=== PATIENT | male | born 1945 | race Caucasian/White ===

== ENCOUNTER → 2017-09-04 09:19 | Outpatient (CLI) | payer MEDICARE, OTHER, SELFPAY ==
[2017-09-04 09:40] LABS: Add Manual Diff / Slide Review NO; Basophils Percent Auto 0.7 % (0-2); Eosinophils Percent Auto 4.3 % (2-4); Hematocrit 34.9 % (41-53); Hemoglobin 11.5 g/dL (13.5-17.5); Mean Corpuscular HGB Conc 32.9 % (30-36); Mean Corpuscular Volume 100.2 fL (80-100); Monocytes Percent Auto 12.3 % (3-14); Neutrophils Absolute Auto 3700 /uL (3000-5900); Neutrophils Percent Auto 71.7 % (50-75); Platelet Count 220 X10^3/uL (150-400); Red Blood Cell Count 3.49 X10^6/uL (4.5-5.9); Red Cell Distribution Width 14.3 % (11.6-14.8); White Blood Cell Count 5.1 X10^3/uL (4.5-11.0)
[2017-09-04 10:02] LABS: Hemoglobin A1C% w Est Avg Glu 5.7 % (4.0-6.0)
[2017-09-04 11:25] LABS: Alanine Aminotransferase 35 IU/L (21-72); Albumin 4.1 g/dL (3.5-5.0); Albumin Globulin Ratio 1.6 (1.0-2.8); Alkaline Phosphatase 57 U/L (38-126); Aspartate Aminotransferase 33 IU/L (17-59); BUN Creatinine Ratio 22.7 (6-22); Bilirubin Total 0.7 mg/dL (0.2-1.3); Blood Urea Nitrogen 25 mg/dL (9-20); Calcium 9.6 mg/dL (8.4-10.2); Carbon Dioxide 28 mmol/L (22-32); Chloride 100 mmol/L (98-107); Cholesterol 186 mg/dL (140-199); Estimated Glomerular Filt Rate > 60.0 mL/min (>60); Globulin 2.6 g/dL (1.7-4.1); Glucose 99 mg/dL (80-110); HEMOLYSIS < 15 (0-50); Potassium 4.2 mmol/L (3.4-5.1); Sodium 137 mmol/L (137-145); Total Protein 6.7 g/dL (6.3-8.2); Triglycerides 57 mg/dL (35-150)
[2017-09-04 11:34] LABS: HDL Cholesterol 129 mg/dL (40-60); LDL Cholesterol Calculated 46 mg/dL (<100)
[2017-09-09 16:37] LABS: HEMOLYSIS < 15 (0-50); Iron 57 ug/dL (49-181)
[2017-09-09 16:48] LABS: Percent Iron Saturation 16 % (20-50); Total Iron Binding Capacity 352 ug/dL (261-462); Transferrin 284 mg/dL (206-381)
[2017-09-09 17:14] LABS: Ferritin 44.6 ng/mL (17.9-464)
== END ==
PROVIDERS: PCP Internal Medicine; Visit Provider Internal Medicine
DX: E11.9 Type 2 diabetes mellitus without complications (principal); I48.91 Unspecified atrial fibrillation; N18.9 Chronic kidney disease, unspecified
CPT/HCPCS: 36415; 80053; 80061; 82728; 83036; 83540; 83550; 85025

== ENCOUNTER → 2018-02-17 14:33 | Outpatient (CLI) | payer MEDICARE, OTHER, SELFPAY ==
--- NOTE | 2018-02-17 | DI.RAD.S_ITS ---
PROCEDURE: XR CHEST 2V INDICATIONS: Acute bronchiolitis, unspecified TECHNIQUE: 2 views of the chest were acquired. COMPARISON: [facility], , CHEST 2 VIEW, 12/15/2006, 15:01. FINDINGS: Surgical changes and devices: None. Lungs and pleura: No pleural effusions or pneumothorax. Mildly increased vascular markings and bilateral hilar region are seen with mild bronchial wall thickening consistent with reactive airway disease. No focal infiltrate. Mediastinum: Mediastinal contours are normal. Heart size is mildly enlarged. Bones and chest wall: No suspicious bony abnormalities. Soft tissues appear unremarkable. IMPRESSION: Findings consistent with reactive airway disease such as bronchitis. No definite focal infiltrate. Dictated by: Wilbert Fuchs M.D. on 02/17/2018 at 16:14 Approved by: Wilbert Fuchs M.D. on 02/17/2018 at 16:15
== END ==
PROVIDERS: PCP Internal Medicine; Visit Provider Internal Medicine
DX: J21.9 Acute bronchiolitis, unspecified (principal)
CPT/HCPCS: 71046

== ENCOUNTER 2018-04-05 12:51 | Emergency (ER) | payer MEDICARE, OTHER, SELFPAY ==
[2018-04-05 12:55] VITALS: BP 163/83; PULSE 77; RESP 16; TEMP 36.3; O2SAT 98; BMI 29.5
--- NOTE | 2018-04-05 13:29 | ED.LOWEXIN ---
HPI - Extremity Injury (Lower) <BISMARK Garcia - Last Filed: 04/05/18 21:56> General Chief Complaint: Extremity Injury, Lower Stated Complaint: banged his left lofton, states large hematoma/infect Time Seen by Provider: 04/05/18 13:29 Source: patient Mode of arrival: ambulatory Limitations: no limitations History of Present Illness HPI Narrative: 72-year-old male with history of kidney replacement and type 2 diabetes that is a nonsmoker here for complaint hematoma to his left anterior lofton over the past week. He reports that he accidentally bumped it while he was stepping on into a telephone pole. He was seen by primary care provider last week he reports that the hematoma to the lofton has decreased in size however he does report that there is some discoloration around that area they are concerned for infection. He denies any new trauma to the area. He is ambulatory into the emergency room. No fevers no chills. He does report there has been a couple times when he has had some small amount of bleeding from the area no purulent drainage. He is currently on warfarin due to AFib. MD complaint: leg injury Related Data Home Medications Medication Instructions Recorded Confirmed atorvastatin 10 mg tablet 10 mg PO DAILY 08/29/17 08/29/17 metformin 850 mg tablet 850 mg PO DAILY 08/29/17 08/29/17 metoprolol succinate ER 25 mg 25 mg PO DAILY 08/29/17 08/29/17 tablet,extended release 24 hr mycophenolate sodium 180 mg 720 mg PO BID 08/29/17 08/29/17 tablet,delayed release niacinamide 500 mg tablet 500 mg PO DAILY 08/29/17 08/29/17 pioglitazone 45 mg tablet 45 mg PO DAILY 08/29/17 08/29/17 prednisolone 5 mg tablet 5 mg PO DAILY 08/29/17 08/29/17 tacrolimus 1 mg capsule 1 mg PO Q12H 08/29/17 08/29/17 terazosin 5 mg capsule 5 mg PO DAILY 08/29/17 08/29/17 warfarin 4 mg tablet 4 mg PO DAILY 08/29/17 08/29/17 Previous Rx's Medication Instructions Recorded mupirocin 1 applictn TOP BID 7 Days #15 gram 04/05/18 Allergies Allergy/AdvReac Type Severity Reaction Status Date / Time No Known Drug Allergies Allergy Verified 04/05/18 12:55 Review of Systems <BISMARK Garcia - Last Filed: 04/05/18 21:56> Eyes Denies change in vision, Denies eye discharge, Denies irritation and Denies loss of vision ENT Ears, Nose, Mouth, and Throat: Denies change in voice, Denies neck pain and Denies sore throat Cardiovascular Denies chest pain, Denies irregular heart rhythm, Denies lightheadedness, Denies palpitations, Denies dyspnea, Denies dyspnea on exertion and Denies orthopnea Respiratory Denies cough, Denies dyspnea, Denies dyspnea on exertion and Denies wheezing Gastrointestinal Gastrointestinal: Denies abdominal pain, Denies change in bowel habits, Denies diarrhea, Denies nausea and Denies vomiting Genitourinary Denies hematuria, Denies flank pain, Denies urinary incontinence and Denies urinary urgency Musculoskeletal Denies neck pain Comments: Hematoma to left anterior lofton Integumentary/Breasts Denies pruritus, Denies erythema, Denies rash and Denies wounds Neurologic Denies confusion and Denies loss of vision Psychiatric Denies anxiety, Denies confusion, Denies depression, Denies homicidal ideation and Denies suicidal ideation Endocrine Denies palpitations Hematologic/Lymphatic Denies easy bruising Allergic/Immunologic Denies wheezing PFSH <BISMARK Garcia - Last Filed: 04/05/18 21:56> Social History Smoking Status: Never smoker Social History Smoking Status: Never smoker Exam <BISMARK Garcia - Last Filed: 04/05/18 21:56> Initial Vital Signs Initial Vital Signs: Vital Signs Temperature 97.4 F L 04/05/18 12:55 Pulse Rate 77 04/05/18 12:55 Respiratory Rate 16 04/05/18 12:55 Blood Pressure 163/83 H 04/05/18 12:55 Pulse Oximetry 98 04/05/18 12:55 Const General: cooperative and well developed Nutritional Appearance: well nourished Orientation: alert, awake, oriented x3 and not confused HENMT Mouth: oral mucosae normal, oropharynx normal and moist mucous membranes Eyes Conjunctivae: conjunctivae normal Sclera: sclerae normal Pupils: PERRL EOM: EOM intact bilaterally Resp Effort & Inspection: normal respiratory effort, able to speak in complete sentences, no respiratory distress and no use of accessory muscles Auscultation: clear to auscultation bilaterally, no rales, no rhonchi and no wheezes Cardio Rate: regular rate Rhythm: abnormal rhythm regularly irregular Heart Sounds: no click, no gallops, no murmurs and no rubs Skin General: no rashes or lesions noted, No jaundice and No petechiae Neuro General: alert, oriented x3, gait normal and no focal motor deficits Speech: speech normal Extrem Other: Hematoma to the left anterior lofton. Slight amount of erythema to the hematoma foundry. No significant signs of infection. No induration no fluctuance. Dependent ecchymosis distally from the hematoma. Distal sensation is intact. Distal pulses are intact distal range of motion is intact <Chilango Arita DO - Last Filed: 04/08/18 07:06> Initial Vital Signs Initial Vital Signs: Vital Signs Temperature 97.4 F L 04/05/18 12:55 Pulse Rate 77 04/05/18 12:55 Respiratory Rate 16 04/05/18 12:55 Blood Pressure 163/83 H 04/05/18 12:55 Pulse Oximetry 98 04/05/18 12:55 Course <BISMARK Garcia - Last Filed: 04/05/18 21:56> Orders Ordered: ED Orders 04/05/18 14:15 Complete Blood Count AUTO DIFF Stat Comprehensive Metabolic Panel Stat Procalcitonin Stat Prothrombin Time INR Stat Vital Signs - 8 hr 04/05/18 16:13 Pulse Rate 69 Respiratory Rate 15 Blood Pressure 145/78 H Pulse Oximetry 100 <DO Ginger Garrett Last Filed: 04/08/18 07:06> Orders Ordered: ED Orders 04/05/18 14:15 Complete Blood Count AUTO DIFF Stat Comprehensive Metabolic Panel Stat Procalcitonin Stat Prothrombin Time INR Stat Vital Signs - 8 hr 04/05/18 16:13 Pulse Rate 69 Respiratory Rate 15 Blood Pressure 145/78 H Pulse Oximetry 100 MDM - Extremity Injury (Lower) <BISMARK Garcia - Last Filed: 04/05/18 21:56> Lab Data Result diagrams: 04/05/18 14:15 04/05/18 14:15 Lab Results 04/05/18 04/05/18 04/05/18 Range/Units 14:15 14:15 14:15 WBC 7.4 (4.5-11.0) X10^3/uL RBC 3.65 L (4.5-5.9) X10^6/uL Hgb 12.0 L (13.5-17.5) g/dL Hct 36.4 L (41-53) % MCV 99.6 (80-100) fL MCH 32.9 (26-34) PG MCHC 33.1 (30-36) % RDW 15.0 H (11.6-14.8) % Plt Count 218 (150-400) X10^3/uL Neut % (Auto) 83.9 H (50-75) % Lymph % (Auto) 6.6 L (25-40) % [place] % (Auto) 8.6 (3-14) % Eos % (Auto) 0.7 L (2-4) % Baso % (Auto) 0.2 (0-2) % Neut # (Auto) 6200 (9098-5001) /uL Lymph # (Auto) 500 L (7580-6478) /uL [place] # (Auto) 600 (0-900) /uL Eos # (Auto) 0 (0-450) /uL Baso # (Auto) 0 (0-100) /uL PT 16.6 H (10.1-12.7) SECONDS INR 1.4 H (0.9-1.3) Sodium (137-145) mmol/L Potassium (3.4-5.1) mmol/L Chloride (98-107) mmol/L Carbon Dioxide (22-32) mmol/L BUN (9-20) mg/dL Creatinine (0.66-1.25) mg/dL Estimated GFR (>60) mL/min BUN/Creatinine Ratio (6-22) Glucose (80-110) mg/dL Calcium (8.4-10.2) mg/dL Total Bilirubin (0.2-1.3) mg/dL AST (17-59) IU/L ALT (21-72) IU/L Alkaline Phosphatase (38-126) U/L Total Protein (6.3-8.2) g/dL Albumin (3.5-5.0) g/dL Globulin (1.7-4.1) g/dL Albumin/Globulin Ratio (1.0-2.8) Procalcitonin < 0.05 (<0.5) ng/mL 04/05/18 Range/Units 14:15 WBC (4.5-11.0) X10^3/uL RBC (4.5-5.9) X10^6/uL Hgb (13.5-17.5) g/dL Hct (41-53) % MCV (80-100) fL MCH (26-34) PG MCHC (30-36) % RDW (11.6-14.8) % Plt Count (150-400) X10^3/uL Neut % (Auto) (50-75) % Lymph % (Auto) (25-40) % [place] % (Auto) (3-14) % Eos % (Auto) (2-4) % Baso % (Auto) (0-2) % Neut # (Auto) (4551-4927) /uL Lymph # (Auto) (0494-9451) /uL [place] # (Auto) (0-900) /uL Eos # (Auto) (0-450) /uL Baso # (Auto) (0-100) /uL PT (10.1-12.7) SECONDS INR (0.9-1.3) Sodium 135 L (137-145) mmol/L Potassium 4.9 (3.4-5.1) mmol/L Chloride 100 (98-107) mmol/L Carbon Dioxide 26 (22-32) mmol/L BUN 30 H (9-20) mg/dL Creatinine 1.10 (0.66-1.25) mg/dL Estimated GFR > 60.0 (>60) mL/min BUN/Creatinine Ratio 27.3 H (6-22) Glucose 147 H (80-110) mg/dL Calcium 10.0 (8.4-10.2) mg/dL Total Bilirubin 0.6 (0.2-1.3) mg/dL AST 32 (17-59) IU/L ALT 27 (21-72) IU/L Alkaline Phosphatase 52 (38-126) U/L Total Protein 7.1 (6.3-8.2) g/dL Albumin 4.4 (3.5-5.0) g/dL Globulin 2.7 (1.7-4.1) g/dL Albumin/Globulin Ratio 1.6 (1.0-2.8) Procalcitonin (<0.5) ng/mL ECG Data Interpretation: EKG shows sinus rhythm with no ST elevation or depression. No ectopy. Ventricular rate of 67. Pr interval of 175. QRS duration of 150. QTC of 419. MDM Narrative Medical decision making narrative: CBC was obtained and shows anemia with hemoglobin at 12 and 36 however is consistent with prior lab values. INR was at 1.4 subtherapeutic however patient has not taking his warfarin for a few days due to the hematoma. He is currently taking his warfarin again. Chem panel was obtained was unremarkable. Procalcitonin was negative. Do not appreciate signs of infection at this timeframe. Discoloration presents as dependent ecchymosis secondary to the hematoma and healing. However Will treat conservatively with topical antibiotic mupirocin at this point follow up with primary care provider next few days for re-evaluation. Use [id number] Tylenol as needed for any discomfort. For any worsening symptoms return to the emergency room. <Chilango Arita DO - Last Filed: 04/08/18 07:06> Lab Data Lab Results 04/05/18 04/05/18 04/05/18 Range/Units 14:15 14:15 14:15 WBC 7.4 (4.5-11.0) X10^3/uL RBC 3.65 L (4.5-5.9) X10^6/uL Hgb 12.0 L (13.5-17.5) g/dL Hct 36.4 L (41-53) % MCV 99.6 (80-100) fL MCH 32.9 (26-34) PG MCHC 33.1 (30-36) % RDW 15.0 H (11.6-14.8) % Plt Count 218 (150-400) X10^3/uL Neut % (Auto) 83.9 H (50-75) % Lymph % (Auto) 6.6 L (25-40) % [place] % (Auto) 8.6 (3-14) % Eos % (Auto) 0.7 L (2-4) % Baso % (Auto) 0.2 (0-2) % Neut # (Auto) 6200 (1180-9081) /uL Lymph # (Auto) 500 L (0631-5538) /uL [place] # (Auto) 600 (0-900) /uL Eos # (Auto) 0 (0-450) /uL Baso # (Auto) 0 (0-100) /uL PT 16.6 H (10.1-12.7) SECONDS INR 1.4 H (0.9-1.3) Sodium (137-145) mmol/L Potassium (3.4-5.1) mmol/L Chloride (98-107) mmol/L Carbon Dioxide (22-32) mmol/L BUN (9-20) mg/dL Creatinine (0.66-1.25) mg/dL Estimated GFR (>60) mL/min BUN/Creatinine Ratio (6-22) Glucose (80-110) mg/dL Calcium (8.4-10.2) mg/dL Total Bilirubin (0.2-1.3) mg/dL AST (17-59) IU/L ALT (21-72) IU/L Alkaline Phosphatase (38-126) U/L Total Protein (6.3-8.2) g/dL Albumin (3.5-5.0) g/dL Globulin (1.7-4.1) g/dL Albumin/Globulin Ratio (1.0-2.8) Procalcitonin < 0.05 (<0.5) ng/mL 04/05/18 Range/Units 14:15 WBC (4.5-11.0) X10^3/uL RBC (4.5-5.9) X10^6/uL Hgb (13.5-17.5) g/dL Hct (41-53) % MCV (80-100) fL MCH (26-34) PG MCHC (30-36) % RDW (11.6-14.8) % Plt Count (150-400) X10^3/uL Neut % (Auto) (50-75) % Lymph % (Auto) (25-40) % [place] % (Auto) (3-14) % Eos % (Auto) (2-4) % Baso % (Auto) (0-2) % Neut # (Auto) (4075-7921) /uL Lymph # (Auto) (4811-2439) /uL [place] # (Auto) (0-900) /uL Eos # (Auto) (0-450) /uL Baso # (Auto) (0-100) /uL PT (10.1-12.7) SECONDS INR (0.9-1.3) Sodium 135 L (137-145) mmol/L Potassium 4.9 (3.4-5.1) mmol/L Chloride 100 (98-107) mmol/L Carbon Dioxide 26 (22-32) mmol/L BUN 30 H (9-20) mg/dL Creatinine 1.10 (0.66-1.25) mg/dL Estimated GFR > 60.0 (>60) mL/min BUN/Creatinine Ratio 27.3 H (6-22) Glucose 147 H (80-110) mg/dL Calcium 10.0 (8.4-10.2) mg/dL Total Bilirubin 0.6 (0.2-1.3) mg/dL AST 32 (17-59) IU/L ALT 27 (21-72) IU/L Alkaline Phosphatase 52 (38-126) U/L Total Protein 7.1 (6.3-8.2) g/dL Albumin 4.4 (3.5-5.0) g/dL Globulin 2.7 (1.7-4.1) g/dL Albumin/Globulin Ratio 1.6 (1.0-2.8) Procalcitonin (<0.5) ng/mL Discharge Plan Departure Patient Disposition: Home Clinical Impression: Hematoma of left lower extremity Qualifiers: Encounter type: initial encounter Qualified Code(s): S80.12XA - Contusion of left lower leg, initial encounter Discharge Date/Time: 04/05/18 16:14 Interventions: ED Discharge Assessment Last Done: 04/05/18 16:13 Instructions: DI for Hematoma (Bruise) Activity Restrictions/Additional Instructions: Laboratory results today were unremarkable with exception of iron are which was low at 1.4 continue taking the Coumadin as prescribed. Follow-up with your primary care provider in the next couple days for re-evaluation. Do not appreciate significant signs of infection at this time. Topical antibiotic is prescribed use as directed. Use [id number] Tylenol as needed for any discomfort. For any worsening symptoms return to the emergency room. Prescriptions: New mupirocin 2 % ointment 1 applictn TOP BID 7 Days Qty: 15 RF: 0 No Action tacrolimus 1 mg capsule 1 mg PO Q12H RF: 0 mycophenolate sodium 180 mg tablet,delayed release (DR/EC) 720 mg PO BID RF: 0 prednisolone 5 mg tablet 5 mg PO DAILY RF: 0 terazosin 5 mg capsule 5 mg PO DAILY RF: 0 metoprolol succinate 25 mg tablet extended release 24 hr 25 mg PO DAILY RF: 0 atorvastatin 10 mg tablet 10 mg PO DAILY RF: 0 pioglitazone [Actos] 45 mg tablet 45 mg PO DAILY RF: 0 metformin 850 mg tablet 850 mg PO DAILY RF: 0 warfarin 4 mg tablet 4 mg PO DAILY RF: 0 niacinamide 500 mg tablet 500 mg PO DAILY RF: 0 Referrals: [facility] MD [Primary Care Provider] - <Chilango Arita DO - Last Filed: 04/08/18 07:06> Cosign ED Attending Mathew Attestation: I was available for consultation during this patient's emergency department encounter
[2018-04-05 14:27] LABS: Add Manual Diff / Slide Review NO; Basophils Absolute Auto 0 /uL (0-100); Basophils Percent Auto 0.2 % (0-2); Eosinophils Absolute Auto 0 /uL (0-450); Eosinophils Percent Auto 0.7 % (2-4); Hematocrit 36.4 % (41-53); Lymphocytes Absolute Auto 500 /uL (1100-4500); Lymphocytes Percent Auto 6.6 % (25-40); Mean Corpuscular HGB Conc 33.1 % (30-36); Mean Corpuscular Hemoglobin 32.9 PG (26-34); Mean Corpuscular Volume 99.6 fL (80-100); Monocytes Absolute Auto 600 /uL (0-900); Monocytes Percent Auto 8.6 % (3-14); Neutrophils Absolute Auto 6200 /uL (1500-7000); Neutrophils Percent Auto 83.9 % (50-75); Platelet Count 218 X10^3/uL (150-400); Red Blood Cell Count 3.65 X10^6/uL (4.5-5.9); White Blood Cell Count 7.4 X10^3/uL (4.5-11.0)
[2018-04-05 14:34] LABS: INR 1.4 (0.9-1.3); Prothrombin Time 16.6 SECONDS (10.1-12.7)
[2018-04-05 14:45] LABS: Alanine Aminotransferase 27 IU/L (21-72); Albumin 4.4 g/dL (3.5-5.0); Albumin Globulin Ratio 1.6 (1.0-2.8); Alkaline Phosphatase 52 U/L (38-126); Aspartate Aminotransferase 32 IU/L (17-59); BUN Creatinine Ratio 27.3 (6-22); Bilirubin Total 0.6 mg/dL (0.2-1.3); Blood Urea Nitrogen 30 mg/dL (9-20); Carbon Dioxide 26 mmol/L (22-32); Chloride 100 mmol/L (98-107); Estimated Glomerular Filt Rate > 60.0 mL/min (>60); Globulin 2.7 g/dL (1.7-4.1); Glucose 147 mg/dL (80-110); HEMOLYSIS < 15 (0-50); Potassium 4.9 mmol/L (3.4-5.1); Sodium 135 mmol/L (137-145); Total Protein 7.1 g/dL (6.3-8.2)
[2018-04-05 15:04] LABS: Procalcitonin < 0.05 ng/mL (<0.5)
[2018-04-05 16:13] VITALS: BP 145/78; PULSE 69; RESP 15; O2SAT 100
== END 2018-04-05 16:14 | disposition home or self-care (01) ==
PROVIDERS: Emergency Provider Nurse Practitioner Family; PCP Internal Medicine
DX: S80.12XA Contusion of left lower leg, initial encounter (principal); W22.8XXA Striking against or struck by other objects, initial encounter
CPT/HCPCS: 80053; 84145; 85025; 85610; 99282; 99283

== ENCOUNTER → 2018-05-11 15:31 | Outpatient (CLI) | payer MEDICARE, OTHER, SELFPAY ==
--- NOTE | 2018-05-11 | DI.RAD.S_ITS ---
PROCEDURE: XR CHEST 2V INDICATIONS: COUGH TECHNIQUE: 2 views of the chest were acquired. COMPARISON: [facility], , XR CHEST 2V, 02/17/2018, 14:45. [facility], , CHEST 2 VIEW, 12/15/2006, 15:01. FINDINGS: Surgical changes and devices: None. Lungs and pleura: Lungs are mildly edematous. No pleural effusions or pneumothorax. Mediastinum: Mediastinal contours are normal. Heart size is mildly enlarged. Bones and chest wall: No suspicious bony abnormalities. Soft tissues appear unremarkable. IMPRESSION: Mild chronic CHF pattern, with reference to prior chest plain films. No definite exchange operator time, no pneumonia found. Dictated by: Conor Spence M.D. on 05/11/2018 at 16:38 Approved by: Conor Spence M.D. on 05/11/2018 at 16:39
== END ==
PROVIDERS: PCP Internal Medicine; Visit Provider Internal Medicine
DX: R05 Cough (principal); I50.9 Heart failure, unspecified
CPT/HCPCS: 71046

== ENCOUNTER → 2018-06-11 14:53 | Outpatient (CLI) | payer MEDICARE, OTHER, SELFPAY ==
--- NOTE | 2018-06-11 | DI.ECHO.S_ITS ---
[facility] +---------+ : : [address] [place] : : : : [id number] : : : : Phone: [phone] Echocardiogram Report + + :Name: ZEYAD HUERTA Study Date: 06/11/2018 Height: 69 in : :[facility] Weight: 202 lb : : Gender: Male BSA: 2.1 m2 : :: 1945 Age: 73 yrs BP: 160/80 mmHg: :Reason For Study: Congestive Heart Failure : : Performed By: Kera Hamm : :Referring: SUZAN DONOVAN : + + Interpretation Summary The patient was in atrial fibrillation with heart rates between 59-69 bpm during the exam. The left ventricle is normal in size. The ejection fraction is estimated to be 60-65%. The right ventricle is grossly normal size. Right ventricular systolic function is at the lower limits of normal. There is moderate mitral regurgitation. The peak aortic velocity is 2.8 m/sec. The aortic valve mean gradient is 14 mmHg. The calculated aortic valve area is 1.2 cm2. There is mild to moderate aortic stenosis. There is mild to moderate tricuspid regurgitation. The right ventricular systolic pressure is estimated to be at least 50 mmHg based on an estimated right atrial pressure of 8 mm Hg. Procedure: A two-dimensional transthoracic echocardiogram with color flow and Doppler was performed. The study quality was technically adequate. Comparison is made with the echocardiogram of 07-29-07. The patient was in atrial fibrillation with heart rates between 59-69 bpm during the exam. Left Ventricle: The left ventricle is normal in size. There is normal left ventricular wall thickness. There is no thrombus. A false chord is noted (normal variant). The ejection fraction is estimated to be 60-65%. There are no focal wall motion abnormalities. Diastolic function could not be accurately assessed due to atrial fibrillation. Right Ventricle: The right ventricle is grossly normal size. Right ventricular systolic function is at the lower limits of normal. Atria: The left atrium is severely dilated. The right atrium is mildly dilated. The interatrial septum is intact with no evidence for an atrial septal defect. Mitral Valve: The mitral valve leaflets appear mildly thickened, but open well. There is mild mitral annular calcification. There is moderate mitral regurgitation. Aortic Valve: The aortic valve is not well visualized. The aortic valve is mildly calcified. The calculated aortic valve area is 1.2 cm2. The peak aortic velocity is 2.8 m/sec. The aortic valve mean gradient is 14 mmHg. Severity ratio is 0.29. There is mild to moderate aortic stenosis. There is trace aortic regurgitation. Tricuspid Valve: The tricuspid valve leaflets are thin and pliable. There is mild to moderate tricuspid regurgitation. The right ventricular systolic pressure is estimated to be at least 50 mmHg based on an estimated right atrial pressure of 8 mm Hg. Pulmonic Valve: The pulmonic valve is not well seen, but is grossly normal. There is no pulmonic valvular regurgitation. Great Vessels: The aortic root is normal size. There is aortic root sclerosis/calcification. The dimensions of the ascending aorta are normal. The aortic arch is at the upper limits of normal in size. The IVC is dilated (diameter is greater than 2.1 cm) yet it collapses greater than 50% with a sniff. This suggests a right atrial pressure of 8 mm Hg. Pericardium/ Pleura There is no pericardial effusion. There is no pleural effusion. MMode/2D Measurements & Calculations LVIDd: 5.2 cm LVOT diam: 2.2 cm LVIDs: 2.9 cm Ao root diam: 3.2 cm FS: 45.0 % Aortic Jxn: 2.5 cm EPSS: 0.34 cm asc Aorta Diam: 3.1 cm IVSd: 1.1 cm Ao Arch Diam (Prox Trans): 3.1 cm LVPWd: 1.0 cm LV barragan. diameter/BSA (cm/m^2): 2.5 LV sys. diameter/BSA (cm/m^2): 1.4 LA dimension: 5.0 cm RA long axis: 6.5 cm LA A2 area: 34.0 cm2 RA area: 23.3 cm2 LA A4 area: 35.3 cm2 RA vol: 70.9 ml LA length (vol): 6.7 cm RA : 34.2 ml/m2 LA vol: 152.1 ml IVC diam: 2.3 cm LA vol index: 73.3 ml/m2 RVDd major: 6.3 cm RVD1 (basal): 4.4 cm RVD2 (mid): 3.6 cm OTILIA (plan): 1.6 cm2 Doppler Measurements & Calculations Ao V2 max: 276.6 cm/sec LVOT Max Job: 82.9 cm/sec Ao V2 mean: 169.5 cm/sec LV V1 max P.8 mmHg Ao max P.6 mmHg LV V1 VTI: 18.8 cm Ao mean P.0 mmHg OTILIA(I,D): 1.1 cm2 Ao V2 VTI: 63.9 cm OTILIA(V,D): 1.2 cm2 sev ratio: 0.29 OTILIA indexed to BSA (cm^2/m^2): 0.55 Med Peak E' Job: 6.0 cm/sec TR max job: 323.5 cm/sec Lat Peak E' Job: 8.8 cm/sec TR max P.9 mmHg MV P1/2t: 59.6 msec PA V2 max: 88.3 cm/sec MVA(VTI): 3.3 cm2 PA V2 mean: 53.8 cm/sec PA mean P.4 mmHg PA Accel Time: 0.11 sec MV V2 mean: 43.1 cm/sec MV P1/2t max job: 114.9 cm/sec MV mean P.2 mmHg MVA(P1/2t): 3.7 cm2 MV V2 VTI: 21.8 cm SV(LVOT): 72.8 ml Reading Physician:PM
== END ==
PROVIDERS: PCP Internal Medicine; Visit Provider Internal Medicine
DX: I08.3 Combined rheumatic disorders of mitral, aortic and tricuspid valves (principal); I50.9 Heart failure, unspecified
CPT/HCPCS: 93306

== ENCOUNTER 2019-04-12 10:22 | Emergency (ER) | payer MEDICARE, OTHER, SELFPAY ==
[2019-04-12] VITALS (24 sets, daily range): BP systolic 94–193; BP diastolic 51–95; PULSE 68–80; RESP 12–24; TEMP 36.4–36.9; O2SAT 95–100; BMI 30.2
--- NOTE | 2019-04-12 10:45 | ED.GENADULT ---
HPI - General Adult General Chief complaint: Dizziness Stated complaint: heart attack Time Seen by Provider: 04/12/19 10:36 Source: patient Mode of arrival: Ambulatory Limitations: no limitations History of Present Illness HPI narrative: Patient is a 74-year-old male. Approximately 2 years ago underwent a kidney transplant secondary to end-stage renal disease secondary to diabetes. States he has had no issues with the kidney since then. Has been taking all of his medications. He also has a history of paroxysmal atrial fibrillation. Is on Coumadin. Had blood drawn yesterday from his record changer. This was a routine blood draw. Was called today to come to the emergency department because his creatinine was elevated and his hemoglobin was low. Patient states that he has been having black colored stools but he also states that he was started on iron approximately 4 weeks ago which was when the black colored stool started. He was started on iron secondary to anemia. He states that over the past 10 days he has noticed the atrial fibrillation intermittently. He states that otherwise he is at his baseline. He states he feels just as good today is when he did a month ago. Related Data Home Medications Medication Instructions Recorded Confirmed metformin 850 mg tablet 850 mg PO BID 08/29/17 04/12/19 mycophenolate sodium 180 mg 360 mg PO BID 08/29/17 04/12/19 tablet,delayed release niacinamide 500 mg tablet 250 mg PO BID 08/29/17 04/12/19 tacrolimus 1 mg capsule 2 mg PO Q12H 08/29/17 04/12/19 warfarin 4 mg tablet See Rx Instructions .ROUTE .COMPLEX 08/29/17 04/12/19 amlodipine 2.5 mg PO QPM 04/12/19 04/12/19 aspirin 81 mg PO DAILY 04/12/19 04/12/19 atorvastatin 20 mg PO QPM 04/12/19 04/12/19 colchicine [Colcrys] mg 04/12/19 ergocalciferol (vitamin D2) 50,000 unit PO DAILY 04/12/19 04/12/19 [Vitamin D2] furosemide 20 mg PO DAILY 04/12/19 04/12/19 lisinopril 2.5 mg PO BID 04/12/19 04/12/19 metoprolol succinate 50 mg PO DAILY 04/12/19 04/12/19 pioglitazone 30 mg PO DAILY 04/12/19 04/12/19 prednisone 5 mg PO DAILY 04/12/19 04/12/19 terazosin 4 mg PO QPM 04/12/19 04/12/19 warfarin See Rx Instructions .ROUTE .COMPLEX 04/12/19 04/12/19 Previous Rx's Medication Instructions Recorded esomeprazole magnesium [Nexium 20 mg PO DAILY #30 cap 04/12/19 24HR] Allergies Allergy/AdvReac Type Severity Reaction Status Date / Time No Known Drug Allergies Allergy Verified 04/12/19 10:34 Review of Systems Constitutional Constitutional: Denies fever(s) and Denies headache(s) ENT Ears, Nose, Mouth, and Throat: Denies headache(s) Cardiovascular Cardiovascular: Denies chest pain, Reports palpitations and Denies dyspnea Comments: Occasional atrial fibrillation Respiratory Respiratory: Denies dyspnea Gastrointestinal Gastrointestinal: Denies abdominal pain, Denies nausea and Denies vomiting Comments: Dark colored stools Genitourinary Genitourinary: Denies hematuria Musculoskeletal Musculoskeletal: Denies myalgias and Denies arthralgias Integumentary/Breasts Skin/Breast: Denies lesions and Denies rash Neurologic Neurologic: Denies behavioral changes and Denies headache(s) Psychiatric Psychiatric: Denies behavioral changes Endocrine Endocrine: Reports palpitations Hematologic/Lymphatic Comments: On Coumadin Patient History Medical History Atrial fibrillation (Acute) Diabetes (Acute) Surgical History Kidney transplant recipient (Acute) Social History Smoking Status: Never smoker Smoking Status: Never smoker alcohol intake frequency: 0-2 drinks per day Substance Use Type: does not use Exam Initial Vital Signs Initial Vital Signs: Vital Signs Temperature 97.5 F L 04/12/19 10:34 Pulse Rate 74 04/12/19 10:34 Respiratory Rate 12 04/12/19 10:34 Blood Pressure 94/51 L 04/12/19 10:34 Pulse Oximetry 95 04/12/19 10:34 Const General: cooperative, comfortable, well developed and well groomed Limitations: mental status not altered Resp Effort & Inspection: normal respiratory effort Auscultation: clear to auscultation bilaterally Cardio Rate: regular rate Rhythm: regular rhythm GI Inspection: non-distended Palpation: soft and No firm Rectal Exam: heme positive stool Skin Lesions: no lesions Rashes: no rashes Neuro General: alert, awake and oriented x3 Cognition: normal cognition Speech: speech normal Extrem General: normal to inspection and capillary refill normal Psych Appearance: grossly normal and well kempt Scores GCS [place] coma scale eye opening: Spontaneous [place] coma scale verbal response: Orientated [place] coma scale motor response: Obey commands [place] coma scale total score: 15 Course Orders Ordered: ED Orders 04/12/19 10:48 EKG-12 Lead Stat 04/12/19 10:50 Complete Blood Count AUTO DIFF Stat Comprehensive Metabolic Panel Stat Lipase Stat Packed Cells Stat Partial Thromboplastin Time Stat Prothrombin Time INR Stat Type and Screen Stat Discontinued Medications Pantoprazole Sodium (Protonix) 40 mg IV NOW ONE Stop: 04/12/19 12:00 Last Admin: 04/12/19 12:12 Dose: 40 mg Documented by: LUCIE Vital Signs Vital signs: Vital Signs - 8 hr 04/12/19 11:15 04/12/19 11:30 04/12/19 12:00 Temperature Pulse Rate 73 73 73 Respiratory Rate 24 20 12 Blood Pressure Blood Pressure [Right Arm] 132/63 138/65 158/71 H Pulse Oximetry 99 100 100 04/12/19 12:30 04/12/19 13:00 04/12/19 13:30 Temperature Pulse Rate 72 73 70 Respiratory Rate 21 20 22 Blood Pressure Blood Pressure [Right Arm] 146/67 H 137/65 152/65 H Pulse Oximetry 100 100 100 04/12/19 14:00 04/12/19 15:00 04/12/19 15:10 Temperature 97.7 F Pulse Rate 72 70 71 Respiratory Rate 23 20 23 Blood Pressure 157/80 H Blood Pressure [Right Arm] 146/70 H 139/74 Pulse Oximetry 99 100 04/12/19 15:26 04/12/19 15:30 04/12/19 16:11 Temperature 97.7 F 97.7 F Pulse Rate 80 68 71 Respiratory Rate 23 16 20 Blood Pressure 145/64 H 147/70 H Blood Pressure [Right Arm] 165/71 H Pulse Oximetry 99 04/12/19 16:31 04/12/19 16:42 04/12/19 16:43 Temperature 97.7 F Pulse Rate 70 70 68 Respiratory Rate 20 20 14 Blood Pressure 144/79 H Blood Pressure [Right Arm] 147/70 H 155/76 H Pulse Oximetry 100 99 04/12/19 17:08 04/12/19 17:10 04/12/19 17:15 Temperature 98.5 F 98.5 F 98.5 F Pulse Rate 68 72 70 Respiratory Rate 24 24 22 Blood Pressure 176/78 H 176/78 H Blood Pressure [Right Arm] 176/78 H Pulse Oximetry 99 04/12/19 17:25 04/12/19 18:00 04/12/19 18:10 Temperature 98.5 F 98.5 F Pulse Rate 69 69 72 Respiratory Rate 23 18 20 Blood Pressure 183/81 H 174/80 H Blood Pressure [Right Arm] 174/80 H Pulse Oximetry 04/12/19 18:21 Temperature 98.4 F Pulse Rate 69 Respiratory Rate 22 Blood Pressure 181/84 H Blood Pressure [Right Arm] Pulse Oximetry Medical Decision Making Lab Data Lab results reviewed: Yes I reviewed the patient's lab results. Result diagrams: 04/12/19 10:50 04/12/19 10:50 Labs: Lab Results 04/12/19 04/12/19 04/12/19 Range/Units 10:50 10:50 10:50 WBC 5.0 (4.5-11.0) X10^3/uL RBC 2.30 L (4.5-5.9) X10^6/uL Hgb 5.5 L* (13.5-17.5) g/dL Hct 18.5 L* (41-53) % MCV 80.5 (80-100) fL MCH 23.9 L (26-34) PG MCHC 29.7 L (30-36) % RDW 20.1 H (11.6-14.8) % Plt Count 297 (150-400) X10^3/uL Neut % (Auto) 65.4 (50-75) % Lymph % (Auto) 18.6 L (25-40) % Nance % (Auto) 12.3 (3-14) % Eos % (Auto) 2.7 (2-4) % Baso % (Auto) 1.0 (0-2) % Neut # (Auto) 3300 (2648-8143) /uL Lymph # (Auto) 900 L (0514-2888) /uL Nance # (Auto) 600 (0-900) /uL Eos # (Auto) 100 (0-450) /uL Baso # (Auto) 100 (0-100) /uL RBC Morphology Not Reportable Hypochromasia 2+ H Poikilocytosis 2+ H Anisocytosis 2+ H PT 37.6 H (10.1-12.7) SECONDS INR 3.3 H (0.9-1.3) APTT 37 H (26.4-36.2) SECONDS Sodium 139 (137-145) mmol/L Potassium 4.6 (3.4-5.1) mmol/L Chloride 108 H (98-107) mmol/L Carbon Dioxide 20 L (22-32) mmol/L BUN 51 H (9-20) mg/dL Creatinine 1.60 H (0.66-1.25) mg/dL Estimated GFR 42.3 L (>60) mL/min BUN/Creatinine Ratio 31.9 H (6-22) Glucose 166 H (80-110) mg/dL Calcium 9.5 (8.4-10.2) mg/dL Total Bilirubin 0.3 (0.2-1.3) mg/dL AST 22 (17-59) IU/L ALT 14 (<50) IU/L Alkaline Phosphatase 42 (38-126) U/L Total Protein 6.1 L (6.3-8.2) g/dL Albumin 3.7 (3.5-5.0) g/dL Globulin 2.4 (1.7-4.1) g/dL Albumin/Globulin Ratio 1.5 (1.0-2.8) Lipase 237 (23-300) U/L Blood Type Antibody Screen Crossmatch 04/12/19 Range/Units 10:50 WBC (4.5-11.0) X10^3/uL RBC (4.5-5.9) X10^6/uL Hgb (13.5-17.5) g/dL Hct (41-53) % MCV (80-100) fL MCH (26-34) PG MCHC (30-36) % RDW (11.6-14.8) % Plt Count (150-400) X10^3/uL Neut % (Auto) (50-75) % Lymph % (Auto) (25-40) % Nance % (Auto) (3-14) % Eos % (Auto) (2-4) % Baso % (Auto) (0-2) % Neut # (Auto) (4753-8952) /uL Lymph # (Auto) (6917-9457) /uL Nance # (Auto) (0-900) /uL Eos # (Auto) (0-450) /uL Baso # (Auto) (0-100) /uL RBC Morphology Hypochromasia Poikilocytosis Anisocytosis PT (10.1-12.7) SECONDS INR (0.9-1.3) APTT (26.4-36.2) SECONDS Sodium (137-145) mmol/L Potassium (3.4-5.1) mmol/L Chloride (98-107) mmol/L Carbon Dioxide (22-32) mmol/L BUN (9-20) mg/dL Creatinine (0.66-1.25) mg/dL Estimated GFR (>60) mL/min BUN/Creatinine Ratio (6-22) Glucose (80-110) mg/dL Calcium (8.4-10.2) mg/dL Total Bilirubin (0.2-1.3) mg/dL AST (17-59) IU/L ALT (<50) IU/L Alkaline Phosphatase (38-126) U/L Total Protein (6.3-8.2) g/dL Albumin (3.5-5.0) g/dL Globulin (1.7-4.1) g/dL Albumin/Globulin Ratio (1.0-2.8) Lipase (23-300) U/L Blood Type A Negative Antibody Screen Negative Crossmatch See Detail Urine Dip Bedside Urine Glucose Negative Bedside Urine Bilirubin - Negative Bedside Urine Ketone - Negative Urine Specific [place] 1.015 Bedside Urine Occult Blood - Negative Bedside Urine pH 5.5 Bedside Urine Protein - Negative Bedside Urine Urobilinogen - Negative Bedside Urine Nitrite - Negative Bedside Urine Leukocytes - Negative Esterase Point of care testing: Urine Dip Bedside Urine Glucose Negative Bedside Urine Bilirubin - Negative Bedside Urine Ketone - Negative Urine Specific [place] 1.015 Bedside Urine Occult Blood - Negative Bedside Urine pH 5.5 Bedside Urine Protein - Negative Bedside Urine Urobilinogen - Negative Bedside Urine Nitrite - Negative Bedside Urine Leukocytes - Negative Esterase ECG Data Attestation: I personally reviewed and interpreted this ECG as follows: Prior ECG tracings: not available for review Interpretation: Atrial fibrillation Ventricular rate is 70 Normal axis Normal QRS Nonspecific ST T wave changes MDM Narrative Medical decision making narrative: Patient is anemic however is only symptoms that he states that he has been getting somewhat lightheaded with standing. This is not necessarily a new symptom but he does state that has been potentially worsening over the past couple days. No chest pain. Not hypotensive. Not tachycardic. He is Hemoccult positive. Did have a colonoscopy within the past 3 years and was told that everything was normal. He did not have any polyps. He has had a gastric ulcer in the past but that was several years ago. Is not currently on any reflux medications. He is on Coumadin secondary to what I found out was persistent AFib. A GI source is most likely the source of his anemia. I did discuss the case with his quality systems specialist to stated that given his labs and his presentation today that we should stop the Coumadin. Patient does have a follow-up with his quality systems specialist tomorrow. I also discussed the patient's lab with his record changer. His record changer agreed that he needed a blood transfusion. Patient was given a radiated and leuko reduced blood. He deferred any comment on the need for stopping the Coumadin to the patient's quality systems specialist. The patient's who is at bedside talked with their transplant team who stated that stopping the Coumadin would be a to the quality systems specialist. Given the patient's stable vital signs, his presentation, his follow-up with Cardiology tomorrow, is follow-up with Nephrology on Thursday that patient can be discharged home. He is stable. We will start him on Nexium. He will take the Nexium nursing home between his other doses of medications. We did discuss strict return precautions. The patient and expressed understanding and agreement with plan. Discharge Plan Departure Patient Disposition: Home Clinical Impression: Anemia Qualifiers: Anemia type: unspecified type Qualified Code(s): D64.9 - Anemia, unspecified GI bleed Qualifiers: GI bleed type/associated pathology: unspecified gastrointestinal hemorrhage type Qualified Code(s): K92.2 - Gastrointestinal hemorrhage, unspecified Instructions: Anemia Activity Restrictions/Additional Instructions: Continue all of your medications as directed except we are going to have you stop taking the warfarin/Coumadin. We are going to have you start taking the Nexium that you were given a prescription for this evening. Take it nursing home in between your other medications like we discussed. Keep your follow-up appointment tomorrow with Cardiology in on Thursday with your record changer. Recommend you talk with your primary provider about a referral to see Gastroenterology to discuss a colonoscopy/upper endoscopy. Return to the emergency department for any new or worsening symptoms. Your prescriptions were electronically transmitted to safely Prescriptions: New esomeprazole magnesium [Nexium 24HR] 20 mg capsule,delayed release(DR/EC) 20 mg PO DAILY Qty: 30 RF: 0 No Action tacrolimus 1 mg capsule 2 mg PO Q12H RF: 0 mycophenolate sodium 180 mg tablet,delayed release (DR/EC) 360 mg PO BID RF: 0 metformin 850 mg tablet 850 mg PO BID RF: 0 warfarin 4 mg tablet See Rx Instructions .ROUTE .COMPLEX RF: 0 niacinamide 500 mg tablet 250 mg PO BID RF: 0 atorvastatin 20 mg tablet 20 mg PO QPM RF: 0 metoprolol succinate 50 mg tablet extended release 24 hr 50 mg PO DAILY RF: 0 prednisone 5 mg tablet 5 mg PO DAILY RF: 0 terazosin 2 mg capsule 4 mg PO QPM RF: 0 warfarin 5 mg tablet See Rx Instructions .ROUTE .COMPLEX RF: 0 furosemide 20 mg tablet 20 mg PO DAILY RF: 0 ergocalciferol (vitamin D2) [Vitamin D2] 1,250 mcg (50,000 unit) capsule 50,000 unit PO DAILY RF: 0 colchicine [Colcrys] 0.6 mg tablet RF: 0 pioglitazone 30 mg tablet 30 mg PO DAILY RF: 0 lisinopril 2.5 mg tablet 2.5 mg PO BID RF: 0 amlodipine 5 mg Tablet 2.5 mg PO QPM RF: 0 aspirin 81 mg Tablet,Delayed Release (Dr/Ec) 81 mg PO DAILY RF: 0 Referrals: [place] De MD [Primary Care Provider] -
[2019-04-12 11:01] LABS: Add Manual Diff / Slide Review NO; Basophils Absolute Auto 100 /uL (0-100); Eosinophils Absolute Auto 100 /uL (0-450); Eosinophils Percent Auto 2.7 % (2-4); Lymphocytes Absolute Auto 900 /uL (1100-4500); Lymphocytes Percent Auto 18.6 % (25-40); Mean Corpuscular HGB Conc 29.7 % (30-36); Mean Corpuscular Hemoglobin 23.9 PG (26-34); Mean Corpuscular Volume 80.5 fL (80-100); Monocytes Absolute Auto 600 /uL (0-900); Monocytes Percent Auto 12.3 % (3-14); Neutrophils Absolute Auto 3300 /uL (1500-7000); Neutrophils Percent Auto 65.4 % (50-75); Platelet Count 297 X10^3/uL (150-400); Red Cell Distribution Width 20.1 % (11.6-14.8)
[2019-04-12 11:03] LABS: Hematocrit 18.5 % (41-53); Hemoglobin 5.5 g/dL (13.5-17.5)
[2019-04-12 11:08] LABS: INR 3.3 (0.9-1.3); Prothrombin Time 37.6 SECONDS (10.1-12.7)
[2019-04-12 11:10] LABS: PTT Partial Thromboplastin Tim 37 SECONDS (26.4-36.2)
[2019-04-12 11:15] LABS: Alanine Aminotransferase 14 IU/L (<50); Albumin 3.7 g/dL (3.5-5.0); Albumin Globulin Ratio 1.5 (1.0-2.8); Alkaline Phosphatase 42 U/L (38-126); Aspartate Aminotransferase 22 IU/L (17-59); BUN Creatinine Ratio 31.9 (6-22); Bilirubin Total 0.3 mg/dL (0.2-1.3); Blood Urea Nitrogen 51 mg/dL (9-20); Calcium 9.5 mg/dL (8.4-10.2); Carbon Dioxide 20 mmol/L (22-32); Chloride 108 mmol/L (98-107); Estimated Glomerular Filt Rate 42.3 mL/min (>60); Globulin 2.4 g/dL (1.7-4.1); Glucose 166 mg/dL (80-110); HEMOLYSIS < 15 (0-50); Lipase 237 U/L (23-300); Potassium 4.6 mmol/L (3.4-5.1); Sodium 139 mmol/L (137-145); Total Protein 6.1 g/dL (6.3-8.2)
[2019-04-12 11:19] LABS: Anisocytosis 2+; Hypochromasia 2+; Poikilocytosis 2+
[2019-04-12] MEDS: PANTOPRAZOLE 40 MG VIAL IV (12:12)
== END 2019-04-12 18:59 | disposition home or self-care (01) ==
PROVIDERS: Emergency Provider Emergency Medicine; PCP Internal Medicine
DX: D64.9 Anemia, unspecified (principal); K92.2 Gastrointestinal hemorrhage, unspecified; R00.2 Palpitations; I48.91 Unspecified atrial fibrillation; Z79.01 Long term (current) use of anticoagulants
CPT/HCPCS: 36415; 36430; 80053; 81003; 83690; 85025; 85610; 85730; 86850; 86900; 86901; 86945; 93005; 96374; 99285; P9016; P9040; C9113

== ENCOUNTER → 2019-11-22 11:44 | Outpatient (CLI) | payer MEDICARE, OTHER, SELFPAY | PROVIDERS: PCP Family Medicine; Referring Provider Internal Medicine Cardiovascular Disease; Visit Provider Internal Medicine Cardiovascular Disease | DX: Z01.818 Encounter for other preprocedural examination (principal) | CPT/HCPCS: 93005; 93010 ==

== ENCOUNTER → 2019-12-11 14:38 | Outpatient (CLI) | payer MEDICARE, OTHER, SELFPAY ==
[2019-12-12 14:50] LABS: COVID19 Sendout Not Detected (Not Detect)
== END ==
PROVIDERS: PCP Family Medicine; Visit Provider Physician Assistant
DX: Z01.812 Encounter for preprocedural laboratory examination (principal)
CPT/HCPCS: 87635

== ENCOUNTER → 2020-01-31 09:39 | Outpatient (CLI) | payer MEDICARE, OTHER, SELFPAY ==
[2020-01-31 10:11] LABS: Add Manual Diff / Slide Review NO; Basophils Absolute Auto 0 /uL (0-100); Basophils Percent Auto 0.8 % (0-2); Eosinophils Absolute Auto 200 /uL (0-450); Eosinophils Percent Auto 3.2 % (2-4); Hematocrit 32.9 % (41-53); Hemoglobin 10.5 g/dL (13.5-17.5); Lymphocytes Absolute Auto 600 /uL (1100-4500); Lymphocytes Percent Auto 12.3 % (25-40); Mean Corpuscular Hemoglobin 31.5 PG (26-34); Mean Corpuscular Volume 98.5 fL (80-100); Monocytes Absolute Auto 400 /uL (0-900); Monocytes Percent Auto 8.2 % (3-14); Neutrophils Absolute Auto 3900 /uL (1500-7000); Neutrophils Percent Auto 75.5 % (50-75); Platelet Count 314 X10^3/uL (150-400); Red Blood Cell Count 3.34 X10^6/uL (4.5-5.9); Red Cell Distribution Width 15.8 % (11.6-14.8); White Blood Cell Count 5.1 X10^3/uL (4.5-11.0)
[2020-01-31 10:47] LABS: Cholesterol 209 mg/dL (140-199); HDL Cholesterol 96 mg/dL (40-60); LDL Cholesterol Calculated 93 mg/dL (<100); Triglycerides 102 mg/dL (35-150); Uric Acid 7.3 mg/dL (3.5-8.5)
[2020-01-31 11:10] LABS: Prostate Specific Antigen Scrn 3.66 ng/mL (0.1-4.0)
[2020-01-31 11:11] LABS: Creatinine Urine Random 75.4 mg/dL
[2020-01-31 11:16] LABS: Microalbumi Creatinin Ratio Ur 55.7 ug/mg CR (<30); Microalbumin Urine Random 4.2 mg/dL (0-1.6)
== END ==
PROVIDERS: PCP Family Medicine; Referring Provider Family Medicine; Visit Provider Family Medicine
DX: E11.9 Type 2 diabetes mellitus without complications (principal); Z12.11 Encounter for screening for malignant neoplasm of colon; I48.91 Unspecified atrial fibrillation; N28.9 Disorder of kidney and ureter, unspecified; Z12.5 Encounter for screening for malignant neoplasm of prostate
CPT/HCPCS: 36415; 80061; 82043; 82570; 83036; 84550; 85025; G0103

== ENCOUNTER → 2020-04-24 13:35 | Outpatient (CLI) | payer MEDICARE, OTHER, SELFPAY ==
[2020-04-24 14:34] LABS: Add Manual Diff / Slide Review NO; Basophils Absolute Auto 0 /uL (0-100); Basophils Percent Auto 0.2 % (0-2); Eosinophils Absolute Auto 200 /uL (0-450); Eosinophils Percent Auto 2.4 % (2-4); Hematocrit 37.1 % (41-53); Hemoglobin 11.8 g/dL (13.5-17.5); Lymphocytes Absolute Auto 400 /uL (1100-4500); Lymphocytes Percent Auto 6.7 % (25-40); Mean Corpuscular HGB Conc 31.8 % (30-36); Mean Corpuscular Hemoglobin 30.3 PG (26-34); Mean Corpuscular Volume 95.3 fL (80-100); Monocytes Absolute Auto 600 /uL (0-900); Monocytes Percent Auto 8.7 % (3-14); Neutrophils Absolute Auto 5200 /uL (1500-7000); Platelet Count 228 X10^3/uL (150-400); Red Blood Cell Count 3.89 X10^6/uL (4.5-5.9); Red Cell Distribution Width 14.9 % (11.6-14.8); White Blood Cell Count 6.4 X10^3/uL (4.5-11.0)
[2020-04-24 14:46] LABS: Hemoglobin A1C% w Est Avg Glu 6.5 % (4.0-6.0)
[2020-04-24 14:58] LABS: Alanine Aminotransferase 16 IU/L (<50); Albumin 4.3 g/dL (3.5-5.0); Albumin Globulin Ratio 1.5 (1.0-2.8); Alkaline Phosphatase 95 U/L (38-126); Aspartate Aminotransferase 31 IU/L (17-59); BUN Creatinine Ratio 30.6 (6-22); Bilirubin Total 0.6 mg/dL (0.2-1.3); Blood Urea Nitrogen 38 mg/dL (9-20); Carbon Dioxide 30 mmol/L (22-32); Chloride 103 mmol/L (98-107); Estimated Glomerular Filt Rate 56.7 mL/min (>60); Globulin 2.8 g/dL (1.7-4.1); Glucose 129 mg/dL (80-110); HEMOLYSIS < 15 (0-50); Sodium 135 mmol/L (137-145); Total Protein 7.1 g/dL (6.3-8.2)
[2020-04-24 15:25] LABS: TSH w/ Reflex to FT4 4.69 uIU/mL (0.47-4.68)
[2020-04-24 15:51] LABS: Free T4, Direct Thyroxine 0.81 ng/dL (0.78-2.19)
== END ==
PROVIDERS: PCP Family Medicine; Referring Provider Family Medicine; Visit Provider Family Medicine
DX: E11.9 Type 2 diabetes mellitus without complications (principal); I10 Essential (primary) hypertension; I48.91 Unspecified atrial fibrillation; Z13.29 Encounter for screening for other suspected endocrine disorder
CPT/HCPCS: 36415; 80053; 83036; 84439; 84443; 85025

== ENCOUNTER → 2020-06-19 12:00 | Outpatient (CLI) | payer MEDICARE, OTHER, SELFPAY ==
--- NOTE | 2020-06-19 12:02 | DI.RAD.S_ITS ---
PROCEDURE: XR LUMBAR SPINE 2-3V INDICATIONS: Progressive lower back pain with radiculopathy TECHNIQUE: 3 views of the lumbar spine were acquired. COMPARISON: None. FINDINGS: Bones: 5 [id number] vertebrae are present. There is normal bony alignment. No vertebral body compression fractures. No suspicious bony lesions. Soft tissues: Overlying bowel gas pattern is normal. No suspicious soft tissue calcifications. IMPRESSION: Along the lumbosacral spine at the thoracolumbar junction and upper LS spine there is only mild degenerative disc height reduction. At L2-L3 there is severe degenerative disc disease with [id number] apposition. Moderate to moderately severe L3-4 degenerative disc height reduction is present and at L4-5 there is only minimal degenerative change. L5-S1 there is slight retrolisthesis of L5 likely due to ligamentous laxity in the setting of progressively greater facet osteoarthritis from L2-3 inferiorly. No compression fracture found. Dictated by: Conor Spence M.D. on 06/19/2020 at 14:09 Approved by: Conor Spence M.D. on 06/19/2020 at 14:12
== END ==
PROVIDERS: PCP Family Medicine; Referring Provider Family Medicine; Visit Provider Family Medicine
DX: M51.16 Intervertebral disc disorders with radiculopathy, lumbar region (principal); M47.26 Other spondylosis with radiculopathy, lumbar region
CPT/HCPCS: 72100

== ENCOUNTER 2020-10-03 10:31 | Emergency (ER) | payer MEDICARE, OTHER, SELFPAY ==
[2020-10-03] VITALS (19 sets, daily range): BP systolic 127–164; BP diastolic 63–104; PULSE 79–106; RESP 19–26; TEMP 36.5–36.7; O2SAT 95–100; BMI 30.7
[2020-10-03 11:37] LABS: Add Manual Diff / Slide Review NO; Basophils Absolute Auto 0 /uL (0-100); Basophils Percent Auto 0.6 % (0-2); Eosinophils Absolute Auto 100 /uL (0-450); Eosinophils Percent Auto 1.7 % (2-4); Hematocrit 25.4 % (41-53); Hemoglobin 8.2 g/dL (13.5-17.5); Lymphocytes Absolute Auto 600 /uL (1100-4500); Lymphocytes Percent Auto 9.4 % (25-40); Mean Corpuscular HGB Conc 32.1 % (30-36); Mean Corpuscular Hemoglobin 30.6 PG (26-34); Mean Corpuscular Volume 95.3 fL (80-100); Monocytes Absolute Auto 700 /uL (0-900); Monocytes Percent Auto 11.7 % (3-14); Neutrophils Absolute Auto 4800 /uL (1500-7000); Neutrophils Percent Auto 76.6 % (50-75); Platelet Count 297 X10^3/uL (150-400); Red Blood Cell Count 2.67 X10^6/uL (4.5-5.9); Red Cell Distribution Width 15.7 % (11.6-14.8); White Blood Cell Count 6.3 X10^3/uL (4.5-11.0)
[2020-10-03 11:52] LABS: Alanine Aminotransferase 15 IU/L (<50); Albumin 3.6 g/dL (3.5-5.0); Albumin Globulin Ratio 1.2 (1.0-2.8); Alkaline Phosphatase 70 U/L (38-126); Aspartate Aminotransferase 21 IU/L (17-59); BUN Creatinine Ratio 28.7 (6-22); Bilirubin Total 0.4 mg/dL (0.2-1.3); Blood Urea Nitrogen 45 mg/dL (9-20); Calcium 9.9 mg/dL (8.4-10.2); Carbon Dioxide 25 mmol/L (22-32); Chloride 107 mmol/L (98-107); Estimated Glomerular Filt Rate 43.2 mL/min (>60); Globulin 2.9 g/dL (1.7-4.1); Glucose 196 mg/dL (80-110); HEMOLYSIS < 15 (0-50); Potassium 4.5 mmol/L (3.4-5.1); Sodium 137 mmol/L (137-145); Total Protein 6.5 g/dL (6.3-8.2)
--- NOTE | 2020-10-03 12:13 | PC.NURSE ---
Pt given urinal and instructed on need for specimen. Call light within reach.
--- NOTE | 2020-10-03 12:29 | ED_ITS ---
HPI - GI Bleed General Chief complaint: GI Bleed Stated complaint: Internal bleeding x9 days/taking Warfarin Time Seen by Provider: 10/03/20 12:27 Source: patient Limitations: no limitations History of Present Illness HPI Narrative: This is a 75-year-old male who comes emergency department with concern for GI bleed. Patient states he noted black tarry stools last week. He states he also feels similar to when he had a GI bleed in the past. Last time is hemoglobin was 5. Patient had a standing outpatient lab order and had his labs drawn and was 9 on Thursday. Patient states the black stools resolved but came back. He has had formed stools. He is chronically felt lightheaded. He denies any chest pain. He does have shortness of breath with exertion when he tries to go up steps for the last several days. He denies any abdominal pain. No urinary symptoms. He has got some right chronic lower extremity swelling but he has had some warmth and erythema and pain. Patient states he has not had any diarrhea. He does have history of having 2 units of blood transfusion transfer to [facility] for EGD and scope which they did not find a source. He does have a history of renal transplant. He is on warfarin for atrial fibrillation. His last INR was on Thursday at 2. Patient denies any other surgeries besides knee replacement. He does not cardiac stents. He is on medications for AFib, hypertension, dyslipidemia, gout, diabetes as well as his kidney transplant. He denies any allergies to medications. No tobacco, occasional alcohol, no illicit. Related Data Home Medications Medication Instructions Recorded Confirmed mycophenolate sodium 180 mg 360 mg PO BID 08/29/17 06/19/20 tablet,delayed release niacinamide 500 mg tablet 250 mg PO BID 08/29/17 06/19/20 tacrolimus 1 mg capsule, 2 mg PO Q12H 08/29/17 06/19/20 immediate-release amlodipine 5 mg tablet 2.5 mg PO QPM 04/12/19 06/19/20 aspirin 81 mg tablet,delayed 81 mg PO DAILY 04/12/19 06/19/20 release ergocalciferol (vitamin D2) 1,250 50,000 unit PO DAILY 04/12/19 06/19/20 mcg (50,000 unit) capsule (Vitamin D2) lisinopril 2.5 mg tablet 2.5 mg PO BID 04/12/19 06/19/20 metoprolol succinate 50 mg 50 mg PO DAILY 04/12/19 06/19/20 tablet,extended release 24 hr prednisone 5 mg tablet 5 mg PO DAILY 04/12/19 06/19/20 terazosin 2 mg capsule 4 mg PO QPM 04/12/19 06/19/20 Previous Rx's Medication Instructions Recorded atorvastatin 10 mg tablet 10 mg PO DAILY #90 tab 11/09/19 allopurinol 300 mg tablet 300 mg PO DAILY #90 tab 05/13/20 metformin 850 mg tablet See Rx Instructions .ROUTE 06/25/20 .COMPLEX #180 tab warfarin 5 mg tablet See Rx Instructions .ROUTE 08/06/20 .COMPLEX #90 tab colchicine 0.6 mg tablet 0.6 mg PO BID PRN #10 tab 08/10/20 pioglitazone 30 mg tablet 30 mg PO DAILY #90 tab 08/29/20 warfarin 1 mg tablet 1 mg PO DAILY #90 tab 10/03/20 Allergies Allergy/AdvReac Type Severity Reaction Status Date / Time No Known Drug Allergies Allergy Verified 10/03/20 16:43 Review of Systems Review of Systems ROS Unobtainable: All systems reviewed & are unremarkable except as noted in HPI and below Patient History Medical History Atrial fibrillation (~2018) Borderline hypothyroidism Cataracts, bilateral (~2013) Diabetes Gout (~1966) Hypertension Kidney disease (~2004) Low back pain Measles (~194) Mumps (~194) Skin tear of right upper arm without complication Sleep apnea (~2011) Stroke (~2004) Surgical History Anesthesia History of total right knee replacement (TKR) Kidney transplant recipient (~2016) Family History Father Stroke Mother History of heart disease Sister Cancer Grandfather History of heart disease Grandmother History of heart disease Social History Smoking Status: Never smoker Smoking Status: Never smoker alcohol intake frequency: 0-2 drinks per day Substance Use Type: does not use Exam Narrative Exam Narrative: GENERAL: Alert and oriented x three, male in mild distress. HEENT: Head normocephalic, atraumatic, EOMI, pupils reactive, face symmetric, moist mucous membranes NECK: Supple, full range of motion CARDIOVASCULAR: Irregular but not tachycardic rate and rhythm without murmurs, rubs or gallops. RESPIRATORY: Breath sounds equal bilaterally, no wheezes rales or rhonchi. ABDOMEN: Soft, nontender. Normoactive bowel sounds all 4 quadrants. No guarding or rebound, rigidity, no mass, patient has brown stool on rectal exam with positive stool occult. : No CVA tenderness EXTREMITIES: Normal range of motion, no clubbing. Patient's right lower extremity is swollen, he has some warmth, and some erythema, he has several small scabs and abrasions and wounds which do not appear obviously infected but are scattered throughout this area. Neurovascularly intact NEUROLOGICAL: Cranial nerves II through XII grossly intact. Moving all extremities SKIN: Warm, dry, no petechiae, no rashes or lesions other than noted above. 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 Hensley with cardiology recommends aspirin only, no nitro or heparin at this time as patient is currently asymptomatic. He does recommend admission to the hospitalist and they are happy to consult. We did discuss that patient possibly is having some GI bleed but hemoglobin was 9 several days ago and is 8 today. He is not actively bleeding in the department and has been hemodynamically stable. Patient's troponin is positive he has had shortness of breath with exertion. His BNP is also quite here in the setting of a renal transplant patient with a bump in his creatinine from baseline. Patient has had his care with Dr. [facility] as well as his transplant team at [facility]. Consultation #2: Spoke with Dr. Torrez, hospitalist. She accepts for transfer. She does request echo for able to get it. Discussed that I might not be able to but will try to get 1 here in the department looking for any wall motion abnormalities. Repeat hemoglobin and troponin. Discussed that based on patient's multiple comorbidities he would best be benefited outside facility as we do not have any of the subspecialties that might be needed including GI, Cardiology ordered nephrology or transplant team. Vital Signs Vital signs: Vital Signs - 8 hr 10/03/20 12:01 10/03/20 12:30 10/03/20 13:00 Temperature Pulse Rate 83 79 81 Respiratory Rate 23 20 23 Blood Pressure 164/74 H 156/104 H 161/80 H Pulse Oximetry 99 99 99 10/03/20 13:30 10/03/20 13:42 10/03/20 14:00 Temperature Pulse Rate 106 H 83 86 Respiratory Rate 22 26 H 19 Blood Pressure 160/88 H Pulse Oximetry 96 99 95 10/03/20 14:30 10/03/20 15:00 10/03/20 15:30 Temperature Pulse Rate 85 90 95 H Respiratory Rate 24 25 H 24 Blood Pressure Pulse Oximetry 99 99 100 10/03/20 16:00 10/03/20 16:13 10/03/20 16:30 Temperature Pulse Rate 89 94 H 92 H Respiratory Rate 24 24 24 Blood Pressure 164/92 H Pulse Oximetry 98 99 98 10/03/20 17:00 10/03/20 17:02 Temperature 98.0 F Pulse Rate 94 H 94 H Respiratory Rate 26 H 24 Blood Pressure 154/83 H Pulse Oximetry 98 99 MDM - GI Bleed Lab Data Result diagrams: 10/03/20 16:25 10/03/20 11:25 Labs: Lab Results 10/03/20 10/03/20 10/03/20 Range/Units 11:25 11:25 11:25 WBC 6.3 (4.5-11.0) X10^3/uL RBC 2.67 L (4.5-5.9) X10^6/uL Hgb 8.2 L (13.5-17.5) g/dL Hct 25.4 L (41-53) % MCV 95.3 (80-100) fL MCH 30.6 (26-34) PG MCHC 32.1 (30-36) % RDW 15.7 H (11.6-14.8) % Plt Count 297 (150-400) X10^3/uL Neut % (Auto) 76.6 H (50-75) % Lymph % (Auto) 9.4 L (25-40) % [place] % (Auto) 11.7 (3-14) % Eos % (Auto) 1.7 L (2-4) % Baso % (Auto) 0.6 (0-2) % Neut # (Auto) 4800 (5197-3140) /uL Lymph # (Auto) 600 L (9608-4201) /uL [place] # (Auto) 700 (0-900) /uL Eos # (Auto) 100 (0-450) /uL Baso # (Auto) 0 (0-100) /uL PT 32.8 H (10.1-12.7) SECONDS INR 2.8 H (0.9-1.3) APTT 41 H (26.4-36.2) SECONDS Sodium 137 (137-145) mmol/L Potassium 4.5 (3.4-5.1) mmol/L Chloride 107 (98-107) mmol/L Carbon Dioxide 25 (22-32) mmol/L BUN 45 H (9-20) mg/dL Creatinine 1.57 H (0.66-1.25) mg/dL Estimated GFR 43.2 L (>60) mL/min BUN/Creatinine Ratio 28.7 H (6-22) Glucose 196 H (80-110) mg/dL Calcium 9.9 (8.4-10.2) mg/dL Total Bilirubin 0.4 (0.2-1.3) mg/dL AST 21 (17-59) IU/L ALT 15 (<50) IU/L Alkaline Phosphatase 70 (38-126) U/L Total Creatine Kinase (55-170) U/L CK-MB (CK-2) CK-MB (CK-2) Rel Index Troponin I (0.01-0.034) ng/mL NT-Pro-B Natriuret Pep (<450) pg/mL Total Protein 6.5 (6.3-8.2) g/dL Albumin 3.6 (3.5-5.0) g/dL Globulin 2.9 (1.7-4.1) g/dL Albumin/Globulin Ratio 1.2 (1.0-2.8) SARS-CoV-2 (PCR) (Negative) Blood Type Antibody Screen 10/03/20 10/03/20 10/03/20 Range/Units 11:25 13:46 13:46 WBC (4.5-11.0) X10^3/uL RBC (4.5-5.9) X10^6/uL Hgb (13.5-17.5) g/dL Hct (41-53) % MCV (80-100) fL MCH (26-34) PG MCHC (30-36) % RDW (11.6-14.8) % Plt Count (150-400) X10^3/uL Neut % (Auto) (50-75) % Lymph % (Auto) (25-40) % [place] % (Auto) (3-14) % Eos % (Auto) (2-4) % Baso % (Auto) (0-2) % Neut # (Auto) (4659-5761) /uL Lymph # (Auto) (4395-9224) /uL [place] # (Auto) (0-900) /uL Eos # (Auto) (0-450) /uL Baso # (Auto) (0-100) /uL PT (10.1-12.7) SECONDS INR (0.9-1.3) APTT (26.4-36.2) SECONDS Sodium (137-145) mmol/L Potassium (3.4-5.1) mmol/L Chloride (98-107) mmol/L Carbon Dioxide (22-32) mmol/L BUN (9-20) mg/dL Creatinine (0.66-1.25) mg/dL Estimated GFR (>60) mL/min BUN/Creatinine Ratio (6-22) Glucose (80-110) mg/dL Calcium (8.4-10.2) mg/dL Total Bilirubin (0.2-1.3) mg/dL AST (17-59) IU/L ALT (<50) IU/L Alkaline Phosphatase (38-126) U/L Total Creatine Kinase 59 (55-170) U/L CK-MB (CK-2) TNP CK-MB (CK-2) Rel Index TNP Troponin I 0.200 H* (0.01-0.034) ng/mL NT-Pro-B Natriuret Pep 9400 H (<450) pg/mL Total Protein (6.3-8.2) g/dL Albumin (3.5-5.0) g/dL Globulin (1.7-4.1) g/dL Albumin/Globulin Ratio (1.0-2.8) SARS-CoV-2 (PCR) Negative (Negative) Blood Type A Negative Antibody Screen Negative 10/03/20 10/03/20 Range/Units 16:25 16:25 WBC (4.5-11.0) X10^3/uL RBC (4.5-5.9) X10^6/uL Hgb 7.9 L (13.5-17.5) g/dL Hct 24.5 L (41-53) % MCV (80-100) fL MCH (26-34) PG MCHC (30-36) % RDW (11.6-14.8) % Plt Count (150-400) X10^3/uL Neut % (Auto) (50-75) % Lymph % (Auto) (25-40) % [place] % (Auto) (3-14) % Eos % (Auto) (2-4) % Baso % (Auto) (0-2) % Neut # (Auto) (0499-1491) /uL Lymph # (Auto) (7370-6123) /uL [place] # (Auto) (0-900) /uL Eos # (Auto) (0-450) /uL Baso # (Auto) (0-100) /uL PT (10.1-12.7) SECONDS INR (0.9-1.3) APTT (26.4-36.2) SECONDS Sodium (137-145) mmol/L Potassium (3.4-5.1) mmol/L Chloride (98-107) mmol/L Carbon Dioxide (22-32) mmol/L BUN (9-20) mg/dL Creatinine (0.66-1.25) mg/dL Estimated GFR (>60) mL/min BUN/Creatinine Ratio (6-22) Glucose (80-110) mg/dL Calcium (8.4-10.2) mg/dL Total Bilirubin (0.2-1.3) mg/dL AST (17-59) IU/L ALT (<50) IU/L Alkaline Phosphatase (38-126) U/L Total Creatine Kinase (55-170) U/L CK-MB (CK-2) CK-MB (CK-2) Rel Index Troponin I 0.132 H* (0.01-0.034) ng/mL NT-Pro-B Natriuret Pep (<450) pg/mL Total Protein (6.3-8.2) g/dL Albumin (3.5-5.0) g/dL Globulin (1.7-4.1) g/dL Albumin/Globulin Ratio (1.0-2.8) SARS-CoV-2 (PCR) (Negative) Blood Type Antibody Screen Point of Care Testing Stool Occult Blood Negative Urine Dip Bedside Urine Glucose Negative Bedside Urine Bilirubin - Negative Bedside Urine Ketone - Negative Urine Specific Imogene 1.015 Bedside Urine Occult Blood - Negative Bedside Urine pH 6.0 Bedside Urine Protein - Negative Bedside Urine Urobilinogen +/- 1mg Bedside Urine Nitrite - Negative Bedside Urine Leukocytes - Negative Esterase Imaging Data US - DVT: Radiologist's Impression: [address] [id number] ReportSigned Patient: Brian Obregon GMR#: [id number]: 5Acct:[id number]/Sex: 75 / MDate of Service: 10/03/20Loc: EDAccession Number: [id number] Procedure: US perip venous low extrem rt Ordering Provider: Modesta Eldridge D.O. PROCEDURE: US PERIP VENOUS LOW EXTREM RT INDICATIONS: SEVERE EDEMA, PAIN TECHNIQUE: Real-time imaging, as well as color and pulse Doppler interrogation, were performed of the lower extremity deep veins from the inguinal ligament to the popliteal fossa. COMPARISON: None. FINDINGS: The common femoral, femoral and popliteal veins are normally compressible, and free of intraluminal thrombus. Color and pulse Doppler demonstrate normal phasic intraluminal flow. There is normal augmentation response to distal compression maneuver. IMPRESSION: No DVT found. Dictated by: Conor Spence M.D. on 10/03/2020 at 13:39 Approved by: Conor Spence M.D. on 10/03/2020 at 13:39 Chest x-ray: Radiologist's Impression: [address] [id number] ReportSigned Patient: Brian Obregon R#: [id number]: [id number]:[id number]/Sex: 75 / MDate of Service: 10/03/20Loc: EDAccession Number: [id number] Procedure: XR chest 1V Ordering Provider: Modesta Eldridge D.O. PROCEDURE: XR CHEST 1V INDICATIONS: myocardial infarction TECHNIQUE: One view of the chest was acquired. COMPARISON: [facility], CR, XR CHEST 2V, 02/17/2018, 14:45. [facility], CR, XR CHEST 2V, 05/11/2018, 15:40. FINDINGS: Surgical changes and devices: None. Lungs and pleura: Low lung volumes are noted. This causes a crowded appearance to the lung markings and limits evaluation. Mild generalized interstitial prominence can be seen. No pneumothorax or pleural effusions are seen. Mediastinum: Mediastinal contours appear normal. Heart size is moderately enlarged. Bones and chest wall: No suspicious bony lesions. Age-appropriate bony degenerative changes are seen. Overlying soft tissues appear unremarkable. IMPRESSION: Moderate cardiomegaly and mild interstitial prominence. Please correlate with patient presentation, physical examination findings, and laboratory values for congestive heart failure. Dictated by: Riky Tang M.D. on 10/03/2020 at 15:17 Approved by: Riky Tang M.D. on 10/03/2020 at 15:18 ECG Data Attestation: I personally reviewed and interpreted this ECG as follows: Prior ECG tracings: available for review Interpretation: AFib rate 82 QRS of [address] elevation. Patient has right bundle-branch block. Patient has prior EKG with nonspecific changes today compared to priors. MDM Narrative Medical decision making narrative: This is a 75-year-old male who confirmed presents with concern for GI bleed. Patient does have a decrease in his hemoglobin from April. He is stool occult positive. He is on warfarin. He had a GI bleed requiring 2 units transfusion when he was at [facility] in the past and had upper and lower endoscopy which did not find a source. Patient is on his warfarin for atrial fibrillation. He has new nonspecific EKG changes with a right bundle branch which are not present on EKG from several years ago but do not have a more recent EKG. He does not have any active chest pain or shortness of breath here today. He does describe exertional dyspnea. Patient also is noted to have a warm red erythematous lower extremity which is becoming increasingly painful. DVT seemed unlikely but ultrasound was obtained and patient appears to have a cellulitis of his lower extremity in addition to his NSTEMI, in the setting of renal transplant and a bump in his creatinine. Patient received Um aspirin in addition to his normal home dose for a full 324 mg. He received a dose of IV antibiotics for his cellulitis and has been continued to be monitored. Dr. Torrez from [facility] did ask for repeat troponin and hemoglobin, troponin has trended down words. She does ask that we transfuse if continuing to drop. Patient's heart rate has been consistently in the 80s to 90s with a blood pressure in the 150s to 160s. Discharge Plan Departure Patient Disposition: [facility] Clinical Impression: GI bleed, Cellulitis of leg, left, Non-ST elevation DC (NSTEMI) Prescriptions: No Action tacrolimus 1 mg capsule 2 mg PO Q12H RF: 0 mycophenolate sodium 180 mg tablet,delayed release (DR/EC) 360 mg PO BID RF: 0 niacinamide 500 mg tablet 250 mg PO BID RF: 0 metformin 850 mg tablet See Rx Instructions .ROUTE .COMPLEX Qty: 180 RF: 0 warfarin 5 mg tablet See Rx Instructions .ROUTE .COMPLEX Qty: 90 RF: 3 colchicine 0.6 mg tablet 0.6 mg PO BID PRN (Reason: GOUT) Qty: 10 RF: 5 pioglitazone 30 mg tablet 30 mg PO DAILY Qty: 90 RF: 0 warfarin 1 mg tablet 1 mg PO DAILY Qty: 90 RF: 3 atorvastatin 10 mg tablet 10 mg PO DAILY Qty: 90 RF: 0 allopurinol 300 mg tablet 300 mg PO DAILY Qty: 90 RF: 1 metoprolol succinate 50 mg tablet extended release 24 hr 50 mg PO DAILY RF: 0 prednisone 5 mg tablet 5 mg PO DAILY RF: 0 terazosin 2 mg capsule 4 mg PO QPM RF: 0 ergocalciferol (vitamin D2) [Vitamin D2] 1,250 mcg (50,000 unit) capsule 50,000 unit PO DAILY RF: 0 lisinopril 2.5 mg tablet 2.5 mg PO BID RF: 0 amlodipine 5 mg Tablet 2.5 mg PO QPM RF: 0 aspirin 81 mg Tablet,Delayed Release (Dr/Ec) 81 mg PO DAILY RF: 0 Referrals: George Magallanes, [Primary Care Provider] -
[2020-10-03 13:02] LABS: INR 2.8 (0.9-1.3); Prothrombin Time 32.8 SECONDS (10.1-12.7)
[2020-10-03 13:05] LABS: PTT Partial Thromboplastin Tim 41 SECONDS (26.4-36.2)
--- NOTE | 2020-10-03 13:07 | DI.US.S_ITS ---
PROCEDURE: US PERIPH VENOUS LOW EXTREM RT INDICATIONS: SEVERE EDEMA, PAIN TECHNIQUE: Real-time imaging, as well as color and pulse Doppler interrogation, were performed of the lower extremity deep veins from the inguinal ligament to the popliteal fossa. COMPARISON: None. FINDINGS: The common femoral, femoral and popliteal veins are normally compressible, and free of intraluminal thrombus. Color and pulse Doppler demonstrate normal phasic intraluminal flow. There is normal augmentation response to distal compression maneuver. IMPRESSION: No DVT found. Dictated by: Conor Spence M.D. on 10/03/2020 at 13:39 Approved by: Conor Spence M.D. on 10/03/2020 at 13:39
[2020-10-03 13:22] LABS: Creatine Kinase 59 U/L (55-170)
--- NOTE | 2020-10-03 13:23 | PC.NURSE ---
Performed by Dr Eldridge
[2020-10-03] MEDS: CLINDAMYCIN 600 MG/50 ML PIGGYBACK 50 MG IV (13:31)
[2020-10-03 13:35] LABS: NT-proBNP (BNP-Adult 18+) 9400 pg/mL (<450)
[2020-10-03] MEDS: ASPIRIN 81 MG CHEW TAB 324 MG PO (14:08)
--- NOTE | 2020-10-03 14:08 | PC.NURSE ---
Pt had 81mg ASA this am. Gave pt remaining 81mgx3.
[2020-10-03 15:16] LABS: COVID19 - ADMIT (NP swab/PCR) Negative (Negative)
--- NOTE | 2020-10-03 15:59 | DI.RAD.S_ITS ---
PROCEDURE: XR CHEST 1V INDICATIONS: myocardial infarction TECHNIQUE: One view of the chest was acquired. COMPARISON: [facility], CR, XR CHEST 2V, 02/17/2018, 14:45. [facility], CR, XR CHEST 2V, 05/11/2018, 15:40. FINDINGS: Surgical changes and devices: None. Lungs and pleura: Low lung volumes are noted. This causes a crowded appearance to the lung markings and limits evaluation. Mild generalized interstitial prominence can be seen. No pneumothorax or pleural effusions are seen. Mediastinum: Mediastinal contours appear normal. Heart size is moderately enlarged. Bones and chest wall: No suspicious bony lesions. Age-appropriate bony degenerative changes are seen. Overlying soft tissues appear unremarkable. IMPRESSION: Moderate cardiomegaly and mild interstitial prominence. Please correlate with patient presentation, physical examination findings, and laboratory values for congestive heart failure. Dictated by: Riky Tang M.D. on 10/03/2020 at 15:17 Approved by: Riky Tang M.D. on 10/03/2020 at 15:18
[2020-10-03 16:30] LABS: Hematocrit 24.5 % (41-53); Hemoglobin 7.9 g/dL (13.5-17.5)
[2020-10-03 16:59] LABS: Troponin I 0.132 ng/mL (0.01-0.034)
--- NOTE | 2020-10-03 17:22 | PC.NURSE ---
Pt transferred to 18 ambulance RN/EMT crew, verbal report given and transfer packet.
== END 2020-10-03 17:24 | disposition short-term general hospital (02) ==
PROVIDERS: Emergency Provider Emergency Medicine; PCP Family Medicine
DX: K92.2 Gastrointestinal hemorrhage, unspecified (principal); L03.116 Cellulitis of left lower limb; I21.4 Non-ST elevation (NSTEMI) myocardial infarction; Z20.822 Contact with and (suspected) exposure to COVID-19
CPT/HCPCS: 36415; 71045; 80053; 81003; 82272; 82550; 83880; 84484; 85014; 85018; 85025; 85610; 85730; 86850; 86900; 86901; 87635; 93005; 93971; 96365; 99285; C9803

== ENCOUNTER 2020-10-06 13:26 | Emergency (ER) | payer MEDICARE, OTHER, SELFPAY ==
--- NOTE | 2020-10-06 13:31 | ED_ITS ---
HPI - Skin/Abscess/Foreign Bdy General Chief complaint: Extremity Problem,Nontraumatic Stated complaint: skin infection/ Time Seen by Provider: 10/06/20 13:29 History of Present Illness HPI narrative: 75-year-old male nonsmoker with extensive medical history including hypertension, hyperlipidemia, chronic kidney disease with recent admission and transfer for the treatment of a GI bleed with some questionable cardiac involvement. He had also had some right lower extremity pain, swelling and redness and had a DVT study here which was negative. He was thought to have cellulitis and was treated with antibiotics here. Patient's larger medical issues were addressed at the outside facility. However, he has not been on antibiotics since his discharge. His anticoagulant have been re-initiated. He denies any systemic findings such as chest pain or shortness of breath. He is not dizzy nor weak or lightheaded. He denies any fever or chills. Related Data Home Medications Medication Instructions Recorded Confirmed mycophenolate sodium 180 mg 360 mg PO BID 08/29/17 06/19/20 tablet,delayed release niacinamide 500 mg tablet 250 mg PO BID 08/29/17 06/19/20 tacrolimus 1 mg capsule, 2 mg PO Q12H 08/29/17 06/19/20 immediate-release amlodipine 5 mg tablet 2.5 mg PO QPM 04/12/19 06/19/20 aspirin 81 mg tablet,delayed 81 mg PO DAILY 04/12/19 06/19/20 release ergocalciferol (vitamin D2) 1,250 50,000 unit PO DAILY 04/12/19 06/19/20 mcg (50,000 unit) capsule (Vitamin D2) lisinopril 2.5 mg tablet 2.5 mg PO BID 04/12/19 06/19/20 metoprolol succinate 50 mg 50 mg PO DAILY 04/12/19 06/19/20 tablet,extended release 24 hr prednisone 5 mg tablet 5 mg PO DAILY 04/12/19 06/19/20 terazosin 2 mg capsule 4 mg PO QPM 04/12/19 06/19/20 Previous Rx's Medication Instructions Recorded atorvastatin 10 mg tablet 10 mg PO DAILY #90 tab 11/09/19 allopurinol 300 mg tablet 300 mg PO DAILY #90 tab 05/13/20 metformin 850 mg tablet See Rx Instructions .ROUTE 06/25/20 .COMPLEX #180 tab warfarin 5 mg tablet See Rx Instructions .ROUTE 08/06/20 .COMPLEX #90 tab colchicine 0.6 mg tablet 0.6 mg PO BID PRN #10 tab 08/10/20 pioglitazone 30 mg tablet 30 mg PO DAILY #90 tab 08/29/20 warfarin 1 mg tablet 1 mg PO DAILY #90 tab 10/03/20 cephalexin 500 mg capsule 500 mg PO Q6H 7 Days #28 cap 10/06/20 Allergies Allergy/AdvReac Type Severity Reaction Status Date / Time No Known Drug Allergies Allergy Verified 10/06/20 13:38 Review of Systems Review of Systems Narrative: GENERAL: Denies chills, fatigue, malaise, fever, sweats. HEENT: Denies sinus pain, ear pain, sore throat, difficulty swallowing, dizziness. RESPIRATORY: Denies dyspnea, cough, wheezing, hemoptysis, sputum. CARDIOVASCULAR: Denies chest pain, palpitations, orthopnea, edema, GASTROINTESTINAL: Denies nausea, vomiting, abdominal pain, diarrhea, constipation, melena. : Denies dysuria, frequency, incontinence, hematuria, urinary retention. MUSCULOSKELETAL: See HPI SKIN: See HPI NEUROLOGIC: Denies weakness, headache, numbness, change in speech, confusion, seizures, incoordination. PSYCHIATRIC: No concerning psychosocial issues. 12 point review of systems is negative except for those stated above Patient History Medical History Atrial fibrillation (~2018) Borderline hypothyroidism Cataracts, bilateral (~2013) Diabetes Gout (~1966) Hypertension Kidney disease (~2004) Low back pain Measles (~194) Mumps (~194) Skin tear of right upper arm without complication Sleep apnea (~2011) Stroke (~2005) Surgical History Anesthesia History of total right knee replacement (TKR) Kidney transplant recipient (~2017) Family History Father Stroke Mother History of heart disease Sister Cancer Grandfather History of heart disease Grandmother History of heart disease Social History Smoking Status: Never smoker Smoking Status: Never smoker alcohol intake frequency: 0-2 drinks per day Substance Use Type: does not use Exam Narrative Exam Narrative: GENERAL: [75] year old patient appears stated age. Well- developed patient, in mild distress. HEAD: Atraumatic. Normocephalic. EYES: Pupils equal round and reactive. Extraocular motions intact. No scleral icterus. No injection or drainage. ENT: Nose without bleeding, purulent drainage. Throat without erythema, tonsillar hypertrophy or exudate. Airway patent. NECK: Trachea midline. Non tender CARDIOVASCULAR: Regular rate and rhythm without murmurs, gallops, or rubs. RESPIRATORY: Clear to auscultation. Breath sounds equal bilaterally. No wheezes, rales, or rhonchi. GASTROINTESTINAL: Abdomen soft, non-tender, nondistended. EXTREMITIES: Right lower extremity below the knees notably swollen, erythematous, warm and tender, there is no pain or swelling of the medial thigh or more proximal. No neurovascular change BACK: Nontender without deformity or crepitance. No flank tenderness. NEURO: AOx3. SKIN: Otherwise No rash or erythema of visible areas Initial Vital Signs Initial Vital Signs: Vital Signs Temperature 98.4 F 10/06/20 13:33 Pulse Rate 86 10/06/20 13:33 Respiratory Rate 20 10/06/20 13:33 Blood Pressure 135/67 10/06/20 13:33 Pulse Oximetry 98 10/06/20 13:33 Course Orders Ordered: ED Orders 10/06/20 13:40 Basic Metabolic Panel Stat Complete Blood Count AUTO DIFF Stat Prothrombin Time INR Stat Troponin & CK Cardiac Panel Stat 10/06/20 14:03 US periph venous low extrem rt Stat Vital Signs Vital signs: Vital Signs - 8 hr 10/06/20 13:33 10/06/20 14:00 10/06/20 14:30 Temperature 98.4 F Pulse Rate 83 80 77 Respiratory Rate 22 19 19 Blood Pressure 135/67 145/86 H 167/83 H Pulse Oximetry 99 99 99 10/06/20 15:00 Temperature Pulse Rate 79 Respiratory Rate 19 Blood Pressure Pulse Oximetry 99 MDM - Skin/Abscess/Foreign Bdy Lab Data Result diagrams: 10/06/20 13:40 10/06/20 13:40 Labs: Lab Results 10/06/20 10/06/20 10/06/20 Range/Units 13:40 13:40 13:40 WBC 10.7 (4.5-11.0) X10^3/uL RBC 2.69 L (4.5-5.9) X10^6/uL Hgb 8.2 L (13.5-17.5) g/dL Hct 24.8 L (41-53) % MCV 92.1 D (80-100) fL MCH 30.4 (26-34) PG MCHC 33.0 (30-36) % RDW 18.0 H (11.6-14.8) % Plt Count 353 (150-400) X10^3/uL Neut % (Auto) 87.3 H (50-75) % Lymph % (Auto) 4.9 L (25-40) % [place] % (Auto) 6.3 (3-14) % Eos % (Auto) 1.1 L (2-4) % Baso % (Auto) 0.4 (0-2) % Neut # (Auto) 9400 H (2474-8494) /uL Lymph # (Auto) 500 L (0601-8526) /uL [place] # (Auto) 700 (0-900) /uL Eos # (Auto) 100 (0-450) /uL Baso # (Auto) 0 (0-100) /uL PT 14.7 H D (10.1-12.7) SECONDS INR 1.3 (0.9-1.3) Sodium 137 (137-145) mmol/L Potassium 4.9 (3.4-5.1) mmol/L Chloride 107 (98-107) mmol/L Carbon Dioxide 24 (22-32) mmol/L BUN 43 H (9-20) mg/dL Creatinine 1.82 H (0.66-1.25) mg/dL Estimated GFR 36.4 L (>60) mL/min BUN/Creatinine Ratio 23.6 H (6-22) Glucose 168 H (80-110) mg/dL Calcium 9.9 (8.4-10.2) mg/dL Total Creatine Kinase 83 (55-170) U/L CK-MB (CK-2) TNP CK-MB (CK-2) Rel Index TNP Troponin I 0.061 H (0.01-0.034) ng/mL Imaging Data US - DVT: Radiologist's Impression: [address] [id number] ReportSigned Patient: Brian Obregon R#: [id number]: 5Acct:[id number]/Sex: 75 / MDate of Service: 10/06/20Loc: EDAccession Number: [id number] Procedure: US periph venous low extrem rt Ordering Provider: Amaury Cueva D.O. PROCEDURE: US PERIPH VENOUS LOW EXTREM RT INDICATIONS: PAIN/SWELLING/REDNESS TECHNIQUE: Real-time imaging, as well as color and pulse Doppler interrogation, were performed of the lower extremity deep veins from the inguinal ligament to the popliteal seamus a. COMPARISON: None. FINDINGS: The common femoral, femoral and popliteal veins are normally c ompressible, and free of intraluminal thrombus. Color and pulse Doppler demonstrate normal phasic intraluminal flow. There is normal augmentation response to distal compression maneuver. Nonspecific soft tissue edema noted in the right lower leg from the popliteal fossa to the ankle. IMPRESSION: No evidence of deep vein thrombosis involving the right lower extremity. Dictated by: Nena Meléndez MD, PhD on 10/06/2020 at 14:49 Approved by: Nena Meléndez MD, PhD on 10/06/2020 at 14:49 [facility] Narrative Medical decision making narrative: 75-year-old male complains of worsening redness, pain and swelling of his right lower extremity in the absence of injury. He had recently been seen and evaluated and had an ultrasound demonstrating no clot and was not only treated for cellulitis here but beltran sferred elsewhere due to ongoing GI bleed in the presence of anticoagulation with change in EKG and troponin release. He was successfully treated and evaluated at the outside facility and discharged home. Patient denies any systemic symptoms such as chest pain or shortness of breath. He is not dizzy nor weak or lightheaded. His vital signs, labs and physical exam are otherwise reassuring. Repeated ultrasound demonstrates no sign of clot. In the setting of painful, swollen, red calf in the absence of injury with negative DVT the patient was treated for cellulitis, prescription sent to his pharmacy. Return precautions given, questions answered to his apparent satisfaction Discharge Plan Departure Patient Disposition: Home Clinical Impression: Cellulitis of right leg Instructions: DI for Cellulitis -- Adult Activity Restrictions/Additional Instructions: *You have been diagnosed with [cellulitis of the right lower leg. Ultrasound is very reassuring and no clot is noted.] *What to do: *Please continue to take your regular medications as directed. [x ] New medication prescriptions sent to your pharmacy: [[facility] ] [ ] New medication written as a paper prescription [ ] No new medications given *Please follow up with your primary care provider in 2-3 days, call for an appointment. Let them know you were seen in the Emergency Department and that we ask that you be seen in follow up. We will electronically transmit a record of today's note if your PCP is in our system *If you do not have a primary care provider please contact the [facility] Resource line at [phone]. They will ask some questions about your medical history and help get you set up with a doctor in the community. *Return to Emergency Department if you should have any new, worsening or concerning symptoms, such as [fever greater than 101 F, shaking chills, worsening pain, persistent vomiting or other bothersome symptoms] Prescriptions: New cephalexin 500 mg capsule 500 mg PO Q6H 7 Days Qty: 28 RF: 0 No Action tacrolimus 1 mg capsule 2 mg PO Q12H RF: 0 mycophenolate sodium 180 mg tablet,delayed release (DR/EC) 360 mg PO BID RF: 0 niacinamide 500 mg tablet 250 mg PO BID RF: 0 metformin 850 mg tablet See Rx Instructions .ROUTE .COMPLEX Qty: 180 RF: 0 warfarin 5 mg tablet See Rx Instructions .ROUTE .COMPLEX Qty: 90 RF: 3 colchicine 0.6 mg tablet 0.6 mg PO BID PRN (Reason: GOUT) Qty: 10 RF: 5 pioglitazone 30 mg tablet 30 mg PO DAILY Qty: 90 RF: 0 warfarin 1 mg tablet 1 mg PO DAILY Qty: 90 RF: 3 atorvastatin 10 mg tablet 10 mg PO DAILY Qty: 90 RF: 0 allopurinol 300 mg tablet 300 mg PO DAILY Qty: 90 RF: 1 metoprolol succinate 50 mg tablet extended release 24 hr 50 mg PO DAILY RF: 0 prednisone 5 mg tablet 5 mg PO DAILY RF: 0 terazosin 2 mg capsule 4 mg PO QPM RF: 0 ergocalciferol (vitamin D2) [Vitamin D2] 1,250 mcg (50,000 unit) capsule 50,000 unit PO DAILY RF: 0 lisinopril 2.5 mg tablet 2.5 mg PO BID RF: 0 amlodipine 5 mg Tablet 2.5 mg PO QPM RF: 0 aspirin 81 mg Tablet,Delayed Release (Dr/Ec) 81 mg PO DAILY RF: 0 Referrals: George Magallanes, [Primary Care Provider] -
[2020-10-06 13:33] VITALS: BP 135/67; PULSE 83; PULSE 86; RESP 20; RESP 22; TEMP 36.9; O2SAT 98; O2SAT 99; BMI 29.8
[2020-10-06 14:00] VITALS: BP 145/86; PULSE 80; RESP 19; O2SAT 99
--- NOTE | 2020-10-06 14:03 | DI.US.S_ITS ---
PROCEDURE: US PERIPH VENOUS LOW EXTREM RT INDICATIONS: PAIN/SWELLING/REDNESS TECHNIQUE: Real-time imaging, as well as color and pulse Doppler interrogation, were performed of the lower extremity deep veins from the inguinal ligament to the popliteal fossa. COMPARISON: None. FINDINGS: The common femoral, femoral and popliteal veins are normally compressible, and free of intraluminal thrombus. Color and pulse Doppler demonstrate normal phasic intraluminal flow. There is normal augmentation response to distal compression maneuver. Nonspecific soft tissue edema noted in the right lower leg from the popliteal fossa to the ankle. IMPRESSION: No evidence of deep vein thrombosis involving the right lower extremity. Dictated by: Nena Meléndez MD, PhD on 10/06/2020 at 14:49 Approved by: Nena Meléndez MD, PhD on 10/06/2020 at 14:49
[2020-10-06 14:10] LABS: Add Manual Diff / Slide Review NO; Basophils Absolute Auto 0 /uL (0-100); Basophils Percent Auto 0.4 % (0-2); Eosinophils Absolute Auto 100 /uL (0-450); Eosinophils Percent Auto 1.1 % (2-4); Hematocrit 24.8 % (41-53); Hemoglobin 8.2 g/dL (13.5-17.5); Lymphocytes Absolute Auto 500 /uL (1100-4500); Lymphocytes Percent Auto 4.9 % (25-40); Mean Corpuscular Hemoglobin 30.4 PG (26-34); Mean Corpuscular Volume 92.1 fL (80-100); Monocytes Absolute Auto 700 /uL (0-900); Monocytes Percent Auto 6.3 % (3-14); Neutrophils Absolute Auto 9400 /uL (1500-7000); Neutrophils Percent Auto 87.3 % (50-75); Platelet Count 353 X10^3/uL (150-400); Red Blood Cell Count 2.69 X10^6/uL (4.5-5.9); White Blood Cell Count 10.7 X10^3/uL (4.5-11.0)
[2020-10-06 14:11] LABS: INR 1.3 (0.9-1.3); Prothrombin Time 14.7 SECONDS (10.1-12.7)
[2020-10-06 14:16] LABS: BUN Creatinine Ratio 23.6 (6-22); Blood Urea Nitrogen 43 mg/dL (9-20); Calcium 9.9 mg/dL (8.4-10.2); Carbon Dioxide 24 mmol/L (22-32); Chloride 107 mmol/L (98-107); Creatine Kinase 83 U/L (55-170); Estimated Glomerular Filt Rate 36.4 mL/min (>60); Glucose 168 mg/dL (80-110); HEMOLYSIS < 15 (0-50); Potassium 4.9 mmol/L (3.4-5.1); Sodium 137 mmol/L (137-145)
[2020-10-06 14:28] LABS: Troponin I 0.061 ng/mL (0.01-0.034)
[2020-10-06 14:30] VITALS: BP 167/83; PULSE 77; RESP 19; O2SAT 99
[2020-10-06 15:00] VITALS: PULSE 79; RESP 19; O2SAT 99
[2020-10-06 15:30] VITALS: BP 165/87; PULSE 78; RESP 22; O2SAT 98
[2020-10-06 16:00] VITALS: BP 154/93; PULSE 81; RESP 21; O2SAT 99
== END 2020-10-06 16:14 | disposition home or self-care (01) ==
PROVIDERS: Emergency Provider Emergency Medicine; PCP Family Medicine
DX: L03.115 Cellulitis of right lower limb (principal)
CPT/HCPCS: 36415; 80048; 82550; 84484; 85025; 85610; 93971; 99283; 99284

== ENCOUNTER 2020-10-08 17:29 | Emergency (ER) | payer MEDICARE, OTHER, SELFPAY ==
--- NOTE | 2020-10-08 17:34 | ED_ITS ---
HPI - General Adult General Chief complaint: Allergic Reaction Stated complaint: Allergic Reaction Time Seen by Provider: 10/08/20 17:34 Source: patient and EMS Mode of arrival: EMS History of Present Illness HPI narrative: Patient is a 75-year-old male who is on day 3 of a antibiotic for a lower extremity infection. He has been taking his medicine without issue however today shortly after taking the medicine he had an episode where he states that everything became very bright and then he started to have itching all over his body and swelling of his tongue and some problems breathing. There was no loss of consciousness. EMS was called for the symptoms. They arrived stated that he was tachycardic and had difficult time obtaining a blood pressure with their cuff and also by palpation. He received epinephrine and Benadryl and fluids by EMS prior to arrival. Per report this improved his symptoms. By the time he arrived to the emergency department he states that he feels like his tongue is swollen and having some itching however overall feels much better than when he did at the beginning of the symptoms. He is on lisinopril as well. Related Data Home Medications Medication Instructions Recorded Confirmed mycophenolate sodium 180 mg 360 mg PO BID 08/29/17 06/19/20 tablet,delayed release niacinamide 500 mg tablet 250 mg PO BID 08/29/17 06/19/20 tacrolimus 1 mg capsule, 2 mg PO Q12H 08/29/17 06/19/20 immediate-release amlodipine 5 mg tablet 2.5 mg PO QPM 04/12/19 06/19/20 aspirin 81 mg tablet,delayed 81 mg PO DAILY 04/12/19 06/19/20 release ergocalciferol (vitamin D2) 1,250 50,000 unit PO DAILY 04/12/19 06/19/20 mcg (50,000 unit) capsule (Vitamin D2) lisinopril 2.5 mg tablet 2.5 mg PO BID 04/12/19 06/19/20 metoprolol succinate 50 mg 50 mg PO DAILY 04/12/19 06/19/20 tablet,extended release 24 hr prednisone 5 mg tablet 5 mg PO DAILY 04/12/19 06/19/20 terazosin 2 mg capsule 4 mg PO QPM 04/12/19 06/19/20 Previous Rx's Medication Instructions Recorded atorvastatin 10 mg tablet 10 mg PO DAILY #90 tab 11/09/19 allopurinol 300 mg tablet 300 mg PO DAILY #90 tab 05/13/20 metformin 850 mg tablet See Rx Instructions .ROUTE 06/25/20 .COMPLEX #180 tab warfarin 5 mg tablet See Rx Instructions .ROUTE 08/06/20 .COMPLEX #90 tab colchicine 0.6 mg tablet 0.6 mg PO BID PRN #10 tab 08/10/20 pioglitazone 30 mg tablet 30 mg PO DAILY #90 tab 08/29/20 warfarin 1 mg tablet 1 mg PO DAILY #90 tab 10/03/20 cephalexin 500 mg capsule 500 mg PO Q6H 7 Days #28 cap 10/06/20 doxycycline hyclate 100 mg tablet 100 mg PO BID 5 Days #10 tab 10/08/20 Allergies Allergy/AdvReac Type Severity Reaction Status Date / Time No Known Drug Allergies Allergy Verified 10/06/20 13:38 Review of Systems Constitutional Constitutional: Reports system reviewed and no additional complaints, except as documented Eyes Eyes: Reports as per HPI ENT Ears, Nose, Mouth, and Throat: Reports as per HPI Cardiovascular Cardiovascular: Reports system reviewed and no additional complaints, except as documented Respiratory Respiratory: Reports as per HPI Gastrointestinal Gastrointestinal: Reports system reviewed and no additional complaints, except as documented Musculoskeletal Musculoskeletal: Reports system reviewed and no additional complaints, except as documented Integumentary/Breasts Skin/Breast: Reports as per HPI Neurologic Neurologic: Reports system reviewed and no additional complaints, except as documented Psychiatric Psychiatric: Reports system reviewed and no additional complaints, except as documented Endocrine Endocrine: Reports system reviewed and no additional complaints, except as documented Hematologic/Lymphatic On Anticoagulants: No Allergic/Immunologic Allergic/Immunologic: Reports system reviewed and no additional complaints, except as documented Patient History Medical History Atrial fibrillation (~2018) Borderline hypothyroidism Cataracts, bilateral (~2013) Diabetes Gout (~1966) Hypertension Kidney disease (~2004) Low back pain Measles (~194) Mumps (~194) Skin tear of right upper arm without complication Sleep apnea (~2011) Stroke (~2004) Surgical History Anesthesia History of total right knee replacement (TKR) Kidney transplant recipient (~2017) Family History Father Stroke Mother History of heart disease Sister Cancer Grandfather History of heart disease Grandmother History of heart disease Social History Smoking Status: Never smoker Smoking Status: Never smoker alcohol intake frequency: 0-2 drinks per day Substance Use Type: does not use Exam Initial Vital Signs Initial Vital Signs: Vital Signs Pulse Rate 111 H 10/08/20 17:36 Respiratory Rate 18 10/08/20 17:36 Blood Pressure 134/70 10/08/20 17:36 Pulse Oximetry 99 10/08/20 17:36 Const General: cooperative, comfortable and well developed HENVT Head: normal to inspection and normocephalic Ears: hearing grossly normal bilaterally Nose: external nose normal Face and sinus: normal facial exam Mouth: oral mucosae normal, lip normal and tongue abnormal (Swelling) Throat: posterior oropharynx normal Eyes General: appearance normal, both eyes and all related structures Neck Neck: normal visual inspection Chest Chest: normal inspection of the chest Resp Effort & Inspection: normal respiratory effort Auscultation: clear to auscultation bilaterally Cardio Rate: tachycardic Rhythm: regular rhythm GI Inspection: normal to inspection Back/Spine/Pelvis Back: normal to inspection Skin Rashes: no rashes Other: Patient does have redness to the right lower extremity a what appears to be a ruptured vesicle in the posterior aspect of the right calf. Neuro General: patient alert, patient awake and patient oriented x3 Speech: speech normal Motor: muscle tone normal throughout Sensory Exam: no sensory deficits noted Extrem General: normal to inspection and capillary refill normal Psych Appearance: grossly normal and well kempt Course Orders Ordered: Discontinued Medications Famotidine (Famotidine 20 Mg/2 Ml Vial) 20 mg IV NOW [facility] Last Admin: 10/08/20 18:01 Dose: 20 mg Documented by: CLEMENTE Sodium Chloride (Normal Saline 0.9%) 1,000 mls @ 125 mls/hr IV CONT [facility] Last Admin: 10/08/20 18:00 Dose: 125 mls/hr Documented by: CLEMENTE Methylprednisolone (Methylprednisolone 125 Mg/2 Ml Vial) 125 mg IV NOW ONE Stop: 10/08/20 17:38 Last Admin: 10/08/20 18:01 Dose: 125 mg Documented by: CLEMENTE Medical Decision Making Lab Data Lab results reviewed: Yes I reviewed the patient's lab results. Result diagrams: 10/08/20 17:30 10/08/20 17:30 Labs: Lab Results 10/08/20 10/08/20 10/08/20 Range/Units 17:30 17:30 17:30 WBC 7.5 (4.5-11.0) X10^3/uL RBC 2.77 L (4.5-5.9) X10^6/uL Hgb 8.1 L (13.5-17.5) g/dL Hct 25.3 L (41-53) % MCV 91.6 (80-100) fL MCH 29.3 (26-34) PG MCHC 32.0 (30-36) % RDW 18.0 H (11.6-14.8) % Plt Count 410 H (150-400) X10^3/uL Neut % (Auto) 86.3 H (50-75) % Lymph % (Auto) 10.5 L (25-40) % Edmonson % (Auto) 2.8 L (3-14) % Eos % (Auto) 0.2 L (2-4) % Baso % (Auto) 0.2 (0-2) % Neut # (Auto) 6500 (7295-1380) /uL Lymph # (Auto) 800 L (8219-8021) /uL Edmonson # (Auto) 200 (0-900) /uL Eos # (Auto) 0 (0-450) /uL Baso # (Auto) 0 (0-100) /uL PT 17.6 H (10.1-12.7) SECONDS INR 1.5 H (0.9-1.3) APTT 30 D (26.4-36.2) SECONDS Sodium 135 L (137-145) mmol/L Potassium 4.4 (3.4-5.1) mmol/L Chloride 105 (98-107) mmol/L Carbon Dioxide 22 (22-32) mmol/L BUN 43 H (9-20) mg/dL Creatinine 1.71 H (0.66-1.25) mg/dL Estimated GFR 39.1 L (>60) mL/min BUN/Creatinine Ratio 25.1 H (6-22) Glucose 210 H (80-110) mg/dL Calcium 9.3 (8.4-10.2) mg/dL Total Bilirubin 0.4 (0.2-1.3) mg/dL AST 21 (17-59) IU/L ALT 15 (<50) IU/L Alkaline Phosphatase 67 (38-126) U/L Total Creatine Kinase (55-170) U/L CK-MB (CK-2) CK-MB (CK-2) Rel Index Troponin I (0.01-0.034) ng/mL Total Protein 5.8 L (6.3-8.2) g/dL Albumin 3.1 L (3.5-5.0) g/dL Globulin 2.7 (1.7-4.1) g/dL Albumin/Globulin Ratio 1.1 (1.0-2.8) Lipase (23-300) U/L SARS-CoV-2 (PCR) (Negative) 10/08/20 10/08/20 Range/Units 17:30 18:05 WBC (4.5-11.0) X10^3/uL RBC (4.5-5.9) X10^6/uL Hgb (13.5-17.5) g/dL Hct (41-53) % MCV (80-100) fL MCH (26-34) PG MCHC (30-36) % RDW (11.6-14.8) % Plt Count (150-400) X10^3/uL Neut % (Auto) (50-75) % Lymph % (Auto) (25-40) % Edmonson % (Auto) (3-14) % Eos % (Auto) (2-4) % Baso % (Auto) (0-2) % Neut # (Auto) (5388-5619) /uL Lymph # (Auto) (2630-1168) /uL Edmonson # (Auto) (0-900) /uL Eos # (Auto) (0-450) /uL Baso # (Auto) (0-100) /uL PT (10.1-12.7) SECONDS INR (0.9-1.3) APTT (26.4-36.2) SECONDS Sodium (137-145) mmol/L Potassium (3.4-5.1) mmol/L Chloride (98-107) mmol/L Carbon Dioxide (22-32) mmol/L BUN (9-20) mg/dL Creatinine (0.66-1.25) mg/dL Estimated GFR (>60) mL/min BUN/Creatinine Ratio (6-22) Glucose (80-110) mg/dL Calcium (8.4-10.2) mg/dL Total Bilirubin (0.2-1.3) mg/dL AST (17-59) IU/L ALT (<50) IU/L Alkaline Phosphatase (38-126) U/L Total Creatine Kinase 62 (55-170) U/L CK-MB (CK-2) TNP CK-MB (CK-2) Rel Index TNP Troponin I 0.033 (0.01-0.034) ng/mL Total Protein (6.3-8.2) g/dL Albumin (3.5-5.0) g/dL Globulin (1.7-4.1) g/dL Albumin/Globulin Ratio (1.0-2.8) Lipase 118 (23-300) U/L SARS-CoV-2 (PCR) Negative (Negative) MDM Narrative Medical decision making narrative: Patient did have somewhat of a swollen tongue upon arrival. His received epinephrine and Benadryl. He was given steroids and famotidine. After an observation time his symptoms completely resolved. I did have a discussion with him and his regarding potential etiologies. We did discuss that this could potentially be the antibiotic that he is on and I suspect given the fact that he resolved with the above treatments that this was the cause. This also could potentially be angioedema because of the lisinopril. Informed the family that this could potentially be an issue even though he has been on this medication for years. Patient is asking to go home stating that he has resolved. We will have him stop the antibiotic and will place him on a new antibiotic for his cellulitis. He was given strict return precautions. He expressed understanding and agreement. Critical Care Time Critical Care Time Critical Care Time: Yes Total Critical Care Time: 35 Attestation: The high probability of a clinically significant, sudden or life threatening deterioration of the respiratory/circulatory system(s) required my full and direct attention, intervention and personal management. The aggregate critical care time was [35] minutes. This time is in addition to time spent performing reported procedures but includes the following: [x] Data Review and interpretation [x] Patient assessment and monitoring of vital signs [x] Documentation [x] Medication orders and management Discharge Plan Departure Patient Disposition: Home Clinical Impression: Allergic reaction Instructions: DI for Adverse Drug Reaction -- Allergic Activity Restrictions/Additional Instructions: I suspect that your reaction today was from the antibiotic that you were taken. We had cannot be 100% sure of this but it seems to be the most likely cause. Your also on a medicine called lisinopril which could also cause this but normally the issues that are caused by lisinopril do not get better with your treatment here in the ER. A prescription for some new antibiotics was transmitted to [facility]. Stop taking the Keflex/cephalexin and start this antibiotic as directed. Return to the emergency department for any new or worsening symptoms Prescriptions: New doxycycline hyclate 100 mg tablet 100 mg PO BID 5 Days Qty: 10 RF: 0 No Action tacrolimus 1 mg capsule 2 mg PO Q12H RF: 0 mycophenolate sodium 180 mg tablet,delayed release (DR/EC) 360 mg PO BID RF: 0 niacinamide 500 mg tablet 250 mg PO BID RF: 0 metformin 850 mg tablet See Rx Instructions .ROUTE .COMPLEX Qty: 180 RF: 0 warfarin 5 mg tablet See Rx Instructions .ROUTE .COMPLEX Qty: 90 RF: 3 colchicine 0.6 mg tablet 0.6 mg PO BID PRN (Reason: GOUT) Qty: 10 RF: 5 pioglitazone 30 mg tablet 30 mg PO DAILY Qty: 90 RF: 0 warfarin 1 mg tablet 1 mg PO DAILY Qty: 90 RF: 3 atorvastatin 10 mg tablet 10 mg PO DAILY Qty: 90 RF: 0 allopurinol 300 mg tablet 300 mg PO DAILY Qty: 90 RF: 1 metoprolol succinate 50 mg tablet extended release 24 hr 50 mg PO DAILY RF: 0 prednisone 5 mg tablet 5 mg PO DAILY RF: 0 terazosin 2 mg capsule 4 mg PO QPM RF: 0 ergocalciferol (vitamin D2) [Vitamin D2] 1,250 mcg (50,000 unit) capsule 50,000 unit PO DAILY RF: 0 lisinopril 2.5 mg tablet 2.5 mg PO BID RF: 0 amlodipine 5 mg Tablet 2.5 mg PO QPM RF: 0 aspirin 81 mg Tablet,Delayed Release (Dr/Ec) 81 mg PO DAILY RF: 0 cephalexin 500 mg capsule 500 mg PO Q6H 7 Days Qty: 28 RF: 0 Referrals: George Magallanes, [Primary Care Provider] -
[2020-10-08 17:36] VITALS: BP 134/70; PULSE 111; RESP 18; O2SAT 99; BMI 29.5
[2020-10-08 17:58] LABS: Add Manual Diff / Slide Review NO; Basophils Absolute Auto 0 /uL (0-100); Basophils Percent Auto 0.2 % (0-2); Eosinophils Absolute Auto 0 /uL (0-450); Eosinophils Percent Auto 0.2 % (2-4); Hematocrit 25.3 % (41-53); Hemoglobin 8.1 g/dL (13.5-17.5); INR 1.5 (0.9-1.3); Lymphocytes Absolute Auto 800 /uL (1100-4500); Lymphocytes Percent Auto 10.5 % (25-40); Mean Corpuscular Hemoglobin 29.3 PG (26-34); Mean Corpuscular Volume 91.6 fL (80-100); Monocytes Absolute Auto 200 /uL (0-900); Monocytes Percent Auto 2.8 % (3-14); Neutrophils Absolute Auto 6500 /uL (1500-7000); Neutrophils Percent Auto 86.3 % (50-75); Platelet Count 410 X10^3/uL (150-400); Prothrombin Time 17.6 SECONDS (10.1-12.7); Red Blood Cell Count 2.77 X10^6/uL (4.5-5.9); White Blood Cell Count 7.5 X10^3/uL (4.5-11.0)
[2020-10-08] MEDS: SODIUM CHLORIDE 0.9% 1,000 ML 125 ML IV (18:00)
[2020-10-08 18:01] LABS: PTT Partial Thromboplastin Tim 30 SECONDS (26.4-36.2)
[2020-10-08] MEDS: methylPREDNISolone 125 MG/2 ML VIAL IV (18:01)
[2020-10-08] MEDS: FAMOTIDINE 20 MG/2 ML VIAL IV (18:01)
[2020-10-08 18:04] LABS: Creatine Kinase 62 U/L (55-170); Lipase 118 U/L (23-300)
[2020-10-08 18:05] LABS: Alanine Aminotransferase 15 IU/L (<50); Albumin 3.1 g/dL (3.5-5.0); Albumin Globulin Ratio 1.1 (1.0-2.8); Alkaline Phosphatase 67 U/L (38-126); Aspartate Aminotransferase 21 IU/L (17-59); BUN Creatinine Ratio 25.1 (6-22); Bilirubin Total 0.4 mg/dL (0.2-1.3); Blood Urea Nitrogen 43 mg/dL (9-20); Calcium 9.3 mg/dL (8.4-10.2); Carbon Dioxide 22 mmol/L (22-32); Chloride 105 mmol/L (98-107); Estimated Glomerular Filt Rate 39.1 mL/min (>60); Globulin 2.7 g/dL (1.7-4.1); Glucose 210 mg/dL (80-110); HEMOLYSIS < 15 (0-50); Potassium 4.4 mmol/L (3.4-5.1); Sodium 135 mmol/L (137-145); Total Protein 5.8 g/dL (6.3-8.2)
[2020-10-08 18:16] LABS: Troponin I 0.033 ng/mL (0.01-0.034)
[2020-10-08 19:21] LABS: COVID19 - ADMIT (NP swab/PCR) Negative (Negative)
[2020-10-08 19:50] VITALS: BP 160/78; PULSE 84; RESP 18; O2SAT 98
--- NOTE | 2020-10-19 14:01 | PC.NURSE ---
late entry- RN states IV fluids Dc'd when IV DC'd at 2030
== END 2020-10-08 19:49 | disposition home or self-care (01) ==
PROVIDERS: Emergency Provider Emergency Medicine; PCP Family Medicine
DX: R22.0 Localized swelling, mass and lump, head (principal); R21 Rash and other nonspecific skin eruption; R00.0 Tachycardia, unspecified; T78.40XA Allergy, unspecified, initial encounter; Z20.822 Contact with and (suspected) exposure to COVID-19
CPT/HCPCS: 36415; 80053; 82550; 83690; 84484; 85025; 85610; 85730; 87635; 93005; 96361; 96374; 96375; 99284; C9803; J2930

== ENCOUNTER → 2020-11-13 16:34 | Outpatient (CLI) | payer MEDICARE, OTHER, SELFPAY | PROVIDERS: PCP Family Medicine; Referring Provider Family Medicine; Visit Provider Family Medicine | DX: L03.90 Cellulitis, unspecified (principal); S81.801A Unspecified open wound, right lower leg, initial encounter | CPT/HCPCS: 87070; 87075; 87077; 87186; 87205 ==

== ENCOUNTER → 2020-11-14 09:00 | Outpatient (CLI) | payer MEDICARE, OTHER, SELFPAY ==
[2020-11-14 10:37] LABS: Reticulocyte Count, Percent 2.4 % (0.87-2.60)
[2020-11-14 10:45] LABS: Hemoglobin A1C% w Est Avg Glu 4.8 % (4.0-6.0)
[2020-11-14 10:46] LABS: Add Manual Diff / Slide Review NO; Basophils Absolute Auto 0 /uL (0-100); Basophils Percent Auto 0.8 % (0-2); Eosinophils Absolute Auto 200 /uL (0-450); Hematocrit 27.9 % (41-53); Hemoglobin 8.5 g/dL (13.5-17.5); Lymphocytes Absolute Auto 500 /uL (1100-4500); Lymphocytes Percent Auto 13.6 % (25-40); Mean Corpuscular HGB Conc 30.5 % (30-36); Mean Corpuscular Hemoglobin 29.7 PG (26-34); Mean Corpuscular Volume 97.5 fL (80-100); Monocytes Absolute Auto 500 /uL (0-900); Monocytes Percent Auto 12.9 % (3-14); Neutrophils Absolute Auto 2700 /uL (1500-7000); Neutrophils Percent Auto 68.7 % (50-75); Platelet Count 227 X10^3/uL (150-400); Red Blood Cell Count 2.87 X10^6/uL (4.5-5.9); Red Cell Distribution Width 20.6 % (11.6-14.8); White Blood Cell Count 3.9 X10^3/uL (4.5-11.0)
[2020-11-14 11:35] LABS: Uric Acid 3.9 mg/dL (3.5-8.5)
[2020-11-14 11:37] LABS: Anisocytosis 2+; Hypochromasia 2+
[2020-11-14 11:38] LABS: Poikilocytosis 2+
[2020-11-14 11:40] LABS: Total Iron Binding Capacity 352 ug/dL (261-462)
[2020-11-14 12:13] LABS: Ferritin 51 ng/mL (18-464)
== END ==
PROVIDERS: PCP Family Medicine; Referring Provider Family Medicine; Visit Provider Family Medicine
DX: D64.9 Anemia, unspecified (principal); E11.9 Type 2 diabetes mellitus without complications; L03.90 Cellulitis, unspecified; I10 Essential (primary) hypertension; M10.9 Gout, unspecified
CPT/HCPCS: 36415; 82728; 83036; 83550; 84550; 85025; 85045

== ENCOUNTER → 2020-11-21 14:47 | Outpatient (CLI) | payer MEDICARE, OTHER, SELFPAY | PROVIDERS: Family Provider Family Medicine; PCP Family Medicine; Referring Provider Family Medicine; Visit Provider Family Medicine | DX: S81.801A Unspecified open wound, right lower leg, initial encounter (principal); L08.9 Local infection of the skin and subcutaneous tissue, unspecified; R60.0 Localized edema; Z94.0 Kidney transplant status; Z79.899 Other long term (current) drug therapy; I50.32 Chronic diastolic (congestive) heart failure; Z79.01 Long term (current) use of anticoagulants; D64.9 Anemia, unspecified; E11.622 Type 2 diabetes mellitus with other skin ulcer; N18.30 Chronic kidney disease, stage 3 unspecified | CPT/HCPCS: 11042; 87070; 87205; 93922; 99204; 99214 ==

== ENCOUNTER → 2020-11-28 11:27 | Outpatient (CLI) | payer MEDICARE, OTHER, SELFPAY | PROVIDERS: Family Provider Family Medicine; PCP Family Medicine; Referring Provider Family Medicine; Visit Provider Family Medicine | DX: S81.801A Unspecified open wound, right lower leg, initial encounter (principal); R60.0 Localized edema; Z94.0 Kidney transplant status; Z79.899 Other long term (current) drug therapy; I50.32 Chronic diastolic (congestive) heart failure; Z79.01 Long term (current) use of anticoagulants; D64.9 Anemia, unspecified; E11.622 Type 2 diabetes mellitus with other skin ulcer; N18.30 Chronic kidney disease, stage 3 unspecified | CPT/HCPCS: 11042; 97607; 99213 ==

== ENCOUNTER → 2020-11-30 14:33 | Outpatient (CLI) | payer MEDICARE, OTHER, SELFPAY | PROVIDERS: Family Provider Family Medicine; PCP Family Medicine; Referring Provider Family Medicine; Visit Provider Nurse Practitioner Family | DX: S80.811A Abrasion, right lower leg, initial encounter (principal) | CPT/HCPCS: 97607 ==

== ENCOUNTER → 2020-12-03 11:25 | Outpatient (CLI) | payer MEDICARE, OTHER, SELFPAY | PROVIDERS: Family Provider Family Medicine; PCP Family Medicine; Referring Provider Family Medicine; Visit Provider Family Medicine | DX: S81.801A Unspecified open wound, right lower leg, initial encounter (principal) | CPT/HCPCS: 97608 ==

== ENCOUNTER → 2020-12-06 14:00 | Outpatient (CLI) | payer MEDICARE, OTHER, SELFPAY | PROVIDERS: Family Provider Family Medicine; PCP Family Medicine; Referring Provider Family Medicine; Visit Provider Family Medicine | DX: S81.801A Unspecified open wound, right lower leg, initial encounter (principal); R60.0 Localized edema; Z94.0 Kidney transplant status; Z79.899 Other long term (current) drug therapy; I50.32 Chronic diastolic (congestive) heart failure; Z79.01 Long term (current) use of anticoagulants; D64.9 Anemia, unspecified; E11.622 Type 2 diabetes mellitus with other skin ulcer; N18.30 Chronic kidney disease, stage 3 unspecified | CPT/HCPCS: 29580; 99212 ==

== ENCOUNTER → 2020-12-10 13:07 | Outpatient (CLI) | payer MEDICARE, OTHER, SELFPAY | PROVIDERS: Family Provider Family Medicine; PCP Family Medicine; Referring Provider Family Medicine; Visit Provider Family Medicine | DX: S81.801A Unspecified open wound, right lower leg, initial encounter (principal); R60.0 Localized edema | CPT/HCPCS: 29580 ==

== ENCOUNTER → 2020-12-13 15:08 | Outpatient (CLI) | payer MEDICARE, OTHER, SELFPAY | PROVIDERS: Family Provider Family Medicine; PCP Family Medicine; Referring Provider Family Medicine; Visit Provider Family Medicine | DX: S81.801A Unspecified open wound, right lower leg, initial encounter (principal); R60.0 Localized edema; Z94.0 Kidney transplant status; Z79.899 Other long term (current) drug therapy; I50.32 Chronic diastolic (congestive) heart failure; Z79.01 Long term (current) use of anticoagulants; D64.9 Anemia, unspecified; E11.622 Type 2 diabetes mellitus with other skin ulcer; N18.30 Chronic kidney disease, stage 3 unspecified | CPT/HCPCS: 11042; 87070; 87075; 87077; 87186; 87205 ==

== ENCOUNTER → 2020-12-17 16:41 | Outpatient (CLI) | payer MEDICARE, OTHER, SELFPAY | PROVIDERS: Family Provider Family Medicine; PCP Family Medicine; Referring Provider Family Medicine; Visit Provider Family Medicine | DX: S81.801A Unspecified open wound, right lower leg, initial encounter (principal); R60.0 Localized edema; E11.628 Type 2 diabetes mellitus with other skin complications | CPT/HCPCS: 99214 ==

== ENCOUNTER → 2020-12-24 13:02 | Outpatient (CLI) | payer MEDICARE, OTHER, SELFPAY | PROVIDERS: Family Provider Family Medicine; PCP Family Medicine; Referring Provider Family Medicine; Visit Provider Family Medicine | DX: S81.801A Unspecified open wound, right lower leg, initial encounter (principal); R60.0 Localized edema; Z79.899 Other long term (current) drug therapy; Z79.01 Long term (current) use of anticoagulants; D64.9 Anemia, unspecified; N18.30 Chronic kidney disease, stage 3 unspecified; R12 Heartburn; B95.61 Methicillin susceptible Staphylococcus aureus infection as the cause of diseases classified elsewhere; E11.628 Type 2 diabetes mellitus with other skin complications | CPT/HCPCS: 11042; 99213 ==

== ENCOUNTER → 2021-01-02 14:28 | Outpatient (CLI) | payer MEDICARE, OTHER, SELFPAY | PROVIDERS: Family Provider Family Medicine; PCP Family Medicine; Referring Provider Family Medicine; Visit Provider Family Medicine | DX: L08.89 Other specified local infections of the skin and subcutaneous tissue (principal); L97.215 Non-pressure chronic ulcer of right calf with muscle involvement without evidence of necrosis; S81.801A Unspecified open wound, right lower leg, initial encounter; D84.821 Immunodeficiency due to drugs; E11.622 Type 2 diabetes mellitus with other skin ulcer; R60.0 Localized edema; N18.30 Chronic kidney disease, stage 3 unspecified | CPT/HCPCS: 11042; 87070; 87075; 87077; 87147; 87186; 87205; 97597; 99214 ==

== ENCOUNTER → 2021-01-09 14:18 | Outpatient (CLI) | payer MEDICARE, OTHER, SELFPAY | PROVIDERS: Family Provider Family Medicine; PCP Family Medicine; Referring Provider Family Medicine; Visit Provider Family Medicine | DX: E11.622 Type 2 diabetes mellitus with other skin ulcer (principal); L97.215 Non-pressure chronic ulcer of right calf with muscle involvement without evidence of necrosis; B95.7 Other staphylococcus as the cause of diseases classified elsewhere; S81.801A Unspecified open wound, right lower leg, initial encounter | CPT/HCPCS: 15271; 99213; Q4110 ==

== ENCOUNTER → 2021-01-16 14:09 | Outpatient (CLI) | payer MEDICARE, OTHER, SELFPAY | PROVIDERS: Family Provider Family Medicine; PCP Family Medicine; Referring Provider Family Medicine; Visit Provider Family Medicine | DX: E11.621 Type 2 diabetes mellitus with foot ulcer (principal); L97.215 Non-pressure chronic ulcer of right calf with muscle involvement without evidence of necrosis; R60.0 Localized edema; Z94.0 Kidney transplant status; Z79.899 Other long term (current) drug therapy; I50.32 Chronic diastolic (congestive) heart failure; Z79.01 Long term (current) use of anticoagulants; D64.9 Anemia, unspecified; N18.30 Chronic kidney disease, stage 3 unspecified | CPT/HCPCS: 99212; 99213 ==

== ENCOUNTER → 2021-01-23 14:32 | Outpatient (CLI) | payer MEDICARE, OTHER, SELFPAY | PROVIDERS: Family Provider Family Medicine; PCP Family Medicine; Referring Provider Family Medicine; Visit Provider Family Medicine | DX: E11.621 Type 2 diabetes mellitus with foot ulcer (principal); L97.215 Non-pressure chronic ulcer of right calf with muscle involvement without evidence of necrosis; R60.0 Localized edema; Z94.0 Kidney transplant status; Z79.899 Other long term (current) drug therapy; I50.32 Chronic diastolic (congestive) heart failure; Z79.01 Long term (current) use of anticoagulants; D64.9 Anemia, unspecified; N18.30 Chronic kidney disease, stage 3 unspecified | CPT/HCPCS: 29581; 99212 ==

== ENCOUNTER → 2021-01-29 14:05 | Outpatient (CLI) | payer MEDICARE, OTHER, SELFPAY | PROVIDERS: Family Provider Family Medicine; PCP Family Medicine; Referring Provider Family Medicine; Visit Provider Family Medicine | DX: E11.621 Type 2 diabetes mellitus with foot ulcer (principal); L97.215 Non-pressure chronic ulcer of right calf with muscle involvement without evidence of necrosis; R60.0 Localized edema; Z94.0 Kidney transplant status; Z79.899 Other long term (current) drug therapy; I50.32 Chronic diastolic (congestive) heart failure; Z79.01 Long term (current) use of anticoagulants; D64.9 Anemia, unspecified; N13.30 Unspecified hydronephrosis | CPT/HCPCS: 97597 ==

== ENCOUNTER → 2021-02-06 15:28 | Outpatient (CLI) | payer MEDICARE, OTHER, SELFPAY | PROVIDERS: Family Provider Family Medicine; PCP Family Medicine; Referring Provider Family Medicine; Visit Provider Family Medicine | DX: E11.621 Type 2 diabetes mellitus with foot ulcer (principal); L97.212 Non-pressure chronic ulcer of right calf with fat layer exposed; Z94.0 Kidney transplant status; R60.0 Localized edema; Z79.899 Other long term (current) drug therapy; I50.32 Chronic diastolic (congestive) heart failure; Z79.01 Long term (current) use of anticoagulants; D64.9 Anemia, unspecified; N18.30 Chronic kidney disease, stage 3 unspecified | CPT/HCPCS: 11042; 97607 ==

== ENCOUNTER → 2021-02-08 11:04 | Outpatient (CLI) | payer MEDICARE, OTHER, SELFPAY | PROVIDERS: Family Provider Family Medicine; PCP Family Medicine; Referring Provider Family Medicine; Visit Provider Nurse Practitioner Family | DX: E11.622 Type 2 diabetes mellitus with other skin ulcer (principal); L97.215 Non-pressure chronic ulcer of right calf with muscle involvement without evidence of necrosis | CPT/HCPCS: 29581; 97607 ==

== ENCOUNTER → 2021-02-13 13:26 | Outpatient (CLI) | payer MEDICARE, OTHER, SELFPAY | PROVIDERS: Family Provider Family Medicine; PCP Family Medicine; Referring Provider Family Medicine; Visit Provider Family Medicine | DX: E11.621 Type 2 diabetes mellitus with foot ulcer (principal); L97.212 Non-pressure chronic ulcer of right calf with fat layer exposed; Z94.0 Kidney transplant status; R60.0 Localized edema; Z79.899 Other long term (current) drug therapy; I50.32 Chronic diastolic (congestive) heart failure; Z79.01 Long term (current) use of anticoagulants; D64.9 Anemia, unspecified; N18.30 Chronic kidney disease, stage 3 unspecified | CPT/HCPCS: 11042; 97607 ==

== ENCOUNTER → 2021-02-19 10:19 | Outpatient (CLI) | payer MEDICARE, OTHER, SELFPAY ==
[2021-02-19 11:23] LABS: Add Manual Diff / Slide Review NO; Basophils Absolute Auto 0 /uL (0-100); Basophils Percent Auto 0.7 % (0-2); Eosinophils Absolute Auto 200 /uL (0-450); Eosinophils Percent Auto 4.1 % (2-4); Hematocrit 29.9 % (41-53); Hemoglobin 9.3 g/dL (13.5-17.5); Lymphocytes Absolute Auto 700 /uL (1100-4500); Lymphocytes Percent Auto 15.4 % (25-40); Mean Corpuscular HGB Conc 31.1 % (30-36); Mean Corpuscular Hemoglobin 26.8 PG (26-34); Mean Corpuscular Volume 86.2 fL (80-100); Monocytes Absolute Auto 500 /uL (0-900); Monocytes Percent Auto 11.6 % (3-14); Neutrophils Absolute Auto 3000 /uL (1500-7000); Neutrophils Percent Auto 68.2 % (50-75); Platelet Count 225 X10^3/uL (150-400); Red Blood Cell Count 3.47 X10^6/uL (4.5-5.9); Red Cell Distribution Width 19.8 % (11.6-14.8); White Blood Cell Count 4.4 X10^3/uL (4.5-11.0)
[2021-02-19 11:26] LABS: HEMOLYSIS < 15 (0-50); Iron 11 ug/dL (49-181)
[2021-02-19 11:38] LABS: Alanine Aminotransferase 13 IU/L (<50); Albumin 3.7 g/dL (3.5-5.0); Albumin Globulin Ratio 1.8 (1.0-2.8); Alkaline Phosphatase 62 U/L (38-126); Aspartate Aminotransferase 24 IU/L (17-59); BUN Creatinine Ratio 26.6 (6-22); Bilirubin Total 0.6 mg/dL (0.2-1.3); Blood Urea Nitrogen 46 mg/dL (9-20); Calcium 9.8 mg/dL (8.4-10.2); Carbon Dioxide 29 mmol/L (22-32); Chloride 106 mmol/L (98-107); Estimated Glomerular Filt Rate 38.6 mL/min (>60); Globulin 2.1 g/dL (1.7-4.1); Glucose 116 mg/dL (80-110); HEMOLYSIS < 15 (0-50); Potassium 4.4 mmol/L (3.4-5.1); Sodium 139 mmol/L (137-145); Total Protein 5.8 g/dL (6.3-8.2); Uric Acid 3.9 mg/dL (3.5-8.5)
[2021-02-19 11:39] LABS: Percent Iron Saturation 3 % (20-50); Total Iron Binding Capacity 389 ug/dL (261-462); Transferrin 312 mg/dL (206-381)
[2021-02-19 12:12] LABS: Ferritin 12 ng/mL (18-464)
== END ==
PROVIDERS: Family Provider Family Medicine; PCP Family Medicine; Referring Provider Family Medicine; Visit Provider Family Medicine
DX: D50.9 Iron deficiency anemia, unspecified (principal); I48.20 Chronic atrial fibrillation, unspecified; N28.9 Disorder of kidney and ureter, unspecified
CPT/HCPCS: 36415; 80053; 82728; 83540; 83550; 84550; 85025

== ENCOUNTER → 2021-02-19 13:11 | Outpatient (CLI) | payer MEDICARE, OTHER, SELFPAY | PROVIDERS: Family Provider Family Medicine; PCP Family Medicine; Referring Provider Family Medicine; Visit Provider Family Medicine | DX: E11.622 Type 2 diabetes mellitus with other skin ulcer (principal); L97.212 Non-pressure chronic ulcer of right calf with fat layer exposed; Z94.0 Kidney transplant status; R60.0 Localized edema; Z79.899 Other long term (current) drug therapy; I50.32 Chronic diastolic (congestive) heart failure; Z79.01 Long term (current) use of anticoagulants; D64.9 Anemia, unspecified; N18.30 Chronic kidney disease, stage 3 unspecified | CPT/HCPCS: 15271; 99213; Q4133 ==

== ENCOUNTER → 2021-02-19 16:07 | Outpatient (CLI) | payer MEDICARE, OTHER, SELFPAY ==
--- NOTE | 2021-02-19 16:10 | DI.ECHO.S_ITS ---
[facility]---------[facility] +---------+ : : [address] [place] : : : : [id number] : : : : Phone: [phone]+ Echocardiogram Report + + :Name: ZEYAD HUERTA Study Date: 02/19/2021 Height: 69 in : :[facility] ReadingLocation: Weight: 215 lb: : Gender: Male BSA: 2.1 m2 : :: 1945 Age: 75 yrs : :Reason For Study: CHRONIC ATRIAL FIBRILLATION : :Ordering Physician: ROCKY, : :WENDI Performed By: Trudy De Dios : :Referring: WENDI HIDALGO : + + Interpretation Summary The left ventricle is normal in size. The ejection fraction is estimated to be 60-65%. There has been no significant change in LVEF since the previous exam.E/E' med: 18.0, suggestive of elevated LV filling pressure. The right ventricle is normal size. Right ventricular systolic function is mildly reduced. There is mild to moderate mitral regurgitation. The aortic valve is moderately calcified. There is mildly reduced leaflet mobility. The peak aortic velocity is 2.9 m/sec. The aortic valve mean gradient is 18.7 mmHg. The calculated aortic valve area is 1.1 cm2. There is mild to moderate aortic stenosis. The peak aortic velocity on the previous exam was 2.8 m/sec. There is mild tricuspid regurgitation. Compared to the prior echo exam, there has been a decrease in TR severity. The IVC is dilated (diameter is greater than 2.1 cm) and it collapses less than 50% with a sniff. This suggests a high right atrial pressure of 15 mm Hg. Right atrial pressure has increased from the previous study. Procedure: A two-dimensional transthoracic echocardiogram with color flow and Doppler was performed. The study quality was technically adequate. Comparison is made with the echocardiogram of 06/11/2018. The patient was in atrial fibrillation with controlled ventricular rate during the exam. Left Ventricle: The left ventricle is normal in size. There is mild concentric left ventricular hypertrophy. There is no thrombus. A false chord is noted (normal variant). The ejection fraction is estimated to be 60-65%. There has been no significant change since the previous exam. There are no focal wall motion abnormalities. E/E' med: 18.0. Right Ventricle: The right ventricle is normal size. Right ventricular systolic function is mildly reduced. Atria: The left atrium is severely dilated. The left atrium has remained unchanged in size since the prior echo exam. The right atrium is mildly dilated. There is no Doppler evidence for an interatrial shunt. Mitral Valve: There is mild to moderate mitral annular calcification. The mitral valve leaflets are mildly calcified. There is mild to moderate mitral regurgitation. Aortic Valve: The aortic valve is trileaflet. The aortic valve is moderately calcified. There is mildly reduced leaflet mobility. There is mild to moderate aortic stenosis. The peak aortic velocity is 2.9 m/sec. The aortic valve mean gradient is 18.7 mmHg. The calculated aortic valve area is 1.1 cm2. The peak aortic velocity on the previous exam was 2.8 m/sec. There is trace aortic regurgitation. Tricuspid Valve: The tricuspid valve leaflets are thin and pliable. There is mild tricuspid regurgitation. Pulmonary artery pressures cannot be estimated because of the lack of a measurable TR jet velocity but the IVC suggests a CVP of around 15 mmHg. Compared to the prior echo exam, there has been a decrease in TR severity. Pulmonic Valve: The pulmonic valve is not well visualized. There is no pulmonic valvular regurgitation. Great Vessels: The aortic root is normal size. The ascending aorta is normal in size. The IVC is dilated (diameter is greater than 2.1 cm) and it collapses less than 50% with a sniff. This suggests a high right atrial pressure of 15 mm Hg. Pericardium/ Pleura There is no pericardial effusion. There is no pleural effusion. MMode/2D Measurements & Calculations LVIDd: 4.9 cm LVOT diam: 2.2 cm LVIDs: 3.3 cm Ao root diam: 2.9 cm FS: 32.3 % asc Aorta Diam: 3.4 cm IVSd: 1.0 cm LVPWd: 1.2 cm LV barragan. diameter/BSA (cm/m^2): 2.3 LV sys. diameter/BSA (cm/m^2): 1.5 LA A2 area: 36.9 cm2 RA long axis: 6.1 cm LA A4 area: 29.5 cm2 RA area: 24.3 cm2 LA length (vol): 7.0 cm RA vol: 81.9 ml LA vol: 131.5 ml RA : 38.5 ml/m2 LA vol index: 61.7 ml/m2 IVC diam: 2.6 cm RVD1 (basal): 3.5 cm TAPSE: 1.5 cm Doppler Measurements & Calculations Ao V2 max: 296.1 cm/sec LVOT Max Job: 88.4 cm/sec Ao V2 mean: 186.2 cm/sec LV V1 max P.1 mmHg Ao max P.3 mmHg LV V1 VTI: 20.6 cm Ao mean P.7 mmHg OTILIA(I,D): 1.1 cm2 Ao V2 VTI: 67.1 cm OTILIA(V,D): 1.1 cm2 sev ratio: 0.31 OTILIA indexed to BSA (cm^2/m^2): 0.54 MV E max job: 104.3 cm/sec PA V2 max: 111.2 cm/sec MV A max job: 1.6 cm/sec PA V2 mean: 69.6 cm/sec MV E/A: 64.4 PA mean P.2 mmHg Med Peak E' Job: 5.8 cm/sec PA pr(Accel): 36.2 mmHg E/E' med: 18.0 Lat Peak E' Job: 6.6 cm/sec E/E' lat: 15.8 E/e' average: 16.9 MV dec time: 0.24 sec SV(LVOT): 76.6 ml Reading Physician:06:12 PM
== END ==
PROVIDERS: Family Provider Family Medicine; PCP Family Medicine; Referring Provider Family Medicine; Visit Provider Family Medicine
DX: E11.622 Type 2 diabetes mellitus with other skin ulcer (principal); I08.3 Combined rheumatic disorders of mitral, aortic and tricuspid valves; L97.212 Non-pressure chronic ulcer of right calf with fat layer exposed; E11.22 Type 2 diabetes mellitus with diabetic chronic kidney disease; N18.30 Chronic kidney disease, stage 3 unspecified; I48.20 Chronic atrial fibrillation, unspecified; D50.9 Iron deficiency anemia, unspecified; R60.0 Localized edema; I50.32 Chronic diastolic (congestive) heart failure; Z79.01 Long term (current) use of anticoagulants; Z94.0 Kidney transplant status; Z79.899 Other long term (current) drug therapy
CPT/HCPCS: 15271; 36415; 80053; 82728; 83540; 83550; 84550; 85025; 93306; 99213; Q4133

== ENCOUNTER → 2021-02-28 14:45 | Outpatient (CLI) | payer MEDICARE, OTHER, SELFPAY | PROVIDERS: Family Provider Family Medicine; PCP Family Medicine; Referring Provider Family Medicine; Visit Provider Nurse Practitioner Family | DX: L97.212 Non-pressure chronic ulcer of right calf with fat layer exposed (principal); Z94.0 Kidney transplant status; R60.0 Localized edema; Z79.899 Other long term (current) drug therapy; I50.32 Chronic diastolic (congestive) heart failure; Z79.01 Long term (current) use of anticoagulants; D64.9 Anemia, unspecified; N18.30 Chronic kidney disease, stage 3 unspecified | CPT/HCPCS: 15271; 99214; Q4133 ==

== ENCOUNTER → 2021-03-08 11:27 | Outpatient (CLI) | payer MEDICARE, OTHER, SELFPAY | PROVIDERS: Family Provider Family Medicine; PCP Family Medicine; Referring Provider Family Medicine; Visit Provider Nurse Practitioner Family | DX: E11.22 Type 2 diabetes mellitus with diabetic chronic kidney disease (principal); L97.212 Non-pressure chronic ulcer of right calf with fat layer exposed; R60.0 Localized edema | CPT/HCPCS: 29581 ==

== ENCOUNTER → 2021-03-14 | Outpatient (CLI) | payer MEDICARE, OTHER, SELFPAY | LOC: WC 13:26 | PROVIDERS: Family Provider Family Medicine; PCP Family Medicine; Referring Provider Family Medicine; Visit Provider Family Medicine | DX: E11.622 Type 2 diabetes mellitus with other skin ulcer (principal); L97.212 Non-pressure chronic ulcer of right calf with fat layer exposed; R60.0 Localized edema | CPT/HCPCS: 29581 ==

== ENCOUNTER → 2021-03-21 14:13 | Outpatient (CLI) | payer MEDICARE, OTHER, SELFPAY | PROVIDERS: Family Provider Family Medicine; PCP Family Medicine; Referring Provider Family Medicine; Visit Provider Family Medicine | DX: E11.622 Type 2 diabetes mellitus with other skin ulcer (principal); L97.212 Non-pressure chronic ulcer of right calf with fat layer exposed; R60.0 Localized edema; I50.32 Chronic diastolic (congestive) heart failure; D64.9 Anemia, unspecified; N18.30 Chronic kidney disease, stage 3 unspecified; Z94.0 Kidney transplant status; Z79.899 Other long term (current) drug therapy; Z79.01 Long term (current) use of anticoagulants | CPT/HCPCS: 15271; 99213; Q4133 ==

== ENCOUNTER → 2021-03-28 14:39 | Outpatient (CLI) | payer MEDICARE, OTHER, SELFPAY | PROVIDERS: Family Provider Family Medicine; PCP Family Medicine; Referring Provider Family Medicine; Visit Provider Family Medicine | DX: E11.622 Type 2 diabetes mellitus with other skin ulcer (principal); L97.212 Non-pressure chronic ulcer of right calf with fat layer exposed; R60.0 Localized edema; E11.22 Type 2 diabetes mellitus with diabetic chronic kidney disease; N18.30 Chronic kidney disease, stage 3 unspecified; I50.32 Chronic diastolic (congestive) heart failure; D64.9 Anemia, unspecified; D84.821 Immunodeficiency due to drugs; Z94.0 Kidney transplant status; Z79.899 Other long term (current) drug therapy; Z79.01 Long term (current) use of anticoagulants; Z79.84 Long term (current) use of oral hypoglycemic drugs | CPT/HCPCS: 99212; 99213 ==

== ENCOUNTER → 2021-03-29 14:15 | Outpatient (CLI) | payer MEDICARE, OTHER, SELFPAY | PROVIDERS: Family Provider Family Medicine; PCP Family Medicine; Referring Provider Family Medicine; Visit Provider Nurse Practitioner Family | DX: E11.622 Type 2 diabetes mellitus with other skin ulcer (principal); L97.212 Non-pressure chronic ulcer of right calf with fat layer exposed; R60.0 Localized edema | CPT/HCPCS: 99213 ==

== ENCOUNTER → 2021-04-01 14:34 | Outpatient (CLI) | payer MEDICARE, OTHER, SELFPAY | PROVIDERS: Family Provider Family Medicine; PCP Family Medicine; Referring Provider Family Medicine; Visit Provider Family Medicine | DX: E11.622 Type 2 diabetes mellitus with other skin ulcer (principal); L97.212 Non-pressure chronic ulcer of right calf with fat layer exposed; R60.0 Localized edema | CPT/HCPCS: 29581 ==

== ENCOUNTER → 2021-04-15 12:04 | Outpatient (CLI) | payer MEDICARE, OTHER, SELFPAY ==
[2021-04-15 13:46] LABS: COVID19 -Nasal RAPID POSITIVE (Negative)
== END ==
PROVIDERS: Family Provider Family Medicine; PCP Family Medicine; Visit Provider Student in an Organized Health Care Education/Training Program
DX: U07.1 COVID-19 (principal); Z20.822 Contact with and (suspected) exposure to COVID-19
CPT/HCPCS: 87635

== ENCOUNTER 2021-04-21 09:26 | Inpatient (IN) | payer MEDICARE, OTHER, SELFPAY ==
[2021-04-21] VITALS (31 sets, daily range): BP systolic 134–179; BP diastolic 77–98; PULSE 94–142; RESP 27–48; TEMP 36.8–37.1; O2SAT 80–98; BMI 28.0
--- NOTE | 2021-04-21 10:10 | ED_ITS ---
HPI - SOB/Dyspnea General Chief Complaint: Shortness of Breath/Dyspnea Stated Complaint: oxygen at 70 Time Seen by Provider: 04/21/21 09:55 Source: patient Mode of arrival: Wheelchair Limitations: no limitations History of Present Illness HPI Narrative: This is a 76-year-old male with history of renal transplant at [facility] 5 years ago to end-stage renal disease from diabetes, hypertension, dyslipidemia and prior GI bleed. Patient tested positive for COVID on the . He has had 8 days of symptoms starting with fevers, feeling generally unwell and cough. Patient has developed shortness of breath but no chest pain. He has had nausea but no vomiting. He has had diarrhea which he states has been moderate in nature. He states yesterday there was some discoloration. He denies any new swelling in his extremities. His chart notes some AFib intermittently on a prior visit. Patient is on an aspirin daily. He is on immune suppressants for his renal transplant. Patient had monoclonal antibodies yesterday given intravenously in the emergency department at [facility]. He states he was feeling short of breath and has had some worsening overnight. They had a pulse oximeter at home that showed O2 sats into the 70s. Patient states there is no waveform hits number. He also notes a chronic wound on his right leg that is been present for about 6 months but not worsened. He states he is allergic to cephalexin. His primary care is Dr. Magallanes. Related Data Home Medications Medication Instructions Recorded Confirmed mycophenolate sodium 180 mg 720 mg PO BID 08/29/17 04/21/21 tablet,delayed release niacinamide 500 mg tablet 250 mg PO DAILY 08/29/17 04/21/21 tacrolimus 1 mg capsule, 2 mg PO BID 08/29/17 04/21/21 immediate-release aspirin 81 mg tablet,delayed 81 mg PO DAILY 04/12/19 04/15/21 release ergocalciferol (vitamin D2) 1,250 50,000 unit PO DAILY 04/12/19 04/21/21 mcg (50,000 unit) capsule (Vitamin D2) metoprolol succinate 50 mg 25 mg PO DAILY 04/12/19 04/21/21 tablet,extended release 24 hr prednisone 5 mg tablet 5 mg PO DAILY 04/12/19 04/21/21 terazosin 2 mg capsule 4 mg PO QPM 04/12/19 04/21/21 lisinopril 20 mg tablet 2.5 mg PO DAILY 03/14/21 04/21/21 atorvastatin 10 mg tablet 20 mg PO BEDTIME 04/21/21 04/21/21 metformin 850 mg tablet 850 mg PO BID 04/21/21 04/21/21 Previous Rx's Medication Instructions Recorded warfarin 5 mg tablet See Rx Instructions .ROUTE 08/06/20 .COMPLEX #90 tab colchicine 0.6 mg tablet 0.6 mg PO BID PRN #10 tab 08/10/20 epinephrine 0.3 mg/0.3 mL 0.3 mg (0.3 mL) IM ONCE #2 ea 10/23/20 injection, auto-injector (EpiPen 2-Dm) pioglitazone 30 mg tablet 30 mg PO DAILY #90 tab 11/28/20 amlodipine 2.5 mg tablet 2.5 mg PO DAILY #90 tab 12/24/20 allopurinol 300 mg tablet 300 mg PO DAILY #90 tab 01/22/21 Allergies Allergy/AdvReac Type Severity Reaction Status Date / Time cephalexin Allergy Severe Anaphylaxis Verified 04/15/21 12:25 Review of Systems Review of Systems ROS Unobtainable: All systems reviewed & are unremarkable except as noted in HPI and below Patient History Medical History Anemia Atrial fibrillation (~2018) Borderline hypothyroidism Cataracts, bilateral (~2013) Cellulitis Chronic wound of extremity Diabetes Gout (~1966) Hypertension Iron deficiency anemia Kidney disease (~2004) Low back pain Measles (~194) Mumps (~194) Skin tear of right upper arm without complication Sleep apnea (~2011) Stroke (~2004) Surgical History Anesthesia History of total right knee replacement (TKR) Kidney transplant recipient (~2016) Family History Father Stroke Mother History of heart disease Sister Cancer Grandfather History of heart disease Grandmother History of heart disease Social History Smoking Status: Never smoker Smoking Status: Never smoker alcohol intake frequency: 0-2 drinks per day Substance Use Type: does not use Exam Narrative Exam Narrative: GEN: well nourished, well appearing male, alert and oriented x 3, patient appears to be in mild to moderate distress. HEENT: Atraumatic, pupils are equal round reactive to light, extraocular movements are intact, nares are clear, TMs are clear with no fluid, there is no conjunctival pallor. Throat is clear without any exudates, erythema, tonsillar enlargement or uvular deviation HEART: Tachycardic Regular rate and rhythm without murmur, clicks, rubs. LUNGS:Lungs slightly decreased but breath sounds present bilaterally, wheezes, rales, crackles, chest moves symmetrically. Positive for tachypnea. No accessory muscle use appreciated. ABD:bowel sounds normal, soft, non-tender, no guarding, rebound, rigidity, no masses noted, no hepatosplenomegaly :No CVA tenderness MSCL: Non-tender, no muscle atrophy, full range of motion NEURO:CN 2-12 intact, sensation normal. SKIN: patient has skin change right lofton. Initial Vital Signs Initial Vital Signs: Vital Signs Pulse Rate 121 H 04/21/21 09:48 Respiratory Rate 30 H 04/21/21 09:48 Pulse Oximetry 94 04/21/21 09:48 Course Orders Ordered: ED Orders 04/21/21 09:55 C-Reactive Protein Quant Stat Complete Blood Count AUTO DIFF Stat Comprehensive Metabolic Panel Stat Ferritin Stat Lactate (Lactic Acid) Stat Lactate Dehydrogenase Stat NT-proBNP (BNP-Adult 18+) Stat Procalcitonin Stat Troponin & CK Cardiac Panel Stat 04/21/21 10:22 High flow/High humidity nasal STAT 04/21/21 10:24 XR chest 1V Stat Arterial Blood Gas Stat EKG-12 Lead Stat 04/21/21 10:50 Blood Culture Stat 04/21/21 11:15 UA Complete [Urinalysis and Microscopic] Stat 04/21/21 11:40 D Dimer Stat Prothrombin Time INR Stat 04/21/21 11:45 Respiratory Panel (Film Array) Stat 04/21/21 14:17 Urine Culture Stat Discontinued Medications Dexamethasone (Dexamethasone 10 Mg/Ml Vial) 10 mg IV NOW ONE Stop: 04/21/21 14:56 Last Admin: 04/21/21 15:27 Dose: 10 mg Documented by: CLEMENTE Reevaluation(s) Reevaluation #1: Spoke with patient and his via phone. Patient has been stating that he wants to return home we reviewed that he was reportedly hypoxic at home by he and his 's own report in the 70% range and 87% here today and that he has be en placed on high-flow which is not something patient can take home. We reviewed that he does have COVID pneumonia his lab findings including likely demand ischemia and elevated troponin and nephrology recommendations. We also reviewed his code status which is full code at this time and verified with the patient and his . Patient is agreeable to admission here at this time but is not agreeable to transfer today to [facility] but if he continued to worsen and needed increasing assistance he would be potentially amenable to transfer. We did discuss that there are additional medications such as dexamethasone and remdesivir which he may be a candidate for but this would have to be clarified with his hospitalist team. He is open to these if they are felt to be appropriate. Consultations Consultation #1: Dr. Arciniega with Nephrology/Renal transplant [facility], we reviewed patient is COVID positive with pneumonia he is currently on high-flow more for tachypnea but did have some hypoxia. He is 4-5 years out from his renal transplant. We reviewed his renal function which appears stable and actually slightly improved from their last which was 1.6, his anemia which is stable his elevated BNP and troponin and rest of his labs. At this time he recommends holding his immune suppressant, his mycophenolate and continuing to check tacrolimus he recommends this being done an hour before his a.m. dose. We did discuss that this is a send out lab for us and not available immediately or same day. Patient was decompensating or worsening to call back and they would be happy to work on transferring the patient. He did take the number for the hospital is they would like to follow with the patient daily and are happy to be involved in patient's care from a phone consultation if patient continues to stay here. Consultation #2: Dr. Armstrong, hospitalist. Reviewed 76-year-old male he does have a renal transplant I did speak with his transplant team who helps provide his care at [facility]. At this time they do not feel he requires transfer but if he is decompensating they would feel appropriate. Patient also has essentially refused to be transferred and initially was refusing to be admitted. Recommendations from Nephrology were reviewed including to DC his mycophenolate, continue to check tach early miss each day an hour before his dose continue to monitor renal function. Vital Signs Vital signs: Vital Signs - 8 hr 04/21/21 09:48 04/21/21 09:54 04/21/21 10:00 Temperature 98.4 F Pulse Rate 121 H 111 H 98 H Respiratory Rate 30 H 36 H 36 H Blood Pressure 134/96 H 144/84 H Pulse Oximetry 94 94 94 04/21/21 10:30 04/21/21 11:00 04/21/21 11:30 Temperature Pulse Rate 106 H 96 H 105 H Respiratory Rate 36 H 29 H 36 H Blood Pressure 134/82 147/89 H Pulse Oximetry 95 96 95 04/21/21 11:53 04/21/21 12:00 04/21/21 12:29 Temperature Pulse Rate 124 H 104 H 103 H Respiratory Rate 34 H 33 H 28 H Blood Pressure 147/89 H 156/80 H Pulse Oximetry 94 96 97 04/21/21 12:30 04/21/21 13:00 04/21/21 13:30 Temperature Pulse Rate 96 H 105 H 110 H Respiratory Rate 29 H 34 H 32 H Blood Pressure 143/83 H 152/87 H 153/79 H Pulse Oximetry 96 97 93 04/21/21 14:00 Temperature Pulse Rate 100 H Respiratory Rate 32 H Blood Pressure 147/79 H Pulse Oximetry 95 MDM - SOB/Dyspnea Lab Data Result diagrams: 04/21/21 09:55 04/21/21 09:55 Labs: Lab Results 04/21/21 04/21/21 04/21/21 Range/Units 09:55 09:55 09:55 WBC 6.7 (4.5-11.0) X10^3/uL RBC 3.35 L (4.5-5.9) X10^6/uL Hgb 9.5 L (13.5-17.5) g/dL Hct 30.1 L (41-53) % MCV 89.8 (80-100) fL MCH 28.5 (26-34) PG MCHC 31.7 (30-36) % RDW 21.0 H (11.6-14.8) % Plt Count 265 (150-400) X10^3/uL Neut % (Auto) 84.2 H (50-75) % Lymph % (Auto) 4.9 L (25-40) % [place] % (Auto) 10.6 (3-14) % Eos % (Auto) 0.0 L (2-4) % Baso % (Auto) 0.3 (0-2) % Neut # (Auto) 5700 (9540-8617) /uL Lymph # (Auto) 300 L (7305-7721) /uL [place] # (Auto) 700 (0-900) /uL Eos # (Auto) 0 (0-450) /uL Baso # (Auto) 0 (0-100) /uL RBC Morphology See Poikilocytosis 1+ H Anisocytosis 2+ H PT (10.1-12.7) SECONDS INR (0.9-1.3) D-Dimer (<230) ng/mL Sodium 133 L (137-145) mmol/L Potassium 4.6 (3.4-5.1) mmol/L Chloride 104 (98-107) mmol/L Carbon Dioxide 24 (22-32) mmol/L BUN 28 H (9-20) mg/dL Creatinine 1.49 H (0.66-1.25) mg/dL Estimated GFR 45.7 L (>60) mL/min BUN/Creatinine Ratio 18.8 (6-22) Glucose 199 H (80-110) mg/dL Lactate (0.7-2.1) mmol/L Calcium 9.3 (8.4-10.2) mg/dL Ferritin 550 H (18-464) ng/mL Total Bilirubin 1.1 (0.2-1.3) mg/dL AST 50 (17-59) IU/L ALT 15 (<50) IU/L Alkaline Phosphatase 67 (38-126) U/L Lactate Dehydrogenase 1258 H (313-618) U/L Total Creatine Kinase 124 (55-170) U/L CK-MB (CK-2) 1.00 (<2.37) ng/mL CK-MB (CK-2) Rel Index 0.8 L (1.5-5.0) % Troponin I 0.091 H (0.01-0.034) ng/mL C-Reactive Protein 19.5 H (<1.0) mg/dL NT-Pro-B Natriuret Pep 53511 H (<450) pg/mL Total Protein 6.7 (6.3-8.2) g/dL Albumin 3.7 (3.5-5.0) g/dL Globulin 3.0 (1.7-4.1) g/dL Albumin/Globulin Ratio 1.2 (1.0-2.8) Procalcitonin 2.67 H (<0.5) ng/mL Urine Color Urine Appearance Urine pH (4.5-8.0) Ur Specific [place] (1.000-1.035) Urine Protein (Negative) Urine Glucose (UA) (Negative) g/dL Urine Ketones (NEGATIVE) Urine Occult Blood (Negative) Urine Nitrate (Negative) Urine Bilirubin (NEGATIVE) Urine Urobilinogen (0.2) E.U./dL Ur Leukocyte Esterase (NEGATIVE) Urine RBC (0-5/HPF) Urine WBC (0-5/HPF) Ur Squamous Epith Cells (0-5/HPF) Amorphous Sediment Urine Bacteria (None) Ur Culture Indicated? Chlamy pneumoniae PCR (Not Detect) Adenovirus (PCR) (Not Detect) B. pertussis DNA (PCR) (Not Detecte) B.parapertussis DNA PCR (Not Detecte) Coronavirus OC43 (PCR) (Not Detect) Coronavirus HKU1 (PCR) (Not Detect) Coronavirus 229E (PCR) (Not Detect) SARS-CoV-2 (PCR) (Not Detecte) Coronavirus NL63 (PCR) (Not Detect) Human Metapneumovir PCR (Not Detect) Influenza Type A (PCR) (Not Detect) Influenza Type B (PCR) (Not Detect) M. pneumoniae (PCR) (Not Detect) Parainfluenza 1 (PCR) (Not Detect) Parainfluenza 2 (PCR) (Not Detect) Parainfluenza 3 (PCR) (Not Detect) Parainfluenza 4 (PCR) (Not Detect) RSV (PCR) (Not Detect) Entero/Rhino (PCR) (Not Detect) 04/21/21 04/21/21 04/21/21 Range/Units 09:55 11:15 11:40 WBC (4.5-11.0) X10^3/uL RBC (4.5-5.9) X10^6/uL Hgb (13.5-17.5) g/dL Hct (41-53) % MCV (80-100) fL MCH (26-34) PG MCHC (30-36) % RDW (11.6-14.8) % Plt Count (150-400) X10^3/uL Neut % (Auto) (50-75) % Lymph % (Auto) (25-40) % [place] % (Auto) (3-14) % Eos % (Auto) (2-4) % Baso % (Auto) (0-2) % Neut # (Auto) (7655-2264) /uL Lymph # (Auto) (7611-4366) /uL [place] # (Auto) (0-900) /uL Eos # (Auto) (0-450) /uL Baso # (Auto) (0-100) /uL RBC Morphology Poikilocytosis Anisocytosis PT (10.1-12.7) SECONDS INR (0.9-1.3) D-Dimer 705 H (<230) ng/mL Sodium (137-145) mmol/L Potassium (3.4-5.1) mmol/L Chloride (98-107) mmol/L Carbon Dioxide (22-32) mmol/L BUN (9-20) mg/dL Creatinine (0.66-1.25) mg/dL Estimated GFR (>60) mL/min BUN/Creatinine Ratio (6-22) Glucose (80-110) mg/dL Lactate 2.1 (0.7-2.1) mmol/L Calcium (8.4-10.2) mg/dL Ferritin (18-464) ng/mL Total Bilirubin (0.2-1.3) mg/dL AST (17-59) IU/L ALT (<50) IU/L Alkaline Phosphatase (38-126) U/L Lactate Dehydrogenase (313-618) U/L Total Creatine Kinase (55-170) U/L CK-MB (CK-2) (<2.37) ng/mL CK-MB (CK-2) Rel Index (1.5-5.0) % Troponin I (0.01-0.034) ng/mL C-Reactive Protein (<1.0) mg/dL NT-Pro-B Natriuret Pep (<450) pg/mL Total Protein (6.3-8.2) g/dL Albumin (3.5-5.0) g/dL Globulin (1.7-4.1) g/dL Albumin/Globulin Ratio (1.0-2.8) Procalcitonin (<0.5) ng/mL Urine Color Yellow Urine Appearance Clear Urine pH 5.0 (4.5-8.0) Ur Specific [place] 1.010 (1.000-1.035) Urine Protein 2+ H (Negative) Urine Glucose (UA) Trace H (Negative) g/dL Urine Ketones Negative (NEGATIVE) Urine Occult Blood 2+ H (Negative) Urine Nitrate Negative (Negative) Urine Bilirubin Negative (NEGATIVE) Urine Urobilinogen 0.2 (0.2) E.U./dL Ur Leukocyte Esterase Negative (NEGATIVE) Urine RBC 1-5/hpf (0-5/HPF) Urine WBC 0-1/hpf (0-5/HPF) Ur Squamous Epith Cells 0-1 /hpf (0-5/HPF) Amorphous Sediment 1+ Urine Bacteria Occasional (0-1) (None) Ur Culture Indicated? Cult not indicated Chlamy pneumoniae PCR (Not Detect) Adenovirus (PCR) (Not Detect) B. pertussis DNA (PCR) (Not Detecte) B.parapertussis DNA PCR (Not Detecte) Coronavirus OC43 (PCR) (Not Detect) Coronavirus HKU1 (PCR) (Not Detect) Coronavirus 229E (PCR) (Not Detect) SARS-CoV-2 (PCR) (Not Detecte) Coronavirus NL63 (PCR) (Not Detect) Human Metapneumovir PCR (Not Detect) Influenza Type A (PCR) (Not Detect) Influenza Type B (PCR) (Not Detect) M. pneumoniae (PCR) (Not Detect) Parainfluenza 1 (PCR) (Not Detect) Parainfluenza 2 (PCR) (Not Detect) Parainfluenza 3 (PCR) (Not Detect) Parainfluenza 4 (PCR) (Not Detect) RSV (PCR) (Not Detect) Entero/Rhino (PCR) (Not Detect) 04/21/21 04/21/21 04/21/21 Range/Units 11:40 11:45 12:45 WBC (4.5-11.0) X10^3/uL RBC (4.5-5.9) X10^6/uL Hgb (13.5-17.5) g/dL Hct (41-53) % MCV (80-100) fL MCH (26-34) PG MCHC (30-36) % RDW (11.6-14.8) % Plt Count (150-400) X10^3/uL Neut % (Auto) (50-75) % Lymph % (Auto) (25-40) % [place] % (Auto) (3-14) % Eos % (Auto) (2-4) % Baso % (Auto) (0-2) % Neut # (Auto) (5529-7922) /uL Lymph # (Auto) (3551-4339) /uL [place] # (Auto) (0-900) /uL Eos # (Auto) (0-450) /uL Baso # (Auto) (0-100) /uL RBC Morphology Poikilocytosis Anisocytosis PT 31.6 H (10.1-12.7) SECONDS INR 2.7 H (0.9-1.3) D-Dimer (<230) ng/mL Sodium (137-145) mmol/L Potassium (3.4-5.1) mmol/L Chloride (98-107) mmol/L Carbon Dioxide (22-32) mmol/L BUN (9-20) mg/dL Creatinine (0.66-1.25) mg/dL Estimated GFR (>60) mL/min BUN/Creatinine Ratio (6-22) Glucose (80-110) mg/dL Lactate 0.9 (0.7-2.1) mmol/L Calcium (8.4-10.2) mg/dL Ferritin (18-464) ng/mL Total Bilirubin (0.2-1.3) mg/dL AST (17-59) IU/L ALT (<50) IU/L Alkaline Phosphatase (38-126) U/L Lactate Dehydrogenase (313-618) U/L Total Creatine Kinase (55-170) U/L CK-MB (CK-2) (<2.37) ng/mL CK-MB (CK-2) Rel Index (1.5-5.0) % Troponin I (0.01-0.034) ng/mL C-Reactive Protein (<1.0) mg/dL NT-Pro-B Natriuret Pep (<450) pg/mL Total Protein (6.3-8.2) g/dL Albumin (3.5-5.0) g/dL Globulin (1.7-4.1) g/dL Albumin/Globulin Ratio (1.0-2.8) Procalcitonin (<0.5) ng/mL Urine Color Urine Appearance Urine pH (4.5-8.0) Ur Specific [place] (1.000-1.035) Urine Protein (Negative) Urine Glucose (UA) (Negative) g/dL Urine Ketones (NEGATIVE) Urine Occult Blood (Negative) Urine Nitrate (Negative) Urine Bilirubin (NEGATIVE) Urine Urobilinogen (0.2) E.U./dL Ur Leukocyte Esterase (NEGATIVE) Urine RBC (0-5/HPF) Urine WBC (0-5/HPF) Ur Squamous Epith Cells (0-5/HPF) Amorphous Sediment Urine Bacteria (None) Ur Culture Indicated? Chlamy pneumoniae PCR Not detected (Not Detect) Adenovirus (PCR) Not detected (Not Detect) B. pertussis DNA (PCR) Not detected (Not Detecte) B.parapertussis DNA PCR Not detected (Not Detecte) Coronavirus OC43 (PCR) Not detected (Not Detect) Coronavirus HKU1 (PCR) Not detected (Not Detect) Coronavirus 229E (PCR) Not detected (Not Detect) SARS-CoV-2 (PCR) Detected H (Not Detecte) Coronavirus NL63 (PCR) Not detected (Not Detect) Human Metapneumovir PCR Not detected (Not Detect) Influenza Type A (PCR) Not detected (Not Detect) Influenza Type B (PCR) Not detected (Not Detect) M. pneumoniae (PCR) Not detected (Not Detect) Parainfluenza 1 (PCR) Not detected (Not Detect) Parainfluenza 2 (PCR) Not detected (Not Detect) Parainfluenza 3 (PCR) Not detected (Not Detect) Parainfluenza 4 (PCR) Not detected (Not Detect) RSV (PCR) Not detected (Not Detect) Entero/Rhino (PCR) Not detected (Not Detect) Imaging Data Chest x-ray: Radiologist's Impression: [address] [address] XRay Report Signed Patient: Brian Obregon MR#: [id number] : 1945 Acct:[id number] Age/Sex: 76 / M Date of Service: 04/21/21 Loc: ED Accession Number: [id number] ?? Procedure: XR chest 1V Ordering Provider: Modesta Eldridge D.O. PROCEDURE:? XR CHEST 1V ? INDICATIONS:? + COVID x 8 days, hx renal transplant ? TECHNIQUE:? One view of the chest was acquired.? ? COMPARISON:? [facility], CR, XR CHEST 2V, 05/11/2018, 15:40.? [facility], CR, XR CHEST 2V, 02/17/2018, 14:45.? [facility], CR, XR CHEST 1V, 10/03/2020, 16:04. ? FINDINGS:? ? Surgical changes and devices:? None.? ? Lungs and pleura:? Generalized bilateral interstitial type infiltrates are seen.? No pneumothorax or large pleural effusion can be seen. ? Mediastinum:? Mediastinal contours appear normal.? Heart size is mildly enlarged.? ? Bones and chest wall:? No suspicious bony lesions.? Age-appropriate bony degenerative changes are seen.? ? Overlying soft tissues appear unremarkable.? IMPRESSION:? Patchy bilateral interstitial infiltrates are seen, which are consistent with the known clinical history of COVID pneumonia.? ? Mild cardiomegaly. ? ? Dictated by: Riky Tang M.D. on 04/21/2021 at 9:38 ? ? Approved by: Riky Tang M.D. on 04/21/2021 at 9:38?? ECG Data Attestation: I personally reviewed and interpreted this ECG as follows: Prior ECG tracings: available for review Interpretation: AFib with RVR. Rate of 101 QRS of 124 QTC of 503. No acute elevation. Patient has prior from 10/08/20 which appears similar. MDM Narrative Medical decision making narrative: This is a 76-year-old male with concern for hypoxia in the setting of known COVID diagnosis. Patient had monoclonal antibodies infused yesterday at [facility]. He has continued to have shortness of breath and had a 70% with pulse ox at home, he was found to be 87% intermittently here. Chest consistent with COVID pneumonia. Patient has quite a bit of tachypnea and was placed on high- flow for his work of breathing. He has anemia which appears stable and at his baseline. He has chronic kidney disease which also appears stable in the sett ing of a renal transplant approximately 5 years ago. He has a mild hyponatremia, BUN is slightly elevated with elevation in COVID markers. Lactate is appropriate at 2.1 and 0.9 on repeat. His BNP and troponin are both elevated likely some demand ischemia as well as secondary to his chronic kidney disease. Procalcitonin is negative no clear source of bacterial infection is found but blood cultures are pending, urine did not show clear infection but was cultured. Respiratory panel was included and does not show other respiratory illnesses. Case was discussed with nephrology/renal transplant at [facility] who recommends holding his mycophenolate, continuing tactilely medicine checking levels an hour before his dosage. At this time they feel patient is appropriate to continue here at [facility] but that if the compensating would be appropriate for transfer. We did discuss that initially patient was refusing to be admitted but after continue discussion and Nephrology recommendations patient is more agreeable and I spoke with hospitalist who kindly accepts. Did review patient's POLST status which is full code. Critical Care Time Critical Care Time Critical Care Time: Yes Total Critical Care Time: 35 Attestation: The high probability of a clinically significant, sudden or life threatening deterioration of the [cardiac, pulm] system(s) required my full and direct attention, intervention and personal management. The aggregate critical care time was [35] minutes. This time is in addition to time spent performing reported procedures but includes the following: [x] Data Review and interpretation [x] Patient assessment and monitoring of vital signs [x] Documentation [x] Medication orders and management Discharge Plan Departure Patient Disposition: Admitted As Inpatient Clinical Impression: Pneumonia due to 2019 novel coronavirus, Anemia, Renal transplant recipient Admit Date/Time: 04/21/21 14:17 Admit Provider: Albaro Armstrong
--- NOTE | 2021-04-21 10:24 | DI.RAD.S_ITS ---
PROCEDURE: XR CHEST 1V INDICATIONS: + COVID x 8 days, hx renal transplant TECHNIQUE: One view of the chest was acquired. COMPARISON: [facility], CR, XR CHEST 2V, 05/11/2018, 15:40. [facility], CR, XR CHEST 2V, 02/17/2018, 14:45. [facility], CR, XR CHEST 1V, 10/03/2020, 16:04. FINDINGS: Surgical changes and devices: None. Lungs and pleura: Generalized bilateral interstitial type infiltrates are seen. No pneumothorax or large pleural effusion can be seen. Mediastinum: Mediastinal contours appear normal. Heart size is mildly enlarged. Bones and chest wall: No suspicious bony lesions. Age-appropriate bony degenerative changes are seen. Overlying soft tissues appear unremarkable. IMPRESSION: Patchy bilateral interstitial infiltrates are seen, which are consistent with the known clinical history of COVID pneumonia. Mild cardiomegaly. Dictated by: Riky Tang M.D. on 04/21/2021 at 9:38 Approved by: Riky Tang M.D. on 04/21/2021 at 9:38
[2021-04-21 10:31] LABS: Add Manual Diff / Slide Review NO; Basophils Absolute Auto 0 /uL (0-100); Basophils Percent Auto 0.3 % (0-2); Eosinophils Absolute Auto 0 /uL (0-450); Hematocrit 30.1 % (41-53); Hemoglobin 9.5 g/dL (13.5-17.5); Lymphocytes Absolute Auto 300 /uL (1100-4500); Lymphocytes Percent Auto 4.9 % (25-40); Mean Corpuscular HGB Conc 31.7 % (30-36); Mean Corpuscular Hemoglobin 28.5 PG (26-34); Mean Corpuscular Volume 89.8 fL (80-100); Monocytes Absolute Auto 700 /uL (0-900); Monocytes Percent Auto 10.6 % (3-14); Neutrophils Absolute Auto 5700 /uL (1500-7000); Neutrophils Percent Auto 84.2 % (50-75); Platelet Count 265 X10^3/uL (150-400); Red Blood Cell Count 3.35 X10^6/uL (4.5-5.9); White Blood Cell Count 6.7 X10^3/uL (4.5-11.0)
[2021-04-21 10:39] LABS: Lactate (Lactic Acid) 2.1 mmol/L (0.7-2.1)
[2021-04-21 10:41] LABS: Alanine Aminotransferase 15 IU/L (<50); Albumin 3.7 g/dL (3.5-5.0); Albumin Globulin Ratio 1.2 (1.0-2.8); Alkaline Phosphatase 67 U/L (38-126); Aspartate Aminotransferase 50 IU/L (17-59); BUN Creatinine Ratio 18.8 (6-22); Bilirubin Total 1.1 mg/dL (0.2-1.3); Blood Urea Nitrogen 28 mg/dL (9-20); Calcium 9.3 mg/dL (8.4-10.2); Carbon Dioxide 24 mmol/L (22-32); Chloride 104 mmol/L (98-107); Creatine Kinase 124 U/L (55-170); Estimated Glomerular Filt Rate 45.7 mL/min (>60); Glucose 199 mg/dL (80-110); Lactate Dehydrogenase 1258 U/L (313-618); Potassium 4.6 mmol/L (3.4-5.1); Sodium 133 mmol/L (137-145); Total Protein 6.7 g/dL (6.3-8.2)
[2021-04-21 10:48] LABS: HEMOLYSIS 48 (0-50)
[2021-04-21 10:52] LABS: NT-proBNP (BNP-Adult 18+) 12800 pg/mL (<450); Troponin I 0.091 ng/mL (0.01-0.034)
[2021-04-21 10:54] LABS: C-Reactive Protein Quant 19.5 mg/dL (<1.0); CKMB % Relative Index 0.8 % (1.5-5.0)
[2021-04-21 10:55] LABS: Procalcitonin 2.67 ng/mL (<0.5)
[2021-04-21 11:07] LABS: Anisocytosis 2+; Poikilocytosis 1+; RBC Morphology See
[2021-04-21 11:13] LABS: Ferritin 550 ng/mL (18-464)
[2021-04-21 11:36] LABS: Appearance Urine UA CLEAR; Bilirubin Urine UA NEGATIVE (NEGATIVE); Color Urine UA YELLOW; Glucose Urine UA TRACE g/dL (Negative); Ketones Urine UA NEGATIVE (NEGATIVE); Leukocyte Esterase Urine UA NEGATIVE (NEGATIVE); Nitrite Urine UA NEGATIVE (Negative); Occult Blood Urine UA 2+ (Negative); Protein Urine UA 2+ (Negative); Urobilinogen Urine UA 0.2 E.U./dL (0.2)
[2021-04-21 11:44] LABS: RBC Urine 1-5/HPF (0-5/HPF); WBC Urine 0-1/HPF (0-5/HPF)
[2021-04-21 11:45] LABS: Amorphous Sediment Urine 1+; Bacteria Urine Occasional (0-1); Culture Indicated Urine Cult Not Indicated; Squamous Epithelial Cell Urine 0-1 /HPF (0-5/HPF)
[2021-04-21 11:56] LABS: D Dimer 705 ng/mL (<230)
[2021-04-21 12:28] LABS: Reflexed Lactate in 2 Hours Y
[2021-04-21 12:47] LABS: Adenovirus Not Detected (Not Detect); B. parapertussis Not Detected (Not Detecte); Bordetella pertussis Not Detected (Not Detecte); Chlamydophila pneumoniae Not Detected (Not Detect); Coronavirus 229E Not Detected (Not Detect); Coronavirus HKU1 Not Detected (Not Detect); Coronavirus NL 63 Not Detected (Not Detect); Coronavirus OC43 Not Detected (Not Detect); Human Metapneumovirus Not Detected (Not Detect); Human Rhinovirus/Enterovirus Not Detected (Not Detect); Influenza A Not Detected (Not Detect); Influenza B Not Detected (Not Detect); Mycoplasma pneumoniae Not Detected (Not Detect); Parainfluenza Virus 1 Not Detected (Not Detect); Parainfluenza Virus 2 Not Detected (Not Detect); Parainfluenza Virus 3 Not Detected (Not Detect); Parainfluenza Virus 4 Not Detected (Not Detect); Respiratory Syncytial Virus Not Detected (Not Detect)
[2021-04-21 12:48] LABS: SARS- CoV-2 Detected (Not Detecte)
[2021-04-21 13:16] LABS: Lactate 2HR (Lactic Acid Rflx) 0.9 mmol/L (0.7-2.1)
[2021-04-21 13:56] LABS: INR 2.7 (0.9-1.3); Prothrombin Time 31.6 SECONDS (10.1-12.7)
--- NOTE | 2021-04-21 15:21 | PC.NURSE ---
patients room in ICU is still being cleaned. RN in ICU to call back when room clean. charge aware.
[2021-04-21] MEDS: DEXAMETHASONE 10 MG/ML VIAL IV (15:27)
--- NOTE | 2021-04-21 16:40 | P.HP_ITS ---
History of Present Illness History of Present Illness Date Patient Seen: 04/21/21 Time Patient Seen: 16:30 Chief complaint: oxygen at 70 Narrative: Mr. Obregon is a 76M with PMH renal transplant five years ago, CKD stage 2-3, DM, HTN, HL, CVA, afib who presents with cough and shortness of breath. He has also felt nausea and diarrhea. He does not have a productive cough. He has no chest pain. He feels cold frequently. He began feeling ill on 04/15, and tested positive for COVID that day. Yesterday he did get monoclonal antibodies. However today he felt more shortness of breath. Checked his O2 sats at home which were below 90%. He notes three weeks ago he fell and had left rib fractures, but he is not having rib pain or pain with respiration currently. So he presented to the ED. In the ED workup was done, ,he was afebrile, tachycardic in afib, tachypneic, o2 sats in the 80s. He was placed on nasal canula and then heated high flow oxygen. Labs notable for WBC 6.7, hgb 9.5, creatinine 1.49. INR 2.7. Lactate 2.1->0.9. LDH 1258, trop 0.091, bnp 11606, crp 19.5, procal 2.67. COVID positive. Chest xray showed bilateral infiltrates and mild cardiomegaly. He was given dexamethasone and admitted for further treatment. Patient History Medical History Anemia Atrial fibrillation (~2018) Borderline hypothyroidism Cataracts, bilateral (~2013) Cellulitis Chronic wound of extremity Diabetes Gout (~1966) Hypertension Iron deficiency anemia Kidney disease (~2004) Low back pain Measles (~194) Mumps (~1948) Skin tear of right upper arm without complication Sleep apnea (~2011) Stroke (~2004) Surgical History Anesthesia History of total right knee replacement (TKR) Kidney transplant recipient (~2016) Family & Social History Family History Father Stroke Mother History of heart disease Sister Cancer Grandfather History of heart disease Grandmother History of heart disease Safety & Behavioral: Feels Safe in Current Yes Environment Been Physically Hurt or No Threatened By a Person Tobacco & Substance use: Smoking Status Never smoker alcohol intake frequency 0-2 drinks per day Substance Use Type does not use Meds Home Medications and Allergies Home Medications Medication Instructions Recorded Confirmed Type mycophenolate sodium 180 mg 720 mg PO BID 08/29/17 04/21/21 History tablet,delayed release niacinamide 500 mg tablet 250 mg PO DAILY 08/29/17 04/21/21 History tacrolimus 1 mg capsule, 2 mg PO BID 08/29/17 04/21/21 History immediate-release aspirin 81 mg tablet,delayed 81 mg PO DAILY 04/12/19 04/21/21 History release ergocalciferol (vitamin D2) 1,250 50,000 unit PO DAILY 04/12/19 04/21/21 History mcg (50,000 unit) capsule (Vitamin D2) metoprolol succinate 50 mg 25 mg PO DAILY 04/12/19 04/21/21 History tablet,extended release 24 hr prednisone 5 mg tablet 5 mg PO DAILY 04/12/19 04/21/21 History terazosin 2 mg capsule 4 mg PO QPM 04/12/19 04/21/21 History warfarin 5 mg tablet See Rx Instructions .ROUTE 08/06/20 04/21/21 Rx .COMPLEX #90 tab colchicine 0.6 mg tablet 0.6 mg PO BID PRN #10 tab 08/10/20 04/21/21 Rx epinephrine 0.3 mg/0.3 mL 0.3 mg (0.3 mL) IM ONCE #2 ea 10/23/20 04/15/21 Rx injection, auto-injector (EpiPen 2-Dm) pioglitazone 30 mg tablet 30 mg PO DAILY #90 tab 11/28/20 04/21/21 Rx amlodipine 2.5 mg tablet 2.5 mg PO DAILY #90 tab 12/24/20 04/21/21 Rx allopurinol 300 mg tablet 300 mg PO DAILY #90 tab 01/22/21 04/21/21 Rx lisinopril 20 mg tablet 2.5 mg PO DAILY 03/14/21 04/21/21 History atorvastatin 10 mg tablet 20 mg PO BEDTIME 04/21/21 04/21/21 History metformin 850 mg tablet 850 mg PO BID 04/21/21 04/21/21 History Allergies Allergy/AdvReac Type Severity Reaction Status Date / Time cephalexin Allergy Severe Anaphylaxis Verified 04/15/21 12:25 Review of Systems Review of Systems Narrative: 14 systems reviewed and negative aside from what is noted in HPI Exam Vital Signs (past 8 hours): - 04/21/21 09:48 04/21/21 09:54 04/21/21 10:00 Temperature 98.4 F Pulse Rate 121 H 111 H 98 H Respiratory Rate 30 H 36 H 36 H Blood Pressure 134/96 H 144/84 H Pulse Oximetry 94 94 94 04/21/21 10:30 04/21/21 11:00 04/21/21 11:30 Temperature Pulse Rate 106 H 96 H 105 H Respiratory Rate 36 H 29 H 36 H Blood Pressure 134/82 147/89 H Pulse Oximetry 95 96 95 04/21/21 11:53 04/21/21 12:00 04/21/21 12:29 Temperature Pulse Rate 124 H 104 H 103 H Respiratory Rate 34 H 33 H 28 H Blood Pressure 147/89 H 156/80 H Pulse Oximetry 94 96 97 04/21/21 12:30 04/21/21 13:00 04/21/21 13:30 Temperature Pulse Rate 96 H 105 H 110 H Respiratory Rate 29 H 34 H 32 H Blood Pressure 143/83 H 152/87 H 153/79 H Pulse Oximetry 96 97 93 04/21/21 14:00 04/21/21 14:27 04/21/21 14:30 Temperature Pulse Rate 100 H 106 H Respiratory Rate 32 H 30 H Blood Pressure 147/79 H 139/81 Pulse Oximetry 95 94 96 04/21/21 15:00 Temperature 98.8 F Pulse Rate 103 H Respiratory Rate 30 H Blood Pressure 164/78 H Pulse Oximetry 95 Oxygen Delivery Method High Flow Nasal Cannula Oxygen Flow Rate 40 Narrative Exam Narrative: GEN: mild respiratory distress HEENT: PERRL, moist mucous membranes NECK: trachea midline, no JVD PULM: poor air movement bilaterally ABD: soft, nontender, nondistended, no organomegaly EXT: warm and well perfused, chronic ulcer on right leg, no erythema SKIN: ulcer as noted above, no other rashes noted NEURO: awake, alert, moving all extremities, no focal deficits PSYCH: pleasant, cooperative Objective Labs Result Diagrams: 04/21/21 09:55 04/21/21 09:55 Labs: Laboratory Results - last 24 hr 04/21/21 04/21/21 04/21/21 09:55 09:55 09:55 WBC 6.7 RBC 3.35 L Hgb 9.5 L Hct 30.1 L MCV 89.8 MCH 28.5 MCHC 31.7 RDW 21.0 H Plt Count 265 Neut % (Auto) 84.2 H Lymph % (Auto) 4.9 L [place] % (Auto) 10.6 Eos % (Auto) 0.0 L Baso % (Auto) 0.3 Neut # (Auto) 5700 Lymph # (Auto) 300 L [place] # (Auto) 700 Eos # (Auto) 0 Baso # (Auto) 0 RBC Morphology See Poikilocytosis 1+ H Anisocytosis 2+ H PT INR D-Dimer Sodium 133 L Potassium 4.6 Chloride 104 Carbon Dioxide 24 BUN 28 H Creatinine 1.49 H Estimated GFR 45.7 L BUN/Creatinine Ratio 18.8 Glucose 199 H Lactate Calcium 9.3 Ferritin 550 H Total Bilirubin 1.1 AST 50 ALT 15 Alkaline Phosphatase 67 Lactate Dehydrogenase 1258 H Total Creatine Kinase 124 CK-MB (CK-2) 1.00 CK-MB (CK-2) Rel Index 0.8 L Troponin I 0.091 H C-Reactive Protein 19.5 H NT-Pro-B Natriuret Pep 69480 H Total Protein 6.7 Albumin 3.7 Globulin 3.0 Albumin/Globulin Ratio 1.2 Procalcitonin 2.67 H Urine Color Urine Appearance Urine pH Ur Specific [place] Urine Protein Urine Glucose (UA) Urine Ketones Urine Occult Blood Urine Nitrate Urine Bilirubin Urine Urobilinogen Ur Leukocyte Esterase Urine RBC Urine WBC Ur Squamous Epith Cells Amorphous Sediment Urine Bacteria Ur Culture Indicated? Chlamy pneumoniae PCR Adenovirus (PCR) B. pertussis DNA (PCR) B.parapertussis DNA PCR Coronavirus OC43 (PCR) Coronavirus HKU1 (PCR) Coronavirus 229E (PCR) SARS-CoV-2 (PCR) Coronavirus NL63 (PCR) Human Metapneumovir PCR Influenza Type A (PCR) Influenza Type B (PCR) M. pneumoniae (PCR) Parainfluenza 1 (PCR) Parainfluenza 2 (PCR) Parainfluenza 3 (PCR) Parainfluenza 4 (PCR) RSV (PCR) Entero/Rhino (PCR) 04/21/21 04/21/21 04/21/21 09:55 11:15 11:40 WBC RBC Hgb Hct MCV MCH MCHC RDW Plt Count Neut % (Auto) Lymph % (Auto) [place] % (Auto) Eos % (Auto) Baso % (Auto) Neut # (Auto) Lymph # (Auto) [place] # (Auto) Eos # (Auto) Baso # (Auto) RBC Morphology Poikilocytosis Anisocytosis PT INR D-Dimer 705 H Sodium Potassium Chloride Carbon Dioxide BUN Creatinine Estimated GFR BUN/Creatinine Ratio Glucose Lactate 2.1 Calcium Ferritin Total Bilirubin AST ALT Alkaline Phosphatase Lactate Dehydrogenase Total Creatine Kinase CK-MB (CK-2) CK-MB (CK-2) Rel Index Troponin I C-Reactive Protein NT-Pro-B Natriuret Pep Total Protein Albumin Globulin Albumin/Globulin Ratio Procalcitonin Urine Color Yellow Urine Appearance Clear Urine pH 5.0 Ur Specific [place] 1.010 Urine Protein 2+ H Urine Glucose (UA) Trace H Urine Ketones Negative Urine Occult Blood 2+ H Urine Nitrate Negative Urine Bilirubin Negative Urine Urobilinogen 0.2 Ur Leukocyte Esterase Negative Urine RBC 1-5/hpf Urine WBC 0-1/hpf Ur Squamous Epith Cells 0-1 /hpf Amorphous Sediment 1+ Urine Bacteria Occasional (0-1) Ur Culture Indicated? Cult not indicated Chlamy pneumoniae PCR Adenovirus (PCR) B. pertussis DNA (PCR) B.parapertussis DNA PCR Coronavirus OC43 (PCR) Coronavirus HKU1 (PCR) Coronavirus 229E (PCR) SARS-CoV-2 (PCR) Coronavirus NL63 (PCR) Human Metapneumovir PCR Influenza Type A (PCR) Influenza Type B (PCR) M. pneumoniae (PCR) Parainfluenza 1 (PCR) Parainfluenza 2 (PCR) Parainfluenza 3 (PCR) Parainfluenza 4 (PCR) RSV (PCR) Entero/Rhino (PCR) 04/21/21 04/21/21 04/21/21 11:40 11:45 12:45 WBC RBC Hgb Hct MCV MCH MCHC RDW Plt Count Neut % (Auto) Lymph % (Auto) [place] % (Auto) Eos % (Auto) Baso % (Auto) Neut # (Auto) Lymph # (Auto) [place] # (Auto) Eos # (Auto) Baso # (Auto) RBC Morphology Poikilocytosis Anisocytosis PT 31.6 H INR 2.7 H D-Dimer Sodium Potassium Chloride Carbon Dioxide BUN Creatinine Estimated GFR BUN/Creatinine Ratio Glucose Lactate 0.9 Calcium Ferritin Total Bilirubin AST ALT Alkaline Phosphatase Lactate Dehydrogenase Total Creatine Kinase CK-MB (CK-2) CK-MB (CK-2) Rel Index Troponin I C-Reactive Protein NT-Pro-B Natriuret Pep Total Protein Albumin Globulin Albumin/Globulin Ratio Procalcitonin Urine Color Urine Appearance Urine pH Ur Specific [place] Urine Protein Urine Glucose (UA) Urine Ketones Urine Occult Blood Urine Nitrate Urine Bilirubin Urine Urobilinogen Ur Leukocyte Esterase Urine RBC Urine WBC Ur Squamous Epith Cells Amorphous Sediment Urine Bacteria Ur Culture Indicated? Chlamy pneumoniae PCR Not detected Adenovirus (PCR) Not detected B. pertussis DNA (PCR) Not detected B.parapertussis DNA PCR Not detected Coronavirus OC43 (PCR) Not detected Coronavirus HKU1 (PCR) Not detected Coronavirus 229E (PCR) Not detected SARS-CoV-2 (PCR) Detected H Coronavirus NL63 (PCR) Not detected Human Metapneumovir PCR Not detected Influenza Type A (PCR) Not detected Influenza Type B (PCR) Not detected M. pneumoniae (PCR) Not detected Parainfluenza 1 (PCR) Not detected Parainfluenza 2 (PCR) Not detected Parainfluenza 3 (PCR) Not detected Parainfluenza 4 (PCR) Not detected RSV (PCR) Not detected Entero/Rhino (PCR) Not detected Assessment & Plan Assessment & Plan narrative: Mr. Obregon is a 76M with [facility] s/p renal transplant, CKD stage 2-3, afib, DM, HTN, CVA who presents with shortness of breath and hypoxemia from COVID pneumonia. 1. Acute respiratory failure from COVID pneumonia -COVID positive on 04/15 -has been vaccinated and boosted -likely severe disease is related to immune suppressed state -chest xray shows bilateral infiltrates -patient requiring heated high flow on admission -discussed GOC and he is a full code -has been ordered for dexamethasone -no remdesivir for now given kidney dysfunction -no baricitinib for now given concern for interactions with tacrolimus 2. Chronic kidney disease stage 2-3 and status post renal transplant, on immunosuppression -s/p transplant 5 years ago per patient -creatinine at baseline -hold MMF for now -switch prednisone to dexamethasone -continue tacrolimus, check tacro level in am -check creatinine daily 3. Atrial fibrillation on coumadin -continue metoprolol -continue coumadin -check INR daily 4. Chronic anemia -appears near baseline -no evidence of blood loss 5. Chronic right leg wound -no evidence of acute infection -follow up with wound care on discharge 6. Cardiac demand ischemia -patient denies chest pain -likely secondary to covid infection -trend troponin -continue home aspirin 7. Type 2 Diabetes -hold oral glycemic regimen -start insulin sliding scale -as patient is being started on dexamethasone, start on lantus 10U tonight 8. Hypertension -hold lisinopril for now 9. history of CVA -continue aspirin 10. Gout, chronic -hold home meds for now 11. Aortic stenosis -noted to have ECHO from 02/19 with mild to moderate aortic stenosis -careful with sudden fluid shifts 12. Recent rib fractures -patient asymptomatic currently with no pain -does not appear to be splinting on exam -monitor respiratory status closely CODE: Full Proxy: Kay Obregon, I have utilized all available resources to reconcile the patients home medications Time Spent With Patient Critical Care time: I spent a total of [] minutes of critical care time on this patient's care today; this time is exclusive of procedural time. Quality MIPS - Admit I confirm the patient?s Advance Care Plan is present, Code status is documented, Surrogate decision maker is in patient?s record [If Yes, STOP here]: Yes
[2021-04-21] MEDS: INSULIN LISPRO 100 UNIT/ML 3ML VIAL SUBCUT (17:54)
--- NOTE | 2021-04-21 18:32 | PC.ADMIT ---
[email or web address] – [place], [email or web address] Nicolas Wei Admission Note: The patient,Brian Obregon,76 y/o, was given written information regarding hospital policies, unit procedures and contact persons. Patient's smoking status: Never smoker. Vital Signs - 8 hr 04/21/21 11:00 04/21/21 11:30 04/21/21 11:53 Temperature Pulse Rate 96 H 105 H 124 H Respiratory Rate 29 H 36 H 34 H Blood Pressure 134/82 147/89 H 147/89 H Pulse Oximetry 96 95 94 04/21/21 12:00 04/21/21 12:29 04/21/21 12:30 Temperature Pulse Rate 104 H 103 H 96 H Respiratory Rate 33 H 28 H 29 H Blood Pressure 156/80 H 143/83 H Pulse Oximetry 96 97 96 04/21/21 13:00 04/21/21 13:30 04/21/21 14:00 Temperature Pulse Rate 105 H 110 H 100 H Respiratory Rate 34 H 32 H 32 H Blood Pressure 152/87 H 153/79 H 147/79 H Pulse Oximetry 97 93 95 04/21/21 14:27 04/21/21 14:30 04/21/21 15:00 Temperature 98.8 F Pulse Rate 106 H 103 H Respiratory Rate 30 H 30 H Blood Pressure 139/81 164/78 H Pulse Oximetry 94 96 95 04/21/21 16:00 04/21/21 16:04 04/21/21 16:10 Temperature 98.3 F Pulse Rate 94 H 98 H 103 H Respiratory Rate 27 H 29 H Blood Pressure 151/77 H 155/92 H Pulse Oximetry 96 96 97 04/21/21 16:18 04/21/21 17:00 04/21/21 18:00 Temperature Pulse Rate 107 H 132 H 105 H Respiratory Rate 30 H 37 H 30 H Blood Pressure 155/92 H 179/98 H 140/86 Pulse Oximetry 97 80 L 97 04/21/21 18:29 Temperature Pulse Rate 117 H Respiratory Rate 32 H Blood Pressure 140/86 Pulse Oximetry 97 Patient admitted from ED to ICU under hospitalists' care. Patient A/Ox4, on 40L/40% fiO2 HHF, no complaints of pain, is mildly tachycardic Afib RVR, hypertensive, RR in low 30s. Patient able to stand at bedside but is unsteady. Has multiple skin tears, says he falls often- most recently 2 weeks ago which resulted in cracked ribs on left side. Patient has chronic wound on R lower leg, which is managed by a wound clinic and is currently wrapped with gauze. Can use urinal at bedside. Patient has extensive medical hx, brought in a large bag of medications which were entered into med rec and sent to pharmacy. Patient still has a pill box in his room, this nurse stressed to patient how important it was for him to not take any medication that are not provided by RN and patient agreed but refused to send pill box to pharmacy or home- Dr. Armstrong notified of meds at bedside. TeleICU Dr. Kwan notified about patient. Bed alarm on, able to use call light.
--- NOTE | 2021-04-21 19:45 | PM.CN.EICU ---
History of Present Illness Consult details Chief complaint: oxygen at 70 :: This patient was seen in the Intensive Care Unit via real time interactive two-way audiovisual telecommunication. Narrative: 76 y.o. 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 He tested (+) for COVID-19 on 04/15, He received a monoclonal Ab infusion yesterday. Brought to [place] ED by who found O2 sat < 90%. He fell 3 weeks and has L rib fractures but is not having pleuritic chest pain. Labs significant for INR 2.7 (on warfarin), D-dimer 705, creatinine 1.49, LDH 1258, BNP 21870, procalcitonin 2.67. Resp panel (-) with exception of SARS-CoV2. Patient refused transfer to [facility]. [facility] transplant team aware and recommended holding mycophenolate and continuing the tacrolimus pending a level. [facility] was willing to accept him. [facility] Medical History Anemia Atrial fibrillation (~2018) Borderline hypothyroidism Cataracts, bilateral (~2013) Cellulitis Chronic wound of extremity Diabetes Gout (~1966) Hypertension Iron deficiency anemia Kidney disease (~2004) Low back pain Measles (~1948) Mumps (~1948) Skin tear of right upper arm without complication Sleep apnea (~2011) Stroke (~2004) Surgical History Anesthesia History of total right knee replacement (TKR) Kidney transplant recipient (~2016) Family History Father Stroke Mother History of heart disease Sister Cancer Grandfather History of heart disease Grandmother History of heart disease Social History household members: spouse Smoking Status: Never smoker Current Medications Current Medications Medications: Home Medications mycophenolate sodium 180 mg tablet,delayed release 720 mg PO BID 08/29/17 [History Confirmed 04/21/21] niacinamide 500 mg tablet 250 mg PO DAILY 08/29/17 [History Confirmed 04/21/21] tacrolimus 1 mg capsule, immediate-release 2 mg PO BID 08/29/17 [History Confirmed 04/21/21] aspirin 81 mg tablet,delayed release 81 mg PO DAILY 04/12/19 [History Confirmed 04/21/21] ergocalciferol (vitamin D2) 1,250 mcg (50,000 unit) capsule (Vitamin D2) 50,000 unit PO DAILY 04/12/19 [History Confirmed 04/21/21] metoprolol succinate 50 mg tablet,extended release 24 hr 25 mg PO DAILY 04/12/19 [History Confirmed 04/21/21] prednisone 5 mg tablet 5 mg PO DAILY 04/12/19 [History Confirmed 04/21/21] terazosin 2 mg capsule 4 mg PO QPM 04/12/19 [History Confirmed 04/21/21] warfarin 5 mg tablet See Rx Instructions .ROUTE .COMPLEX #90 tab 08/06/20 [Rx Confirmed 04/21/21] colchicine 0.6 mg tablet 0.6 mg PO BID PRN #10 tab 08/10/20 [Rx Confirmed 04/21/21] epinephrine 0.3 mg/0.3 mL injection, auto-injector (EpiPen 2-Dm) 0.3 mg (0.3 mL) IM ONCE #2 ea 10/23/20 [Rx Confirmed 04/21/21] pioglitazone 30 mg tablet 30 mg PO DAILY #90 tab 11/28/20 [Rx Confirmed 04/21/21] amlodipine 2.5 mg tablet 2.5 mg PO DAILY #90 tab 12/24/20 [Rx Confirmed 04/21/21] allopurinol 300 mg tablet 300 mg PO DAILY #90 tab 01/22/21 [Rx Confirmed 04/21/21] lisinopril 20 mg tablet 2.5 mg PO DAILY 03/14/21 [History Confirmed 04/21/21] atorvastatin 10 mg tablet 20 mg PO BEDTIME 04/21/21 [History Confirmed 04/21/21] metformin 850 mg tablet 850 mg PO BID 04/21/21 [History Confirmed 04/21/21] Visit Medications (administered) Generic Name Dose Route Start Last Admin Trade Name Freq PRN Reason Stop Dose Admin Insulin Human Lispro 0 unit 04/21/21 16:45 04/21/21 17:54 Insulin Lispro 100 Unit/Ml 3ml Vial SUBCUT 2 unit ACHS [facility] Administration Protocol Exam Vital Signs (past 8 hours): - 04/21/21 11:53 04/21/21 12:00 04/21/21 12:29 Temperature Pulse Rate 124 H 104 H 103 H Respiratory Rate 34 H 33 H 28 H Blood Pressure 147/89 H 156/80 H Pulse Oximetry 94 96 97 04/21/21 12:30 04/21/21 13:00 04/21/21 13:30 Temperature Pulse Rate 96 H 105 H 110 H Respiratory Rate 29 H 34 H 32 H Blood Pressure 143/83 H 152/87 H 153/79 H Pulse Oximetry 96 97 93 04/21/21 14:00 04/21/21 14:27 04/21/21 14:30 Temperature Pulse Rate 100 H 106 H Respiratory Rate 32 H 30 H Blood Pressure 147/79 H 139/81 Pulse Oximetry 95 94 96 04/21/21 15:00 04/21/21 16:00 04/21/21 16:04 Temperature 98.8 F Pulse Rate 103 H 94 H 98 H Respiratory Rate 30 H 27 H Blood Pressure 164/78 H 151/77 H Pulse Oximetry 95 96 96 04/21/21 16:10 04/21/21 16:18 04/21/21 17:00 Temperature 98.3 F Pulse Rate 103 H 107 H 132 H Respiratory Rate 29 H 30 H 37 H Blood Pressure 155/92 H 155/92 H 179/98 H Pulse Oximetry 97 97 80 L 04/21/21 18:00 04/21/21 18:29 Temperature Pulse Rate 105 H 117 H Respiratory Rate 30 H 32 H Blood Pressure 140/86 140/86 Pulse Oximetry 97 97 Fraction of Inspired Oxygen 40 Oxygen Delivery Method Heated High Flow Oxygen Flow Rate 40 Const General: cooperative, healthy appearing and comfortable Resp Other: On HFNC 40 L 40% FiO2 with RR in high 20s/low 30s saturating mid to high 90s. Comfortable enough that he is talking on cell phone Objective Labs Result Diagrams: 04/21/21 09:55 04/21/21 09:55 Labs: Laboratory Results - last 24 hr 04/21/21 04/21/21 04/21/21 09:55 09:55 09:55 WBC 6.7 RBC 3.35 L Hgb 9.5 L Hct 30.1 L MCV 89.8 MCH 28.5 MCHC 31.7 RDW 21.0 H Plt Count 265 Neut % (Auto) 84.2 H Lymph % (Auto) 4.9 L Maries % (Auto) 10.6 Eos % (Auto) 0.0 L Baso % (Auto) 0.3 Neut # (Auto) 5700 Lymph # (Auto) 300 L Maries # (Auto) 700 Eos # (Auto) 0 Baso # (Auto) 0 RBC Morphology See Poikilocytosis 1+ H Anisocytosis 2+ H PT INR D-Dimer Sodium 133 L Potassium 4.6 Chloride 104 Carbon Dioxide 24 BUN 28 H Creatinine 1.49 H Estimated GFR 45.7 L BUN/Creatinine Ratio 18.8 Glucose 199 H Lactate Calcium 9.3 Ferritin 550 H Total Bilirubin 1.1 AST 50 ALT 15 Alkaline Phosphatase 67 Lactate Dehydrogenase 1258 H Total Creatine Kinase 124 CK-MB (CK-2) 1.00 CK-MB (CK-2) Rel Index 0.8 L Troponin I 0.091 H C-Reactive Protein 19.5 H NT-Pro-B Natriuret Pep 38723 H Total Protein 6.7 Albumin 3.7 Globulin 3.0 Albumin/Globulin Ratio 1.2 Procalcitonin 2.67 H Urine Color Urine Appearance Urine pH Ur Specific [place] Urine Protein Urine Glucose (UA) Urine Ketones Urine Occult Blood Urine Nitrate Urine Bilirubin Urine Urobilinogen Ur Leukocyte Esterase Urine RBC Urine WBC Ur Squamous Epith Cells Amorphous Sediment Urine Bacteria Ur Culture Indicated? Nasal Screen MRSA (PCR) Chlamy pneumoniae PCR Adenovirus (PCR) B. pertussis DNA (PCR) B.parapertussis DNA PCR Coronavirus OC43 (PCR) Coronavirus HKU1 (PCR) Coronavirus 229E (PCR) SARS-CoV-2 (PCR) Coronavirus NL63 (PCR) Human Metapneumovir PCR Influenza Type A (PCR) Influenza Type B (PCR) M. pneumoniae (PCR) Parainfluenza 1 (PCR) Parainfluenza 2 (PCR) Parainfluenza 3 (PCR) Parainfluenza 4 (PCR) RSV (PCR) Entero/Rhino (PCR) 04/21/21 04/21/21 04/21/21 09:55 11:15 11:40 WBC RBC Hgb Hct MCV MCH MCHC RDW Plt Count Neut % (Auto) Lymph % (Auto) Maries % (Auto) Eos % (Auto) Baso % (Auto) Neut # (Auto) Lymph # (Auto) Maries # (Auto) Eos # (Auto) Baso # (Auto) RBC Morphology Poikilocytosis Anisocytosis PT INR D-Dimer 705 H Sodium Potassium Chloride Carbon Dioxide BUN Creatinine Estimated GFR BUN/Creatinine Ratio Glucose Lactate 2.1 Calcium Ferritin Total Bilirubin AST ALT Alkaline Phosphatase Lactate Dehydrogenase Total Creatine Kinase CK-MB (CK-2) CK-MB (CK-2) Rel Index Troponin I C-Reactive Protein NT-Pro-B Natriuret Pep Total Protein Albumin Globulin Albumin/Globulin Ratio Procalcitonin Urine Color Yellow Urine Appearance Clear Urine pH 5.0 Ur Specific [place] 1.010 Urine Protein 2+ H Urine Glucose (UA) Trace H Urine Ketones Negative Urine Occult Blood 2+ H Urine Nitrate Negative Urine Bilirubin Negative Urine Urobilinogen 0.2 Ur Leukocyte Esterase Negative Urine RBC 1-5/hpf Urine WBC 0-1/hpf Ur Squamous Epith Cells 0-1 /hpf Amorphous Sediment 1+ Urine Bacteria Occasional (0-1) Ur Culture Indicated? Cult not indicated Nasal Screen MRSA (PCR) Chlamy pneumoniae PCR Adenovirus (PCR) B. pertussis DNA (PCR) B.parapertussis DNA PCR Coronavirus OC43 (PCR) Coronavirus HKU1 (PCR) Coronavirus 229E (PCR) SARS-CoV-2 (PCR) Coronavirus NL63 (PCR) Human Metapneumovir PCR Influenza Type A (PCR) Influenza Type B (PCR) M. pneumoniae (PCR) Parainfluenza 1 (PCR) Parainfluenza 2 (PCR) Parainfluenza 3 (PCR) Parainfluenza 4 (PCR) RSV (PCR) Entero/Rhino (PCR) 04/21/21 04/21/21 04/21/21 11:40 11:45 12:45 WBC RBC Hgb Hct MCV MCH MCHC RDW Plt Count Neut % (Auto) Lymph % (Auto) Maries % (Auto) Eos % (Auto) Baso % (Auto) Neut # (Auto) Lymph # (Auto) Maries # (Auto) Eos # (Auto) Baso # (Auto) RBC Morphology Poikilocytosis Anisocytosis PT 31.6 H INR 2.7 H D-Dimer Sodium Potassium Chloride Carbon Dioxide BUN Creatinine Estimated GFR BUN/Creatinine Ratio Glucose Lactate 0.9 Calcium Ferritin Total Bilirubin AST ALT Alkaline Phosphatase Lactate Dehydrogenase Total Creatine Kinase CK-MB (CK-2) CK-MB (CK-2) Rel Index Troponin I C-Reactive Protein NT-Pro-B Natriuret Pep Total Protein Albumin Globulin Albumin/Globulin Ratio Procalcitonin Urine Color Urine Appearance Urine pH Ur Specific [place] Urine Protein Urine Glucose (UA) Urine Ketones Urine Occult Blood Urine Nitrate Urine Bilirubin Urine Urobilinogen Ur Leukocyte Esterase Urine RBC Urine WBC Ur Squamous Epith Cells Amorphous Sediment Urine Bacteria Ur Culture Indicated? Nasal Screen MRSA (PCR) Chlamy pneumoniae PCR Not detected Adenovirus (PCR) Not detected B. pertussis DNA (PCR) Not detected B.parapertussis DNA PCR Not detected Coronavirus OC43 (PCR) Not detected Coronavirus HKU1 (PCR) Not detected Coronavirus 229E (PCR) Not detected SARS-CoV-2 (PCR) Detected H Coronavirus NL63 (PCR) Not detected Human Metapneumovir PCR Not detected Influenza Type A (PCR) Not detected Influenza Type B (PCR) Not detected M. pneumoniae (PCR) Not detected Parainfluenza 1 (PCR) Not detected Parainfluenza 2 (PCR) Not detected Parainfluenza 3 (PCR) Not detected Parainfluenza 4 (PCR) Not detected RSV (PCR) Not detected Entero/Rhino (PCR) Not detected 04/21/21 16:30 WBC RBC Hgb Hct MCV MCH MCHC RDW Plt Count Neut % (Auto) Lymph % (Auto) Maries % (Auto) Eos % (Auto) Baso % (Auto) Neut # (Auto) Lymph # (Auto) Maries # (Auto) Eos # (Auto) Baso # (Auto) RBC Morphology Poikilocytosis Anisocytosis PT INR D-Dimer Sodium Potassium Chloride Carbon Dioxide BUN Creatinine Estimated GFR BUN/Creatinine Ratio Glucose Lactate Calcium Ferritin Total Bilirubin AST ALT Alkaline Phosphatase Lactate Dehydrogenase Total Creatine Kinase CK-MB (CK-2) CK-MB (CK-2) Rel Index Troponin I C-Reactive Protein NT-Pro-B Natriuret Pep Total Protein Albumin Globulin Albumin/Globulin Ratio Procalcitonin Urine Color Urine Appearance Urine pH Ur Specific [place] Urine Protein Urine Glucose (UA) Urine Ketones Urine Occult Blood Urine Nitrate Urine Bilirubin Urine Urobilinogen Ur Leukocyte Esterase Urine RBC Urine WBC Ur Squamous Epith Cells Amorphous Sediment Urine Bacteria Ur Culture Indicated? Nasal Screen MRSA (PCR) Negative for mrsa Chlamy pneumoniae PCR Adenovirus (PCR) B. pertussis DNA (PCR) B.parapertussis DNA PCR Coronavirus OC43 (PCR) Coronavirus HKU1 (PCR) Coronavirus 229E (PCR) SARS-CoV-2 (PCR) Coronavirus NL63 (PCR) Human Metapneumovir PCR Influenza Type A (PCR) Influenza Type B (PCR) M. pneumoniae (PCR) Parainfluenza 1 (PCR) Parainfluenza 2 (PCR) Parainfluenza 3 (PCR) Parainfluenza 4 (PCR) RSV (PCR) Entero/Rhino (PCR) Assessment & Plan Assessment and plan (1) Acute hypoxemic respiratory failure due to COVID-19: Status: Acute Plan: -Continue HFNC/dexamethasone (2) Kidney disorder of transplanted kidney: Status: Acute Plan: -Check tacrolimus level ASA P and coordinate dosing/mgmt w/ [facility] renal tx service -Monitor creatinine--appears stable according to documentation -Low threshold to transfer to [facility] if patient becomes amenable (3) Atrial fibrillation: Qualifiers: Atrial fibrillation type: unspecified chronic Qualified Code(s): I48.20 - Chronic atrial fibrillation, unspecified Status: Acute Plan: -Continue metoprolol/warfarin (4) Hypertension: Qualifiers: Hypertension type: essential hypertension Qualified Code(s): I10 - Essential (primary) hypertension Status: Acute Plan: -See problem #3 (5) Type 2 diabetes mellitus: Status: Acute Plan: -Insulin correction scale; watch glycemic control on dexamethasone Time Spent With Patient Critical Care time: I spent a total of 35 minutes of critical care time on this patient's care today; this time is exclusive of procedural time.
[2021-04-21] MEDS: SODIUM CHLORIDE 0.9% FLUSH 10 ML IV (21:57)
[2021-04-21] MEDS: WARFARIN 5 MG TABLET PO (21:57)
[2021-04-21] MEDS: TERAZOSIN 1 MG CAPSULE 4 MG PO (21:57)
[2021-04-21] MEDS: INSULIN GLARGINE 100 UNIT/ML 3ML PEN 10 UNIT SUBCUT (21:58)
[2021-04-22] VITALS (20 sets, daily range): BP systolic 130–175; BP diastolic 72–98; PULSE 80–107; RESP 18–31; TEMP 36.2–36.4; O2SAT 92–98
[2021-04-22 05:06] LABS: INR 3.3 (0.9-1.3); Prothrombin Time 38.5 SECONDS (10.1-12.7)
[2021-04-22 05:07] LABS: Add Manual Diff / Slide Review NO; Basophils Absolute Auto 0 /uL (0-100); Basophils Percent Auto 0.6 % (0-2); Eosinophils Absolute Auto 0 /uL (0-450); Hematocrit 30.2 % (41-53); Hemoglobin 9.7 g/dL (13.5-17.5); Lymphocytes Absolute Auto 200 /uL (1100-4500); Lymphocytes Percent Auto 3.1 % (25-40); Mean Corpuscular HGB Conc 31.9 % (30-36); Mean Corpuscular Hemoglobin 28.6 PG (26-34); Mean Corpuscular Volume 89.5 fL (80-100); Monocytes Absolute Auto 200 /uL (0-900); Monocytes Percent Auto 4.9 % (3-14); Neutrophils Absolute Auto 4600 /uL (1500-7000); Neutrophils Percent Auto 91.4 % (50-75); Platelet Count 261 X10^3/uL (150-400); Red Blood Cell Count 3.38 X10^6/uL (4.5-5.9); Red Cell Distribution Width 21.3 % (11.6-14.8)
[2021-04-22 05:10] LABS: BUN Creatinine Ratio 20.8 (6-22); Blood Urea Nitrogen 27 mg/dL (9-20); Calcium 9.3 mg/dL (8.4-10.2); Carbon Dioxide 25 mmol/L (22-32); Chloride 107 mmol/L (98-107); Estimated Glomerular Filt Rate 53.5 mL/min (>60); Glucose 192 mg/dL (80-110); HEMOLYSIS < 15 (0-50); Potassium 4.4 mmol/L (3.4-5.1); Sodium 134 mmol/L (137-145)
[2021-04-22 05:23] LABS: NT-proBNP (BNP-Adult 18+) 10300 pg/mL (<450)
[2021-04-22 05:27] LABS: Procalcitonin 2.42 ng/mL (<0.5)
[2021-04-22 05:46] LABS: Anisocytosis 3+; Ovalocytes 1+; Schistocytes 1+
--- NOTE | 2021-04-22 06:15 | PC.NURSE ---
Shift Note-Patient is A/Ox4, mildly anxious and apprehensive at times but cooperative. On HHF 40L/40% FIO2, SpO2 >92%, desats to 85% when NC removed or while coughing, sneezing, and blowing his nose, RR 20s-30, LS crackles throughout posteriorly, non-productive cough. A-fib CVR/RVR, BBB. BP 130s/80s to 170s/90s, see vital trends. Denies pain. Up to side of bed frequently to void. Discussed and encouraged proning and side-lying, did not do either overnight.
[2021-04-22] MEDS: INSULIN LISPRO 100 UNIT/ML 3ML VIAL SUBCUT ×4 (08:17→22:08)
--- NOTE | 2021-04-22 09:37 | P.TELICUPN_ITS ---
Subjective Subjective :: This patient was seen in the Intensive Care Unit via real time interactive two- way audiovisual telecommunication. no acute events since admission. feels better Current Medications Current Medications Medications: Home Medications mycophenolate sodium 180 mg tablet,delayed release 720 mg PO BID 08/29/17 [History Confirmed 04/21/21] niacinamide 500 mg tablet 250 mg PO DAILY 08/29/17 [History Confirmed 04/21/21] tacrolimus 1 mg capsule, immediate-release 2 mg PO DAILY 08/29/17 [History Confirmed 04/22/21] aspirin 81 mg tablet,delayed release 81 mg PO DAILY 04/12/19 [History Confirmed 04/21/21] ergocalciferol (vitamin D2) 1,250 mcg (50,000 unit) capsule (Vitamin D2) 50,000 unit PO DAILY 04/12/19 [History Confirmed 04/21/21] metoprolol succinate 50 mg tablet,extended release 24 hr 25 mg PO DAILY 04/12/19 [History Confirmed 04/21/21] prednisone 5 mg tablet 5 mg PO DAILY 04/12/19 [History Confirmed 04/21/21] terazosin 2 mg capsule 4 mg PO QPM 04/12/19 [History Confirmed 04/21/21] warfarin 5 mg tablet See Rx Instructions .ROUTE .COMPLEX #90 tab 08/06/20 [Rx Confirmed 04/21/21] colchicine 0.6 mg tablet 0.6 mg PO BID PRN #10 tab 08/10/20 [Rx Confirmed 04/21/21] epinephrine 0.3 mg/0.3 mL injection, auto-injector (EpiPen 2-Dm) 0.3 mg (0.3 mL) IM ONCE #2 ea 10/23/20 [Rx Confirmed 04/21/21] pioglitazone 30 mg tablet 30 mg PO DAILY #90 tab 11/28/20 [Rx Confirmed 04/21/21] amlodipine 2.5 mg tablet 2.5 mg PO DAILY #90 tab 12/24/20 [Rx Confirmed 04/21/21] allopurinol 300 mg tablet 300 mg PO DAILY #90 tab 01/22/21 [Rx Confirmed 04/21/21] lisinopril 20 mg tablet 2.5 mg PO DAILY 03/14/21 [History Confirmed 04/21/21] atorvastatin 10 mg tablet 20 mg PO BEDTIME 04/21/21 [History Confirmed 04/21/21] metformin 850 mg tablet 850 mg PO BID 04/21/21 [History Confirmed 04/21/21] tacrolimus 1 mg capsule, immediate-release 1 mg PO QPM 04/22/21 [History Confirmed 04/22/21] Visit Medications (administered) Generic Name Dose Route Start Last Admin Trade Name Lizzy PRN Reason Stop Dose Admin Insulin Glargine 10 unit 04/21/21 21:00 04/21/21 21:58 Insulin Glargine 100 Unit/Ml 3ml Pen SUBCUT 10 unit 2100 GENTRY Administration Insulin Human Lispro 0 unit 04/21/21 16:45 04/22/21 08:17 Insulin Lispro 100 Unit/Ml 3ml Vial SUBCUT 2 unit ACHS [facility] Administration Protocol Sodium Chloride 10 ml 04/21/21 21:00 04/21/21 21:57 Sodium Chloride 0.9% Flush IV 10 ml BID GENTRY Administration Terazosin HCl 4 mg 04/21/21 21:00 04/21/21 21:57 Terazosin 1 Mg Capsule PO 4 mg BEDTIME GENTRY Administration Warfarin Sodium 5 mg 04/21/21 21:00 04/21/21 21:57 Warfarin 5 Mg Tablet PO 5 mg DAILY@2100 GENTRY Administration Objective Ventilator Parameters: Ventilator Settings FiO2 0.40 Labs Result Diagrams: 04/22/21 04:43 04/22/21 04:43 Labs: Laboratory Results - last 24 hr 04/21/21 04/21/21 04/21/21 09:55 09:55 09:55 WBC 6.7 RBC 3.35 L Hgb 9.5 L Hct 30.1 L MCV 89.8 MCH 28.5 MCHC 31.7 RDW 21.0 H Plt Count 265 Neut % (Auto) 84.2 H Lymph % (Auto) 4.9 L Maury % (Auto) 10.6 Eos % (Auto) 0.0 L Baso % (Auto) 0.3 Neut # (Auto) 5700 Lymph # (Auto) 300 L Maury # (Auto) 700 Eos # (Auto) 0 Baso # (Auto) 0 RBC Morphology See Poikilocytosis 1+ H Anisocytosis 2+ H Ovalocytes Schistocytes PT INR D-Dimer Sodium 133 L Potassium 4.6 Chloride 104 Carbon Dioxide 24 BUN 28 H Creatinine 1.49 H Estimated GFR 45.7 L BUN/Creatinine Ratio 18.8 Glucose 199 H Lactate Calcium 9.3 Ferritin 550 H Total Bilirubin 1.1 AST 50 ALT 15 Alkaline Phosphatase 67 Lactate Dehydrogenase 1258 H Total Creatine Kinase 124 CK-MB (CK-2) 1.00 CK-MB (CK-2) Rel Index 0.8 L Troponin I 0.091 H C-Reactive Protein 19.5 H NT-Pro-B Natriuret Pep 07465 H Total Protein 6.7 Albumin 3.7 Globulin 3.0 Albumin/Globulin Ratio 1.2 Procalcitonin 2.67 H Urine Color Urine Appearance Urine pH Ur Specific [place] Urine Protein Urine Glucose (UA) Urine Ketones Urine Occult Blood Urine Nitrate Urine Bilirubin Urine Urobilinogen Ur Leukocyte Esterase Urine RBC Urine WBC Ur Squamous Epith Cells Amorphous Sediment Urine Bacteria Ur Culture Indicated? Nasal Screen MRSA (PCR) Chlamy pneumoniae PCR Adenovirus (PCR) B. pertussis DNA (PCR) B.parapertussis DNA PCR Coronavirus OC43 (PCR) Coronavirus HKU1 (PCR) Coronavirus 229E (PCR) SARS-CoV-2 (PCR) Coronavirus NL63 (PCR) Human Metapneumovir PCR Influenza Type A (PCR) Influenza Type B (PCR) M. pneumoniae (PCR) Parainfluenza 1 (PCR) Parainfluenza 2 (PCR) Parainfluenza 3 (PCR) Parainfluenza 4 (PCR) RSV (PCR) Entero/Rhino (PCR) 04/21/21 04/21/21 04/21/21 09:55 11:15 11:40 WBC RBC Hgb Hct MCV MCH MCHC RDW Plt Count Neut % (Auto) Lymph % (Auto) Maury % (Auto) Eos % (Auto) Baso % (Auto) Neut # (Auto) Lymph # (Auto) Maury # (Auto) Eos # (Auto) Baso # (Auto) RBC Morphology Poikilocytosis Anisocytosis Ovalocytes Schistocytes PT INR D-Dimer 705 H Sodium Potassium Chloride Carbon Dioxide BUN Creatinine Estimated GFR BUN/Creatinine Ratio Glucose Lactate 2.1 Calcium Ferritin Total Bilirubin AST ALT Alkaline Phosphatase Lactate Dehydrogenase Total Creatine Kinase CK-MB (CK-2) CK-MB (CK-2) Rel Index Troponin I C-Reactive Protein NT-Pro-B Natriuret Pep Total Protein Albumin Globulin Albumin/Globulin Ratio Procalcitonin Urine Color Yellow Urine Appearance Clear Urine pH 5.0 Ur Specific [place] 1.010 Urine Protein 2+ H Urine Glucose (UA) Trace H Urine Ketones Negative Urine Occult Blood 2+ H Urine Nitrate Negative Urine Bilirubin Negative Urine Urobilinogen 0.2 Ur Leukocyte Esterase Negative Urine RBC 1-5/hpf Urine WBC 0-1/hpf Ur Squamous Epith Cells 0-1 /hpf Amorphous Sediment 1+ Urine Bacteria Occasional (0-1) Ur Culture Indicated? Cult not indicated Nasal Screen MRSA (PCR) Chlamy pneumoniae PCR Adenovirus (PCR) B. pertussis DNA (PCR) B.parapertussis DNA PCR Coronavirus OC43 (PCR) Coronavirus HKU1 (PCR) Coronavirus 229E (PCR) SARS-CoV-2 (PCR) Coronavirus NL63 (PCR) Human Metapneumovir PCR Influenza Type A (PCR) Influenza Type B (PCR) M. pneumoniae (PCR) Parainfluenza 1 (PCR) Parainfluenza 2 (PCR) Parainfluenza 3 (PCR) Parainfluenza 4 (PCR) RSV (PCR) Entero/Rhino (PCR) 04/21/21 04/21/21 04/21/21 11:40 11:45 12:45 WBC RBC Hgb Hct MCV MCH MCHC RDW Plt Count Neut % (Auto) Lymph % (Auto) Maury % (Auto) Eos % (Auto) Baso % (Auto) Neut # (Auto) Lymph # (Auto) Maury # (Auto) Eos # (Auto) Baso # (Auto) RBC Morphology Poikilocytosis Anisocytosis Ovalocytes Schistocytes PT 31.6 H INR 2.7 H D-Dimer Sodium Potassium Chloride Carbon Dioxide BUN Creatinine Estimated GFR BUN/Creatinine Ratio Glucose Lactate 0.9 Calcium Ferritin Total Bilirubin AST ALT Alkaline Phosphatase Lactate Dehydrogenase Total Creatine Kinase CK-MB (CK-2) CK-MB (CK-2) Rel Index Troponin I C-Reactive Protein NT-Pro-B Natriuret Pep Total Protein Albumin Globulin Albumin/Globulin Ratio Procalcitonin Urine Color Urine Appearance Urine pH Ur Specific [place] Urine Protein Urine Glucose (UA) Urine Ketones Urine Occult Blood Urine Nitrate Urine Bilirubin Urine Urobilinogen Ur Leukocyte Esterase Urine RBC Urine WBC Ur Squamous Epith Cells Amorphous Sediment Urine Bacteria Ur Culture Indicated? Nasal Screen MRSA (PCR) Chlamy pneumoniae PCR Not detected Adenovirus (PCR) Not detected B. pertussis DNA (PCR) Not detected B.parapertussis DNA PCR Not detected Coronavirus OC43 (PCR) Not detected Coronavirus HKU1 (PCR) Not detected Coronavirus 229E (PCR) Not detected SARS-CoV-2 (PCR) Detected H Coronavirus NL63 (PCR) Not detected Human Metapneumovir PCR Not detected Influenza Type A (PCR) Not detected Influenza Type B (PCR) Not detected M. pneumoniae (PCR) Not detected Parainfluenza 1 (PCR) Not detected Parainfluenza 2 (PCR) Not detected Parainfluenza 3 (PCR) Not detected Parainfluenza 4 (PCR) Not detected RSV (PCR) Not detected Entero/Rhino (PCR) Not detected 04/21/21 04/22/21 04/22/21 16:30 04:43 04:43 WBC 5.0 RBC 3.38 L Hgb 9.7 L Hct 30.2 L MCV 89.5 MCH 28.6 MCHC 31.9 RDW 21.3 H Plt Count 261 Neut % (Auto) 91.4 H Lymph % (Auto) 3.1 L Maury % (Auto) 4.9 Eos % (Auto) 0.0 L Baso % (Auto) 0.6 Neut # (Auto) 4600 Lymph # (Auto) 200 L Maury # (Auto) 200 Eos # (Auto) 0 Baso # (Auto) 0 RBC Morphology See below Poikilocytosis Anisocytosis 3+ H Ovalocytes 1+ H Schistocytes 1+ H PT 38.5 H D INR 3.3 H D-Dimer Sodium Potassium Chloride Carbon Dioxide BUN Creatinine Estimated GFR BUN/Creatinine Ratio Glucose Lactate Calcium Ferritin Total Bilirubin AST ALT Alkaline Phosphatase Lactate Dehydrogenase Total Creatine Kinase CK-MB (CK-2) CK-MB (CK-2) Rel Index Troponin I C-Reactive Protein NT-Pro-B Natriuret Pep Total Protein Albumin Globulin Albumin/Globulin Ratio Procalcitonin Urine Color Urine Appearance Urine pH Ur Specific [place] Urine Protein Urine Glucose (UA) Urine Ketones Urine Occult Blood Urine Nitrate Urine Bilirubin Urine Urobilinogen Ur Leukocyte Esterase Urine RBC Urine WBC Ur Squamous Epith Cells Amorphous Sediment Urine Bacteria Ur Culture Indicated? Nasal Screen MRSA (PCR) Negative for mrsa Chlamy pneumoniae PCR Adenovirus (PCR) B. pertussis DNA (PCR) B.parapertussis DNA PCR Coronavirus OC43 (PCR) Coronavirus HKU1 (PCR) Coronavirus 229E (PCR) SARS-CoV-2 (PCR) Coronavirus NL63 (PCR) Human Metapneumovir PCR Influenza Type A (PCR) Influenza Type B (PCR) M. pneumoniae (PCR) Parainfluenza 1 (PCR) Parainfluenza 2 (PCR) Parainfluenza 3 (PCR) Parainfluenza 4 (PCR) RSV (PCR) Entero/Rhino (PCR) 04/22/21 04:43 WBC RBC Hgb Hct MCV MCH MCHC RDW Plt Count Neut % (Auto) Lymph % (Auto) Maury % (Auto) Eos % (Auto) Baso % (Auto) Neut # (Auto) Lymph # (Auto) Maury # (Auto) Eos # (Auto) Baso # (Auto) RBC Morphology Poikilocytosis Anisocytosis Ovalocytes Schistocytes PT INR D-Dimer Sodium 134 L Potassium 4.4 Chloride 107 Carbon Dioxide 25 BUN 27 H Creatinine 1.30 H Estimated GFR 53.5 L BUN/Creatinine Ratio 20.8 Glucose 192 H Lactate Calcium 9.3 Ferritin Total Bilirubin AST ALT Alkaline Phosphatase Lactate Dehydrogenase Total Creatine Kinase CK-MB (CK-2) CK-MB (CK-2) Rel Index Troponin I 0.060 H C-Reactive Protein NT-Pro-B Natriuret Pep 85221 H Total Protein Albumin Globulin Albumin/Globulin Ratio Procalcitonin 2.42 H Urine Color Urine Appearance Urine pH Ur Specific [place] Urine Protein Urine Glucose (UA) Urine Ketones Urine Occult Blood Urine Nitrate Urine Bilirubin Urine Urobilinogen Ur Leukocyte Esterase Urine RBC Urine WBC Ur Squamous Epith Cells Amorphous Sediment Urine Bacteria Ur Culture Indicated? Nasal Screen MRSA (PCR) Chlamy pneumoniae PCR Adenovirus (PCR) B. pertussis DNA (PCR) B.parapertussis DNA PCR Coronavirus OC43 (PCR) Coronavirus HKU1 (PCR) Coronavirus 229E (PCR) SARS-CoV-2 (PCR) Coronavirus NL63 (PCR) Human Metapneumovir PCR Influenza Type A (PCR) Influenza Type B (PCR) M. pneumoniae (PCR) Parainfluenza 1 (PCR) Parainfluenza 2 (PCR) Parainfluenza 3 (PCR) Parainfluenza 4 (PCR) RSV (PCR) Entero/Rhino (PCR) Exam Vital Signs (past 8 hours): - 04/22/21 02:00 04/22/21 03:00 04/22/21 04:00 Temperature 97.5 F L Pulse Rate 107 H 98 H 98 H Respiratory Rate 28 H 23 24 Blood Pressure 175/87 H 168/92 H Pulse Oximetry 94 96 96 04/22/21 05:00 04/22/21 06:00 04/22/21 07:15 Temperature Pulse Rate 90 83 101 H Respiratory Rate 20 27 H 20 Blood Pressure 175/87 H 140/98 H Pulse Oximetry 92 98 92 04/22/21 08:00 04/22/21 08:21 04/22/21 09:24 Temperature 97.1 F L Pulse Rate 95 H 100 H 96 H Respiratory Rate 22 27 H 20 Blood Pressure 154/85 H 154/85 H Pulse Oximetry 95 95 93 04/22/21 09:26 Temperature Pulse Rate Respiratory Rate Blood Pressure Pulse Oximetry 93 Fraction of Inspired Oxygen 40 Oxygen Delivery Method Heated High Flow Oxygen Flow Rate 40 Assessment & Plan Assessment & Plan narrative: Patient seen with bedside nurses and provider chart labs imaging reviewed a/p acute resp failure 2/2 to covid -continue steroids -wean high flow as toelrated, set goal to 92% and above -cannot do remdesevir/baricitinib -check tacro level -suggest txfer to pts xplant team, if not then please coordinate dosing with them -keep glucose [id number] -optimize bp control -gi/dvt ppx, coumadin for afib, keep level 2-3 -please call [facility] if condition changes ? ? ? Time Spent With Patient Critical Care time: I spent a total of [] minutes of critical care time on this patient's care today; this time is exclusive of procedural time.
[2021-04-22] MEDS: METOPROLOL ER 50 MG TABLET PO (10:05)
[2021-04-22] MEDS: TACROLIMUS 0.5 MG CAPSULE 2 MG PO (10:05)
[2021-04-22] MEDS: ASPIRIN EC 81 MG TABLET PO (10:06)
[2021-04-22] MEDS: DEXAMETHASONE 10 MG/ML VIAL 6 MG IV (10:06)
[2021-04-22] MEDS: SODIUM CHLORIDE 0.9% FLUSH 10 ML IV ×2 (10:07→22:12)
--- NOTE | 2021-04-22 10:47 | P.PN_ITS ---
Subjective Subjective Date Patient Seen: 04/22/21 Time Patient Seen: 08:00 Interval history: Today he feels improved. Less short of breath. Less coughing. Slept well. Exam Vital Signs (past 8 hours): - 04/22/21 03:00 04/22/21 04:00 04/22/21 05:00 Temperature Pulse Rate 98 H 98 H 90 Respiratory Rate 23 24 20 Blood Pressure 168/92 H 175/87 H Pulse Oximetry 96 96 92 04/22/21 06:00 04/22/21 07:15 04/22/21 08:00 Temperature 97.1 F L Pulse Rate 83 101 H 95 H Respiratory Rate 27 H 20 22 Blood Pressure 140/98 H Pulse Oximetry 98 92 95 04/22/21 08:21 04/22/21 09:24 04/22/21 09:26 Temperature Pulse Rate 100 H 96 H Respiratory Rate 27 H 20 Blood Pressure 154/85 H 154/85 H Pulse Oximetry 95 93 93 Fraction of Inspired Oxygen 40 Oxygen Delivery Method Heated High Flow Oxygen Flow Rate 40 Narrative Exam Narrative: GEN: no acute distress HEENT: PERRL, moist mucous membranes NECK: trachea midline, no JVD PULM: poor air movement bilaterally ABD: soft, nontender, nondistended, no organomegaly EXT: warm and well perfused, chronic ulcer on right leg, no erythema SKIN: ulcer as noted above, no other rashes noted NEURO: awake, alert, moving all extremities, no focal deficits PSYCH: pleasant, cooperative Objective Labs Result Diagrams: 04/22/21 04:43 04/22/21 04:43 Labs: Laboratory Results - last 24 hr 04/21/21 04/21/21 04/21/21 09:55 09:55 09:55 WBC RBC Hgb Hct MCV MCH MCHC RDW Plt Count Neut % (Auto) Lymph % (Auto) [place] % (Auto) Eos % (Auto) Baso % (Auto) Neut # (Auto) Lymph # (Auto) [place] # (Auto) Eos # (Auto) Baso # (Auto) RBC Morphology See Poikilocytosis 1+ H Anisocytosis 2+ H Ovalocytes Schistocytes PT INR D-Dimer Sodium 133 L Potassium 4.6 Chloride 104 Carbon Dioxide 24 BUN 28 H Creatinine 1.49 H Estimated GFR 45.7 L BUN/Creatinine Ratio 18.8 Glucose 199 H Lactate Calcium 9.3 Ferritin 550 H Total Bilirubin 1.1 AST 50 ALT 15 Alkaline Phosphatase 67 Lactate Dehydrogenase 1258 H Total Creatine Kinase 124 CK-MB (CK-2) 1.00 CK-MB (CK-2) Rel Index 0.8 L Troponin I 0.091 H C-Reactive Protein 19.5 H NT-Pro-B Natriuret Pep 92086 H Total Protein 6.7 Albumin 3.7 Globulin 3.0 Albumin/Globulin Ratio 1.2 Procalcitonin 2.67 H Urine Color Urine Appearance Urine pH Ur Specific [place] Urine Protein Urine Glucose (UA) Urine Ketones Urine Occult Blood Urine Nitrate Urine Bilirubin Urine Urobilinogen Ur Leukocyte Esterase Urine RBC Urine WBC Ur Squamous Epith Cells Amorphous Sediment Urine Bacteria Ur Culture Indicated? Nasal Screen MRSA (PCR) Chlamy pneumoniae PCR Adenovirus (PCR) B. pertussis DNA (PCR) B.parapertussis DNA PCR Coronavirus OC43 (PCR) Coronavirus HKU1 (PCR) Coronavirus 229E (PCR) SARS-CoV-2 (PCR) Coronavirus NL63 (PCR) Human Metapneumovir PCR Influenza Type A (PCR) Influenza Type B (PCR) M. pneumoniae (PCR) Parainfluenza 1 (PCR) Parainfluenza 2 (PCR) Parainfluenza 3 (PCR) Parainfluenza 4 (PCR) RSV (PCR) Entero/Rhino (PCR) 04/21/21 04/21/21 04/21/21 09:55 11:15 11:40 WBC RBC Hgb Hct MCV MCH MCHC RDW Plt Count Neut % (Auto) Lymph % (Auto) [place] % (Auto) Eos % (Auto) Baso % (Auto) Neut # (Auto) Lymph # (Auto) [place] # (Auto) Eos # (Auto) Baso # (Auto) RBC Morphology Poikilocytosis Anisocytosis Ovalocytes Schistocytes PT INR D-Dimer 705 H Sodium Potassium Chloride Carbon Dioxide BUN Creatinine Estimated GFR BUN/Creatinine Ratio Glucose Lactate 2.1 Calcium Ferritin Total Bilirubin AST ALT Alkaline Phosphatase Lactate Dehydrogenase Total Creatine Kinase CK-MB (CK-2) CK-MB (CK-2) Rel Index Troponin I C-Reactive Protein NT-Pro-B Natriuret Pep Total Protein Albumin Globulin Albumin/Globulin Ratio Procalcitonin Urine Color Yellow Urine Appearance Clear Urine pH 5.0 Ur Specific [place] 1.010 Urine Protein 2+ H Urine Glucose (UA) Trace H Urine Ketones Negative Urine Occult Blood 2+ H Urine Nitrate Negative Urine Bilirubin Negative Urine Urobilinogen 0.2 Ur Leukocyte Esterase Negative Urine RBC 1-5/hpf Urine WBC 0-1/hpf Ur Squamous Epith Cells 0-1 /hpf Amorphous Sediment 1+ Urine Bacteria Occasional (0-1) Ur Culture Indicated? Cult not indicated Nasal Screen MRSA (PCR) Chlamy pneumoniae PCR Adenovirus (PCR) B. pertussis DNA (PCR) B.parapertussis DNA PCR Coronavirus OC43 (PCR) Coronavirus HKU1 (PCR) Coronavirus 229E (PCR) SARS-CoV-2 (PCR) Coronavirus NL63 (PCR) Human Metapneumovir PCR Influenza Type A (PCR) Influenza Type B (PCR) M. pneumoniae (PCR) Parainfluenza 1 (PCR) Parainfluenza 2 (PCR) Parainfluenza 3 (PCR) Parainfluenza 4 (PCR) RSV (PCR) Entero/Rhino (PCR) 04/21/21 04/21/21 04/21/21 11:40 11:45 12:45 WBC RBC Hgb Hct MCV MCH MCHC RDW Plt Count Neut % (Auto) Lymph % (Auto) [place] % (Auto) Eos % (Auto) Baso % (Auto) Neut # (Auto) Lymph # (Auto) [place] # (Auto) Eos # (Auto) Baso # (Auto) RBC Morphology Poikilocytosis Anisocytosis Ovalocytes Schistocytes PT 31.6 H INR 2.7 H D-Dimer Sodium Potassium Chloride Carbon Dioxide BUN Creatinine Estimated GFR BUN/Creatinine Ratio Glucose Lactate 0.9 Calcium Ferritin Total Bilirubin AST ALT Alkaline Phosphatase Lactate Dehydrogenase Total Creatine Kinase CK-MB (CK-2) CK-MB (CK-2) Rel Index Troponin I C-Reactive Protein NT-Pro-B Natriuret Pep Total Protein Albumin Globulin Albumin/Globulin Ratio Procalcitonin Urine Color Urine Appearance Urine pH Ur Specific [place] Urine Protein Urine Glucose (UA) Urine Ketones Urine Occult Blood Urine Nitrate Urine Bilirubin Urine Urobilinogen Ur Leukocyte Esterase Urine RBC Urine WBC Ur Squamous Epith Cells Amorphous Sediment Urine Bacteria Ur Culture Indicated? Nasal Screen MRSA (PCR) Chlamy pneumoniae PCR Not detected Adenovirus (PCR) Not detected B. pertussis DNA (PCR) Not detected B.parapertussis DNA PCR Not detected Coronavirus OC43 (PCR) Not detected Coronavirus HKU1 (PCR) Not detected Coronavirus 229E (PCR) Not detected SARS-CoV-2 (PCR) Detected H Coronavirus NL63 (PCR) Not detected Human Metapneumovir PCR Not detected Influenza Type A (PCR) Not detected Influenza Type B (PCR) Not detected M. pneumoniae (PCR) Not detected Parainfluenza 1 (PCR) Not detected Parainfluenza 2 (PCR) Not detected Parainfluenza 3 (PCR) Not detected Parainfluenza 4 (PCR) Not detected RSV (PCR) Not detected Entero/Rhino (PCR) Not detected 04/21/21 04/22/21 04/22/21 16:30 04:43 04:43 WBC 5.0 RBC 3.38 L Hgb 9.7 L Hct 30.2 L MCV 89.5 MCH 28.6 MCHC 31.9 RDW 21.3 H Plt Count 261 Neut % (Auto) 91.4 H Lymph % (Auto) 3.1 L [place] % (Auto) 4.9 Eos % (Auto) 0.0 L Baso % (Auto) 0.6 Neut # (Auto) 4600 Lymph # (Auto) 200 L [place] # (Auto) 200 Eos # (Auto) 0 Baso # (Auto) 0 RBC Morphology See below Poikilocytosis Anisocytosis 3+ H Ovalocytes 1+ H Schistocytes 1+ H PT 38.5 H D INR 3.3 H D-Dimer Sodium Potassium Chloride Carbon Dioxide BUN Creatinine Estimated GFR BUN/Creatinine Ratio Glucose Lactate Calcium Ferritin Total Bilirubin AST ALT Alkaline Phosphatase Lactate Dehydrogenase Total Creatine Kinase CK-MB (CK-2) CK-MB (CK-2) Rel Index Troponin I C-Reactive Protein NT-Pro-B Natriuret Pep Total Protein Albumin Globulin Albumin/Globulin Ratio Procalcitonin Urine Color Urine Appearance Urine pH Ur Specific [place] Urine Protein Urine Glucose (UA) Urine Ketones Urine Occult Blood Urine Nitrate Urine Bilirubin Urine Urobilinogen Ur Leukocyte Esterase Urine RBC Urine WBC Ur Squamous Epith Cells Amorphous Sediment Urine Bacteria Ur Culture Indicated? Nasal Screen MRSA (PCR) Negative for mrsa Chlamy pneumoniae PCR Adenovirus (PCR) B. pertussis DNA (PCR) B.parapertussis DNA PCR Coronavirus OC43 (PCR) Coronavirus HKU1 (PCR) Coronavirus 229E (PCR) SARS-CoV-2 (PCR) Coronavirus NL63 (PCR) Human Metapneumovir PCR Influenza Type A (PCR) Influenza Type B (PCR) M. pneumoniae (PCR) Parainfluenza 1 (PCR) Parainfluenza 2 (PCR) Parainfluenza 3 (PCR) Parainfluenza 4 (PCR) RSV (PCR) Entero/Rhino (PCR) 04/22/21 04:43 WBC RBC Hgb Hct MCV MCH MCHC RDW Plt Count Neut % (Auto) Lymph % (Auto) [place] % (Auto) Eos % (Auto) Baso % (Auto) Neut # (Auto) Lymph # (Auto) [place] # (Auto) Eos # (Auto) Baso # (Auto) RBC Morphology Poikilocytosis Anisocytosis Ovalocytes Schistocytes PT INR D-Dimer Sodium 134 L Potassium 4.4 Chloride 107 Carbon Dioxide 25 BUN 27 H Creatinine 1.30 H Estimated GFR 53.5 L BUN/Creatinine Ratio 20.8 Glucose 192 H Lactate Calcium 9.3 Ferritin Total Bilirubin AST ALT Alkaline Phosphatase Lactate Dehydrogenase Total Creatine Kinase CK-MB (CK-2) CK-MB (CK-2) Rel Index Troponin I 0.060 H C-Reactive Protein NT-Pro-B Natriuret Pep 24697 H Total Protein Albumin Globulin Albumin/Globulin Ratio Procalcitonin 2.42 H Urine Color Urine Appearance Urine pH Ur Specific [place] Urine Protein Urine Glucose (UA) Urine Ketones Urine Occult Blood Urine Nitrate Urine Bilirubin Urine Urobilinogen Ur Leukocyte Esterase Urine RBC Urine WBC Ur Squamous Epith Cells Amorphous Sediment Urine Bacteria Ur Culture Indicated? Nasal Screen MRSA (PCR) Chlamy pneumoniae PCR Adenovirus (PCR) B. pertussis DNA (PCR) B.parapertussis DNA PCR Coronavirus OC43 (PCR) Coronavirus HKU1 (PCR) Coronavirus 229E (PCR) SARS-CoV-2 (PCR) Coronavirus NL63 (PCR) Human Metapneumovir PCR Influenza Type A (PCR) Influenza Type B (PCR) M. pneumoniae (PCR) Parainfluenza 1 (PCR) Parainfluenza 2 (PCR) Parainfluenza 3 (PCR) Parainfluenza 4 (PCR) RSV (PCR) Entero/Rhino (PCR) [facility] Medical History Anemia Atrial fibrillation (~2018) Borderline hypothyroidism Cataracts, bilateral (~2013) Cellulitis Chronic wound of extremity Diabetes Gout (~1966) Hypertension Iron deficiency anemia Kidney disease (~2004) Low back pain Measles (~194) Mumps (~194) Skin tear of right upper arm without complication Sleep apnea (~2011) Stroke (~2004) Surgical History Anesthesia History of total right knee replacement (TKR) Kidney transplant recipient (~2016) Family History Father Stroke Mother History of heart disease Sister Cancer Grandfather History of heart disease Grandmother History of heart disease Social History household members: spouse Smoking Status: Never smoker Assessment & Plan Assessment & Plan narrative: Mr. Obregon is a 76M with [facility] s/p renal transplant, CKD stage 2-3, afib, DM, HTN, CVA who presents with shortness of breath and hypoxemia from COVID pneumonia. 1. Acute respiratory failure from COVID pneumonia -COVID positive on 04/15 -has been vaccinated and boosted -likely severe disease is related to immune suppressed state -chest xray shows bilateral infiltrates -patient requiring heated high flow on admission -discussed GOC and he is a full code -has been ordered for dexamethasone -no remdesivir for now given kidney dysfunction -no baricitinib for now given concern for interactions with tacrolimus 2. 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 Atrial fibrillation on coumadin -continue metoprolol -continue coumadin -check INR daily 4. Chronic anemia -appears near baseline -no evidence of blood loss 5. Chronic right leg wound -no evidence of acute infection -follow up with wound care on discharge 6. Cardiac demand ischemia -patient denies chest pain -likely secondary to covid infection -trend troponin -continue home aspirin 7. Type 2 Diabetes -hold oral glycemic regimen -start insulin sliding scale -as patient is being started on dexamethasone, start on lantus 10U tonight 8. Hypertension -hold lisinopril for now 9. history of CVA -continue aspirin 10. Gout, chronic -hold home meds for now 11. Aortic stenosis -noted to have ECHO from 02/19 with mild to moderate aortic stenosis -careful with sudden fluid shifts 12. Recent rib fractures -patient asymptomatic currently with no pain -does not appear to be splinting on exam -monitor respiratory status closely CODE: Full Proxy: Kay Obregon, I have utilized all available resources to reconcile the patients home medications Time Spent With Patient Critical Care time: I spent a total of [] minutes of critical care time on this patient's care today; this time is exclusive of procedural time.
--- NOTE | 2021-04-22 10:56 | CM.DANOTE ---
DCP: Case received, EMR reviewed. Could see through patient's room that patient is on high flow oxygen. Was able to obtain some information from ICU nurse on patient, as well as current information available in EMR. Completed DCP assessment based upon information currently available. Patient is a 76 year old male who admitted yesterday afternoon to the care of the hospitalist team. PCP: Dr. Magallanes. Payer: confirmed: Medicare/[employer] [place] [employer]. Patient came to the hospital via private vehicle secondary to having shortness of breath, and low oxygen saturations. Patient had been feeling ill on the of this month, and tested positive for COVID that day. Patient's sats were in the 70s, and he was placed on heated high flow oxygen. According to notes, patient had fallen at home approximately 3 weeks ago ending up with rib fractures, but currently, not having any rib pain. Patient has history of renal transplant done at [facility] about 5 years ago secondary to end-stage renal disease from diabetes. He holds current diagnosis of acute respiratory failure from COVID pneumonia. Was unable to meet with patient, due to him being on high flow oxygen, and COVID positive, but is noted that he resides here in [place] with his spouse, Kay Alonzo. Patient has been able to ambulate in his room. P: DCP to continue to follow. Patient should be able to go home when he is deemed medically stable. Hannah Eaton DC Dietary Clerk Discharge Planning/Care Management CM Discharge Assessment Start: 04/22/21 10:54 Freq: Status: Active Protocol: Document 04/22/21 10:54 (Rec: 04/22/21 10:56 [id number]) Discharge Planning Assessment Assigned Screw Down Hannah Eaton RN/Client Reporting Associate Advance Directives? Yes Advance Directives on File No History Provided By Patient,Medical Record Prior Living Arrangements House Household Members spouse Type of transporation used prior to Drives own vehicle admit Independent with ADL's Yes Is patient alert and oriented? Yes Caregiver for Another No Barriers to Discharge No Comment Patient resides with supportive spouse. Transportation Arrangement Spouse Referrals Initiated None needed Whiteboard Updated in Patient Room with No name and ext. # of Screw Down Comment Patient is COVID positive Review Status In Process Next Review Type Continued Stay Review
[2021-04-22] MEDS: TERAZOSIN 1 MG CAPSULE 4 MG PO (22:12)
[2021-04-22] MEDS: TACROLIMUS 0.5 MG CAPSULE 1 MG PO (22:13)
[2021-04-22] MEDS: guaiFENesin ER 600 MG TAB PO (22:13)
[2021-04-22] MEDS: WARFARIN 5 MG TABLET PO (22:14)
[2021-04-22] MEDS: INSULIN GLARGINE 100 UNIT/ML 3ML PEN 10 UNIT SUBCUT (22:14)
[2021-04-23] VITALS: PULSE 96; O2SAT 94
[2021-04-23 04:00] VITALS: BP 154/95; PULSE 95; RESP 22; O2SAT 91
[2021-04-23 04:52] LABS: Hematocrit 31.7 % (41-53); Hemoglobin 9.8 g/dL (13.5-17.5); Mean Corpuscular HGB Conc 30.8 % (30-36); Mean Corpuscular Hemoglobin 27.7 PG (26-34); Mean Corpuscular Volume 89.9 fL (80-100); Platelet Count 323 X10^3/uL (150-400); Red Blood Cell Count 3.53 X10^6/uL (4.5-5.9); White Blood Cell Count 10.5 X10^3/uL (4.5-11.0)
[2021-04-23 04:59] LABS: BUN Creatinine Ratio 26.8 (6-22); Blood Urea Nitrogen 37 mg/dL (9-20); Calcium 9.4 mg/dL (8.4-10.2); Carbon Dioxide 25 mmol/L (22-32); Chloride 107 mmol/L (98-107); Glucose 156 mg/dL (80-110); HEMOLYSIS < 15 (0-50); Potassium 4.4 mmol/L (3.4-5.1); Sodium 133 mmol/L (137-145)
[2021-04-23 05:00] LABS: INR 4.2 (0.9-1.3); Prothrombin Time 48.1 SECONDS (10.1-12.7)
--- NOTE | 2021-04-23 06:29 | PC.NURSE ---
Patient at 2L with sats 92-94% until patient sat up on edge of bed to urinate and desating to 86-88%. O2 increased to 3L and patient recovering to 92-96%. Patient right side lying since getting back into bed. Patient remains SOB with minimal exertion. Patient able to sleep before episode and returned to sleep once O2 sats improved again.
[2021-04-23 08:00] VITALS: BP 139/91; PULSE 77; RESP 24; TEMP 36.4; O2SAT 94
[2021-04-23] MEDS: INSULIN LISPRO 100 UNIT/ML 3ML VIAL SUBCUT (08:25)
[2021-04-23 08:36] LABS: Tacrolimus 14.8 ng/mL (2.0-20.0)
--- NOTE | 2021-04-23 09:20 | PM.DS.1 ---
History of Present Illness History of Present Illness Date Patient Seen: 04/23/21 Time Patient Seen: 09:20 Chief complaint: oxygen at 70 Narrative: Per Dr. Armstrong, Mr. Obregon is a 76M with H renal transplant five years ago, CKD stage 2-3, DM, HTN, HL, CVA, afib who presents with cough and shortness of breath. He has also felt nausea and diarrhea. He does not have a productive cough. He has no chest pain. He feels cold frequently. He began feeling ill on 04/15, and tested positive for COVID that day. Yesterday he did get monoclonal antibodies. However today he felt more shortness of breath. Checked his O2 sats at home which were below 90%. He notes three weeks ago he fell and had left rib fractures, but he is not having rib pain or pain with respiration currently. So he presented to the ED. In the ED workup was done, ,he was afebrile, tachycardic in afib, tachypneic, o2 sats in the 80s. He was placed on nasal canula and then heated high flow oxygen. Labs notable for WBC 6.7, hgb 9.5, creatinine 1.49. INR 2.7. Lactate 2.1->0.9. LDH 1258, trop 0.091, bnp 39238, crp 19.5, procal 2.67. COVID positive. Chest xray showed bilateral infiltrates and mild cardiomegaly. He was given dexamethasone and admitted for further treatment. Discharge Providers Provider Date of admission: 04/21/21 14:17 Discharge Date: 04/23/21 Primary care physician: George Magallanes DO Consults: 04/21/21 17:32 Consult to Tele-sewage plant operator Routine Comment: Consulting Provider: Yary Tele-intensivists Reason for consultation: Hospital Pharmacy Technician services 04/21/21 18:11 Consult to Respiratory Therapy Evaluate & Treat Comment: Physician Instructions: Evaluate and treat Discharge provider: Gopal Velazquez DO Summary Hospital Course Discharge Diagnosis: 1. Acute respiratory failure from COVID pneumonia 2. 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 Atrial fibrillation on coumadin, unable to further specify type at this time 4. Chronic anemia 5. Chronic right leg wound 6. Myocardial injury 7. Type 2 Diabetes 8. Hypertension 9. history of CVA 10. Gout, chronic 11. Aortic stenosis 12. Recent rib fractures Hospital Course: Mr. Obregon is a 76M with PMH s/p renal transplant, CKD stage 2-3, afib, DM, HTN, CVA who presented with shortness of breath and hypoxemia from COVID pneumonia. Patient was fully vaccinated but was chronically immunosuppressed due to his renal transplant. The patient initially required heated high-flow oxygen but quickly improved after initiation of treatment with dexamethasone. Given his medical history he was not given baricitinib (concern for interaction with his immunosuppression) or remdesivir (kidney disease). He also had a mildly elevated troponin likely due to demand which downtrended on repeat evaluation. A few days after admission and with continued improvement, the patient was stable on 2-3 L of oxygen and expressed a strong desire to go home. He was discharged home on home oxygen. At the time he was ambulatory with an assistive device and he was eating and tolerating adequate oral intake. He Was instructed to return should he require continuous levels of at least 6 L or more or have any worsening symptoms. Given his significant past history he was discharged to complete a 5 day total course of dexamethasone, and after completion of this course he will resume his usual home prednisone dose of 5 mg for immunosuppression. His INR also continued to rise, though his Coumadin was held. He should continue to hold Coumadin at home and I recommended that he follow-up with his usual provider for continued INR checks and further outpatient management. While here, the patient's mycophenolate was held, tacrolimus level was sent but inaccurately drawn, and repeat had not returned. He should resume his usual tacrolimus dosing upon discharge. Time Spent with Patient Time spent: Greater than 30 minutes Exam Vital Signs (past 8 hours): - 04/23/21 04:00 04/23/21 08:00 Temperature 97.6 F Pulse Rate 95 H 77 Respiratory Rate 22 24 Blood Pressure 154/95 H 139/91 H Pulse Oximetry 91 94 Fraction of Inspired Oxygen 40 Oxygen Delivery Method Nasal Cannula Oxygen Flow Rate 2 Narrative Exam Narrative: GEN: no acute distress HEENT: PERRL, moist mucous membranes NECK: trachea midline, no JVD PULM: poor air movement bilaterally ABD: soft, nontender, nondistended, no organomegaly EXT: warm and well perfused, chronic ulcer on right leg, no erythema SKIN: ulcer as noted above, no other rashes noted NEURO: awake, alert, moving all extremities, no focal deficits PSYCH: pleasant, cooperative Objective Labs Result Diagrams: 04/23/21 04:28 04/23/21 04:28 Labs: Laboratory Results - last 24 hr 04/22/21 04/23/21 04/23/21 07:25 04:28 04:28 WBC 10.5 D RBC 3.53 L Hgb 9.8 L Hct 31.7 L MCV 89.9 MCH 27.7 MCHC 30.8 RDW 21.0 H Plt Count 323 PT INR Sodium 133 L Potassium 4.4 Chloride 107 Carbon Dioxide 25 BUN 37 H Creatinine 1.38 H Estimated GFR 50.0 L BUN/Creatinine Ratio 26.8 H Glucose 156 H Calcium 9.4 Tacrolimus 14.8 04/23/21 04:28 WBC RBC Hgb Hct MCV MCH MCHC RDW Plt Count PT 48.1 H D INR 4.2 H Sodium Potassium Chloride Carbon Dioxide BUN Creatinine Estimated GFR BUN/Creatinine Ratio Glucose Calcium Tacrolimus [facility] Medical History Anemia Atrial fibrillation (~2018) Borderline hypothyroidism Cataracts, bilateral (~2013) Cellulitis Chronic wound of extremity Diabetes Gout (~1966) Hypertension Iron deficiency anemia Kidney disease (~2004) Low back pain Measles (~194) Mumps (~194) Skin tear of right upper arm without complication Sleep apnea (~2011) Stroke (~2004) Surgical History Anesthesia History of total right knee replacement (TKR) Kidney transplant recipient (~2016) Family History Father Stroke Mother History of heart disease Sister Cancer Grandfather History of heart disease Grandmother History of heart disease Social History household members: spouse Smoking Status: Never smoker Discharge Plan Discharge Plan Patient Disposition: Home Provider Discharge Comment: You were admitted to the hospital with COVID pneumonia requiring oxygen. You improved with steroids, still requiring a few L of oxygen currently but stable for discharge home. Please only use oxygen to keep O2 levels between 90-96%. Currently you need about 2-3 L. If you're consistently needing 6L and struggling please return to the hospital for evaluation. Your prednisone will be replaced for a few days with dexamethasone. Once this prescription is finished please return to taking your prednisone. You should hold your coumadin as well for a couple of days as your INR is 4.2. Please follow up for INR check in the next few days to possibly adjust coumadin dosing. Discharge orders & Medications Prescriptions: New dexamethasone 6 mg tablet 6 mg PO DAILY 3 Days Qty: 3 0RF Continued tacrolimus 1 mg capsule 2 mg PO DAILY 0RF Rx Instructions: Takes at 1000 mycophenolate sodium 180 mg tablet,delayed release (DR/EC) 720 mg PO BID 0RF niacinamide 500 mg tablet 250 mg PO DAILY 0RF warfarin 5 mg tablet See Rx Instructions .ROUTE .COMPLEX Qty: 90 3RF Rx Instructions: 5-6 mg po qpm colchicine 0.6 mg tablet 0.6 mg PO BID PRN (Reason: GOUT) Qty: 10 5RF epinephrine [EpiPen 2-Dm] 0.3 mg/0.3 mL auto-injector 0.3 mg IM ONCE Qty: 2 0RF Label Comments: patient obtained epi pen after being mistakenly dx with peanut allergy Rx Instructions: as a single dose pioglitazone 30 mg tablet 30 mg PO DAILY Qty: 90 2RF allopurinol 300 mg tablet 300 mg PO DAILY Qty: 90 1RF amlodipine 2.5 mg tablet 2.5 mg PO DAILY Qty: 90 3RF metoprolol succinate 50 mg tablet extended release 24 hr 25 mg PO DAILY 0RF terazosin 2 mg capsule 4 mg PO QPM 0RF ergocalciferol (vitamin D2) [Vitamin D2] 1,250 mcg (50,000 unit) capsule 50,000 unit PO DAILY 0RF aspirin 81 mg Tablet,Delayed Release (Dr/Ec) 81 mg PO DAILY 0RF atorvastatin 10 mg tablet 20 mg PO BEDTIME 0RF metformin 850 mg tablet 850 mg PO BID 0RF tacrolimus 1 mg Capsule 1 mg PO QPM 0RF Rx Instructions: Takes at 2200 lisinopril 20 mg Tablet 2.5 mg PO DAILY 0RF Discontinued prednisone 5 mg tablet 5 mg PO DAILY 0RF Follow up/Referrals: George Magallanes, [Primary Care Provider] - Diet/Activity/Treatments Diet: Diet as Tolerated Activity: As tolerated. Visit Report/Discharge Packet Instructions: DI for Oxygen Therapy -- Adult, DI for COVID-19 (Suspected or Confirmed ) Discharge Data Primary Care Provider: George Magallanes
[2021-04-23] MEDS: TACROLIMUS 0.5 MG CAPSULE 2 MG PO (09:47)
[2021-04-23] MEDS: SODIUM CHLORIDE 0.9% FLUSH 10 ML IV (09:47)
[2021-04-23] MEDS: DEXAMETHASONE 10 MG/ML VIAL 6 MG IV (09:47)
[2021-04-23] MEDS: ASPIRIN EC 81 MG TABLET PO (09:48)
[2021-04-23] MEDS: METOPROLOL ER 50 MG TABLET PO (09:48)
--- NOTE | 2021-04-23 11:24 | CM.DPNOTE ---
DISCHARGE NOTE: Patient is discharging home today with RT setting up home O2. Assigned nurse will notify patient's spouse of discharge. MANAGER COUNTRY did not enter room to discuss discharge due to patient's covid+ status; assigned nurse will notify care management if discharge planning needs arise. Maycol CHAVIRA
[2021-04-23 12:52] VITALS: BP 150/92; PULSE 88; RESP 22; TEMP 36.1; O2SAT 96
== END 2021-04-23 15:45 | disposition home or self-care (01) | DRG 177 ==
LOC: ED 13:34 → AC 14:23 → ICU 04-22 08:17 → AC 04-23 07:55 → ICU 04-23 07:55
PROVIDERS: Admitting Provider Internal Medicine; Emergency Provider Emergency Medicine; Family Provider Family Medicine; PCP Family Medicine; Referring Provider Emergency Medicine; Visit Provider Internal Medicine
DX: U07.1 COVID-19 (principal); J12.82 Pneumonia due to coronavirus disease 2019; J96.01 Acute respiratory failure with hypoxia; I48.20 Chronic atrial fibrillation, unspecified; Z94.0 Kidney transplant status; D84.821 Immunodeficiency due to drugs; I5A Non-ischemic myocardial injury (non-traumatic); E11.22 Type 2 diabetes mellitus with diabetic chronic kidney disease; I12.9 Hypertensive chronic kidney disease with stage 1 through stage 4 chronic kidney disease, or unspecified chronic kidney disease; N18.30 Chronic kidney disease, stage 3 unspecified; M10.9 Gout, unspecified; E78.5 Hyperlipidemia, unspecified; Z86.73 Personal history of transient ischemic attack (TIA), and cerebral infarction without residual deficits; Z79.01 Long term (current) use of anticoagulants; Z79.84 Long term (current) use of oral hypoglycemic drugs; D50.9 Iron deficiency anemia, unspecified
CPT/HCPCS: 36415; 71045; 80048; 80053; 80197; 81001; 82550; 82553; 82728; 82962; 83540; 83550; 83605; 83615; 83880; 84145; 84484; 85025; 85027; 85379; 85610; 86140; 87040; 87633; 87797; 93005; 94618; 94762; 96374; 99285; 99291; J1100; J1815; J7507

== ENCOUNTER → 2021-05-07 11:54 | Outpatient (CLI) | payer MEDICARE, OTHER, SELFPAY ==
[2021-04-21 16:50] VITALS: BMI 28.0
--- NOTE | 2021-05-07 13:16 | DI.RAD.S_ITS ---
PROCEDURE: XR CHEST 2V INDICATIONS: Evaluate and treat TECHNIQUE: 2 views of the chest were acquired. COMPARISON: [facility], CR, XR CHEST 2V, 05/11/2018, 15:40. [facility], CR, XR CHEST 1V, 04/21/2021, 10:25. FINDINGS: Surgical changes and devices: None. Lungs and pleura: Extensive patchy bilateral interstitial and airspace opacities similar to 04/21/2021 study. Mediastinum: Mediastinal contours are normal. Heart size is enlarged as seen on the prior study. Bones and chest wall: No suspicious bony abnormalities. Soft tissues appear unremarkable. IMPRESSION: Similar appearance of the chest to 04/21/2021 exam. Findings presumably represent pulmonary edema and/or infection. Dictated by: Naseem Whitman M.D. on 05/07/2021 at 15:30 Approved by: Naseem Whitman M.D. on 05/07/2021 at 15:31
[2021-05-07 13:58] LABS: Add Manual Diff / Slide Review NO; Basophils Absolute Auto 0 /uL (0-100); Basophils Percent Auto 0.1 % (0-2); Eosinophils Absolute Auto 0 /uL (0-450); Eosinophils Percent Auto 0.1 % (2-4); Hematocrit 26.1 % (41-53); Hemoglobin 8.3 g/dL (13.5-17.5); Lymphocytes Absolute Auto 200 /uL (1100-4500); Lymphocytes Percent Auto 1.1 % (25-40); Mean Corpuscular HGB Conc 31.8 % (30-36); Mean Corpuscular Hemoglobin 28.3 PG (26-34); Mean Corpuscular Volume 89.1 fL (80-100); Monocytes Absolute Auto 500 /uL (0-900); Monocytes Percent Auto 3.1 % (3-14); Neutrophils Absolute Auto 15700 /uL (1500-7000); Neutrophils Percent Auto 95.6 % (50-75); Platelet Count 330 X10^3/uL (150-400); Red Blood Cell Count 2.93 X10^6/uL (4.5-5.9); White Blood Cell Count 16.4 X10^3/uL (4.5-11.0)
[2021-05-07 14:26] LABS: HEMOLYSIS < 15 (0-50); Iron 29 ug/dL (49-181)
[2021-05-07 14:27] LABS: Alanine Aminotransferase 10 IU/L (<50); Albumin 2.5 g/dL (3.5-5.0); Alkaline Phosphatase 61 U/L (38-126); Aspartate Aminotransferase 26 IU/L (17-59); Bilirubin Total 0.4 mg/dL (0.2-1.3); Calcium 8.7 mg/dL (8.4-10.2); Globulin 2.6 g/dL (1.7-4.1); HEMOLYSIS < 15 (0-50); Total Protein 5.1 g/dL (6.3-8.2)
[2021-05-07 14:38] LABS: Percent Iron Saturation 14 % (20-50); Total Iron Binding Capacity 204 ug/dL (261-462); Transferrin 141 mg/dL (206-381)
[2021-05-07 14:51] LABS: BUN Creatinine Ratio 35.6 (6-22); Blood Urea Nitrogen 83 mg/dL (9-20); Carbon Dioxide 18 mmol/L (22-32); Chloride 87 mmol/L (98-107); Estimated Glomerular Filt Rate 27.3 mL/min (>60); Glucose 207 mg/dL (80-110); Potassium 5.2 mmol/L (3.4-5.1)
[2021-05-07 15:23] LABS: Sodium 112 mmol/L (137-145)
== END ==
PROVIDERS: Family Provider Family Medicine; PCP Family Medicine; Referring Provider Family Medicine; Visit Provider Family Medicine
DX: J12.82 Pneumonia due to coronavirus disease 2019 (principal); J96.01 Acute respiratory failure with hypoxia; D64.9 Anemia, unspecified; E11.9 Type 2 diabetes mellitus without complications; U07.1 COVID-19; T86.10 Unspecified complication of kidney transplant
CPT/HCPCS: 36415; 71046; 80053; 83540; 83550; 85025

== ENCOUNTER 2021-05-07 15:56 | Inpatient (IN) | payer MEDICARE, OTHER, SELFPAY ==
[2021-04-21 16:50] VITALS: BMI 28.0
[2021-05-07] VITALS (22 sets, daily range): BP systolic 97–125; BP diastolic 54–73; PULSE 80–97; RESP 20–32; TEMP 36.2–37.2; O2SAT 93–99; BMI 28.6; BMI 29.5
--- NOTE | 2021-05-07 16:34 | ED.WEAKNESS ---
HPI - Weakness General Chief complaint: Weakness Stated complaint: sent by MD for crazy labs, Covid / Pneumonia + Time Seen by Provider: 05/07/21 16:31 Source: patient and family Mode of arrival: Wheelchair History of Present Illness HPI Narrative: Patient is a 76-year-old male with history of renal transplant 5 years ago hypertension, atrial fibrillation, recent COVID with admission discharged home on home O2 presenting today with hyponatremia by his PCP. Patient has had a steady decline since he was discharged on April 23. states that he is not eating he is not drinking is generally getting weaker. He went to his PCP today for evaluation blood work was done and he was found to have sodium of 112. His he generally does not have any complaints except fatigue and weakness states yesterday she was able to get 30 oz of water in him. He does not have excessive fluid intake. Related Data Home Medications Medication Instructions Recorded Confirmed mycophenolate sodium 180 mg 720 mg PO BID 08/29/17 05/07/21 tablet,delayed release niacinamide 500 mg tablet 250 mg PO DAILY 08/29/17 05/07/21 aspirin 81 mg tablet,delayed 81 mg PO DAILY 04/12/19 05/07/21 release ergocalciferol (vitamin D2) 1,250 50,000 unit PO WEEKLY 04/12/19 05/07/21 mcg (50,000 unit) capsule (Vitamin D2) metoprolol succinate 50 mg 25 mg PO DAILY 04/12/19 05/07/21 tablet,extended release 24 hr terazosin 2 mg capsule 4 mg PO QPM 04/12/19 05/07/21 atorvastatin 10 mg tablet 20 mg PO BEDTIME 04/21/21 05/07/21 metformin 850 mg tablet 850 mg PO DAILY 04/21/21 05/07/21 tacrolimus 1 mg capsule, 2 mg PO BID 04/22/21 05/07/21 immediate-release amlodipine 2.5 mg tablet 5 mg PO DAILY 05/07/21 05/07/21 epinephrine 0.3 mg/0.3 mL 0.3 mg IM ONCE PRN 05/07/21 05/07/21 injection, auto-injector (EpiPen 2-Dm) lisinopril 2.5 mg tablet 2.5 mg PO DAILY 05/07/21 05/07/21 Previous Rx's Medication Instructions Recorded warfarin 5 mg tablet See Rx Instructions .ROUTE 08/06/20 .COMPLEX #90 tab colchicine 0.6 mg tablet 0.6 mg PO BID PRN #10 tab 08/10/20 pioglitazone 30 mg tablet 30 mg PO DAILY #90 tab 11/28/20 allopurinol 300 mg tablet 300 mg PO DAILY #90 tab 01/22/21 Allergies Allergy/AdvReac Type Severity Reaction Status Date / Time cephalexin Allergy Severe Anaphylaxis Verified 05/07/21 11:20 Review of Systems Review of Systems ROS Unobtainable: All systems reviewed & are unremarkable except as noted in HPI and below Patient History Medical History Anemia Atrial fibrillation (~2018) Borderline hypothyroidism Cataracts, bilateral (~2013) Cellulitis Chronic wound of extremity Diabetes Gout (~1966) Hypertension Iron deficiency anemia Kidney disease (~2004) Low back pain Measles (~1948) Mumps (~1948) Skin tear of right upper arm without complication Sleep apnea (~2011) Stroke (~2004) Surgical History Anesthesia History of total right knee replacement (TKR) Kidney transplant recipient (~2016) Family History Father Stroke Mother History of heart disease Sister Cancer Grandfather History of heart disease Grandmother History of heart disease Social History household members: spouse Smoking Status: Never smoker alcohol intake: current Smoking Status: Never smoker alcohol intake frequency: 0-2 drinks per day Alcohol type: hard liquor Substance Use Type: does not use Exam Initial Vital Signs Initial Vital Signs: Vital Signs Temperature 98.9 F 05/07/21 16:02 Pulse Rate 89 05/07/21 16:02 Respiratory Rate 20 05/07/21 16:02 Blood Pressure 125/57 L 05/07/21 16:02 Pulse Oximetry 96 05/07/21 16:02 GENERAL: Alert 76-year-old male appears very weak in no acute distress. HEENT: Head atraumatic,EOMI, pupils reactive, face symmetric, moist mucous membranes CARDIOVASCULAR: Regular rate and rhythm without murmurs, rubs or gallops. RESPIRATORY: Breath sounds equal bilaterally, no wheezes rales or rhonchi. ABDOMEN: Soft, nontender. Normoactive bowel sounds all 4 quadrants. No guarding or rebound. EXTREMITIES: Normal range of motion, no clubbing or edema. Neurovascularly intact NEUROLOGICAL: A&O x3 continuity reader strength equal moving all extremities generally weak SKIN: Warm, dry, no laceration, no petechiae, no rashes or lesions. Course Orders Ordered: Amlodipine Besylate (Amlodipine 5 Mg Tablet) 5 mg PO DAILY [facility] Sodium Chloride (Normal Saline 0.9%) 1,000 mls @ 50 mls/hr IV CONT [facility] Last Admin: 05/07/21 23:13 Dose: 50 mls/hr Documented by: [email or web address] Insulin Glargine (Insulin Glargine 100 Unit/Ml 3ml Pen) 10 unit SUBCUT BEDTIME [facility] Last Admin: 05/07/21 22:03 Dose: 10 unit Documented by: [email or web address] Cosigned by: CTRRITA Metoprolol Succinate (Metoprolol Er 50 Mg Tablet) 25 mg PO DAILY [facility] Mycophenolate Sodium 180 Mg Tablet, Delayed Release (Dr/Ec)) 720 mg PO BID [facility] Last Admin: 05/07/21 22:07 Dose: Not Given Documented by: [email or web address] (Niacinamide 500 Mg (Tablet)) 250 mg PO DAILY [facility] Tacrolimus (Tacrolimus 0.5 Mg Capsule) 2 mg PO BID [facility] Last Admin: 05/07/21 21:33 Dose: 2 mg Documented by: [email or web address] Terazosin HCl (Terazosin 1 Mg Capsule) 4 mg PO QPM [facility] Discontinued Medications Sodium Chloride (Normal Saline 0.9%) 1,000 mls @ 100 mls/hr IV CONT [facility] Last Infusion: 05/07/21 17:47 Dose: 100 mls/hr Documented by: Admin: 05/07/21 17:14 Dose: 100 mls/hr Documented by: NRCLEMENT Sodium Chloride (Hypertonic Saline 3%) 500 mls @ 10 mls/hr IV CONT [facility] Last Infusion: 05/07/21 23:14 Dose: 0 mls/hr Documented by: [email or web address] Admin: 05/07/21 17:39 Dose: 10 mls/hr Documented by: [email or web address] Vital Signs Vital signs: Vital Signs - 8 hr 05/07/21 16:02 05/07/21 16:28 05/07/21 16:30 Temperature 98.9 F Pulse Rate 89 86 83 Respiratory Rate 20 24 24 Blood Pressure 125/57 L Pulse Oximetry 96 95 95 05/07/21 16:31 Temperature Pulse Rate 83 Respiratory Rate 25 H Blood Pressure 123/58 L Pulse Oximetry 95 MDM - Weakness Lab Data Result diagrams: 05/08/21 04:54 05/08/21 04:54 Labs: Lab Results 05/07/21 05/07/21 05/07/21 Range/Units 16:10 16:10 16:10 Sodium 110 L* (137-145) mmol/L Potassium 5.4 H (3.4-5.1) mmol/L Chloride 85 L (98-107) mmol/L Carbon Dioxide 16 L (22-32) mmol/L BUN 85 H (9-20) mg/dL Creatinine 2.34 H (0.66-1.25) mg/dL Estimated GFR 27.2 L (>60) mL/min BUN/Creatinine Ratio 36.3 H (6-22) Glucose 242 H (80-110) mg/dL Calcium 8.9 (8.4-10.2) mg/dL Total Bilirubin 0.4 (0.2-1.3) mg/dL AST 33 (17-59) IU/L ALT 12 (<50) IU/L Alkaline Phosphatase 69 (38-126) U/L Total Creatine Kinase 93 (55-170) U/L CK-MB (CK-2) TNP CK-MB (CK-2) Rel Index TNP Troponin I 0.068 H (0.01-0.034) ng/mL Total Protein 5.7 L (6.3-8.2) g/dL Albumin 2.7 L (3.5-5.0) g/dL Globulin 3.0 (1.7-4.1) g/dL Albumin/Globulin Ratio 0.9 L (1.0-2.8) TSH 5.12 H (0.47-4.68) uIU/mL Free T4 0.73 L (0.78-2.19) ng/dL SARS-CoV-2 (PCR) Positive H (Negative) Imaging Data CT scan - head: Radiologist Impression: PROCEDURE:? CT HEAD/BRAIN WO CON ? INDICATIONS:? hyponatremia weakness ? TECHNIQUE:? Noncontrast 4.5 mm thick angled axial sections acquired from the foramen magnum to the vertex, with coronal and sagittal reformats.? For radiation dose reduction, the following was used:? automated exposure control, adjustment of mA and/or kV according to patient size.? ? COMPARISON:? None. ? FINDINGS:? Image quality:? Excellent.? ? CSF spaces:? Basal cisterns are patent.? No extra-axial fluid collections.? The ventricles are symmetric in size and shape.? ? Brain:? No intracranial bleeds or masses.? There is moderate cerebral volume loss for age, with resultant ventricular and sulcal prominence.? There are moderate periventricular and deep white matter chronic small vessel ischemic changes.? More prominent small vessel ischemic changes versus encephalomalacia noted over the region of the right lateral ventricle.? There is intracranial internal carotid artery atherosclerosis.? No significant attenuation abnormalities in the region of the brainstem and cerebellum. ? Skull and face:? Calvarium and visualized facial bones appear intact, without suspicious lesions.? ? Sinuses:? Visualized sinuses and mastoids are clear.? ? IMPRESSION:? ? 1. CT head without acute intracranial abnormalities or acute calvarial fractures. ? 2. Age-related senescent changes and sequela of chronic small vessel ischemic disease. ? ? Dictated by: Harvey Bernard M.D. on 05/07/2021 at 17:27 ? ? Approved by: Harvey Bernard M.D. on 05/07/2021 at 17:29 ? Chest x-ray: Radiologist Impression: PROCEDURE:? XR CHEST 2V ? INDICATIONS:? Evaluate and treat ? TECHNIQUE:? 2 views of the chest were acquired.? ? COMPARISON:? [facility], CR, XR CHEST 2V, 05/11/2018, 15:40.? [facility], CR, XR CHEST 1V, 04/21/2021, 10:25. ? FINDINGS:? ? Surgical changes and devices:? None.? ? Lungs and pleura:? Extensive patchy bilateral interstitial and airspace opacities similar to 04/21/2021 study. ? Mediastinum:? Mediastinal contours are normal.? Heart size is enlarged as seen on the prior study. ? Bones and chest wall:? No suspicious bony abnormalities.? Soft tissues appear unremarkable.? ? IMPRESSION:? Similar appearance of the chest to 04/21/2021 exam.? Findings presumably represent pulmonary edema and/or infection. ? ? Dictated by: Naseem Whitman M.D. on 05/07/2021 at 15:30 ? ? ECG Data Interpretation: He treat her foot pushes it is a bit I have atrial fibrillation rate 87 right bundle-branch block noted similar to previous EKG MDM Narrative Medical decision making narrative: The patient is generally lethargic found to be hyponatremic of 110 now. No evidence of seizure at this time. However this is acute. Previously sodium was 133 on 04/23/2021. Discussion with Dr. Velazquez who agrees with admission recommends starting 3%NaCl. Discharge Plan Departure Patient Disposition: Admitted As Inpatient Clinical Impression: Hyponatremia, COVID-19 Admit Date/Time: 05/07/21 17:24 Admit Provider: Gopal Velazquez
--- NOTE | 2021-05-07 16:43 | DI.CT.S_ITS ---
PROCEDURE: CT HEAD/BRAIN WO CON INDICATIONS: hyponatremia weakness TECHNIQUE: Noncontrast 4.5 mm thick angled axial sections acquired from the foramen magnum to the vertex, with coronal and sagittal reformats. For radiation dose reduction, the following was used: automated exposure control, adjustment of mA and/or kV according to patient size. COMPARISON: None. FINDINGS: Image quality: Excellent. CSF spaces: Basal cisterns are patent. No extra-axial fluid collections. The ventricles are symmetric in size and shape. Brain: No intracranial bleeds or masses. There is moderate cerebral volume loss for age, with resultant ventricular and sulcal prominence. There are moderate periventricular and deep white matter chronic small vessel ischemic changes. More prominent small vessel ischemic changes versus encephalomalacia noted over the region of the right lateral ventricle. There is intracranial internal carotid artery atherosclerosis. No significant attenuation abnormalities in the region of the brainstem and cerebellum. Skull and face: Calvarium and visualized facial bones appear intact, without suspicious lesions. Sinuses: Visualized sinuses and mastoids are clear. IMPRESSION: 1. CT head without acute intracranial abnormalities or acute calvarial fractures. 2. Age-related senescent changes and sequela of chronic small vessel ischemic disease. Dictated by: Harvey Bernard M.D. on 05/07/2021 at 17:27 Approved by: Harvey Bernard M.D. on 05/07/2021 at 17:29
[2021-05-07 16:47] LABS: COVID19 -Nasal RAPID POSITIVE (Negative)
[2021-05-07 16:53] LABS: Alanine Aminotransferase 12 IU/L (<50); Albumin 2.7 g/dL (3.5-5.0); Albumin Globulin Ratio 0.9 (1.0-2.8); Alkaline Phosphatase 69 U/L (38-126); Aspartate Aminotransferase 33 IU/L (17-59); BUN Creatinine Ratio 36.3 (6-22); Bilirubin Total 0.4 mg/dL (0.2-1.3); Blood Urea Nitrogen 85 mg/dL (9-20); Calcium 8.9 mg/dL (8.4-10.2); Carbon Dioxide 16 mmol/L (22-32); Chloride 85 mmol/L (98-107); Creatine Kinase 93 U/L (55-170); Estimated Glomerular Filt Rate 27.2 mL/min (>60); Glucose 242 mg/dL (80-110); HEMOLYSIS < 15 (0-50); Total Protein 5.7 g/dL (6.3-8.2)
[2021-05-07 16:59] LABS: Potassium 5.4 mmol/L (3.4-5.1)
[2021-05-07 17:00] LABS: Sodium 110 mmol/L (137-145)
[2021-05-07 17:03] LABS: Troponin I 0.068 ng/mL (0.01-0.034)
[2021-05-07] MEDS: SODIUM CHLORIDE 0.9% 1,000 ML 100 ML IV (17:14)
[2021-05-07] MEDS: SODIUM CHLORIDE 3 % 500 ML 10 ML IV (17:39)
[2021-05-07 17:49] LABS: TSH w/ Reflex to FT4 5.12 uIU/mL (0.47-4.68)
--- NOTE | 2021-05-07 17:55 | DI.RAD.S_ITS ---
PROCEDURE: XR CHEST FOR PICC 1V INDICATIONS: picc placement COMPARISON: [facility], , XR CHEST 2V, 05/07/2021, 14:41. FINDINGS: PICC was placed by the intravenous therapy team from the left side. Tip of the catheter projects over the lower SVC. Stable appearance of diffuse patchy airspace opacities of the bilateral hemithoraces. No pneumothorax. IMPRESSION: Tip of PICC projects to the area of the lower SVC. Dictated by: Harvey Bernard M.D. on 05/07/2021 at 18:15 Approved by: Harvey Bernard M.D. on 05/07/2021 at 18:16
[2021-05-07 18:11] LABS: Sodium Urine Random < 5 mmol/L (30-90)
[2021-05-07 18:18] LABS: Free T4, Direct Thyroxine 0.73 ng/dL (0.78-2.19)
--- NOTE | 2021-05-07 18:41 | PM.HP.1 ---
History of Present Illness History of Present Illness Date Patient Seen: 05/07/21 Time Patient Seen: 19:18 Chief complaint: sent by for kasey labs, Covid / Pneumonia + Narrative: Mr. Obregon is a 76M with PMH renal transplant five years ago, CKD stage 2-3, DM, HTN, HL, CVA, afib, recent COVID admission with acute respiratory failure (discharged on home O2) who presents to the emergency room, referred by his primary care provider for abnormal labs and a low sodium level. Patient went to follow-up with his primary care provider after a discharge a few weeks ago for COVID respiratory failure, he had labs drawn this morning and his sodium result was 112. He was referred to the emergency room. The patient is awake, alert and oriented, but slightly lethargic and history is confirmed with his present at bedside in the emergency room. She reports a steady decline since his discharge from the hospital with increasing lethargy but no confusion, falls, or focal weakness. She reports his fluid intake has been much diminished and also reports some loose stools, though she has been giving him a stool softener and this is only been once a day at most. He has had chronic lower extremity edema which is unchanged, he denies any recent fevers, chills, chest pain, palpitations, vision changes, abdominal pain, nausea, or vomiting. He has had no rash. He has been compliant with his home medications. His warfarin had been reduced since his prior admission. In the emergency room, the patient's vital signs were unremarkable, though he was initially placed on 3 L of oxygen. During my examination I was able to turn him down to room air and his O2 saturations remained in the mid 90s. Repeat chemistries again revealed a sodium of 110, potassium of 5.4, creatinine 2.34 up from his baseline which appears to be between 1.3 and 1.5. His glucose was elevated at 242. Troponin was indeterminate at 0.068 consistent with his prior admission. TSH was slightly increased at 5.12 with a free T4 just below normal at 0.73. Urine sodium was less than 5. COVID-19 testing was again positive but again the patient denies any current respiratory symptoms. CT head with no acute pathologies. CXR unchanged compared to prior exam from COVID admission. Patient History Medical History Anemia Atrial fibrillation (~2018) Borderline hypothyroidism Cataracts, bilateral (~2013) Cellulitis Chronic wound of extremity Diabetes Gout (~1966) Hypertension Iron deficiency anemia Kidney disease (~2004) Low back pain Measles (~1948) Mumps (~1948) Skin tear of right upper arm without complication Sleep apnea (~2011) Stroke (~2004) Surgical History Anesthesia History of total right knee replacement (TKR) Kidney transplant recipient (~2016) Family & Social History Family History Father Stroke Mother History of heart disease Sister Cancer Grandfather History of heart disease Grandmother History of heart disease Social History: household members spouse Safety & Behavioral: Feels Safe in Current Yes Environment Been Physically Hurt or No Threatened By a Person Tobacco & Substance use: Smoking Status Never smoker alcohol intake frequency 0-2 drinks per day Substance Use Type does not use Meds Home Medications and Allergies Home Medications Medication Instructions Recorded Confirmed Type mycophenolate sodium 180 mg 720 mg PO BID 08/29/17 05/07/21 History tablet,delayed release niacinamide 500 mg tablet 250 mg PO DAILY 08/29/17 05/07/21 History tacrolimus 1 mg capsule, 2 mg PO DAILY 08/29/17 05/07/21 History immediate-release aspirin 81 mg tablet,delayed 81 mg PO DAILY 04/12/19 05/07/21 History release ergocalciferol (vitamin D2) 1,250 50,000 unit PO DAILY 04/12/19 05/07/21 History mcg (50,000 unit) capsule (Vitamin D2) metoprolol succinate 50 mg 25 mg PO DAILY 04/12/19 05/07/21 History tablet,extended release 24 hr terazosin 2 mg capsule 4 mg PO QPM 04/12/19 05/07/21 History warfarin 5 mg tablet See Rx Instructions .ROUTE 08/06/20 05/07/21 Rx .COMPLEX #90 tab colchicine 0.6 mg tablet 0.6 mg PO BID PRN #10 tab 08/10/20 05/07/21 Rx epinephrine 0.3 mg/0.3 mL 0.3 mg (0.3 mL) IM ONCE #2 ea 10/23/20 05/07/21 Rx injection, auto-injector (EpiPen 2-Dm) pioglitazone 30 mg tablet 30 mg PO DAILY #90 tab 11/28/20 05/07/21 Rx amlodipine 2.5 mg tablet 2.5 mg PO DAILY #90 tab 12/24/20 05/07/21 Rx allopurinol 300 mg tablet 300 mg PO DAILY #90 tab 01/22/21 05/07/21 Rx lisinopril 20 mg tablet 2.5 mg PO DAILY 03/14/21 05/07/21 History atorvastatin 10 mg tablet 20 mg PO BEDTIME 04/21/21 05/07/21 History metformin 850 mg tablet 850 mg PO BID 04/21/21 05/07/21 History tacrolimus 1 mg capsule, 1 mg PO QPM 04/22/21 05/07/21 History immediate-release Allergies Allergy/AdvReac Type Severity Reaction Status Date / Time cephalexin Allergy Severe Anaphylaxis Verified 05/07/21 11:20 Review of Systems Review of Systems Narrative: All other systems reviewed with the patient and are negative unless otherwise stated. Exam Vital Signs (past 8 hours): - 05/07/21 16:02 05/07/21 16:28 05/07/21 16:30 Temperature 98.9 F Pulse Rate 89 86 83 Respiratory Rate 20 24 24 Blood Pressure 125/57 L Pulse Oximetry 96 95 95 05/07/21 16:31 05/07/21 16:45 05/07/21 17:00 Temperature Pulse Rate 83 80 80 Respiratory Rate 25 H 23 20 Blood Pressure 123/58 L 104/58 L 114/62 Pulse Oximetry 95 98 99 05/07/21 17:30 05/07/21 18:00 Temperature Pulse Rate 80 84 Respiratory Rate 23 30 H Blood Pressure Pulse Oximetry 98 98 Oxygen Delivery Method Room Air Narrative Exam Narrative: General:? Patient is well developed and well nourished, in no distress at this time. HEENT:? Normocephalic, atraumatic, extraocular muscles intact, oral pharynx is clear and mucous membranes are dry. Neck: supple and symmetric, trachea is midline, no cervical adenopathy. Negative for JVD Chest:? Normal AP diameter and contour without kyphoscoliosis, no tachypnea, equal chest rise bilaterally. Lungs:? CTA b/l no wheezing rhonchi or rales. Cardio:?RRR no m/r/g. Abdomen: S NT ND. No CVA tenderness. Musculoskeletal:? Muscle strength and tone are equal within normal limits, no deformity. Extremities: 1+ pedal edema to the ankles. No joint effusions. No cyanosis or clubbing. Skin:? Pale,? Warm to touch,dry and intact without rashes, ulcerations or petechiae.? Neuro:? Alert and orientated x3, slightly lethargic.? sensation to touch intact in all extremities, no gross deficits noted of cranial nerves. Psych:? Patient has a well-kept appearance, appropriate affect, mental status attitude thought context and judgment are appropriate for age. Objective ECG Impression: Atrial fibrillation Left axis deviation Right bundle branch block No acute ischemia Labs Result Diagrams: 05/07/21 16:10 Labs: Laboratory Results - last 24 hr 05/07/21 05/07/21 05/07/21 16:10 16:10 16:10 Sodium 110 L* Potassium 5.4 H Chloride 85 L Carbon Dioxide 16 L BUN 85 H Creatinine 2.34 H Estimated GFR 27.2 L BUN/Creatinine Ratio 36.3 H Glucose 242 H Calcium 8.9 Total Bilirubin 0.4 AST 33 ALT 12 Alkaline Phosphatase 69 Total Creatine Kinase 93 CK-MB (CK-2) TNP CK-MB (CK-2) Rel Index TNP Troponin I 0.068 H Total Protein 5.7 L Albumin 2.7 L Globulin 3.0 Albumin/Globulin Ratio 0.9 L TSH 5.12 H Free T4 0.73 L Ur Random Sodium SARS-CoV-2 (PCR) Positive H 05/07/21 17:38 Sodium Potassium Chloride Carbon Dioxide BUN Creatinine Estimated GFR BUN/Creatinine Ratio Glucose Calcium Total Bilirubin AST ALT Alkaline Phosphatase Total Creatine Kinase CK-MB (CK-2) CK-MB (CK-2) Rel Index Troponin I Total Protein Albumin Globulin Albumin/Globulin Ratio TSH Free T4 Ur Random Sodium < 5 L SARS-CoV-2 (PCR) Assessment & Plan Assessment & Plan narrative: Mr. Obregon is a 76M with H renal transplant five years ago, CKD stage 2-3, DM, HTN, HL, CVA, afib, recent COVID admission with acute respiratory failure (discharged on home O2) who presents to the emergency room, referred by his primary care provider for abnormal labs and a low sodium level. 1. Hyponatremia, present on admission - Na 110 on ER labs. Urine sodium is less than 5 indicative of hypovolemia as is consistent with his subjective history. -continue 3% hypertonic saline at slow rate currently 10 cc per hour, check BMP q2 hours. PICC line placed. -goal sodium of 116 at 24 hours. - admit to ICU for frequent lab draws and monitoring. - UA pending. 2. 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 With NAGMA. -s/p transplant 5 years ago per patient -continue home transplant medications in setting of true hypovolemia -creatinine 2.34 -for NAGMA, check UA to determine if this is an RTA. probably type IV with hyperkalemia -continue management as above in problem #1 for now. 3. Atrial fibrillation on coumadin -continue metoprolol -continue coumadin if h/h stable. -check INR 4. Chronic anemia -no evidence of blood loss per history, slight decrease from last admission. -continue to follow h/h. 5. myocardial injury -patient denies chest pain -likely secondary to SCAR and dehdration -troponin 0.068, no chest pain or ischemic changes. 7. Type 2 Diabetes -hold oral glycemic regimen -start insulin sliding scale -as patient is being started on dexamethasone, start on lantus 10U tonight 8. Hypertension -hold lisinopril for now given SCAR 9. history of CVA -continue aspirin 10. Gout, chronic -hold home meds for now 11. Aortic stenosis -noted to have ECHO from 02/19 with mild to moderate aortic stenosis -careful with sudden fluid shifts 12. Positive COVID status - prior COVID infection, had acute respiratory failure. In the ER was 95% on room air, has been on 3 L at home. Continue to monitor. No need for therapy at this time. CODE: Full Proxy: Kay Obregon, Dispo: admit to ICU for frequent lab draws and monitoring in setting of severe hyponatremia. I spent 35 minutes providing critical care management this patient. This excludes time spent in performing separately billed procedures. I have utilized all available immediate resources to obtain, update, or review the patient's current medications. COVID-19 COVID-19 status: Positive Time Spent With Patient Critical Care time: I spent a total of [] minutes of critical care time on this patient's care today; this time is exclusive of procedural time. Quality MIPS - Admit I confirm the patient?s Advance Care Plan is present, Code status is documented, Surrogate decision maker is in patient?s record [If Yes, STOP here]: Yes
[2021-05-07 20:47] LABS: BUN Creatinine Ratio 36.3 (6-22); Blood Urea Nitrogen 85 mg/dL (9-20); Calcium 8.7 mg/dL (8.4-10.2); Carbon Dioxide 17 mmol/L (22-32); Chloride 86 mmol/L (98-107); Estimated Glomerular Filt Rate 27.2 mL/min (>60); Glucose 211 mg/dL (80-110); HEMOLYSIS < 15 (0-50); Potassium 5.2 mmol/L (3.4-5.1)
[2021-05-07 20:51] LABS: Sodium 110 mmol/L (137-145)
[2021-05-07] MEDS: TACROLIMUS 0.5 MG CAPSULE 2 MG PO (21:33)
[2021-05-07] MEDS: INSULIN GLARGINE 100 UNIT/ML 3ML PEN 10 UNIT SUBCUT (22:03)
--- NOTE | 2021-05-07 22:42 | PM.CN.EICU ---
History of Present Illness Consult details Chief complaint: sent by for crazy labs, Covid / Pneumonia + :: This patient was seen in the Intensive Care Unit via real time interactive two-way audiovisual telecommunication. Narrative: 76 y.o. male w/ PMHx of renal transplant 5 years ago, CKD2-3, T2DM, HTN, hypothyroidism, CVA, mild-moderate aortic stenosis, AF on warfarin, HLD and recent COVID-19 hospitalization with discharge on home O2 sent to ED for Na+ of 112 found on outpt labs. It was 110 here, He has been slightly lethargic but otherwise at his baseline. He has an SCAR superimposed on his stage 2/3 CKD; creatinine is 2.34 up from his baseline of 1.3-1.5. TSH is slightly high and free T4 is slightly low (see labs below). Random urine Na+ is < 5. Started on 3% NS @ 10 mL/hr by hospitalist service. [facility] Medical History Anemia Atrial fibrillation (~2018) Borderline hypothyroidism Cataracts, bilateral (~2013) Cellulitis Chronic wound of extremity Diabetes Gout (~1966) Hypertension Iron deficiency anemia Kidney disease (~2004) Low back pain Measles (~1948) Mumps (~1948) Skin tear of right upper arm without complication Sleep apnea (~2011) Stroke (~2004) Surgical History Anesthesia History of total right knee replacement (TKR) Kidney transplant recipient (~2016) Family History Father Stroke Mother History of heart disease Sister Cancer Grandfather History of heart disease Grandmother History of heart disease Social History household members: spouse Smoking Status: Never smoker alcohol intake: current Current Medications Current Medications Medications: Home Medications mycophenolate sodium 180 mg tablet,delayed release 720 mg PO BID 08/29/17 [History Confirmed 05/07/21] niacinamide 500 mg tablet 250 mg PO DAILY 08/29/17 [History Confirmed 05/07/21] aspirin 81 mg tablet,delayed release 81 mg PO DAILY 04/12/19 [History Confirmed 05/07/21] ergocalciferol (vitamin D2) 1,250 mcg (50,000 unit) capsule (Vitamin D2) 50,000 unit PO WEEKLY 04/12/19 [History Confirmed 05/07/21] metoprolol succinate 50 mg tablet,extended release 24 hr 25 mg PO DAILY 04/12/19 [History Confirmed 05/07/21] terazosin 2 mg capsule 4 mg PO QPM 04/12/19 [History Confirmed 05/07/21] warfarin 5 mg tablet See Rx Instructions .ROUTE .COMPLEX #90 tab 08/06/20 [Rx Confirmed 05/07/21] colchicine 0.6 mg tablet 0.6 mg PO BID PRN #10 tab 08/10/20 [Rx Confirmed 05/07/21] pioglitazone 30 mg tablet 30 mg PO DAILY #90 tab 11/28/20 [Rx Confirmed 05/07/21] allopurinol 300 mg tablet 300 mg PO DAILY #90 tab 01/22/21 [Rx Confirmed 05/07/21] atorvastatin 10 mg tablet 20 mg PO BEDTIME 04/21/21 [History Confirmed 05/07/21] metformin 850 mg tablet 850 mg PO DAILY 04/21/21 [History Confirmed 05/07/21] tacrolimus 1 mg capsule, immediate-release 2 mg PO BID 04/22/21 [History Confirmed 05/07/21] amlodipine 2.5 mg tablet 5 mg PO DAILY 05/07/21 [History Confirmed 05/07/21] epinephrine 0.3 mg/0.3 mL injection, auto-injector (EpiPen 2-Dm) 0.3 mg IM ONCE PRN 05/07/21 [History Confirmed 05/07/21] lisinopril 2.5 mg tablet 2.5 mg PO DAILY 05/07/21 [History Confirmed 05/07/21] Visit Medications (administered) Generic Name Dose Route Start Last Admin Trade Name Freq PRN Reason Stop Dose Admin Insulin Glargine 10 unit 05/07/21 21:00 05/07/21 22:03 Insulin Glargine 100 Unit/Ml 3ml Pen SUBCUT 10 unit BEDTIME GENTRY Administration Mycophenolate Sodium 720 mg 05/07/21 21:00 05/07/21 22:07 180 Mg Tablet, PO Not Given Delayed Release (Dr/ BID GENTRY Ec)) Tacrolimus 2 mg 05/07/21:00 05/07/21 21:33 Tacrolimus 0.5 Mg Capsule PO 2 mg BID GENTRY Administration Review of Systems Review of Systems Narrative: not done as patient is sleeping Exam Vital Signs (past 8 hours): - 05/07/21 16:02 05/07/21 16:28 05/07/21 16:30 Temperature 98.9 F Pulse Rate 89 86 83 Respiratory Rate 20 24 24 Blood Pressure 125/57 L Pulse Oximetry 96 95 95 05/07/21 16:31 05/07/21 16:45 05/07/21 17:00 Temperature Pulse Rate 83 80 80 Respiratory Rate 25 H 23 20 Blood Pressure 123/58 L 104/58 L 114/62 Pulse Oximetry 95 98 99 05/07/21 17:30 05/07/21 18:00 05/07/21 20:39 Temperature 97.1 F L Pulse Rate 80 84 87 Respiratory Rate 23 30 H 23 Blood Pressure 125/59 L Pulse Oximetry 98 98 95 Oxygen Delivery Method Room Air Const General: healthy appearing and comfortable Resp Effort & Inspection: normal respiratory effort Objective Labs Result Diagrams: 05/07/21 20:16 Labs: Laboratory Results - last 24 hr 05/07/21 05/07/21 05/07/21 16:10 16:10 16:10 Sodium 110 L* Potassium 5.4 H Chloride 85 L Carbon Dioxide 16 L BUN 85 H Creatinine 2.34 H Estimated GFR 27.2 L BUN/Creatinine Ratio 36.3 H Glucose 242 H Calcium 8.9 Total Bilirubin 0.4 AST 33 ALT 12 Alkaline Phosphatase 69 Total Creatine Kinase 93 CK-MB (CK-2) TNP CK-MB (CK-2) Rel Index TNP Troponin I 0.068 H Total Protein 5.7 L Albumin 2.7 L Globulin 3.0 Albumin/Globulin Ratio 0.9 L TSH 5.12 H Free T4 0.73 L Ur Random Sodium SARS-CoV-2 (PCR) Positive H 05/07/21 05/07/21 17:38 20:16 Sodium 110 L* Potassium 5.2 H Chloride 86 L Carbon Dioxide 17 L BUN 85 H Creatinine 2.34 H Estimated GFR 27.2 L BUN/Creatinine Ratio 36.3 H Glucose 211 H Calcium 8.7 Total Bilirubin AST ALT Alkaline Phosphatase Total Creatine Kinase CK-MB (CK-2) CK-MB (CK-2) Rel Index Troponin I Total Protein Albumin Globulin Albumin/Globulin Ratio TSH Free T4 Ur Random Sodium < 5 L SARS-CoV-2 (PCR) Assessment & Plan Assessment and plan (1) Dehydration with hyponatremia: Status: Acute Plan: -Agree with hospitalist team's assessment of hypovolemic hyponatremia. 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 This rate will likely need to be increased. (2) Renal transplant, status post: Status: Acute Plan: -Continue chronic outpt immunosuppression (3) Acute renal failure superimposed on chronic kidney disease: Problem details: CKD is reportedly stage 2/3 and of uncertain etiology Qualifiers: Chronic kidney disease stage: unspecified stage Status: Acute Plan: -See problem #1 (4) History of COVID-19: Status: Acute Plan: -Continue supportive care (5) Atrial fibrillation: Qualifiers: Atrial fibrillation type: unspecified chronic Qualified Code(s): I48.20 - Chronic atrial fibrillation, unspecified Status: Acute Plan: -Continue metoprolol -Follow up on AM INR (6) Borderline hypothyroidism: Status: Acute Plan: -May need to be initiated on levothyroxine; defer to bedside team
[2021-05-07] MEDS: SODIUM CHLORIDE 0.9% 1,000 ML 50 ML IV (23:13)
[2021-05-08] VITALS (37 sets, daily range): BP systolic 89–114; BP diastolic 52–67; PULSE 70–98; RESP 16–35; TEMP 36.3–37; O2SAT 81–97
[2021-05-08 00:02] LABS: BUN Creatinine Ratio 37.8 (6-22); Blood Urea Nitrogen 87 mg/dL (9-20); Calcium 8.6 mg/dL (8.4-10.2); Carbon Dioxide 20 mmol/L (22-32); Chloride 87 mmol/L (98-107); Estimated Glomerular Filt Rate 27.7 mL/min (>60); Glucose 187 mg/dL (80-110); HEMOLYSIS 29 (0-50)
[2021-05-08 00:10] LABS: Potassium 5.4 mmol/L (3.4-5.1)
[2021-05-08 00:12] LABS: Sodium 110 mmol/L (137-145)
[2021-05-08 00:15] LABS: Troponin I 0.066 ng/mL (0.01-0.034)
[2021-05-08 00:43] LABS: Appearance Urine UA CLEAR; Bilirubin Urine UA NEGATIVE (NEGATIVE); Color Urine UA YELLOW; Glucose Urine UA NEGATIVE (Negative); Ketones Urine UA NEGATIVE (NEGATIVE); Leukocyte Esterase Urine UA NEGATIVE (NEGATIVE); Nitrite Urine UA NEGATIVE (Negative); Occult Blood Urine UA NEGATIVE (Negative); Protein Urine UA NEGATIVE (Negative); Specific Gravity Urine UA 1.015 (1.000-1.035); Urobilinogen Urine UA 0.2 E.U./dL (0.2)
[2021-05-08 01:01] LABS: RBC Urine None Seen (0-5/HPF); Squamous Epithelial Cell Urine 0-1 /HPF (0-5/HPF); WBC Urine None Seen (0-5/HPF)
[2021-05-08 01:02] LABS: Bacteria Urine Occasional (0-1)
[2021-05-08 01:03] LABS: Culture Indicated Urine Cult Not Indicated
[2021-05-08 01:56] LABS: BUN Creatinine Ratio 36.9 (6-22); Blood Urea Nitrogen 86 mg/dL (9-20); Calcium 8.6 mg/dL (8.4-10.2); Carbon Dioxide 20 mmol/L (22-32); Chloride 88 mmol/L (98-107); Estimated Glomerular Filt Rate 27.3 mL/min (>60); Glucose 172 mg/dL (80-110); HEMOLYSIS < 15 (0-50); Potassium 5.1 mmol/L (3.4-5.1)
[2021-05-08 01:59] LABS: Sodium 111 mmol/L (137-145)
[2021-05-08 03:30] LABS: BUN Creatinine Ratio 37.1 (6-22); Blood Urea Nitrogen 86 mg/dL (9-20); Calcium 8.6 mg/dL (8.4-10.2); Carbon Dioxide 18 mmol/L (22-32); Chloride 89 mmol/L (98-107); Estimated Glomerular Filt Rate 27.4 mL/min (>60); Glucose 165 mg/dL (80-110); HEMOLYSIS < 15 (0-50); Potassium 5.2 mmol/L (3.4-5.1)
[2021-05-08 03:37] LABS: Sodium 111 mmol/L (137-145)
[2021-05-08 05:20] LABS: Prothrombin Time 34.4 SECONDS (10.1-12.7)
[2021-05-08 05:25] LABS: BUN Creatinine Ratio 37.6 (6-22); Blood Urea Nitrogen 86 mg/dL (9-20); Calcium 8.7 mg/dL (8.4-10.2); Carbon Dioxide 17 mmol/L (22-32); Chloride 88 mmol/L (98-107); Estimated Glomerular Filt Rate 27.9 mL/min (>60); Glucose 150 mg/dL (80-110); HEMOLYSIS < 15 (0-50); Potassium 5.1 mmol/L (3.4-5.1)
[2021-05-08 05:26] LABS: Sodium 112 mmol/L (137-145)
[2021-05-08 05:29] LABS: Add Manual Diff / Slide Review NO; Basophils Absolute Auto 0 /uL (0-100); Basophils Percent Auto 0.3 % (0-2); Eosinophils Absolute Auto 0 /uL (0-450); Eosinophils Percent Auto 0.2 % (2-4); Hematocrit 25.8 % (41-53); Hemoglobin 8.2 g/dL (13.5-17.5); Lymphocytes Absolute Auto 300 /uL (1100-4500); Lymphocytes Percent Auto 1.6 % (25-40); Mean Corpuscular HGB Conc 31.9 % (30-36); Mean Corpuscular Hemoglobin 27.6 PG (26-34); Mean Corpuscular Volume 86.5 fL (80-100); Monocytes Absolute Auto 300 /uL (0-900); Monocytes Percent Auto 1.8 % (3-14); Neutrophils Absolute Auto 17400 /uL (1500-7000); Neutrophils Percent Auto 96.1 % (50-75); Platelet Count 310 X10^3/uL (150-400); Red Blood Cell Count 2.98 X10^6/uL (4.5-5.9); Red Cell Distribution Width 19.2 % (11.6-14.8)
[2021-05-08 05:41] LABS: Cholesterol 92 mg/dL (140-199); HDL Cholesterol 41 mg/dL (40-60); LDL Cholesterol Calculated 43 mg/dL (<100); Triglycerides 39 mg/dL (35-150)
[2021-05-08] MEDS: INSULIN LISPRO 100 UNIT/ML 3ML VIAL SUBCUT ×3 (08:53→17:43)
[2021-05-08 09:01] LABS: BUN Creatinine Ratio 37.7 (6-22); Blood Urea Nitrogen 86 mg/dL (9-20); Calcium 8.5 mg/dL (8.4-10.2); Carbon Dioxide 18 mmol/L (22-32); Chloride 90 mmol/L (98-107); Glucose 134 mg/dL (80-110); HEMOLYSIS < 15 (0-50); Potassium 5.1 mmol/L (3.4-5.1)
[2021-05-08 09:08] LABS: Sodium 112 mmol/L (137-145)
--- NOTE | 2021-05-08 09:56 | P.TELICUPN_ITS ---
Subjective Subjective :: This patient was seen in the Intensive Care Unit via real time interactive two- way audiovisual telecommunication. no new complaints Current Medications Current Medications Medications: Home Medications mycophenolate sodium 180 mg tablet,delayed release 720 mg PO BID 08/29/17 [History Confirmed 05/07/21] niacinamide 500 mg tablet 250 mg PO DAILY 08/29/17 [History Confirmed 05/07/21] aspirin 81 mg tablet,delayed release 81 mg PO DAILY 04/12/19 [History Confirmed 05/07/21] ergocalciferol (vitamin D2) 1,250 mcg (50,000 unit) capsule (Vitamin D2) 50,000 unit PO WEEKLY 04/12/19 [History Confirmed 05/07/21] metoprolol succinate 50 mg tablet,extended release 24 hr 25 mg PO DAILY 04/12/19 [History Confirmed 05/07/21] terazosin 2 mg capsule 4 mg PO QPM 04/12/19 [History Confirmed 05/07/21] warfarin 5 mg tablet See Rx Instructions .ROUTE .COMPLEX #90 tab 08/06/20 [Rx Co nfirmed 05/07/21] colchicine 0.6 mg tablet 0.6 mg PO BID PRN #10 tab 08/10/20 [Rx Confirmed 05/07/21] pioglitazone 30 mg tablet 30 mg PO DAILY #90 tab 11/28/20 [Rx Confirmed 05/07/21] allopurinol 300 mg tablet 300 mg PO DAILY #90 tab 01/22/21 [Rx Confirmed 05/07/21] atorvastatin 10 mg tablet 20 mg PO BEDTIME 04/21/21 [History Confirmed 05/07/21] metformin 850 mg tablet 850 mg PO DAILY 04/21/21 [History Confirmed 05/07/21] tacrolimus 1 mg capsule, immediate-release 2 mg PO BID 04/22/21 [History C onfirmed 05/07/21] amlodipine 2.5 mg tablet 5 mg PO DAILY 05/07/21 [History Confirmed 05/07/21] epinephrine 0.3 mg/0.3 mL injection, auto-injector (EpiPen 2-Dm) 0.3 mg IM ONCE PRN 05/07/21 [History Confirmed 05/07/21] lisinopril 2.5 mg tablet 2.5 mg PO DAILY 05/07/21 [History Confirmed 05/07/21] prednisone 5 mg tablet 5 mg PO DAILY 05/08/21 [History Confirmed 05/08/21] Visit Medications (administered) Generic Name Dose Route Start Last Admin Trade Name Lizzy PRN Reason Stop Dose Admin Sodium Chloride 1,000 mls @ 75 mls/hr 05/07/21 22:45 05/07/21 23:13 Normal Saline 0.9% IV 50 mls/hr CONT GENTRY Administration Insulin Glargine 10 unit 05/07/21 21:00 05/07/21 22:03 Insulin Glargine 100 Unit/Ml 3ml Pen SUBCUT 10 unit BEDTIME GENTRY Administration Insulin Human Lispro 0 unit 05/08/21 07:45 05/08/21 08:53 Insulin Lispro 100 Unit/Ml 3ml Vial SUBCUT 1 unit ACHS GENTRY Administration Protocol Mycophenolate Sodium 720 mg 05/07/21 21:00 05/07/21 22:07 180 Mg Tablet, PO Not Given Delayed Release (Dr/ BID GENTRY Ec)) Tacrolimus 2 mg 05/07/21 21:00 05/07/21 21:33 Tacrolimus 0.5 Mg Capsule PO 2 mg BID GENTRY Administration Objective Labs Result Diagrams: 05/08/21 04:54 05/08/21 08:30 Labs: Laboratory Results - last 24 hr 05/07/21 05/07/21 05/07/21 16:10 16:10 16:10 WBC RBC Hgb Hct MCV MCH MCHC RDW Plt Count Neut % (Auto) Lymph % (Auto) Mcdonough % (Auto) Eos % (Auto) Baso % (Auto) Neut # (Auto) Lymph # (Auto) Mcdonough # (Auto) Eos # (Auto) Baso # (Auto) PT INR Sodium 110 L* Potassium 5.4 H Chloride 85 L Carbon Dioxide 16 L BUN 85 H Creatinine 2.34 H Estimated GFR 27.2 L BUN/Creatinine Ratio 36.3 H Glucose 242 H Calcium 8.9 Total Bilirubin 0.4 AST 33 ALT 12 Alkaline Phosphatase 69 Total Creatine Kinase 93 CK-MB (CK-2) TNP CK-MB (CK-2) Rel Index TNP Troponin I 0.068 H Total Protein 5.7 L Albumin 2.7 L Globulin 3.0 Albumin/Globulin Ratio 0.9 L Triglycerides Cholesterol LDL Cholesterol, Calc HDL Cholesterol TSH 5.12 H Free T4 0.73 L Urine Color Urine Appearance Urine pH Ur Specific [place] Urine Protein Urine Glucose (UA) Urine Ketones Urine Occult Blood Urine Nitrate Urine Bilirubin Urine Urobilinogen Ur Leukocyte Esterase Urine RBC Urine WBC Ur Squamous Epith Cells Urine Bacteria Urine Sperm Ur Culture Indicated? Ur Random Sodium SARS-CoV-2 (PCR) Positive H 05/07/21 05/07/21 05/07/21 17:38 20:16 21:35 WBC RBC Hgb Hct MCV MCH MCHC RDW Plt Count Neut % (Auto) Lymph % (Auto) Mcdonough % (Auto) Eos % (Auto) Baso % (Auto) Neut # (Auto) Lymph # (Auto) Mcdonough # (Auto) Eos # (Auto) Baso # (Auto) PT INR Sodium 110 L* Potassium 5.2 H Chloride 86 L Carbon Dioxide 17 L BUN 85 H Creatinine 2.34 H Estimated GFR 27.2 L BUN/Creatinine Ratio 36.3 H Glucose 211 H Calcium 8.7 Total Bilirubin AST ALT Alkaline Phosphatase Total Creatine Kinase CK-MB (CK-2) CK-MB (CK-2) Rel Index Troponin I Total Protein Albumin Globulin Albumin/Globulin Ratio Triglycerides Cholesterol LDL Cholesterol, Calc HDL Cholesterol TSH Free T4 Urine Color Yellow Urine Appearance Clear Urine pH 5.0 Ur Specific [place] 1.015 Urine Protein Negative Urine Glucose (UA) Negative Urine Ketones Negative Urine Occult Blood Negative Urine Nitrate Negative Urine Bilirubin Negative Urine Urobilinogen 0.2 Ur Leukocyte Esterase Negative Urine RBC None seen Urine WBC None seen Ur Squamous Epith Cells 0-1 /hpf Urine Bacteria Occasional (0-1) Urine Sperm . Ur Culture Indicated? Cult not indicated Ur Random Sodium < 5 L SARS-CoV-2 (PCR) 05/07/21 05/08/21 05/08/21 23:30 01:30 03:07 WBC RBC Hgb Hct MCV MCH MCHC RDW Plt Count Neut % (Auto) Lymph % (Auto) Mcdonough % (Auto) Eos % (Auto) Baso % (Auto) Neut # (Auto) Lymph # (Auto) Mcdonough # (Auto) Eos # (Auto) Baso # (Auto) PT INR Sodium 110 L* 111 L* 111 L* Potassium 5.4 H 5.1 5.2 H Chloride 87 L 88 L 89 L Carbon Dioxide 20 L 20 L 18 L BUN 87 H 86 H 86 H Creatinine 2.30 H 2.33 H 2.32 H Estimated GFR 27.7 L 27.3 L 27.4 L BUN/Creatinine Ratio 37.8 H 36.9 H 37.1 H Glucose 187 H 172 H 165 H Calcium 8.6 8.6 8.6 Total Bilirubin AST ALT Alkaline Phosphatase Total Creatine Kinase CK-MB (CK-2) CK-MB (CK-2) Rel Index Troponin I 0.066 H Total Protein Albumin Globulin Albumin/Globulin Ratio Triglycerides Cholesterol LDL Cholesterol, Calc HDL Cholesterol TSH Free T4 Urine Color Urine Appearance Urine pH Ur Specific [place] Urine Protein Urine Glucose (UA) Urine Ketones Urine Occult Blood Urine Nitrate Urine Bilirubin Urine Urobilinogen Ur Leukocyte Esterase Urine RBC Urine WBC Ur Squamous Epith Cells Urine Bacteria Urine Sperm Ur Culture Indicated? Ur Random Sodium SARS-CoV-2 (PCR) 05/08/21 05/08/21 05/08/21 04:54 04:54 04:54 WBC 18.0 H RBC 2.98 L Hgb 8.2 L Hct 25.8 L MCV 86.5 MCH 27.6 MCHC 31.9 RDW 19.2 H Plt Count 310 Neut % (Auto) 96.1 H Lymph % (Auto) 1.6 L Mcdonough % (Auto) 1.8 L Eos % (Auto) 0.2 L Baso % (Auto) 0.3 Neut # (Auto) 60513 H Lymph # (Auto) 300 L Mcdonough # (Auto) 300 Eos # (Auto) 0 Baso # (Auto) 0 PT 34.4 H INR 3.0 H Sodium Potassium Chloride Carbon Dioxide BUN Creatinine Estimated GFR BUN/Creatinine Ratio Glucose Calcium Total Bilirubin AST ALT Alkaline Phosphatase Total Creatine Kinase CK-MB (CK-2) CK-MB (CK-2) Rel Index Troponin I Total Protein Albumin Globulin Albumin/Globulin Ratio Triglycerides 39 Cholesterol 92 L LDL Cholesterol, Calc 43 HDL Cholesterol 41 TSH Free T4 Urine Color Urine Appearance Urine pH Ur Specific [place] Urine Protein Urine Glucose (UA) Urine Ketones Urine Occult Blood Urine Nitrate Urine Bilirubin Urine Urobilinogen Ur Leukocyte Esterase Urine RBC Urine WBC Ur Squamous Epith Cells Urine Bacteria Urine Sperm Ur Culture Indicated? Ur Random Sodium SARS-CoV-2 (PCR) 05/08/21 05/08/21 04:54 08:30 WBC RBC Hgb Hct MCV MCH MCHC RDW Plt Count Neut % (Auto) Lymph % (Auto) Mcdonough % (Auto) Eos % (Auto) Baso % (Auto) Neut # (Auto) Lymph # (Auto) Mcdonough # (Auto) Eos # (Auto) Baso # (Auto) PT INR Sodium 112 L* 112 L* Potassium 5.1 5.1 Chloride 88 L 90 L Carbon Dioxide 17 L 18 L BUN 86 H 86 H Creatinine 2.29 H 2.28 H Estimated GFR 27.9 L 28.0 L BUN/Creatinine Ratio 37.6 H 37.7 H Glucose 150 H 134 H Calcium 8.7 8.5 Total Bilirubin AST ALT Alkaline Phosphatase Total Creatine Kinase CK-MB (CK-2) CK-MB (CK-2) Rel Index Troponin I Total Protein Albumin Globulin Albumin/Globulin Ratio Triglycerides Cholesterol LDL Cholesterol, Calc HDL Cholesterol TSH Free T4 Urine Color Urine Appearance Urine pH Ur Specific [place] Urine Protein Urine Glucose (UA) Urine Ketones Urine Occult Blood Urine Nitrate Urine Bilirubin Urine Urobilinogen Ur Leukocyte Esterase Urine RBC Urine WBC Ur Squamous Epith Cells Urine Bacteria Urine Sperm Ur Culture Indicated? Ur Random Sodium SARS-CoV-2 (PCR) Exam Vital Signs (past 8 hours): - 05/08/21 02:00 05/08/21 02:30 05/08/21 03:00 Pulse Rate 80 77 82 Respiratory Rate 18 17 20 Blood Pressure 94/53 L 98/63 Pulse Oximetry 94 05/08/21 03:30 05/08/21 04:00 05/08/21 04:05 Pulse Rate 80 80 82 Respiratory Rate 20 16 22 Blood Pressure 89/53 L 99/57 L Pulse Oximetry 93 91 94 Oxygen Delivery Method Room Air Oxygen Flow Rate 0 Quality TeleICU VTE Deep Vein Thrombosis/Pulmonary Embolism Present on Admission: No Assessment & Plan Assessment & Plan narrative: patient seen and examined with bedside nurse chart/labs/imaging reviewed plan -no need for 3% -continue gentle hydration -check sodium q3 -limit sodium increase to 6-8mEq/24hrs -need to continue home immunosuppresant meds -rate control for afib -diet as tolerated -hold coumadin as inr is elevated -gi/dvt ppx -please call eICU prn Time Spent With Patient Critical Care time: I spent a total of [] minutes of critical care time on this patient's care today; this time is exclusive of procedural time.
[2021-05-08] MEDS: predniSONE 5 MG TABLET PO (10:04)
[2021-05-08] MEDS: TACROLIMUS 0.5 MG CAPSULE 2 MG PO ×2 (10:05→20:50)
[2021-05-08] MEDS: AMLODIPINE 5 MG TABLET PO (10:05)
[2021-05-08] MEDS: METOPROLOL ER 25 MG TABLET PO (10:06)
[2021-05-08 11:43] LABS: BUN Creatinine Ratio 37.7 (6-22); Blood Urea Nitrogen 84 mg/dL (9-20); Calcium 8.5 mg/dL (8.4-10.2); Carbon Dioxide 18 mmol/L (22-32); Chloride 89 mmol/L (98-107); Estimated Glomerular Filt Rate 28.7 mL/min (>60); Glucose 135 mg/dL (80-110); HEMOLYSIS < 15 (0-50); Potassium 4.9 mmol/L (3.4-5.1)
[2021-05-08 12:12] LABS: Sodium 113 mmol/L (137-145)
[2021-05-08] MEDS: MYCOPHENOLATE 360 MG 720 EACH PO ×2 (12:24→20:48)
--- NOTE | 2021-05-08 13:28 | PM.PN.1 ---
Subjective Subjective Date Patient Seen: 05/08/21 Time Patient Seen: 13:28 Interval history: Patient denies any complaints today. Sodium is correcting slowly, creatinine slowly improving. Now on normal saline instead of 3% per ICU recommendations. Exam Vital Signs (past 8 hours): - 05/08/21 08:00 05/08/21 10:06 05/08/21 10:36 Temperature 97.3 F L Pulse Rate 82 88 83 Respiratory Rate 20 Blood Pressure 114/63 114/63 103/59 L Pulse Oximetry 93 05/08/21 11:24 05/08/21 12:00 Temperature Pulse Rate 70 Respiratory Rate 21 Blood Pressure 103/59 L Pulse Oximetry 95 94 Oxygen Delivery Method Room Air Oxygen Flow Rate 0 Narrative Exam Narrative: General:? Patient is well developed and well nourished, in no distress at this time. HEENT:? Normocephalic, atraumatic, extraocular muscles intact, oral pharynx is clear and mucous membranes are dry. Neck: supple and symmetric, trachea is midline, no cervical adenopathy. Negative for JVD Chest:? Normal AP diameter and contour without kyphoscoliosis, no tachypnea, equal chest rise bilaterally. Lungs:? CTA b/l no wheezing rhonchi or rales. Cardio:?RRR no m/r/g. Abdomen: S NT ND. No CVA tenderness. Musculoskeletal:? Muscle strength and tone are equal within normal limits, no deformity. Extremities: 1+ pedal edema to the ankles. No joint effusions. No cyanosis or clubbing. Skin:? Pale,? Warm to touch,dry and intact without rashes, ulcerations or petechiae.? Neuro:? Alert and orientated x3, slightly lethargic.? sensation to touch intact in all extremities, no gross deficits noted of cranial nerves. Psych:? Patient has a well-kept appearance, appropriate affect, mental status attitude thought context and judgment are appropriate for age. Objective Labs Result Diagrams: 05/08/21 04:54 05/08/21 11:20 Labs: Laboratory Results - last 24 hr 05/07/21 05/07/21 05/07/21 16:10 16:10 16:10 WBC RBC Hgb Hct MCV MCH MCHC RDW Plt Count Neut % (Auto) Lymph % (Auto) [place] % (Auto) Eos % (Auto) Baso % (Auto) Neut # (Auto) Lymph # (Auto) [place] # (Auto) Eos # (Auto) Baso # (Auto) PT INR Sodium 110 L* Potassium 5.4 H Chloride 85 L Carbon Dioxide 16 L BUN 85 H Creatinine 2.34 H Estimated GFR 27.2 L BUN/Creatinine Ratio 36.3 H Glucose 242 H Calcium 8.9 Total Bilirubin 0.4 AST 33 ALT 12 Alkaline Phosphatase 69 Total Creatine Kinase 93 CK-MB (CK-2) TNP CK-MB (CK-2) Rel Index TNP Troponin I 0.068 H Total Protein 5.7 L Albumin 2.7 L Globulin 3.0 Albumin/Globulin Ratio 0.9 L Triglycerides Cholesterol LDL Cholesterol, Calc HDL Cholesterol TSH 5.12 H Free T4 0.73 L Urine Color Urine Appearance Urine pH Ur Specific [place] Urine Protein Urine Glucose (UA) Urine Ketones Urine Occult Blood Urine Nitrate Urine Bilirubin Urine Urobilinogen Ur Leukocyte Esterase Urine RBC Urine WBC Ur Squamous Epith Cells Urine Bacteria Urine Sperm Ur Culture Indicated? Ur Random Sodium SARS-CoV-2 (PCR) Positive H 05/07/21 05/07/21 05/07/21 17:38 20:16 21:35 WBC RBC Hgb Hct MCV MCH MCHC RDW Plt Count Neut % (Auto) Lymph % (Auto) [place] % (Auto) Eos % (Auto) Baso % (Auto) Neut # (Auto) Lymph # (Auto) [place] # (Auto) Eos # (Auto) Baso # (Auto) PT INR Sodium 110 L* Potassium 5.2 H Chloride 86 L Carbon Dioxide 17 L BUN 85 H Creatinine 2.34 H Estimated GFR 27.2 L BUN/Creatinine Ratio 36.3 H Glucose 211 H Calcium 8.7 Total Bilirubin AST ALT Alkaline Phosphatase Total Creatine Kinase CK-MB (CK-2) CK-MB (CK-2) Rel Index Troponin I Total Protein Albumin Globulin Albumin/Globulin Ratio Triglycerides Cholesterol LDL Cholesterol, Calc HDL Cholesterol TSH Free T4 Urine Color Yellow Urine Appearance Clear Urine pH 5.0 Ur Specific [place] 1.015 Urine Protein Negative Urine Glucose (UA) Negative Urine Ketones Negative Urine Occult Blood Negative Urine Nitrate Negative Urine Bilirubin Negative Urine Urobilinogen 0.2 Ur Leukocyte Esterase Negative Urine RBC None seen Urine WBC None seen Ur Squamous Epith Cells 0-1 /hpf Urine Bacteria Occasional (0-1) Urine Sperm . Ur Culture Indicated? Cult not indicated Ur Random Sodium < 5 L SARS-CoV-2 (PCR) 05/07/21 05/08/21 05/08/21 23:30 01:30 03:07 WBC RBC Hgb Hct MCV MCH MCHC RDW Plt Count Neut % (Auto) Lymph % (Auto) [place] % (Auto) Eos % (Auto) Baso % (Auto) Neut # (Auto) Lymph # (Auto) [place] # (Auto) Eos # (Auto) Baso # (Auto) PT INR Sodium 110 L* 111 L* 111 L* Potassium 5.4 H 5.1 5.2 H Chloride 87 L 88 L 89 L Carbon Dioxide 20 L 20 L 18 L BUN 87 H 86 H 86 H Creatinine 2.30 H 2.33 H 2.32 H Estimated GFR 27.7 L 27.3 L 27.4 L BUN/Creatinine Ratio 37.8 H 36.9 H 37.1 H Glucose 187 H 172 H 165 H Calcium 8.6 8.6 8.6 Total Bilirubin AST ALT Alkaline Phosphatase Total Creatine Kinase CK-MB (CK-2) CK-MB (CK-2) Rel Index Troponin I 0.066 H Total Protein Albumin Globulin Albumin/Globulin Ratio Triglycerides Cholesterol LDL Cholesterol, Calc HDL Cholesterol TSH Free T4 Urine Color Urine Appearance Urine pH Ur Specific [place] Urine Protein Urine Glucose (UA) Urine Ketones Urine Occult Blood Urine Nitrate Urine Bilirubin Urine Urobilinogen Ur Leukocyte Esterase Urine RBC Urine WBC Ur Squamous Epith Cells Urine Bacteria Urine Sperm Ur Culture Indicated? Ur Random Sodium SARS-CoV-2 (PCR) 05/08/21 05/08/21 05/08/21 04:54 04:54 04:54 WBC 18.0 H RBC 2.98 L Hgb 8.2 L Hct 25.8 L MCV 86.5 MCH 27.6 MCHC 31.9 RDW 19.2 H Plt Count 310 Neut % (Auto) 96.1 H Lymph % (Auto) 1.6 L [place] % (Auto) 1.8 L Eos % (Auto) 0.2 L Baso % (Auto) 0.3 Neut # (Auto) 67314 H Lymph # (Auto) 300 L [place] # (Auto) 300 Eos # (Auto) 0 Baso # (Auto) 0 PT 34.4 H INR 3.0 H Sodium Potassium Chloride Carbon Dioxide BUN Creatinine Estimated GFR BUN/Creatinine Ratio Glucose Calcium Total Bilirubin AST ALT Alkaline Phosphatase Total Creatine Kinase CK-MB (CK-2) CK-MB (CK-2) Rel Index Troponin I Total Protein Albumin Globulin Albumin/Globulin Ratio Triglycerides 39 Cholesterol 92 L LDL Cholesterol, Calc 43 HDL Cholesterol 41 TSH Free T4 Urine Color Urine Appearance Urine pH Ur Specific [place] Urine Protein Urine Glucose (UA) Urine Ketones Urine Occult Blood Urine Nitrate Urine Bilirubin Urine Urobilinogen Ur Leukocyte Esterase Urine RBC Urine WBC Ur Squamous Epith Cells Urine Bacteria Urine Sperm Ur Culture Indicated? Ur Random Sodium SARS-CoV-2 (PCR) 05/08/21 05/08/21 05/08/21 04:54 08:30 11:20 WBC RBC Hgb Hct MCV MCH MCHC RDW Plt Count Neut % (Auto) Lymph % (Auto) [place] % (Auto) Eos % (Auto) Baso % (Auto) Neut # (Auto) Lymph # (Auto) [place] # (Auto) Eos # (Auto) Baso # (Auto) PT INR Sodium 112 L* 112 L* 113 L* Potassium 5.1 5.1 4.9 Chloride 88 L 90 L 89 L Carbon Dioxide 17 L 18 L 18 L BUN 86 H 86 H 84 H Creatinine 2.29 H 2.28 H 2.23 H Estimated GFR 27.9 L 28.0 L 28.7 L BUN/Creatinine Ratio 37.6 H 37.7 H 37.7 H Glucose 150 H 134 H 135 H Calcium 8.7 8.5 8.5 Total Bilirubin AST ALT Alkaline Phosphatase Total Creatine Kinase CK-MB (CK-2) CK-MB (CK-2) Rel Index Troponin I Total Protein Albumin Globulin Albumin/Globulin Ratio Triglycerides Cholesterol LDL Cholesterol, Calc HDL Cholesterol TSH Free T4 Urine Color Urine Appearance Urine pH Ur Specific [place] Urine Protein Urine Glucose (UA) Urine Ketones Urine Occult Blood Urine Nitrate Urine Bilirubin Urine Urobilinogen Ur Leukocyte Esterase Urine RBC Urine WBC Ur Squamous Epith Cells Urine Bacteria Urine Sperm Ur Culture Indicated? Ur Random Sodium SARS-CoV-2 (PCR) [facility] Medical History (Updated 05/08/21 @ 12:10 by George Magallanes DO) Anemia Atrial fibrillation (~2018) Borderline hypothyroidism Cataracts, bilateral (~2013) Cellulitis Chronic wound of extremity Diabetes Gout (~1966) Hypertension Iron deficiency anemia Kidney disease (~2004) Low back pain Measles (~1948) Mumps (~1948) Skin tear of right upper arm without complication Sleep apnea (~2011) Stroke (~2004) Surgical History Anesthesia History of total right knee replacement (TKR) Kidney transplant recipient (~2017) Family History Father Stroke Mother History of heart disease Sister Cancer Grandfather History of heart disease Grandmother History of heart disease Social History household members: spouse Smoking Status: Never smoker alcohol intake: current Assessment & Plan Assessment & Plan narrative: Mr. Obregon is a 76M with H renal transplant five years ago, CKD stage 2-3, DM, HTN, HL, CVA, afib, recent COVID admission with acute respiratory failure (discharged on home O2) who presents to the emergency room, referred by his primary care provider for abnormal labs and a low sodium level. 1. Hyponatremia, present on admission ?- Na 110 on ER labs. Urine sodium is less than 5 indicative of hypovolemia as is consistent with his subjective history. ?-initially on 3%, now on NS at 75 cc per hour. ?-goal sodium of 116 at 24 hours, currently 113 and consistently moving in the right direction. ?- continue ICU for frequent lab draws and monitoring. - UA unremarkable. Ph 5.0. 2. 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 With non-anion gap metabolic acidosis. -s/p transplant 5 years ago per patient -continue home transplant medications in setting of true hypovolemia -creatinine 2.34 slowly improving today down to 2.2 -continue management as above in problem #1 for now. -Dr. Rose (patient's neprhologist at [facility]) recommended Tacrolimus level if patient stays beyond a few days. Trough recommended level between 5-8. last dose at 10:05 will order trough at 10 pm tonight. 3. Atrial fibrillation on coumadin -continue metoprolol -hold coumadin today only, h/h very slightly lower and INR is 3.0. Plan to resume tomorrow if no overt bleeding and h/h stable. -check INR daily 4. Chronic anemia -no evidence of blood loss per history, slight decrease from last admission. -continue to follow h/h. 5. myocardial injury -patient denies chest pain -likely secondary to SCAR and dehdration -troponin 0.068 improved on repeat draw, no chest pain or ischemic changes. 7. Type 2 Diabetes -hold oral glycemic regimen -start insulin sliding scale 8. Hypertension -hold lisinopril for now given SCAR 9. history of CVA -continue aspirin 10. Gout, chronic -hold home meds for now 11. Aortic stenosis -noted to have ECHO from 02/19 with mild to moderate aortic stenosis -careful with sudden fluid shifts 12. Positive COVID status ?- prior COVID infection, had acute respiratory failure. In the ER was 95% on room air, has been on 3 L at home. Continue to monitor. No need for therapy at this time. CODE: Full Proxy: Kay Obregon, Dispo: admitted to ICU for frequent lab draws and monitoring in setting of severe hyponatremia. If Na >120 can be regular floor. Will take some time to raise his sodium to a normal level. I spent 30 minutes providing critical care management this patient.? This excludes time spent in performing separately billed procedures. I have utilized all available immediate resources to obtain, update, or review the patient's current medications. Time Spent With Patient Critical Care time: I spent a total of [] minutes of critical care time on this patient's care today; this time is exclusive of procedural time. Quality VTE Deep Vein Thrombosis/Pulmonary Embolism Present on Admission: No
[2021-05-08 14:54] LABS: BUN Creatinine Ratio 39.4 (6-22); Blood Urea Nitrogen 85 mg/dL (9-20); Calcium 8.7 mg/dL (8.4-10.2); Carbon Dioxide 17 mmol/L (22-32); Chloride 89 mmol/L (98-107); Estimated Glomerular Filt Rate 29.8 mL/min (>60); Glucose 134 mg/dL (80-110); HEMOLYSIS < 15 (0-50); Potassium 5.1 mmol/L (3.4-5.1)
[2021-05-08 15:05] LABS: Sodium 112 mmol/L (137-145)
--- NOTE | 2021-05-08 15:16 | CM.DANOTE ---
Patient is a 76 yo male who was admitted on 05/07/21 for COVID/labs. Pt has [place] and [place] for [place] and his PCP is Dr. George Magallanes. EMR was reviewed. Per , pt with hx of renal transplant 5 years ago at [facility] and recently admitted for COVID+ complications and pneumonia and now admitted for hyponatremia and SCAR likely due to dehydration and may remain here through the weekend pending progress. Pt still testing COVID+ from his discharge with COVID symptoms on 04/21/21 where he went home with new home oxygen and supportive spouse. Currently no PT/OT orders and SW to follow to determine if PT eval beneficial for d/c planning. Per RN, pt on room air and tolerating well and currently no concerns. Pt's sodium levels slowly returning more to normal but not medically stable to d/c yet today. SW attempted to call into pt's room phone due to COVID precautions with no answer and then SW called pt's spouse/DPOA Kay Alonzo and left ms. Plan: SW to follow closely for pt progress and possible need for PT eval to confirm safe d/c plan of home with spouse and any further identified discharge planning needs. BEAU Gupta Discharge Planning/Care Management Advanced directive, confirm from FAMILY Start: 05/07/21 19:49 Freq: Q24H Status: Active Protocol: Document 05/07/21 19:49 CW (Rec: 05/07/21 21:32 CW [id number]) Advance Directive, confirm on record Time 21:32 Person contacted PATIENT Copy received No CM Discharge Assessment Start: 05/08/21 15:12 Freq: Status: Active Protocol: Document 05/08/21 15:13 BF (Rec: 05/08/21 15:15 BF [id number]) Discharge Planning Assessment Assigned Press Tender BEAU Toro DPOA/Assigned Designee Name Spouse Kay Alonzo Contact Information [phone] Advance Directives? Yes Advance Directives on File No History Provided By Patient,Medical Record Has Patient been admitted in last 30 Yes days? Comment Last discharged around 04/21/21 to home with O2 after COVID+ Prior Living Arrangements House Household Members spouse Type of transporation used prior to Drives own vehicle admit Independent with ADL's Yes Is patient alert and oriented? Yes Needs Assistance With Home Chores / Shopping Caregiver for Another No Community Services used prior to Oxygen Therapy admission: Patient/Family Preference Home with Home Health Comment r/o HH closer to d/c Barriers to Discharge No Comment Patient resides with supportive spouse. Discharge Plan Home Community Services Oxygen Therapy Transportation Arrangement Spouse Referrals Initiated None needed,Home Health Additional Comment r/o HH at d/c Review Status In Process Please Provide Date Initial DC 05/08/21 Assessment Was Performed Next Review Type Continued Stay Review
[2021-05-08] MEDS: SODIUM CHLORIDE 0.9% 1,000 ML 100 ML IV (16:21)
[2021-05-08 17:24] LABS: Osmolality, Serum 275 mOsmol/kg (280-301)
[2021-05-08 17:24] LABS: Osmolality Urine 283 mOsmol/kg (.)
[2021-05-08 18:11] LABS: BUN Creatinine Ratio 41.4 (6-22); Blood Urea Nitrogen 87 mg/dL (9-20); Calcium 8.7 mg/dL (8.4-10.2); Carbon Dioxide 18 mmol/L (22-32); Chloride 90 mmol/L (98-107); Estimated Glomerular Filt Rate 30.8 mL/min (>60); Glucose 140 mg/dL (80-110); HEMOLYSIS 27 (0-50); Potassium 5.3 mmol/L (3.4-5.1)
[2021-05-08 18:14] LABS: Sodium 113 mmol/L (137-145)
--- NOTE | 2021-05-08 20:48 | P.ICUMDRN_ITS ---
- Date Patient Seen: 05/08/21 Time Patient Seen: 20:49 :: This patient was seen in the Intensive Care Unit via real time interactive two- way audiovisual telecommunication. Note: clinically no chnages, sodium 113 continue present care
[2021-05-08] MEDS: INSULIN GLARGINE 100 UNIT/ML 3ML PEN 10 UNIT SUBCUT (20:52)
[2021-05-08 21:49] LABS: BUN Creatinine Ratio 41.1 (6-22); Blood Urea Nitrogen 86 mg/dL (9-20); Calcium 8.7 mg/dL (8.4-10.2); Carbon Dioxide 19 mmol/L (22-32); Chloride 90 mmol/L (98-107); Estimated Glomerular Filt Rate 30.9 mL/min (>60); Glucose 123 mg/dL (80-110)
[2021-05-08 21:50] LABS: Potassium 5.5 mmol/L (3.4-5.1)
[2021-05-08 21:51] LABS: HEMOLYSIS 79 (0-50); Sodium 113 mmol/L (137-145)
--- NOTE | 2021-05-08 23:48 | PC.NURSE ---
Addendum entered by Barbie Rodriguez R.N. 05/09/21 05:58: 0550- Blood Glucose on chem panel 74. Patient given juice. No symptoms other than restlessness through the night. Will monitor. Addendum entered by Barbie Rodriguez R.N. 05/09/21 03:47: 0330- Patient has been restless and on the light about every 20-30 minutes. Patient states he is not feeling ill, short of breath or anxious. Patient has been repositioned multiple times without relief. Patient denies pain. UOP has been good. Lungs are clear with end expiratory wheezes. No change in LOC or mentation. Will monitor. Original Note: 6210- Respiratory Therapy notified that patient has TRANG and is desaturating to 83% while sleeping. Patient does not have his home CPap. Patient placed on via cannula. Will monitor.
[2021-05-09] VITALS (29 sets, daily range): BP systolic 114–127; BP diastolic 59–68; PULSE 71–120; RESP 16–38; TEMP 36.4–36.9; O2SAT 84–99
[2021-05-09 05:34] LABS: Alanine Aminotransferase 11 IU/L (<50); Albumin 2.5 g/dL (3.5-5.0); Albumin Globulin Ratio 0.9 (1.0-2.8); Alkaline Phosphatase 54 U/L (38-126); Aspartate Aminotransferase 23 IU/L (17-59); BUN Creatinine Ratio 41.4 (6-22); Bilirubin Total 0.4 mg/dL (0.2-1.3); Blood Urea Nitrogen 82 mg/dL (9-20); Calcium 8.6 mg/dL (8.4-10.2); Carbon Dioxide 17 mmol/L (22-32); Chloride 93 mmol/L (98-107); Estimated Glomerular Filt Rate 32.9 mL/min (>60); Globulin 2.8 g/dL (1.7-4.1); Glucose 74 mg/dL (80-110); HEMOLYSIS < 15 (0-50); Potassium 4.9 mmol/L (3.4-5.1); Total Protein 5.3 g/dL (6.3-8.2)
[2021-05-09 05:36] LABS: Add Manual Diff / Slide Review NO; Basophils Absolute Auto 100 /uL (0-100); Basophils Percent Auto 0.3 % (0-2); Eosinophils Absolute Auto 0 /uL (0-450); Eosinophils Percent Auto 0.2 % (2-4); Lymphocytes Absolute Auto 300 /uL (1100-4500); Lymphocytes Percent Auto 1.5 % (25-40); Mean Corpuscular HGB Conc 31.9 % (30-36); Mean Corpuscular Hemoglobin 27.8 PG (26-34); Mean Corpuscular Volume 87.2 fL (80-100); Monocytes Absolute Auto 300 /uL (0-900); Monocytes Percent Auto 1.6 % (3-14); Neutrophils Absolute Auto 18200 /uL (1500-7000); Neutrophils Percent Auto 96.4 % (50-75); Platelet Count 353 X10^3/uL (150-400); Red Blood Cell Count 2.87 X10^6/uL (4.5-5.9); Red Cell Distribution Width 19.6 % (11.6-14.8); White Blood Cell Count 18.9 X10^3/uL (4.5-11.0)
[2021-05-09 05:51] LABS: Sodium 116 mmol/L (137-145)
[2021-05-09 06:01] LABS: Phosphorous 3.6 mg/dL (2.3-3.7)
[2021-05-09 06:02] LABS: Magnesium 1.5 mg/dL (1.6-2.3)
--- NOTE | 2021-05-09 09:26 | P.TELICUPN_ITS ---
Subjective Subjective :: This patient was seen in the Intensive Care Unit via real time interactive two- way audiovisual telecommunication. Synopsis: 76 y.o. male w/ PMHx of renal transplant 5 years ago, CKD2-3, T2DM, HTN, hypothyroidism, CVA, mild-moderate aortic stenosis, AF on warfarin, HLD and recent COVID-19 hospitalization with discharge on home O2 sent to ED for Na+ of 112 found on outpt labs.? It was 110 here,? He has been slightly lethargic but otherwise at his baseline.? He has an SCAR superimposed on his stage 2/3 CKD; creatinine is 2.34 up from his baseline of 1.3-1.5.? TSH is slightly high and free T4 is slightly low (see labs below).? Random urine Na+ is < 5.? Started on 3% NS @ 10 mL/hr by hospitalist service. 05/09: 3% NS transitioned to NS at 100 mL/hr, NA improving 112-116 in approx 22hr. Leukocytosis worsening. Main complaint today is dyspnea on minimal exertion. Also has dry cough, lethargy, poor appetite and difficulty sleeping at night. Otherwise, feels somewhat improved since admission. On 3-4L LFNC w/ SPO2 in mid 90s. Current Medications Current Medications Medications: Home Medications mycophenolate sodium 180 mg tablet,delayed release 720 mg PO BID 08/29/17 [History Confirmed 05/07/21] niacinamide 500 mg tablet 250 mg PO DAILY 08/29/17 [History Confirmed 05/07/21] aspirin 81 mg tablet,delayed release 81 mg PO DAILY 04/12/19 [History Confirmed 05/07/21] ergocalciferol (vitamin D2) 1,250 mcg (50,000 unit) capsule (Vitamin D2) 50,000 unit PO WEEKLY 04/12/19 [History Confirmed 05/07/21] metoprolol succinate 50 mg tablet,extended release 24 hr 25 mg PO DAILY 04/12/19 [History Confirmed 05/07/21] terazosin 2 mg capsule 4 mg PO QPM 04/12/19 [History Confirmed 05/07/21] warfarin 5 mg tablet See Rx Instructions .ROUTE .COMPLEX #90 tab 08/06/20 [Rx Confirmed 05/07/21] colchicine 0.6 mg tablet 0.6 mg PO BID PRN #10 tab 08/10/20 [Rx Confirmed 05/07/21] pioglitazone 30 mg tablet 30 mg PO DAILY #90 tab 11/28/20 [Rx Confirmed 05/07/21] allopurinol 300 mg tablet 300 mg PO DAILY #90 tab 01/22/21 [Rx Confirmed 05/07/21] atorvastatin 10 mg tablet 20 mg PO BEDTIME 04/21/21 [History Confirmed 05/07/21] metformin 850 mg tablet 850 mg PO DAILY 04/21/21 [History Confirmed 05/07/21] tacrolimus 1 mg capsule, immediate-release 2 mg PO BID 04/22/21 [History Con firmed 05/07/21] amlodipine 2.5 mg tablet 5 mg PO DAILY 05/07/21 [History Confirmed 05/07/21] epinephrine 0.3 mg/0.3 mL injection, auto-injector (EpiPen 2-Dm) 0.3 mg IM ONCE PRN 05/07/21 [History Confirmed 05/07/21] lisinopril 2.5 mg tablet 2.5 mg PO DAILY 05/07/21 [History Confirmed 05/07/21] prednisone 5 mg tablet 5 mg PO DAILY 05/08/21 [History Confirmed 05/08/21] Visit Medications (administered) Generic Name Dose Route Start Last Admin Trade Name Lizzy PRN Reason Stop Dose Admin Amlodipine Besylate 5 mg 05/08/21 09:00 05/08/21 10:05 Amlodipine 5 Mg Tablet PO 5 mg DAILY GENTRY Administration Sodium Chloride 1,000 mls @ 100 mls/hr 05/07/21 22:45 05/09/21 09:17 Normal Saline 0.9% IV Infused CONT GENTRY Infusion Insulin Glargine 10 unit 05/07/21 21:00 05/08/21 20:52 Insulin Glargine 100 Unit/Ml 3ml Pen SUBCUT 10 unit BEDTIME GENTRY Administration Insulin Human Lispro 0 unit 05/08/21 07:45 05/09/21 09:16 Insulin Lispro 100 Unit/Ml 3ml Vial SUBCUT Not Given ACHS [facility] Protocol Metoprolol Succinate 25 mg 05/08/21 09:00 05/08/21 10:06 Metoprolol Er 25 Mg Tablet PO 25 mg DAILY GENTRY Administration Mycophenolate 360 Mg 720 mg 05/07/21 21:00 05/08/21 20:48 Tablet,Delayed PO 720 mg Release (Dr/Ec) BID GENTRY Administration Niacinamide 500 Mg 500 mg 05/08/21 11:45 05/08/21 12:24 Tablet PO 500 mg DAILY GENTRY Administration Prednisone 5 mg 05/08/21 09:00 05/08/21 10:04 Prednisone 5 Mg Tablet PO 5 mg DAILY GENTRY Administration Tacrolimus 2 mg 05/07/21 21:00 05/08/21 20:50 Tacrolimus 0.5 Mg Capsule PO 2 mg BID GENTRY Administration Terazosin HCl 4 mg 05/08/21 21:00 05/08/21 22:47 Terazosin 1 Mg Capsule PO Not Given BEDTIME [facility] Objective Labs Result Diagrams: 05/09/21 05:00 05/09/21 05:00 Labs: Laboratory Results - last 24 hr 05/07/21 05/07/21 05/08/21 16:10 17:38 11:20 WBC RBC Hgb Hct MCV MCH MCHC RDW Plt Count Neut % (Auto) Lymph % (Auto) [place] % (Auto) Eos % (Auto) Baso % (Auto) Neut # (Auto) Lymph # (Auto) [place] # (Auto) Eos # (Auto) Baso # (Auto) Sodium 113 L* Potassium 4.9 Chloride 89 L Carbon Dioxide 18 L BUN 84 H Creatinine 2.23 H Estimated GFR 28.7 L BUN/Creatinine Ratio 37.7 H Glucose 135 H Serum Osmolality 275 L Calcium 8.5 Phosphorus Magnesium Total Bilirubin AST ALT Alkaline Phosphatase Total Protein Albumin Globulin Albumin/Globulin Ratio Urine Osmolality 283 05/08/21 05/08/21 05/08/21 14:23 17:30 21:00 WBC RBC Hgb Hct MCV MCH MCHC RDW Plt Count Neut % (Auto) Lymph % (Auto) [place] % (Auto) Eos % (Auto) Baso % (Auto) Neut # (Auto) Lymph # (Auto) [place] # (Auto) Eos # (Auto) Baso # (Auto) Sodium 112 L* 113 L* 113 L* Potassium 5.1 5.3 H 5.5 H Chloride 89 L 90 L 90 L Carbon Dioxide 17 L 18 L 19 L BUN 85 H 87 H 86 H Creatinine 2.16 H 2.10 H 2.09 H Estimated GFR 29.8 L 30.8 L 30.9 L BUN/Creatinine Ratio 39.4 H 41.4 H 41.1 H Glucose 134 H 140 H 123 H Serum Osmolality Calcium 8.7 8.7 8.7 Phosphorus Magnesium Total Bilirubin AST ALT Alkaline Phosphatase Total Protein Albumin Globulin Albumin/Globulin Ratio Urine Osmolality 05/09/21 05/09/21 05/09/21 05:00 05:00 05:00 WBC 18.9 H RBC 2.87 L Hgb 8.0 L Hct 25.0 L MCV 87.2 MCH 27.8 MCHC 31.9 RDW 19.6 H Plt Count 353 Neut % (Auto) 96.4 H Lymph % (Auto) 1.5 L [place] % (Auto) 1.6 L Eos % (Auto) 0.2 L Baso % (Auto) 0.3 Neut # (Auto) 58167 H Lymph # (Auto) 300 L [place] # (Auto) 300 Eos # (Auto) 0 Baso # (Auto) 100 Sodium 116 L* Potassium 4.9 Chloride 93 L Carbon Dioxide 17 L BUN 82 H Creatinine 1.98 H Estimated GFR 32.9 L BUN/Creatinine Ratio 41.4 H Glucose 74 L Serum Osmolality Calcium 8.6 Phosphorus Magnesium 1.5 L Total Bilirubin 0.4 AST 23 ALT 11 Alkaline Phosphatase 54 Total Protein 5.3 L Albumin 2.5 L Globulin 2.8 Albumin/Globulin Ratio 0.9 L Urine Osmolality 05/09/21 05:00 WBC RBC Hgb Hct MCV MCH MCHC RDW Plt Count Neut % (Auto) Lymph % (Auto) [place] % (Auto) Eos % (Auto) Baso % (Auto) Neut # (Auto) Lymph # (Auto) [place] # (Auto) Eos # (Auto) Baso # (Auto) Sodium Potassium Chloride Carbon Dioxide BUN Creatinine Estimated GFR BUN/Creatinine Ratio Glucose Serum Osmolality Calcium Phosphorus 3.6 Magnesium Total Bilirubin AST ALT Alkaline Phosphatase Total Protein Albumin Globulin Albumin/Globulin Ratio Urine Osmolality Exam Vital Signs (past 8 hours): - 05/09/21 01:30 05/09/21 02:00 05/09/21 02:30 Temperature Pulse Rate 90 86 86 Respiratory Rate 23 19 24 Blood Pressure Pulse Oximetry 97 97 97 05/09/21 03:00 05/09/21 03:30 05/09/21 04:00 Temperature Pulse Rate 91 H 91 H 85 Respiratory Rate 22 26 H Blood Pressure Pulse Oximetry 96 97 96 05/09/21 08:07 Temperature 98.4 F Pulse Rate 82 Respiratory Rate 18 Blood Pressure 114/59 L Pulse Oximetry 99 Oxygen Delivery Method High Flow Nasal Cannula Oxygen Flow Rate 4 Narrative Exam Narrative: In NAD, chronically ill appearing, A&Ox3, nonlabored respirations, dry cough intermittently during exam Quality TeleICU VTE Deep Vein Thrombosis/Pulmonary Embolism Present on Admission: No Assessment & Plan Assessment & Plan narrative: Hyponatremia * Likely hypovolemic * Improving w/ NS, cyurrentl at 100 mL/hr, continue * Trend NA q4 hr * Avoid overcorrection, <8 mmol/24hrs Hypomagnesemia * Replete and recheck in am Leukocytosis * Worsening * In setting of recent COVID PNA requiring hospitalization in immunesuppresed host * Begin aztreonam empirically * Obtain PCT and blood cxs * Monitor fever curve and trend WBC * Obtain MRSA screen, was negative during last admission SCAR on CKD * Prerenal * Improving w/ IV resus * Continue to monitor Is/Os * Avoid nephrotoxic agents * No NSAIDS A-fib on AC, rate controlled * F/u INR, resume coumadin when appropriate Case discussed w/ hospitalist during MDR, remainder of care plan per their recommendations Time Spent With Patient Critical Care time: I spent a total of [50] minutes of critical care time on this patient's care today; this time is exclusive of procedural time.
[2021-05-09] MEDS: AMLODIPINE 5 MG TABLET PO (09:51)
[2021-05-09] MEDS: predniSONE 5 MG TABLET PO (09:51)
[2021-05-09] MEDS: TACROLIMUS 0.5 MG CAPSULE 2 MG PO ×2 (09:51→21:36)
[2021-05-09] MEDS: MYCOPHENOLATE 360 MG 720 EACH PO ×2 (09:51→21:36)
[2021-05-09] MEDS: METOPROLOL ER 25 MG TABLET PO (09:51)
[2021-05-09] MEDS: MAGNESIUM SULFATE 2 GM/50 ML PIGGYBACK IV (09:53)
[2021-05-09] MEDS: SODIUM CHLORIDE 0.9% 1,000 ML 100 ML IV (09:53)
--- NOTE | 2021-05-09 10:24 | PC.NURSE ---
Addendum entered by Chelsea Tillman R.N. 05/09/21 19:32: 1800 Na 117, Pt with poor PO intake RA 96% continues with exp wheeze. increased WOB with activity Addendum entered by Chelsea Tillman R.N. 05/09/21 17:26: Update to x3 this shift, with updated labs. She provided dietary suggestions, and Pt is currently up to chair for meal tolerating RA Spo2 88-94% Updated Dr Velazquez about increased coughing when up to chair, and WOB. Pt does have some faint bibasilar crackles, these improve with coughing. Attempted IS education. Original Note: Am shift Pt reports poor sleep overnight. Requesting to be left alone Given AM meds per emar, and offered ensure for breakfast, declined. Order obtained for lunch. Poor PO intake, Tele ICU into see Pt and answered all questions, updating POC. ABX to start today after wbc remains elevated. Denies cough, fever, or chills. Monitor Na with q4 hour labs. Coags added as well. LUE PICC drawing well. NS @ 100. Pt resting comfortably at present.
[2021-05-09 10:36] LABS: Procalcitonin 4.71 ng/mL (<0.5)
[2021-05-09 10:37] LABS: BUN Creatinine Ratio 42.4 (6-22); Blood Urea Nitrogen 81 mg/dL (9-20); Calcium 8.6 mg/dL (8.4-10.2); Carbon Dioxide 19 mmol/L (22-32); Chloride 94 mmol/L (98-107); Estimated Glomerular Filt Rate 34.3 mL/min (>60); Glucose 70 mg/dL (80-110); HEMOLYSIS < 15 (0-50)
[2021-05-09 10:39] LABS: INR 3.3 (0.9-1.3); Prothrombin Time 38.5 SECONDS (10.1-12.7)
[2021-05-09 10:41] LABS: Sodium 116 mmol/L (137-145)
[2021-05-09] MEDS: AZTREONAM IV ×2 (11:00→18:32)
[2021-05-09] MEDS: WATER IV ×2 (11:00→18:32)
[2021-05-09] MEDS: DEXTROSE 5% IV ×2 (11:00→18:32)
[2021-05-09 14:26] LABS: BUN Creatinine Ratio 40.6 (6-22); Blood Urea Nitrogen 78 mg/dL (9-20); Calcium 8.8 mg/dL (8.4-10.2); Carbon Dioxide 19 mmol/L (22-32); Chloride 94 mmol/L (98-107); Estimated Glomerular Filt Rate 34.1 mL/min (>60); Glucose 145 mg/dL (80-110); HEMOLYSIS < 15 (0-50); Potassium 5.3 mmol/L (3.4-5.1)
[2021-05-09 14:29] LABS: Sodium 117 mmol/L (137-145)
--- NOTE | 2021-05-09 15:38 | P.PN_ITS ---
Subjective Subjective Date Patient Seen: 05/09/21 Time Patient Seen: 13:00 Interval history: Developed mild cough. Rising WBC and patient was started on antibiotics per tele-hazardous material technician recommendations for possible pneumonia. Na is appropriately improving. Exam Vital Signs (past 8 hours): - 05/09/21 08:07 Temperature 98.4 F Pulse Rate 82 Respiratory Rate 18 Blood Pressure 114/59 L Pulse Oximetry 99 Oxygen Delivery Method High Flow Nasal Cannula Oxygen Flow Rate 4 Narrative Exam Narrative: General:? Patient is well developed and well nourished, in no distress at this time. HEENT:? Normocephalic, atraumatic, extraocular muscles intact, oral pharynx is clear and mucous membranes are dry. Neck: supple and symmetric, trachea is midline, no cervical adenopathy. Negative for JVD Chest:? Normal AP diameter and contour without kyphoscoliosis, no tachypnea, equal chest rise bilaterally. Lungs:? CTA b/l no wheezing rhonchi or rales. Cardio:?RRR no m/r/g. Abdomen: S NT ND. No CVA tenderness. Musculoskeletal:? Muscle strength and tone are equal within normal limits, no deformity. Extremities: no edema. No joint effusions. No cyanosis or clubbing. Skin:? Pale,? Warm to touch,dry and intact without rashes, ulcerations or petechiae.? Neuro:? Alert and orientated x3, sensation to touch intact in all extremities, no gross deficits noted of cranial nerves. Psych:? Patient has a well-kept appearance, appropriate affect, mental status attitude thought context and judgment are appropriate for age. Objective Labs Result Diagrams: 05/09/21 05:00 05/09/21 14:00 Labs: Laboratory Results - last 24 hr 05/07/21 05/07/21 05/08/21 16:10 17:38 17:30 WBC RBC Hgb Hct MCV MCH MCHC RDW Plt Count Neut % (Auto) Lymph % (Auto) [place] % (Auto) Eos % (Auto) Baso % (Auto) Neut # (Auto) Lymph # (Auto) [place] # (Auto) Eos # (Auto) Baso # (Auto) PT INR Sodium 113 L* Potassium 5.3 H Chloride 90 L Carbon Dioxide 18 L BUN 87 H Creatinine 2.10 H Estimated GFR 30.8 L BUN/Creatinine Ratio 41.4 H Glucose 140 H Serum Osmolality 275 L Calcium 8.7 Phosphorus Magnesium Total Bilirubin AST ALT Alkaline Phosphatase Total Protein Albumin Globulin Albumin/Globulin Ratio Procalcitonin Urine Osmolality 283 Nasal Screen MRSA (PCR) 05/08/21 05/09/21 05/09/21 21:00 05:00 05:00 WBC 18.9 H RBC 2.87 L Hgb 8.0 L Hct 25.0 L MCV 87.2 MCH 27.8 MCHC 31.9 RDW 19.6 H Plt Count 353 Neut % (Auto) 96.4 H Lymph % (Auto) 1.5 L [place] % (Auto) 1.6 L Eos % (Auto) 0.2 L Baso % (Auto) 0.3 Neut # (Auto) 13819 H Lymph # (Auto) 300 L [place] # (Auto) 300 Eos # (Auto) 0 Baso # (Auto) 100 PT INR Sodium 113 L* 116 L* Potassium 5.5 H 4.9 Chloride 90 L 93 L Carbon Dioxide 19 L 17 L BUN 86 H 82 H Creatinine 2.09 H 1.98 H Estimated GFR 30.9 L 32.9 L BUN/Creatinine Ratio 41.1 H 41.4 H Glucose 123 H 74 L Serum Osmolality Calcium 8.7 8.6 Phosphorus Magnesium Total Bilirubin 0.4 AST 23 ALT 11 Alkaline Phosphatase 54 Total Protein 5.3 L Albumin 2.5 L Globulin 2.8 Albumin/Globulin Ratio 0.9 L Procalcitonin Urine Osmolality Nasal Screen MRSA (PCR) 05/09/21 05/09/21 05/09/21 05:00 05:00 05:00 WBC RBC Hgb Hct MCV MCH MCHC RDW Plt Count Neut % (Auto) Lymph % (Auto) [place] % (Auto) Eos % (Auto) Baso % (Auto) Neut # (Auto) Lymph # (Auto) [place] # (Auto) Eos # (Auto) Baso # (Auto) PT INR Sodium Potassium Chloride Carbon Dioxide BUN Creatinine Estimated GFR BUN/Creatinine Ratio Glucose Serum Osmolality Calcium Phosphorus 3.6 Magnesium 1.5 L Total Bilirubin AST ALT Alkaline Phosphatase Total Protein Albumin Globulin Albumin/Globulin Ratio Procalcitonin 4.71 H Urine Osmolality Nasal Screen MRSA (PCR) 05/09/21 05/09/21 05/09/21 10:00 10:00 11:35 WBC RBC Hgb Hct MCV MCH MCHC RDW Plt Count Neut % (Auto) Lymph % (Auto) [place] % (Auto) Eos % (Auto) Baso % (Auto) Neut # (Auto) Lymph # (Auto) [place] # (Auto) Eos # (Auto) Baso # (Auto) PT 38.5 H INR 3.3 H Sodium 116 L* Potassium 5.0 Chloride 94 L Carbon Dioxide 19 L BUN 81 H Creatinine 1.91 H Estimated GFR 34.3 L BUN/Creatinine Ratio 42.4 H Glucose 70 L Serum Osmolality Calcium 8.6 Phosphorus Magnesium Total Bilirubin AST ALT Alkaline Phosphatase Total Protein Albumin Globulin Albumin/Globulin Ratio Procalcitonin Urine Osmolality Nasal Screen MRSA (PCR) Negative for mrsa 05/09/21 14:00 WBC RBC Hgb Hct MCV MCH MCHC RDW Plt Count Neut % (Auto) Lymph % (Auto) [place] % (Auto) Eos % (Auto) Baso % (Auto) Neut # (Auto) Lymph # (Auto) [place] # (Auto) Eos # (Auto) Baso # (Auto) PT INR Sodium 117 L* Potassium 5.3 H Chloride 94 L Carbon Dioxide 19 L BUN 78 H Creatinine 1.92 H Estimated GFR 34.1 L BUN/Creatinine Ratio 40.6 H Glucose 145 H Serum Osmolality Calcium 8.8 Phosphorus Magnesium Total Bilirubin AST ALT Alkaline Phosphatase Total Protein Albumin Globulin Albumin/Globulin Ratio Procalcitonin Urine Osmolality Nasal Screen MRSA (PCR) [facility] Medical History (Updated 05/08/21 @ 12:10 by George Magallanes DO) Anemia Atrial fibrillation (~2018) Borderline hypothyroidism Cataracts, bilateral (~2013) Cellulitis Chronic wound of extremity Diabetes Gout (~1966) Hypertension Iron deficiency anemia Kidney disease (~2004) Low back pain Measles (~194) Mumps (~194) Skin tear of right upper arm without complication Sleep apnea (~2011) Stroke (~2004) Surgical History Anesthesia History of total right knee replacement (TKR) Kidney transplant recipient (~2017) Family History Father Stroke Mother History of heart disease Sister Cancer Grandfather History of heart disease Grandmother History of heart disease Social History household members: spouse Smoking Status: Never smoker alcohol intake: current Assessment & Plan Assessment & Plan narrative: Mr. Obregon is a 76M with [facility] renal transplant five years ago, CKD stage 2-3, DM, HTN, HL, CVA, afib, recent COVID admission with acute respiratory failure (discharged on home O2) who presents to the emergency room, referred by his primary care provider for abnormal labs and a low sodium level. 1. Hyponatremia, present on admission ?- Na 110 on ER labs. Urine sodium is less than 5 indicative of hypovolemia as is consistent with his subjective history. ?-initially on 3%, now on NS at 100 cc per hour. ?-continue slow correction, still 117, if >120 can change to floor care. ?- continue ICU for frequent lab draws and monitoring. - UA unremarkable. Ph 5.0. 2. 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 With non-anion gap metabolic acidosis. -s/p transplant 5 years ago per patient -continue home transplant medications in setting of true hypovolemia -creatinine 2.34 slowly improving today down to 2.2 -continue management as above in problem #1 for now. -Dr. Rose (patient's neprhologist at [facility]) recommended Tacrolimus level if patient stays beyond a few days. Trough recommended level between 5-8. last dose at 10:05 will order trough at 10 pm tonight. 3. Atrial fibrillation on coumadin -continue metoprolol -hold coumadin today again, h/h very slightly lower and INR is 3.3. Plan to resume tomorrow if no overt bleeding and h/h stable. -check INR daily 4. Chronic anemia -no evidence of blood loss per history, slight decrease from last admission. -continue to follow h/h. 5. myocardial injury -patient denies chest pain -likely secondary to SCAR and dehdration -troponin 0.068 improved on repeat draw, no chest pain or ischemic changes. 7. Type 2 Diabetes -hold oral glycemic regimen -start insulin sliding scale 8. Hypertension -hold lisinopril for now given SCAR 9. history of CVA -continue aspirin 10. Gout, chronic -hold home meds for now 11. Aortic stenosis -noted to have ECHO from 02/19 with mild to moderate aortic stenosis -careful with sudden fluid shifts 12. Positive COVID status ?- prior COVID infection, had acute respiratory failure. In the ER was 95% on room air, has been on 3 L at home. Continue to monitor. No need for therapy at this time. 13. Leukocytosis - started on antibiotics per tele-hazardous material technician. Will continue, follow up any cultures. CODE: Full Proxy: Kay Obregon, Dispo: admitted to ICU for frequent lab draws and monitoring in setting of severe hyponatremia. If Na >120 can be regular floor. Will take some time to raise his sodium to a normal level. I spent 30 minutes providing critical care management this patient. This excludes time spent in performing separately billed procedures. Time Spent With Patient Critical Care time: I spent a total of [] minutes of critical care time on this patient's care today; this time is exclusive of procedural time. Quality VTE Deep Vein Thrombosis/Pulmonary Embolism Present on Admission: No
[2021-05-09] MEDS: INSULIN LISPRO 100 UNIT/ML 3ML VIAL SUBCUT (18:29)
[2021-05-09 19:16] LABS: BUN Creatinine Ratio 41.6 (6-22); Blood Urea Nitrogen 77 mg/dL (9-20); Calcium 8.7 mg/dL (8.4-10.2); Carbon Dioxide 17 mmol/L (22-32); Chloride 95 mmol/L (98-107); Estimated Glomerular Filt Rate 35.6 mL/min (>60); Glucose 175 mg/dL (80-110); HEMOLYSIS 16 (0-50)
[2021-05-09 19:18] LABS: Potassium 5.5 mmol/L (3.4-5.1)
[2021-05-09 19:19] LABS: Sodium 117 mmol/L (137-145)
[2021-05-09] MEDS: diphenhydrAMINE 25 MG TABLET 50 MG PO (21:36)
[2021-05-09] MEDS: TERAZOSIN 2 MG 2 EACH PO (21:37)
[2021-05-09 22:26] LABS: BUN Creatinine Ratio 43.9 (6-22); Blood Urea Nitrogen 79 mg/dL (9-20); Calcium 8.7 mg/dL (8.4-10.2); Carbon Dioxide 17 mmol/L (22-32); Chloride 95 mmol/L (98-107); Estimated Glomerular Filt Rate 36.8 mL/min (>60); Glucose 155 mg/dL (80-110); HEMOLYSIS 19 (0-50); Potassium 5.3 mmol/L (3.4-5.1)
[2021-05-09 22:29] LABS: Sodium 116 mmol/L (137-145)
--- NOTE | 2021-05-09 23:59 | P.ICUMDRN_ITS ---
- :: This patient was seen in the Intensive Care Unit via real time interactive two- way audiovisual telecommunication. Note: 76 y.o. male w/ PMHx of renal transplant 5 years ago, CKD2-3, T2DM, HTN, ? hypothyroidism, CVA, mild-moderate aortic stenosis, AF on warfarin, HLD and recent COVID-19 hospitalization with discharge on home O2 admitted with Na+ of 112 which appears to be hypovolemic hypoNa+. Na+ has been slowly increasing, although last value is down to 116 from 117. Have increased NS to 125 mL/hr. Continue remainder of mgmt as per bedside team.
[2021-05-10] VITALS (28 sets, daily range): BP systolic 109–120; BP diastolic 56–68; PULSE 67–87; RESP 17–19; TEMP 36.3–36.8; O2SAT 92–98
[2021-05-10] MEDS: DEXTROSE 5% IV ×3 (01:39→17:50)
[2021-05-10] MEDS: AZTREONAM IV ×3 (01:39→17:50)
[2021-05-10] MEDS: SODIUM CHLORIDE 0.9% 1,000 ML 125 ML IV ×3 (01:39→21:29)
[2021-05-10] MEDS: WATER IV ×3 (01:39→17:50)
[2021-05-10 05:02] LABS: INR 3.3 (0.9-1.3); Prothrombin Time 38.5 SECONDS (10.1-12.7)
[2021-05-10 05:06] LABS: BUN Creatinine Ratio 41.5 (6-22); Blood Urea Nitrogen 76 mg/dL (9-20); Calcium 8.6 mg/dL (8.4-10.2); Carbon Dioxide 18 mmol/L (22-32); Chloride 97 mmol/L (98-107); Estimated Glomerular Filt Rate 36.1 mL/min (>60); Glucose 123 mg/dL (80-110); HEMOLYSIS < 15 (0-50)
[2021-05-10 05:10] LABS: Sodium 118 mmol/L (137-145)
[2021-05-10 06:43] LABS: Tacrolimus 17.8 ng/mL (2.0-20.0)
--- NOTE | 2021-05-10 07:32 | PC.NURSE ---
Shift Note: Patient was alert and oriented to person and place. Afebrile, vital signs within acceptable limits. O2 support by nasal cannula at 2lpm, maintaining O2 sat >90%. Patient denies any pain/discomfort. Latest Na - 118. Will continue to monitor.
[2021-05-10] MEDS: MYCOPHENOLATE 360 MG 720 EACH PO ×2 (08:48→21:28)
[2021-05-10] MEDS: predniSONE 5 MG TABLET PO (08:48)
[2021-05-10] MEDS: TACROLIMUS 0.5 MG CAPSULE 2 MG PO ×2 (08:48→21:28)
[2021-05-10] MEDS: METOPROLOL ER 25 MG TABLET PO (08:49)
[2021-05-10] MEDS: AMLODIPINE 5 MG TABLET PO (08:49)
--- NOTE | 2021-05-10 09:45 | PM.PN.EICU ---
Subjective Subjective :: This patient was seen in the Intensive Care Unit via real time interactive two-way audiovisual telecommunication. no acute events overnight Current Medications Current Medications Medications: Home Medications mycophenolate sodium 180 mg tablet,delayed release 720 mg PO BID 08/29/17 [History Confirmed 05/07/21] niacinamide 500 mg tablet 250 mg PO DAILY 08/29/17 [History Confirmed 05/07/21] aspirin 81 mg tablet,delayed release 81 mg PO DAILY 04/12/19 [History Confirmed 05/07/21] ergocalciferol (vitamin D2) 1,250 mcg (50,000 unit) capsule (Vitamin D2) 50,000 unit PO WEEKLY 04/12/19 [History Confirmed 05/07/21] metoprolol succinate 50 mg tablet,extended release 24 hr 25 mg PO DAILY 04/12/19 [History Confirmed 05/07/21] terazosin 2 mg capsule 4 mg PO QPM 04/12/19 [History Confirmed 05/07/21] warfarin 5 mg tablet See Rx Instructions .ROUTE .COMPLEX #90 tab 08/06/20 [Rx Confirmed 05/07/21] colchicine 0.6 mg tablet 0.6 mg PO BID PRN #10 tab 08/10/20 [Rx Confirmed 05/07/21] pioglitazone 30 mg tablet 30 mg PO DAILY #90 tab 11/28/20 [Rx Confirmed 05/07/21] allopurinol 300 mg tablet 300 mg PO DAILY #90 tab 01/22/21 [Rx Confirmed 05/07/21] atorvastatin 10 mg tablet 20 mg PO BEDTIME 04/21/21 [History Confirmed 05/07/21] metformin 850 mg tablet 850 mg PO DAILY 04/21/21 [History Confirmed 05/07/21] tacrolimus 1 mg capsule, immediate-release 2 mg PO BID 04/22/21 [History Confirmed 05/07/21] amlodipine 2.5 mg tablet 5 mg PO DAILY 05/07/21 [History Confirmed 05/07/21] epinephrine 0.3 mg/0.3 mL injection, auto-injector (EpiPen 2-Dm) 0.3 mg IM ONCE PRN 05/07/21 [History Confirmed 05/07/21] lisinopril 2.5 mg tablet 2.5 mg PO DAILY 05/07/21 [History Confirmed 05/07/21] prednisone 5 mg tablet 5 mg PO DAILY 05/08/21 [History Confirmed 05/08/21] Visit Medications (administered) Generic Name Dose Route Start Last Admin Trade Name Lizzy CLARK Reason Stop Dose Admin Amlodipine Besylate 5 mg 05/08/21 09:00 05/10/21 08:49 Amlodipine 5 Mg Tablet PO 5 mg DAILY GENTRY Administration Diphenhydramine HCl 50 mg 05/09/21 21:00 05/09/21 21:36 Diphenhydramine 25 Mg Tablet PO 50 mg BEDTIME GENTRY Administration Sodium Chloride 1,000 mls @ 125 mls/hr 05/07/21 22:45 05/10/21 09:07 Normal Saline 0.9% IV 125 mls/hr CONT GENTRY Administration Aztreonam 2 gm/ Dextrose 50 mls @ 100 mls/hr 05/09/21 10:00 05/10/21 09:04 IV 100 mls/hr Q8H GENTRY Administration Insulin Human Lispro 0 unit 05/08/21 07:45 05/10/21 08:46 Insulin Lispro 100 Unit/Ml 3ml Vial SUBCUT Not Given ACHS [facility] Protocol Metoprolol Succinate 25 mg 05/08/21 09:00 05/10/21 08:49 Metoprolol Er 25 Mg Tablet PO 25 mg DAILY GENTRY Administration Mycophenolate 360 Mg 720 mg 05/07/21 21:00 05/10/21 08:48 Tablet,Delayed PO 720 mg Release (Dr/Ec) BID GENTRY Administration Niacinamide 500 Mg 500 mg 05/08/21 11:45 05/10/21 08:48 Tablet PO 500 mg DAILY GENTRY Administration Terazosin 2mg 2 each 05/09/21 21:00 05/09/21 21:37 PO 2 each BEDTIME GENTRY Administration Prednisone 5 mg 05/08/21 09:00 05/10/21 08:48 Prednisone 5 Mg Tablet PO 5 mg DAILY GENTRY Administration Tacrolimus 2 mg 05/07/21 21:00 05/10/21 08:48 Tacrolimus 0.5 Mg Capsule PO 2 mg BID GENTRY Administration Objective Labs Result Diagrams: 05/09/21 05:00 05/10/21 04:45 Labs: Laboratory Results - last 24 hr 05/08/21 05/09/21 05/09/21 21:00 05:00 10:00 PT INR Sodium 116 L* Potassium 5.0 Chloride 94 L Carbon Dioxide 19 L BUN 81 H Creatinine 1.91 H Estimated GFR 34.3 L BUN/Creatinine Ratio 42.4 H Glucose 70 L Calcium 8.6 Procalcitonin 4.71 H Nasal Screen MRSA (PCR) Tacrolimus 17.8 05/09/21 05/09/21 05/09/21 10:00 11:35 14:00 PT 38.5 H INR 3.3 H Sodium 117 L* Potassium 5.3 H Chloride 94 L Carbon Dioxide 19 L BUN 78 H Creatinine 1.92 H Estimated GFR 34.1 L BUN/Creatinine Ratio 40.6 H Glucose 145 H Calcium 8.8 Procalcitonin Nasal Screen MRSA (PCR) Negative for mrsa Tacrolimus 05/09/21 05/09/21 05/10/21 18:30 21:45 04:45 PT 38.5 H INR 3.3 H Sodium 117 L* 116 L* Potassium 5.5 H 5.3 H Chloride 95 L 95 L Carbon Dioxide 17 L 17 L BUN 77 H 79 H Creatinine 1.85 H 1.80 H Estimated GFR 35.6 L 36.8 L BUN/Creatinine Ratio 41.6 H 43.9 H Glucose 175 H 155 H Calcium 8.7 8.7 Procalcitonin Nasal Screen MRSA (PCR) Tacrolimus 05/10/21 04:45 PT INR Sodium 118 L* Potassium 5.0 Chloride 97 L Carbon Dioxide 18 L BUN 76 H Creatinine 1.83 H Estimated GFR 36.1 L BUN/Creatinine Ratio 41.5 H Glucose 123 H Calcium 8.6 Procalcitonin Nasal Screen MRSA (PCR) Tacrolimus Exam Vital Signs (past 8 hours): - 05/10/21 08:00 Temperature 97.6 F Pulse Rate 79 Respiratory Rate 17 Blood Pressure 109/56 L Pulse Oximetry 95 Oxygen Delivery Method Nasal Cannula Oxygen Flow Rate 1 Quality TeleICU VTE Deep Vein Thrombosis/Pulmonary Embolism Present on Admission: No Assessment & Plan Assessment & Plan narrative: patient seen and examined on MTD rounds with bedside provider and nurse chart/labs/imaging reviewed currently afebrile, mental status intact plan -sodium 118 in this am, can dc ivf and do diet as tolerated -check bmp q12 -continue to keep [id number] -replace lytes erica/phos prn -abx for now, if cxs -ve can dc -home xplant meds. touch base with xplan team for update/chnages -continue to hold coumain, inr still elevated -keep glucose 140-180s -gi/dvt ppx -call eICU if condition changes Time Spent With Patient Critical Care time: I spent a total of [] minutes of critical care time on this patient's care today; this time is exclusive of procedural time.
--- NOTE | 2021-05-10 11:30 | PT.IIE ---
Current Diagnoses Hypothyroidism, unspecified (05/07/21) Dehydration (05/07/21) Hypo-osmolality and hyponatremia (05/07/21) Chronic atrial fibrillation, unspecified (05/07/21) Acute kidney failure, unspecified (05/07/21) Chronic kidney disease, unspecified (05/07/21) Personal history of COVID-19 (05/07/21) Kidney transplant status (05/07/21) Surgical History (Last Reviewed 05/08/21 @ 12:07 by George Magallanes DO) Anesthesia Medical History (Last Updated 05/08/21 @ 12:10 by George Magallanes DO) Anemia Atrial fibrillation (~2018) Borderline hypothyroidism Cataracts, bilateral (~2013) Cellulitis Chronic wound of extremity Diabetes Gout (~1966) Hypertension Iron deficiency anemia Kidney disease (~2004) Low back pain Measles (~1948) Mumps (~1948) Skin tear of right upper arm without complication Sleep apnea (~2011) Stroke (~2004) Physical Therapy Inpatient Evaluation/Re-Eval M1 PT/OT-IP Prior Functional Status Start: 05/10/21 13:16 Freq: NEEDED Status: Active Protocol: Document 05/10/21 11:30 AB (Rec: 05/10/21 13:31 AB [id number]) Medical Review Prior Functional Status Medical History Reviewed Yes Communication able to make needs known Mobility and Gait pt tated that he is independent with all mobilities and ambulation without AD but has been using a FWW for the last 2 weeks due to weakness Social History Household Members spouse Living Arrangements House Number of Floors (Floors) Two Floors Number of Stairs To Enter/Railing? 2 platform steps to enter the house 18 steps B rails to get to bedroom level Home Environment Standard Height Toilet,Walk in Shower Home Equipment Front Wheel Walker,Shower Seat with Backrest,Hand Held Shower,Grab Bars In Shower M2 PT-IP Current Condition Start: 05/10/21 13:16 Freq: NEEDED Status: Active Protocol: Document 05/10/21 11:30 AB (Rec: 05/10/21 13:31 AB [email or web address]) Physical Therapy Current Condition Current Condition Evaluation Date 05/10/21 Treatment Diagnosis Covid +; hyponatremia; difficulty in walking Onset Date 05/07/21 M3 PT-IP Subjective Start: 05/10/21 13:16 Freq: NEEDED Status: Active Protocol: Document 05/10/21 11:30 AB (Rec: 05/10/21 13:31 AB [email or web address]) Subjective Physical Therapy Visit Type Type Initial Evaluation Visit Start Time 11:30 Visit Stop Time 12:05 Total Visit Minutes 35 Number of POURER BUGGY LADLE Visits 0 Physical Therapy Visit Comments Patient Comments agreeable to do PT Therapy Pain Assessment Pain When Pain Assessed At Rest Pain Present Pain Present Pain Reported Location Left Posterior Hip Intensity 10 Scale Used Numeric (0 - 10) Pain Management Techniques Distraction,Re-positioning M4 PT-IP Mobility and Gait Start: 05/10/21 13:16 Freq: NEEDED Status: Active Protocol: Document 05/10/21 11:30 AB (Rec: 05/10/21 13:31 AB [email or web address]) PT-Bed Mobility Assessment Supine to Sit Supine to Sit Maximum Assistance,1 Person Assistance,Head of Bed Elevated,Bedrails PT-Transfer Assessment Sit to and From Stand Sit to and from Stand Moderate Assistance,Maximum Assistance,1 Person Assistance ,Use of Upper Extremities Equipment Transfer Assistive Device Gait Belt,Front Wheeled Walker Orthotic/Prosthetic Devices or Brace: No Transfers Transfer Destination Chair Transfer Technique ambulated Transfer Ability Level of Assist Minimal Assistance,Moderate Assistance,1 Person Assistance ,Use of Upper Extremities Comments Mobility Comments pt c/o L posterior hip pain of 10/10. No swelling noted and pain did not increase with palpation or ROM. Pt was able to stand and ambulate and stated that pain is better when he stood up and walk but once sitted on chair, stated pain is back. nurse is aware. pt completed supine to sit max A and max cues with HOB elevated and pt used bed rail to assist. pt was able to sit on EOB CGA. pt requested to use the urinal. completed sit to stand mod to max A and cues . pt was able to maintain standing mod A while using urinal. pt agreed to ambulate and completed ~ 8 ft of ambulation in room using FWW mod to max A and max cues. presents with (+) LE shaking and unsteadiness with wide RADHA. pt agreed to sit up on chair. positioned on chair. call light and table placed within reach. Gait Assessment Gait Gait Assistance Required: Moderate Assistance,Maximum Assistance,1 Person Assist Distance (Feet) 8 Able to Maintain Weight Bearing Status Yes During Gait Assistive Devices Assistive Device Gait Belt,Front Wheeled Walker Orthotic/Prosthetic Devices or Brace: No Gait Deviations General Gait Pattern Ataxic,Decreased Stride Length ,Decreased Feet Clearance,Wide Based Gait Factors Limiting Gait Function Factors Limiting Gait Function Decreased Activity Tolerance, Decreased Strength,Limited Range of Motion,Pain,Poor Balance,Poor Safety Awareness PT-Balance Assessment Sitting Balance and Reactions Static Sitting Balance Ability Good Dynamic Sitting Balance Ability Good Standing Balance and Reactions Static Standing Balance Ability Fair Dynamic Standing Balance Ability Poor Device Used FWW M5 PT-IP Objective Assessments Start: 05/10/21 13:16 Freq: NEEDED Status: Active Protocol: Document 05/10/21 11:30 AB (Rec: 05/10/21 13:31 AB [email or web address]) Orientation Orientation/Cognition Level of Alertness Alert Orientation Name,Place,Situation Safety Awareness Decreased Safety Awareness Gross Range of Motion Lower Extremity ROM Assessment Within Functional Limits Strength Lower Extremity Strength Assessment Left Impaired Hip 3+/5 Knee 3+/5 Comments Strength Comments Pt stated that LLE is weaker due to previous CVA ~ 16 years ago Muscle Tone Muscle Tone WNL Yes M6 PT-IP Treatment Start: 05/10/21 13:16 Freq: NEEDED Status: Active Protocol: Document 05/10/21 11:30 AB (Rec: 05/10/21 13:31 AB [email or web address]) Physical Therapy Treatment Education Education Provided Safety M7 PT-IP Assessment and Plan Start: 05/10/21 13:16 Freq: NEEDED Status: Active Protocol: Document 05/10/21 11:30 AB (Rec: 05/10/21 13:31 AB [email or web address]) PT Summary Assessment and Plan Potential Rehabilitation Potential Fair Status of Condition at Evaluation Evolving Summary Impairments Pain,ROM,Strength,Balance, Coordination,Sensation,Tone, Cognition,Bed Mobility, Transfers,Gait,Activity Tolerance Assessment Summary pt admitted with Covid + and has hyponatremia and continues to have low sodium level. requires mod to max A with mobility and has decrease activity tolerance affecting independence. will continue to assess progress, but at this time, pt will require SNF rehab. Goals Bed Mobility Goal Standby Assistance Transfer Goal Standby Assistance,Front Wheeled Walker Gait Goal Standby Assistance,Front Wheel Walker Gait Distance 150 Other Goals up/down 2 platform step using FWW SBA up/down 18 steps B rails SBA Days to Meet Goals 10 Frequency of Treatment Frequency Of Treatment Once a Day Treatment Plan Physical Therapy Treatment Plan Bed Mobility Training,Transfer Training,Gait Training, Therapeutic Exercise,Balance Retraining,Discharge Planning, Hot or Cold Pack,Neuromuscular Re-ed,Coordination Retraining Precautions Other Precautions Covid precautions Recommendations To Nursing Amount of Assist Needed 1 Person Assist Discharge Recommendations PT Discharge Recommendations SNF Rehab Transportation Needs at Discharge Wheelchair/Cabulance
[2021-05-10] MEDS: ACETAMINOPHEN 325 MG TABLET 975 MG PO (12:03)
[2021-05-10] MEDS: INSULIN LISPRO 100 UNIT/ML 3ML VIAL SUBCUT ×2 (12:08→17:51)
--- NOTE | 2021-05-10 13:25 | PM.PN.1 ---
Subjective Subjective Date Patient Seen: 05/10/21 Time Patient Seen: 13:25 Interval history: Patient denies any complaints today. Sodium is correcting slowly, creatinine slowly improving. Will keep on NS for now given steady improvement. Recommended for downgrade after discussion with tele-baseball sewer hand this morning. Exam Vital Signs (past 8 hours): - 05/10/21 08:00 05/10/21 12:32 Temperature 97.6 F 97.4 F L Pulse Rate 79 67 Respiratory Rate 17 18 Blood Pressure 109/56 L 120/59 L Pulse Oximetry 95 95 Oxygen Delivery Method High Flow Nasal Cannula Oxygen Flow Rate 0 Narrative Exam Narrative: General:? Patient is well developed and well nourished, in no distress at this time. HEENT:? Normocephalic, atraumatic, extraocular muscles intact, oral pharynx is clear and mucous membranes are dry. Neck: supple and symmetric, trachea is midline, no cervical adenopathy. Negative for JVD Chest:? Normal AP diameter and contour without kyphoscoliosis, no tachypnea, equal chest rise bilaterally. Lungs:? CTA b/l no wheezing rhonchi or rales. Cardio:?RRR no m/r/g. Abdomen: S NT ND. No CVA tenderness. Musculoskeletal:? Muscle strength and tone are equal within normal limits, no deformity. Extremities: no edema. No joint effusions. No cyanosis or clubbing. Skin:? Pale,? Warm to touch,dry and intact without rashes, ulcerations or petechiae.? Neuro:? Alert and orientated x3, sensation to touch intact in all extremities, no gross deficits noted of cranial nerves. Psych:? Patient has a well-kept appearance, appropriate affect, mental status attitude thought context and judgment are appropriate for age. Objective Labs Result Diagrams: 05/09/21 05:00 05/10/21 04:45 Labs: Laboratory Results - last 24 hr 05/08/21 05/09/21 05/09/21 21:00 14:00 18:30 PT INR Sodium 117 L* 117 L* Potassium 5.3 H 5.5 H Chloride 94 L 95 L Carbon Dioxide 19 L 17 L BUN 78 H 77 H Creatinine 1.92 H 1.85 H Estimated GFR 34.1 L 35.6 L BUN/Creatinine Ratio 40.6 H 41.6 H Glucose 145 H 175 H Calcium 8.8 8.7 Tacrolimus 17.8 05/09/21 05/10/21 05/10/21 21:45 04:45 04:45 PT 38.5 H INR 3.3 H Sodium 116 L* 118 L* Potassium 5.3 H 5.0 Chloride 95 L 97 L Carbon Dioxide 17 L 18 L BUN 79 H 76 H Creatinine 1.80 H 1.83 H Estimated GFR 36.8 L 36.1 L BUN/Creatinine Ratio 43.9 H 41.5 H Glucose 155 H 123 H Calcium 8.7 8.6 Tacrolimus [facility] Medical History (Updated 05/08/21 @ 12:10 by George Magallanes DO) Anemia Atrial fibrillation (~2018) Borderline hypothyroidism Cataracts, bilateral (~2013) Cellulitis Chronic wound of extremity Diabetes Gout (~1966) Hypertension Iron deficiency anemia Kidney disease (~2004) Low back pain Measles (~1948) Mumps (~1948) Skin tear of right upper arm without complication Sleep apnea (~2011) Stroke (~2004) Surgical History Anesthesia History of total right knee replacement (TKR) Kidney transplant recipient (~2016) Family History Father Stroke Mother History of heart disease Sister Cancer Grandfather History of heart disease Grandmother History of heart disease Social History household members: spouse Smoking Status: Never smoker alcohol intake: current Assessment & Plan Assessment & Plan narrative: Mr. Obregon is a 76M with [facility] renal transplant five years ago, CKD stage 2-3, DM, HTN, HL, CVA, afib, recent COVID admission with acute respiratory failure (discharged on home O2) who presents to the emergency room, referred by his primary care provider for abnormal labs and a low sodium level. 1. Hyponatremia, present on admission ?- Na 110 on ER labs. Urine sodium is less than 5 indicative of hypovolemia as is consistent with his subjective history. ?-initially on 3%, now on normal saline with slow improvement. ?-continue slow correction, now to 118, downgraded to acute care status today. continue labs q6hr - UA unremarkable. Ph 5.0. 2. 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 With non-anion gap metabolic acidosis. -s/p transplant 5 years ago per patient -continue home transplant medications in setting of true hypovolemia -creatinine 2.34 slowly improving today down to 1.8 -continue management as above in problem #1 for now. -Dr. Rose (patient's neprhologist at [facility]) recommended Tacrolimus level if patient stays beyond a few days. Trough recommended level between 5-8. draw was incorrectly timed again as medication received prior to drawing the lab. Consider repeating tomorrow AM. 3. Atrial fibrillation on coumadin -continue metoprolol -hold coumadin today again, h/h stable but INR is 3.3. Plan to resume when INR between 2-3. -check INR daily 4. Chronic anemia -no evidence of blood loss per history, slight decrease from last admission. -continue to follow h/h. 5. myocardial injury -patient denies chest pain -likely secondary to SCAR and dehdration -troponin 0.068 improved on repeat draw, no chest pain or ischemic changes. 7. Type 2 Diabetes -hold oral glycemic regimen -start insulin sliding scale 8. Hypertension -hold lisinopril for now given SCAR 9. history of CVA -continue aspirin 10. Gout, chronic -hold home meds for now 11. Aortic stenosis -noted to have ECHO from 02/19 with mild to moderate aortic stenosis -careful with sudden fluid shifts 12. Positive COVID status ?- prior COVID infection, had acute respiratory failure. In the ER was 95% on room air, has been on 3 L at home. Continue to monitor. No need for therapy at this time. 13. Leukocytosis ?- started on antibiotics per tele-baseball sewer hand. no growth with cultures so far. CODE: Full Proxy: Kay Obregon, Dispo: admitted to ICU for frequent lab draws and monitoring in setting of severe hyponatremia. stable for acute care after discussion with tele-baseball sewer hand today. I spent 30 minutes providing critical care management this patient.? This excludes time spent in performing separately billed procedures. Time Spent With Patient Critical Care time: I spent a total of [] minutes of critical care time on this patient's care today; this time is exclusive of procedural time. Quality VTE Deep Vein Thrombosis/Pulmonary Embolism Present on Admission: No
[2021-05-10 14:37] LABS: Blood Urea Nitrogen 75 mg/dL (9-20); Calcium 8.9 mg/dL (8.4-10.2); Carbon Dioxide 16 mmol/L (22-32); Chloride 97 mmol/L (98-107); Estimated Glomerular Filt Rate 36.1 mL/min (>60); Glucose 145 mg/dL (80-110); HEMOLYSIS < 15 (0-50); Potassium 5.3 mmol/L (3.4-5.1); Sodium 119 mmol/L (137-145)
--- NOTE | 2021-05-10 14:38 | PC.NURSE ---
At 14:00, I received a call from the patients asking for the RN, I told her that the RN was in another patients room, and asked if I could help her. The patients then told me that her told her that we kept telling him the kitchen was closed and that we were not giving him anything to eat The patients asked me in a very terse tone to meet her at the main nursing desk. I went over to meet her and she asked me to give him a insulated bag with a hamburger and some fruit. I told her I would and that her HAD been receiving meals. She thanked me and left. I brought the patient his food and noticed that his lunch tray was untouched. I asked him if he was done with it and he indicated that he was. I removed the tray and left the room. At 14:20, the patients call light went off. I went in to transfer him from the chair back to bed and noticed that he was stuffing the uneaten food into a plastic bag. I asked him why he was throwing away the food his had just brought him and he replied that it was cold and I don't want it
[2021-05-10 17:50] LABS: BUN Creatinine Ratio 43.4 (6-22); Blood Urea Nitrogen 76 mg/dL (9-20); Calcium 8.7 mg/dL (8.4-10.2); Carbon Dioxide 18 mmol/L (22-32); Chloride 100 mmol/L (98-107); Glucose 125 mg/dL (80-110); HEMOLYSIS < 15 (0-50); Potassium 5.3 mmol/L (3.4-5.1); Sodium 120 mmol/L (137-145)
[2021-05-10] MEDS: TERAZOSIN 2 MG 2 EACH PO (21:27)
[2021-05-10] MEDS: diphenhydrAMINE 25 MG TABLET 50 MG PO (21:27)
[2021-05-10] MEDS: ATORVASTATIN 20 MG TABLET PO (21:28)
[2021-05-10] MEDS: SENNOSIDES 8.6 MG TABLET 17.2 MG PO (21:28)
[2021-05-11] MEDS: WATER IV ×2 (01:47→09:03)
[2021-05-11] MEDS: DEXTROSE 5% IV ×2 (01:47→09:03)
[2021-05-11] MEDS: AZTREONAM IV ×2 (01:47→09:03)
[2021-05-11] MEDS: ACETAMINOPHEN 325 MG TABLET 975 MG PO (02:11)
[2021-05-11 04:00] VITALS: BP 117/59; PULSE 75; RESP 18; TEMP 37.1; O2SAT 92
[2021-05-11] MEDS: SODIUM CHLORIDE 0.9% 1,000 ML 125 ML IV ×4 (04:17→21:43)
[2021-05-11 05:24] LABS: Hematocrit 23.6 % (41-53); Hemoglobin 7.5 g/dL (13.5-17.5); Mean Corpuscular Hemoglobin 28.4 PG (26-34); Platelet Count 316 X10^3/uL (150-400); Red Blood Cell Count 2.65 X10^6/uL (4.5-5.9); Red Cell Distribution Width 19.3 % (11.6-14.8); White Blood Cell Count 9.6 X10^3/uL (4.5-11.0)
[2021-05-11 05:30] LABS: Add Manual Diff / Slide Review YES
[2021-05-11 05:35] LABS: BUN Creatinine Ratio 41.9 (6-22); Blood Urea Nitrogen 70 mg/dL (9-20); Calcium 8.7 mg/dL (8.4-10.2); Carbon Dioxide 17 mmol/L (22-32); Chloride 102 mmol/L (98-107); Estimated Glomerular Filt Rate 40.1 mL/min (>60); Glucose 84 mg/dL (80-110); HEMOLYSIS < 15 (0-50); Sodium 122 mmol/L (137-145)
[2021-05-11 05:36] LABS: INR 3.5 (0.9-1.3); Prothrombin Time 40.8 SECONDS (10.1-12.7)
[2021-05-11 07:08] LABS: Burr Cells 3+; Neutrophils Absolute Manual 8928 /uL (3000-5900); Total Cells Counted 100
[2021-05-11 07:09] LABS: Anisocytosis 2+
[2021-05-11 08:00] VITALS: BP 115/67; PULSE 80; RESP 18; TEMP 36.7; O2SAT 97
--- NOTE | 2021-05-11 08:49 | PM.PN.1 ---
Subjective Subjective Date Patient Seen: 05/11/21 Interval history: He is seen today in his room to follow-up the anemia, severe hyponatremia and hypertension. All the sodium level is now 122, steadily rising. The creatinine is also steadily improving dropping from 1.75 down to 1.67. His hemoglobin is low at 7.5. His aztreonam will be stopped today. The a INR of 3.5 has not been dropping despite holding warfarin likely due to the aztreonam. Exam Vital Signs (past 8 hours): - 05/11/21 04:00 Temperature 98.8 F Pulse Rate 75 Respiratory Rate 18 Blood Pressure 117/59 L Pulse Oximetry 92 Oxygen Delivery Method High Flow Nasal Cannula Oxygen Flow Rate 0 Narrative Exam Narrative: He is alert and oriented x3. No apparent distress. Heart is regular rate and rhythm without murmur Lungs are clear to auscultation bilaterally Extremities have no ankle edema. Objective Labs Result Diagrams: 05/11/21 05:00 05/11/21 05:00 Labs: Laboratory Results - last 24 hr 05/10/21 05/10/21 05/11/21 12:05 17:20 05:00 WBC RBC Hgb Hct MCV MCH MCHC RDW Plt Count Neut % (Auto) Lymph % (Auto) [place] % (Auto) Eos % (Auto) Baso % (Auto) Lymph # (Auto) [place] # (Auto) Baso # (Auto) Total Counted Seg Neutrophils % Lymphocytes % (Manual) Monocytes % (Manual) Eosinophils % (Manual) Neutrophils # (Manual) RBC Morphology Anisocytosis Eun Cells PT 40.8 H INR 3.5 H Sodium 119 L* 120 L Potassium 5.3 H 5.3 H Chloride 97 L 100 Carbon Dioxide 16 L 18 L BUN 75 H 76 H Creatinine 1.83 H 1.75 H Estimated GFR 36.1 L 38.0 L BUN/Creatinine Ratio 41.0 H 43.4 H Glucose 145 H 125 H Calcium 8.9 8.7 05/11/21 05/11/21 05:00 05:00 WBC 9.6 RBC 2.65 L Hgb 7.5 L Hct 23.6 L MCV 89.0 MCH 28.4 MCHC 32.0 RDW 19.3 H Plt Count 316 Neut % (Auto) Not Reportable Lymph % (Auto) Not Reportable [place] % (Auto) Not Reportable Eos % (Auto) Not Reportable Baso % (Auto) Not Reportable Lymph # (Auto) Not Reportable [place] # (Auto) Not Reportable Baso # (Auto) Not Reportable Total Counted 100 Seg Neutrophils % 93.0 H Lymphocytes % (Manual) 3.0 L Monocytes % (Manual) 2.0 Eosinophils % (Manual) 2.0 Neutrophils # (Manual) 8928 H RBC Morphology Not Reportable Anisocytosis 2+ H Eun Cells 3+ H PT INR Sodium 122 L Potassium 5.0 Chloride 102 Carbon Dioxide 17 L BUN 70 H Creatinine 1.67 H Estimated GFR 40.1 L BUN/Creatinine Ratio 41.9 H Glucose 84 Calcium 8.7 [facility] Medical History (Updated 05/08/21 @ 12:10 by George Magallanes DO) Anemia Atrial fibrillation (~2018) Borderline hypothyroidism Cataracts, bilateral (~2013) Cellulitis Chronic wound of extremity Diabetes Gout (~1966) Hypertension Iron deficiency anemia Kidney disease (~2004) Low back pain Measles (~1948) Mumps (~1948) Skin tear of right upper arm without complication Sleep apnea (~2011) Stroke (~2004) Surgical History Anesthesia History of total right knee replacement (TKR) Kidney transplant recipient (~2016) Family History Father Stroke Mother History of heart disease Sister Cancer Grandfather History of heart disease Grandmother History of heart disease Social History household members: spouse Smoking Status: Never smoker alcohol intake: current Assessment & Plan Assessment & Plan narrative: Mr. Obregon is a 76M with [facility] renal transplant(from his ) five years ago, CKD stage 2-3, DM, HTN, HL, CVA, afib, recent COVID admission with acute respiratory failure (discharged on home O2) who presents to the emergency room, referred by his primary care provider for abnormal labs and a low sodium level. 1. Hyponatremia, present on admission ?- Na 110 on ER labs. Urine sodium is less than 5 indicative of hypovolemia as is consistent with his subjective history. ?-initially on 3%, now on normal saline with slow improvement. ?-continue slow correction, now to 122, continue daily monitoring - UA unremarkable. Ph 5.0. 2. 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 With non-anion gap metabolic acidosis. -s/p transplant 5 years ago per patient(his is the donor) -continue home transplant medications in setting of true hypovolemia -creatinine 2.34 slowly improving today down to 1.67 -Dr. Rose (patient's nephroloist at [facility]) recommended Tacrolimus level if patient stays beyond a few days. Trough recommended level between 5-8. Draw was incorrectly timed again as medication received prior to drawing the lab. 3. Atrial fibrillation on coumadin -continue metoprolol -hold coumadin today again, h/h stable but INR is 3.5. Plan to resume when INR between 2-3. -check INR daily 4. Chronic anemia -no evidence of blood loss per history, slight decrease from last admission. -continue to follow h/h. -Hgb 7.5 on 05/11 5. myocardial injury -patient denies chest pain -likely secondary to SCAR and dehdration -troponin 0.068 improved on repeat draw, no chest pain or ischemic changes. 7. Type 2 Diabetes -holding oral glycemic regimen -started insulin sliding scale 8. Hypertension -hold lisinopril for now given SCAR 9. history of CVA -continue aspirin 10. Gout, chronic -hold home meds for now 11. Aortic stenosis -noted to have ECHO from 02/19 with mild to moderate aortic stenosis -careful with sudden fluid shifts 12. Positive COVID status ?- prior COVID infection, had acute respiratory failure. In the ER was 95% on room air, has been on 3 L at home. Continue to monitor. No need for therapy at this time. 13. Leukocytosis ?- started on antibiotics per tele-heart specialist. no growth with cultures so far. - stopped Aztreonam on 05/11 CODE: Full Proxy: Kay Obregon, Time Spent With Patient Critical Care time: I spent a total of [] minutes of critical care time on this patient's care today; this time is exclusive of procedural time. Quality VTE Deep Vein Thrombosis/Pulmonary Embolism Present on Admission: No
[2021-05-11] MEDS: MYCOPHENOLATE 360 MG 720 EACH PO ×2 (08:54→21:36)
[2021-05-11] MEDS: TACROLIMUS 0.5 MG CAPSULE 2 MG PO ×2 (09:03→21:35)
[2021-05-11] MEDS: AMLODIPINE 5 MG TABLET PO (09:03)
[2021-05-11] MEDS: predniSONE 5 MG TABLET PO (09:03)
[2021-05-11] MEDS: METOPROLOL ER 25 MG TABLET PO (09:03)
[2021-05-11] MEDS: allopurinoL 300 MG TABLET PO (09:03)
[2021-05-11] MEDS: INSULIN LISPRO 100 UNIT/ML 3ML VIAL SUBCUT ×2 (12:49→17:36)
[2021-05-11 13:43] VITALS: BP 118/66; PULSE 78; RESP 16; TEMP 36.5; O2SAT 98
--- NOTE | 2021-05-11 16:05 | PT-IP ANOTE ---
Attempted to see pt at 16:05, pt refused therapy stating I really don't need it, my can help me.
[2021-05-11 20:00] VITALS: BP 124/65; PULSE 77; RESP 18; TEMP 36.9; O2SAT 95
[2021-05-11] MEDS: diphenhydrAMINE 25 MG TABLET 50 MG PO (21:35)
[2021-05-11] MEDS: SENNOSIDES 8.6 MG TABLET 17.2 MG PO (21:35)
[2021-05-11] MEDS: ATORVASTATIN 20 MG TABLET PO (21:35)
[2021-05-11] MEDS: TERAZOSIN 2 MG 2 EACH PO (21:37)
[2021-05-12] VITALS: BP 131/62; PULSE 82; RESP 19; TEMP 37.2; O2SAT 96
[2021-05-12] MEDS: ACETAMINOPHEN 325 MG TABLET 975 MG PO (00:14)
[2021-05-12 05:07] LABS: Add Manual Diff / Slide Review NO; Basophils Absolute Auto 0 /uL (0-100); Basophils Percent Auto 0.5 % (0-2); Eosinophils Absolute Auto 100 /uL (0-450); Eosinophils Percent Auto 0.7 % (2-4); Hematocrit 23.9 % (41-53); Hemoglobin 7.6 g/dL (13.5-17.5); Lymphocytes Absolute Auto 400 /uL (1100-4500); Lymphocytes Percent Auto 4.6 % (25-40); Mean Corpuscular HGB Conc 31.6 % (30-36); Mean Corpuscular Hemoglobin 28.4 PG (26-34); Mean Corpuscular Volume 89.7 fL (80-100); Monocytes Absolute Auto 500 /uL (0-900); Monocytes Percent Auto 5.3 % (3-14); Neutrophils Absolute Auto 7600 /uL (1500-7000); Neutrophils Percent Auto 88.9 % (50-75); Platelet Count 338 X10^3/uL (150-400); Red Blood Cell Count 2.67 X10^6/uL (4.5-5.9); Red Cell Distribution Width 19.8 % (11.6-14.8); White Blood Cell Count 8.5 X10^3/uL (4.5-11.0)
[2021-05-12 05:41] LABS: INR 3.2 (0.9-1.3); Prothrombin Time 36.7 SECONDS (10.1-12.7)
[2021-05-12 08:00] VITALS: BP 134/63; PULSE 78; RESP 16; TEMP 36.6; O2SAT 97
[2021-05-12 08:03] LABS: BUN Creatinine Ratio 37.9 (6-22); Blood Urea Nitrogen 64 mg/dL (9-20); Calcium 8.8 mg/dL (8.4-10.2); Carbon Dioxide 14 mmol/L (22-32); Chloride 106 mmol/L (98-107); Estimated Glomerular Filt Rate 39.5 mL/min (>60); Glucose 109 mg/dL (80-110); HEMOLYSIS < 15 (0-50); Sodium 127 mmol/L (137-145)
[2021-05-12] MEDS: MYCOPHENOLATE 360 MG 720 EACH PO ×2 (10:16→21:20)
[2021-05-12] MEDS: METOPROLOL ER 25 MG TABLET PO (10:17)
[2021-05-12] MEDS: allopurinoL 100 MG TABLET 200 MG PO (10:17)
[2021-05-12] MEDS: predniSONE 5 MG TABLET PO (10:17)
[2021-05-12] MEDS: TACROLIMUS 0.5 MG CAPSULE 2 MG PO ×2 (10:17→20:27)
[2021-05-12 12:00] VITALS: BP 126/66; PULSE 76; RESP 15; TEMP 37.1; O2SAT 96
[2021-05-12] MEDS: INSULIN LISPRO 100 UNIT/ML 3ML VIAL SUBCUT ×2 (12:20→17:38)
[2021-05-12 14:19] LABS: BUN Creatinine Ratio 37.1 (6-22); Blood Urea Nitrogen 62 mg/dL (9-20); Calcium 9.2 mg/dL (8.4-10.2); Carbon Dioxide 15 mmol/L (22-32); Chloride 107 mmol/L (98-107); Estimated Glomerular Filt Rate 40.1 mL/min (>60); Glucose 160 mg/dL (80-110); HEMOLYSIS < 15 (0-50); Potassium 5.1 mmol/L (3.4-5.1); Sodium 126 mmol/L (137-145)
--- NOTE | 2021-05-12 15:44 | P.PN_ITS ---
Subjective Subjective Date Patient Seen: 05/12/21 Time Patient Seen: 08:00 Interval history: This morning he was still on IV fluids. He was feeling improved. IV fluids was stopped. On repeat bmp sodium began decreasing now to to 126. Patient with not much appetite or thirst. Exam Vital Signs (past 8 hours): - 05/12/21 08:00 05/12/21 12:00 Temperature 97.8 F 98.7 F Pulse Rate 78 76 Respiratory Rate 16 15 Blood Pressure 134/63 126/66 Pulse Oximetry 97 96 Oxygen Delivery Method Room Air Oxygen Flow Rate 0 Narrative Exam Narrative: He is alert and oriented x3.? No apparent distress.? Heart is regular rate and rhythm without murmur Lungs are clear to auscultation bilaterally Extremities have no ankle edema.? Objective Labs Result Diagrams: 05/12/21 05:00 05/12/21 14:06 Labs: Laboratory Results - last 24 hr 05/12/21 05/12/21 05/12/21 05:00 05:00 05:25 WBC 8.5 RBC 2.67 L Hgb 7.6 L Hct 23.9 L MCV 89.7 MCH 28.4 MCHC 31.6 RDW 19.8 H Plt Count 338 Neut % (Auto) 88.9 H Lymph % (Auto) 4.6 L [place] % (Auto) 5.3 Eos % (Auto) 0.7 L Baso % (Auto) 0.5 Neut # (Auto) 7600 H Lymph # (Auto) 400 L [place] # (Auto) 500 Eos # (Auto) 100 Baso # (Auto) 0 PT 36.7 H INR 3.2 H Sodium 127 L Potassium 5.0 Chloride 106 Carbon Dioxide 14 L BUN 64 H Creatinine 1.69 H Estimated GFR 39.5 L BUN/Creatinine Ratio 37.9 H Glucose 109 Calcium 8.8 05/12/21 14:06 WBC RBC Hgb Hct MCV MCH MCHC RDW Plt Count Neut % (Auto) Lymph % (Auto) [place] % (Auto) Eos % (Auto) Baso % (Auto) Neut # (Auto) Lymph # (Auto) [place] # (Auto) Eos # (Auto) Baso # (Auto) PT INR Sodium 126 L Potassium 5.1 Chloride 107 Carbon Dioxide 15 L BUN 62 H Creatinine 1.67 H Estimated GFR 40.1 L BUN/Creatinine Ratio 37.1 H Glucose 160 H Calcium 9.2 [facility] Medical History (Updated 05/08/21 @ 12:10 by George Magallanes DO) Anemia Atrial fibrillation (~2018) Borderline hypothyroidism Cataracts, bilateral (~2013) Cellulitis Chronic wound of extremity Diabetes Gout (~1966) Hypertension Iron deficiency anemia Kidney disease (~2004) Low back pain Measles (~1948) Mumps (~1948) Skin tear of right upper arm without complication Sleep apnea (~2011) Stroke (~2004) Surgical History Anesthesia History of total right knee replacement (TKR) Kidney transplant recipient (~2016) Family History Father Stroke Mother History of heart disease Sister Cancer Grandfather History of heart disease Grandmother History of heart disease Social History household members: spouse Smoking Status: Never smoker alcohol intake: current Assessment & Plan Assessment & Plan narrative: Mr. Obregon is a 76M with [facility] renal transplant(from his ) five years ago, CKD stage 2-3, DM, HTN, HL, CVA, afib, recent COVID admission with acute respiratory failure (discharged on home O2) who presents to the emergency room, referred by his primary care provider for abnormal labs and a low sodium level. 1. Hyponatremia, present on admission, improving ?- Na 110 on ER labs. Urine sodium is less than 5 indicative of hypovolemia as is consistent with his subjective history. ?-initially on 3%, now on normal saline with slow improvement. ?-continue slow correction, now to 126, continue daily monitoring - UA unremarkable. Ph 5.0 -trial patient off IV fluid and see if can maintain enough oral intake to keep sodium stable 2. 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 With non-anion gap metabolic acidosis. -s/p transplant 5 years ago per patient(his is the donor) -continue home transplant medications in setting of true hypovolemia -creatinine 2.34 slowly improving daily -Dr. Rose (patient's nephroloist at [facility]) recommended Tacrolimus level if patient stays beyond a few days. Trough recommended level between 5-8. Draw was incorrectly timed again as medication received prior to drawing the lab. 3. Atrial fibrillation on coumadin -continue metoprolol -hold coumadin today again, h/h stable but INR is 3.5. Plan to resume when INR between 2-3. -check INR daily 4. Chronic anemia -no evidence of blood loss per history, slight decrease from last admission. -continue to follow h/h. -Hgb 7.5 on 05/11 5. myocardial injury -patient denies chest pain -likely secondary to SCAR and dehdration -troponin 0.068 improved on repeat draw, no chest pain or ischemic changes. 7. Type 2 Diabetes -holding oral glycemic regimen -started insulin sliding scale 8. Hypertension -hold lisinopril for now given SCAR 9. history of CVA -continue aspirin 10. Gout, chronic -hold home meds for now 11. Aortic stenosis -noted to have ECHO from 02/19 with mild to moderate aortic stenosis -careful with sudden fluid shifts 12. Positive COVID status ?- prior COVID infection, had acute respiratory failure. In the ER was 95% on room air, has been on 3 L at home. Continue to monitor. No need for therapy at this time. 13. Leukocytosis ?- started on antibiotics per tele-preparation supervisor canning. no growth with cultures so far. ?- stopped Aztreonam on 05/11 CODE: Full Proxy: Kay Obregon, Time Spent With Patient Critical Care time: I spent a total of [] minutes of critical care time on this patient's care today; this time is exclusive of procedural time. Quality VTE Deep Vein Thrombosis/Pulmonary Embolism Present on Admission: No
--- NOTE | 2021-05-12 17:16 | PT-IP ANOTE ---
Per nursing, pt is denying PT needs. Will attempt to see pt Thursday for tx or reassessment.
[2021-05-12 20:00] VITALS: BP 133/70; PULSE 87; RESP 18; TEMP 36.9; O2SAT 96
[2021-05-12] MEDS: SENNOSIDES 8.6 MG TABLET 17.2 MG PO (20:27)
[2021-05-12] MEDS: ATORVASTATIN 20 MG TABLET PO (20:28)
[2021-05-12] MEDS: AMLODIPINE 5 MG TABLET PO (20:29)
[2021-05-12] MEDS: diphenhydrAMINE 25 MG TABLET 50 MG PO (20:29)
[2021-05-12] MEDS: TERAZOSIN 2 MG 2 EACH PO (21:20)
[2021-05-13] MEDS: ACETAMINOPHEN 325 MG TABLET 975 MG PO (01:27)
[2021-05-13 04:00] VITALS: BP 130/73; PULSE 72; RESP 18; TEMP 37.4; O2SAT 99
[2021-05-13 05:58] LABS: Hematocrit 24.4 % (41-53); Hemoglobin 7.7 g/dL (13.5-17.5); Mean Corpuscular HGB Conc 31.7 % (30-36); Mean Corpuscular Hemoglobin 28.2 PG (26-34); Platelet Count 357 X10^3/uL (150-400); Red Blood Cell Count 2.74 X10^6/uL (4.5-5.9); Red Cell Distribution Width 19.8 % (11.6-14.8); White Blood Cell Count 7.7 X10^3/uL (4.5-11.0)
[2021-05-13 05:59] LABS: Add Manual Diff / Slide Review YES
[2021-05-13 06:02] LABS: BUN Creatinine Ratio 33.5 (6-22); Blood Urea Nitrogen 56 mg/dL (9-20); Calcium 9.1 mg/dL (8.4-10.2); Carbon Dioxide 16 mmol/L (22-32); Chloride 109 mmol/L (98-107); Estimated Glomerular Filt Rate 40.1 mL/min (>60); Glucose 109 mg/dL (80-110); HEMOLYSIS < 15 (0-50); Potassium 4.9 mmol/L (3.4-5.1); Sodium 129 mmol/L (137-145)
[2021-05-13 07:22] LABS: Anisocytosis 2+; Neutrophils Absolute Manual 6314 /uL (3000-5900); Total Cells Counted 100
[2021-05-13 07:23] LABS: Burr Cells 2+; Hypochromasia 1+; Ovalocytes 1+; Smudge Cells 2+
[2021-05-13 08:08] VITALS: BP 127/75; PULSE 88; RESP 22; TEMP 36.1; O2SAT 97
[2021-05-13] MEDS: allopurinoL 100 MG TABLET 200 MG PO (10:06)
[2021-05-13] MEDS: METOPROLOL ER 25 MG TABLET PO (10:06)
[2021-05-13] MEDS: MYCOPHENOLATE 360 MG 720 EACH PO (10:07)
[2021-05-13] MEDS: TACROLIMUS 0.5 MG CAPSULE 2 MG PO (10:07)
[2021-05-13] MEDS: predniSONE 5 MG TABLET PO (10:07)
[2021-05-13 10:39] VITALS: O2SAT 97
--- NOTE | 2021-05-13 22:08 | P.DS_ITS ---
History of Present Illness History of Present Illness Chief complaint: sent by for nahomyy labs, Covid / Pneumonia + Narrative: Per Dr. Velazquez: Mr. Obregon is a 76M with PMH renal transplant five years ago, CKD stage 2-3, DM, HTN, HL, CVA, afib, recent COVID admission with acute respiratory failure (discharged on home O2) who presents to the emergency room, referred by his primary care provider for abnormal labs and a low sodium level.? Patient went to follow-up with his primary care provider after a discharge a few weeks ago for COVID respiratory failure, he had labs drawn this morning and his sodium result was 112.? He was referred to the emergency room.? The patient is awake, alert and oriented, but slightly lethargic and history is confirmed with his present at bedside in the emergency room.? She reports a steady decline since his discharge from the hospital with increasing lethargy but no confusion, falls, or focal weakness.? She reports his fluid intake has been much diminished and also reports some loose stools, though she has been giving him a stool softener and this is only been once a day at most.? He has had chronic lower extremity edema which is unchanged, he denies any recent fevers, chills, chest pain, palpitations, vision changes, abdominal pain, nausea, or vomiting.? He has had no rash.? He has been compliant with his home medications.? His warfarin had been reduced since his prior admission. In the emergency room, the patient's vital signs were unremarkable, though he was initially placed on 3 L of oxygen.? During my examination I was able to turn him down to room air and his O2 saturations remained in the mid 90s.? Repeat chemistries again revealed a sodium of 110, potassium of 5.4, creatinine 2.34 up from his baseline which appears to be between 1.3 and 1.5.? His glucose was elevated at 242.? Troponin was indeterminate at 0.068 consistent with his prior admission.? TSH was slightly increased at 5.12 with a free T4 just below normal at 0.73.? Urine sodium was less than 5.? COVID-19 testing was again positive but again the patient denies any current respiratory symptoms. CT head with no acute pathologies. CXR unchanged compared to prior exam from COVID admission. Discharge Providers Provider Date of admission: 05/07/21 17:24 Discharge Date: 05/13/21 Primary care physician: George Magallanes DO Consults: 05/07/21 20:39 Consult to Tele-otolaryngology teacher Routine Comment: Consulting Provider: [employer] Reason for consultation: [employer] Has provider been notified: No 05/10/21 09:41 Consult to Physical Therapy Evaluate & Treat Comment: Physician Instructions: Evaluate and Treat Discharge provider: Albaro Armstrong MD Summary Hospital Course Discharge Diagnosis: 1. Hypovolemic hyponatremia 2. SCAR on CKD stage 2-3 s/p renal transplant 3. Atrail fibrillation 4. Anemia 5. Cardiac demand ischemia 6. Type 2 Diabetes 7. Hypertension 8. History of CVA 9. Aortic stenosis Hospital Course: Mr. Obregon is a 76M with H renal transplant(from his ) five years ago, CKD stage 2-3, DM, HTN, HL, CVA, afib, recent COVID admission with acute respiratory failure (discharged on home O2) who presents to the emergency room, referred by his primary care provider for abnormal labs and a low sodium level. His urine sodium was less than 5, and initial serum sodium was 110. Initially he was on 3% saline, then switched to IV saline, and slowly the hyponatremia improved. His SCAR also improved with IV fluids. He had an elevated troponin but no other symptoms which was consistent with myocardial demand. On day of discharge his fluids had been stopped for over 24 hours, he was eating well and his sodium was continuing to rise. He was discharged home and recommended to follow closely with his thoracic medicine specialist. Discharge time 34 minutes Exam Vital Signs (past 8 hours): Oxygen Delivery Method Room Air Oxygen Flow Rate 0 Narrative Exam Narrative: He is alert and oriented x3.? No apparent distress.? Heart is regular rate and rhythm without murmur Lungs are clear to auscultation bilaterally Extremities have no ankle edema.? Objective Labs Result Diagrams: 05/13/21 05:30 05/13/21 05:30 Labs: Laboratory Results - last 24 hr 05/13/21 05/13/21 05:30 05:30 WBC 7.7 RBC 2.74 L Hgb 7.7 L Hct 24.4 L MCV 89.0 MCH 28.2 MCHC 31.7 RDW 19.8 H Plt Count 357 Neut % (Auto) Not Reportable Lymph % (Auto) Not Reportable [place] % (Auto) Not Reportable Eos % (Auto) Not Reportable Baso % (Auto) Not Reportable Lymph # (Auto) Not Reportable [place] # (Auto) Not Reportable Baso # (Auto) Not Reportable Total Counted 100 Seg Neutrophils % 82.0 H Lymphocytes % (Manual) 10.0 L Monocytes % (Manual) 4.0 Eosinophils % (Manual) 1.0 L Basophils % (Manual) 2.0 H Myelocytes % 1.0 H Neutrophils # (Manual) 6314 H [place] Cells 2+ H RBC Morphology See below Hypochromasia 1+ H Anisocytosis 2+ H Ovalocytes 1+ H [place] Cells 2+ H Sodium 129 L Potassium 4.9 Chloride 109 H Carbon Dioxide 16 L BUN 56 H Creatinine 1.67 H Estimated GFR 40.1 L BUN/Creatinine Ratio 33.5 H Glucose 109 Calcium 9.1 PFSH Medical History (Updated 05/08/21 @ 12:10 by George Magallanes DO) Anemia Atrial fibrillation (~2018) Borderline hypothyroidism Cataracts, bilateral (~2013) Cellulitis Chronic wound of extremity Diabetes Gout (~1966) Hypertension Iron deficiency anemia Kidney disease (~2004) Low back pain Measles (~1948) Mumps (~1948) Skin tear of right upper arm without complication Sleep apnea (~2011) Stroke (~2004) Surgical History Anesthesia History of total right knee replacement (TKR) Kidney transplant recipient (~2017) Family History Father Stroke Mother History of heart disease Sister Cancer Grandfather History of heart disease Grandmother History of heart disease Social History household members: spouse Smoking Status: Never smoker alcohol intake: current Discharge Plan Discharge Plan Patient Disposition: Home Provider Discharge Comment: Mr. Obregon came in to the hospital with very low sodium (salt) levels in his blood. This is probably because he wasn't eating normally before coming in. He improved with IV fluids with sodium in them. He should continue to try to eat well once he is at home. He should follow up closely with his PCP and thoracic medicine specialist in the next 1-2 weeks. Discharge orders & Medications Prescriptions: Continued mycophenolate sodium 180 mg tablet,delayed release (DR/EC) 720 mg PO BID 0RF niacinamide 500 mg tablet 250 mg PO DAILY 0RF warfarin 5 mg tablet See Rx Instructions .ROUTE .COMPLEX Qty: 90 3RF Rx Instructions: 5 mg po qpm colchicine 0.6 mg tablet 0.6 mg PO BID PRN (Reason: GOUT) Qty: 10 5RF pioglitazone 30 mg tablet 30 mg PO DAILY Qty: 90 2RF allopurinol 300 mg tablet 300 mg PO DAILY Qty: 90 1RF metoprolol succinate 50 mg tablet extended release 24 hr 25 mg PO DAILY 0RF terazosin 2 mg capsule 4 mg PO QPM 0RF ergocalciferol (vitamin D2) [Vitamin D2] 1,250 mcg (50,000 unit) capsule 50,000 unit PO WEEKLY 0RF Rx Instructions: takes on thursday aspirin 81 mg Tablet,Delayed Release (Dr/Ec) 81 mg PO DAILY 0RF atorvastatin 10 mg tablet 20 mg PO BEDTIME 0RF metformin 850 mg tablet 850 mg PO DAILY 0RF tacrolimus 1 mg Capsule 2 mg PO BID 0RF amlodipine 2.5 mg tablet 5 mg PO DAILY 0RF lisinopril 2.5 mg Tablet 2.5 mg PO DAILY 0RF epinephrine [EpiPen 2-Dm] 0.3 mg/0.3 mL auto-injector 0.3 mg IM ONCE PRN (Reason: Anaphylaxis) 0RF Label Comments: patient obtained epi pen after being mistakenly dx with peanut allergy Rx Instructions: as a single dose prednisone 5 mg tablet 5 mg PO DAILY 0RF Label Comments: Take 1 tablet by mouth once every morning with breakfast. Follow up/Referrals: George Magallanes DO [Primary Care Provider] - Diet/Activity/Treatments Diet: Regular Visit Report/Discharge Packet Instructions: DI for Hyponatremia Discharge Data Primary Care Provider: George Magallanes Quality VTE Deep Vein Thrombosis/Pulmonary Embolism Present on Admission: No
== END 2021-05-13 10:45 | disposition home or self-care (01) | DRG 640 ==
LOC: ED 16:31 → AC 17:25 → ICU 22:43
PROVIDERS: Internal Medicine; Internal Medicine Critical Care Medicine; Nurse Practitioner Family; Admitting Provider Internal Medicine; Emergency Provider Emergency Medicine; Family Provider Family Medicine; PCP Family Medicine; Referring Provider Family Medicine; Visit Provider Internal Medicine
DX: E87.1 Hypo-osmolality and hyponatremia (principal); J12.82 Pneumonia due to coronavirus disease 2019; J96.01 Acute respiratory failure with hypoxia; N17.9 Acute kidney failure, unspecified; Z94.0 Kidney transplant status; I5A Non-ischemic myocardial injury (non-traumatic); I48.20 Chronic atrial fibrillation, unspecified; D84.821 Immunodeficiency due to drugs; T86.10 Unspecified complication of kidney transplant; E86.0 Dehydration; I12.9 Hypertensive chronic kidney disease with stage 1 through stage 4 chronic kidney disease, or unspecified chronic kidney disease; N18.30 Chronic kidney disease, stage 3 unspecified; E11.22 Type 2 diabetes mellitus with diabetic chronic kidney disease; E83.42 Hypomagnesemia; D64.89 Other specified anemias; E86.1 Hypovolemia; M1A.9XX0 Chronic gout, unspecified, without tophus (tophi); E78.5 Hyperlipidemia, unspecified; Z79.84 Long term (current) use of oral hypoglycemic drugs; Z86.73 Personal history of transient ischemic attack (TIA), and cerebral infarction without residual deficits; Z79.01 Long term (current) use of anticoagulants; D64.9 Anemia, unspecified; Z86.16 Personal history of COVID-19
CPT/HCPCS: 36415; 36569; 36592; 70450; 71046; 80048; 80053; 80061; 80197; 81001; 82550; 82962; 83540; 83550; 83735; 83930; 83935; 84100; 84145; 84300; 84439; 84443; 84484; 85007; 85025; 85610; 87040; 87635; 87797; 93005; 93010; 94762; 96365; 96366; 97162; 99284; C9803; J1815; J3475; J7507

== ENCOUNTER 2021-07-10 08:43 | Emergency (ER) | payer MEDICARE, OTHER, SELFPAY ==
[2021-06-25 09:37] VITALS: BMI 29.5
[2021-07-10 08:51] VITALS: BP 129/90; PULSE 74; RESP 18; O2SAT 99
--- NOTE | 2021-07-10 08:57 | DI.CT.S_ITS ---
PROCEDURE: CT HEAD/BRAIN WO CON INDICATIONS: fall on coumadin TECHNIQUE: Noncontrast 4.5 mm thick angled axial sections acquired from the foramen magnum to the vertex, with coronal and sagittal reformats. For radiation dose reduction, the following was used: automated exposure control, adjustment of mA and/or kV according to patient size. COMPARISON: None. FINDINGS: Image quality: Excellent. CSF spaces: Basal cisterns are patent. No extra-axial fluid collections. The ventricles are symmetric in size and shape. Brain: No intracranial bleeds or masses. Chronic right basal ganglia/ward radiata lacunar infarct. There is cerebral volume loss for age, with resultant ventricular and sulcal prominence. There are periventricular and deep white matter chronic small vessel ischemic changes. There is intracranial internal carotid artery atherosclerosis. Skull and face: Calvarium and visualized facial bones appear intact, without suspicious lesions. Sinuses: Visualized sinuses and mastoids are clear. IMPRESSION: No acute intracranial disease process. Dictated by: Nena Meléndez MD, PhD on 07/10/2021 at 9:28 Approved by: Nena Meléndez MD, PhD on 07/10/2021 at 9:31
--- NOTE | 2021-07-10 08:57 | DI.RAD.S_ITS ---
PROCEDURE: XR WRIST RT MIN 3V INDICATIONS: fall pain TECHNIQUE: 4 views of the wrist were acquired. COMPARISON: None. FINDINGS: Bones: No fractures or dislocations. No suspicious bony lesions. Scaphoid view: Scaphoid is intact Soft tissues: No suspicious soft tissue calcifications. IMPRESSION: No fracture. No osseous lesion. If symptoms and/or clinical suspicion for pathology persists, further assessment with repeat radiographs (7-10 days) or advanced imaging (e.g. CT, MRI or bone scan) should be considered. Dictated by: Nena Meléndez MD, PhD on 07/10/2021 at 9:27 Approved by: Nena Meléndez MD, PhD on 07/10/2021 at 9:27
--- NOTE | 2021-07-10 08:57 | DI.RAD.S_ITS ---
PROCEDURE: XR WRIST LT MIN 3V INDICATIONS: fall pain TECHNIQUE: For views of the wrist were acquired. COMPARISON: None. FINDINGS: Bones: No fractures or dislocations. No suspicious bony lesions. Scaphoid view: Scaphoid is intact. Soft tissues: No suspicious soft tissue calcifications. IMPRESSION: No fracture. No osseous lesion. If symptoms and/or clinical suspicion for pathology persists, further assessment with repeat radiographs (7-10 days) or advanced imaging (e.g. CT, MRI or bone scan) should be considered. Dictated by: Nena Meléndez MD, PhD on 07/10/2021 at 9:18 Approved by: Nena Meléndez MD, PhD on 07/10/2021 at 9:26
--- NOTE | 2021-07-10 08:59 | ED_ITS ---
HPI - Fall General Chief Complaint: Trauma Stated Complaint: Fell and injured wrists- both hands Time Seen by Provider: 07/10/21 08:49 History of Present Illness HPI Narrative: Patient is a 76-year-old male with a complicated history he is a kidney transplant patient, atrial fibrillation on Coumadin and aspirin, CVA, diabetes presenting today with bilateral wrist pain. He said he was in the parking lot of [employer] when he tripped over of orange own and fell. He caught himself both hands. He denies hitting his head although he has a mild contusion on right side of his face. No neck pain. No headache nausea or vomiting. Both of his hands and wrists feel swollen and they are painful. He has some skin tears which he has dressed himself. He monitors his Coumadin at home he says his INR today was 1.7. [facility] transplant team recommends he keeps his INR from 1.8-3. Related Data Home Medications Medication Instructions Recorded Confirmed mycophenolate sodium 180 mg 180 mg PO BID 08/29/17 06/17/21 tablet,delayed release niacinamide 500 mg tablet 500 mg PO DAILY 08/29/17 06/17/21 aspirin 81 mg tablet,delayed 81 mg PO DAILY 04/12/19 06/17/21 release ergocalciferol (vitamin D2) 1,250 50,000 unit PO WEEKLY 04/12/19 06/17/21 mcg (50,000 unit) capsule (Vitamin D2) metoprolol succinate 50 mg 25 mg PO DAILY 04/12/19 06/17/21 tablet,extended release 24 hr terazosin 2 mg capsule 4 mg PO QPM 04/12/19 06/17/21 atorvastatin 10 mg tablet 10 mg PO BEDTIME 04/21/21 06/17/21 metformin 850 mg tablet 850 mg PO DAILY 04/21/21 06/17/21 tacrolimus 1 mg capsule, 2 mg PO BID 04/22/21 06/17/21 immediate-release amlodipine 2.5 mg tablet 5 mg PO DAILY 05/07/21 06/17/21 epinephrine 0.3 mg/0.3 mL 0.3 mg IM ONCE PRN 05/07/21 06/17/21 injection, auto-injector (EpiPen 2-Dm) lisinopril 2.5 mg tablet 2.5 mg PO DAILY 05/07/21 06/17/21 prednisone 5 mg tablet 5 mg PO DAILY 05/08/21 06/17/21 Previous Rx's Medication Instructions Recorded warfarin 5 mg tablet See Rx Instructions .ROUTE 08/06/20 .COMPLEX #90 tab colchicine 0.6 mg tablet 0.6 mg PO BID PRN #10 tab 08/10/20 pioglitazone 30 mg tablet 30 mg PO DAILY #90 tab 11/28/20 allopurinol 300 mg tablet 300 mg PO DAILY #90 tab 01/22/21 Allergies Allergy/AdvReac Type Severity Reaction Status Date / Time cephalexin Allergy Severe Anaphylaxis Verified 05/07/21 11:20 Review of Systems Review of Systems Narrative: GENERAL: Denies chills, fatigue, malaise, fever, sweats, travel HEENT: Denies sinus pain, ear pain, sore throat, difficulty swallowing, neck pain RESPIRATORY: Denies dyspnea, cough, wheezing, hemoptysis, sputum. CARDIOVASCULAR: Denies chest pain, palpitations, orthopnea, edema GASTROINTESTINAL: Denies nausea, vomiting, abdominal pain, diarrhea, constipation, melena. : Denies dysuria, frequency, incontinence, hematuria, urinary retention, flank pain. MUSCULOSKELETAL: See HPI SKIN: No rash, no erythema, no pruritus NEUROLOGIC: Denies weakness, dizziness, headache, numbness, change in speech, confusion PSYCHIATRIC: No concerning psychosocial issues. 12 point review of systems is negative except for those stated above and HPI Patient History Medical History Anemia Atrial fibrillation (~2018) Borderline hypothyroidism Cataracts, bilateral (~2013) Cellulitis Chronic wound of extremity Diabetes Gout (~1966) Hypertension Iron deficiency anemia Kidney disease (~2004) Low back pain Measles (~194) Mumps (~1949) Skin tear of right upper arm without complication Sleep apnea (~2011) Stroke (~2004) Surgical History Anesthesia History of total right knee replacement (TKR) Kidney transplant recipient (~2017) Family History Father Stroke Mother History of heart disease Sister Cancer Grandfather History of heart disease Grandmother History of heart disease Social History household members: spouse Smoking Status: Never smoker alcohol intake: current Smoking Status: Never smoker alcohol intake frequency: 0-2 drinks per day Alcohol type: hard liquor Substance Use Type: does not use Exam Initial Vital Signs Initial Vital Signs: Vital Signs Pulse Rate 74 07/10/21 08:51 Respiratory Rate 18 07/10/21 08:51 Blood Pressure 129/90 07/10/21 08:51 Pulse Oximetry 99 07/10/21 08:51 GENERAL: Alert pleasant 76-year-old male HEENT: Head atraumatic, minimal contusion around the right periorbital area no significant swelling, pupils reactive, face symmetric, [moist] mucous membranes NECK: No JVD no vertebral tenderness full flexion extension and rotation CARDIOVASCULAR: Regular rate and rhythm without murmurs, rubs or gallops. RESPIRATORY: Breath sounds equal bilaterally, no wheezes rales or rhonchi. ABDOMEN: Soft, nontender. Normoactive bowel sounds all 4 quadrants. No guarding or rebound. EXTREMITIES: Normal range of motion, no clubbing or edema. Neurovascularly intact Swelling is noted in bilateral wrist no obvious bony deformity tender to touch distal radial pulses present bilaterally. But both hands and fingers are noted to be swollen. NEUROLOGICAL: Alert and oriented x4.Normal gait and speech. SKIN: Warm, dry, no laceration, no petechiae, no rashes or lesions. Course Orders Ordered: Discontinued Medications Acetaminophen (Acetaminophen 325 Mg Tablet) 975 mg PO NOW ONE Stop: 07/10/21 08:58 Last Admin: 07/10/21 09:35 Dose: 975 mg Documented by: VIOLET Vital Signs Vital signs: Vital Signs - 8 hr 07/10/21 09:05 Temperature 98.3 F Pulse Rate 83 Respiratory Rate 18 Blood Pressure 129/80 Pulse Oximetry 99 MDM - Fall Imaging Data CT scan - head: Radiologist's Impression: ?MindiBrian Mustafa MR#: [id number] : 1945 Acct:[id number] Age/Sex: 76 / M Date of Service: 07/10/21 Loc: ED Accession Number: [id number] ?? Procedure: CT head/brain wo con Ordering Provider: Nicky Gambino D.O. PROCEDURE:? CT HEAD/BRAIN WO CON ? INDICATIONS:? fall on coumadin ? TECHNIQUE:? Noncontrast 4.5 mm thick angled axial sections acquired from the foramen magnum to the vertex, with coronal and sagittal reformats.? For radiation dose reduction, the following was used:? automated exposure control, adjustment of mA and/or kV according to patient size.? ? COMPARISON:? None. ? FINDINGS:? Image quality:? Excellent.? ? CSF spaces:? Basal cisterns are patent.? No extra-axial fluid collections.? The ventricles are symmetric in size and shape.? ? Brain:? No intracranial bleeds or masses.? Chronic right basal ganglia/ward radiata lacunar infarct.? There is cerebral volume loss for age, with resultant ventricular and sulcal prominence.? There are periventricular and deep white matter chronic small vessel ischemic changes.? There is intracranial internal carotid artery atherosclerosis.? ? Skull and face:? Calvarium and visualized facial bones appear intact, without suspicious lesions.? ? Sinuses:? Visualized sinuses and mastoids are clear.? ? IMPRESSION:? No acute intracranial disease process. ? ? Dictated by: Nena Meléndez MD, PhD on 07/10/2021 at 9:28 Extremity x-ray #1: Radiologist's Impression: XRay Report Signed Patient: Brian Obregon MR#: [id number] : 1945 Acct:[id number] Age/Sex: 76 / M Date of Service: 07/10/21 Loc: Accession Number: [id number] ?? Procedure: XR wrist LT min 3V Ordering Provider: Nicky Gambino D.O. PROCEDURE:? XR WRIST LT MIN 3V ? INDICATIONS: fall pain ? TECHNIQUE:? For views of the wrist were acquired.? ? COMPARISON:? None. ? FINDINGS:? ? Bones:? No fractures or dislocations.? No suspicious bony lesions.? ? Scaphoid view:? Scaphoid is intact. ? Soft tissues:? No suspicious soft tissue calcifications.? ? IMPRESSION:? No fracture. No osseous lesion. If symptoms and/or clinical suspicion for pathology persists, further assessment with repeat radiographs (7-10 days) or advanced imaging (e.g. CT, MRI or bone scan) should be considered. ? ? Dictated by: Nena Meléndez MD, PhD on 07/10/2021 at 9:18 ? ? Extremity x-ray #2: Radiologist's Impression: XRay Report Signed Patient: Brian Obregon MR#: [id number] : 1945 Acct:[id number] Age/Sex: 76 / M Date of Service: 07/10/21 Loc: ED Accession Number: [id number] ?? Procedure: XR wrist LT min 3V Ordering Provider: Nicky Gambino D.O. PROCEDURE:? XR WRIST LT MIN 3V ? INDICATIONS: fall pain ? TECHNIQUE:? For views of the wrist were acquired.? ? COMPARISON:? None. ? FINDINGS:? ? Bones:? No fractures or dislocations.? No suspicious bony lesions.? ? Scaphoid view:? Scaphoid is intact. ? Soft tissues:? No suspicious soft tissue calcifications.? ? IMPRESSION:? No fracture. No osseous lesion. If symptoms and/or clinical suspicion for pathology persists, further assessment with repeat radiographs (7-10 days) or advanced imaging (e.g. CT, MRI or bone scan) should be considered. ? ? Dictated by: Nena Meléndez MD, PhD on 07/10/2021 at 9:18 ? ? MDM Narrative Medical decision making narrative: Patient had a ground level fall. Fortunately no evidence of fracture or intracranial hemorrhage. He is given Tylenol. He is offered something stronger but the constipated side. He is given bilateral wrist splints. Discharge Plan Departure Patient Disposition: Home Clinical Impression: Left wrist sprain, Right wrist sprain Instructions: DI for Wrist Sprain Activity Restrictions/Additional Instructions: *You have been diagnosed with bilateral wrist sprian *What to do: Elevate ice increase activity as tolerated *Continue to take medications as directed Tylenol 1000 mg every 6 hours if needed for [id number] pain *Follow up with your primary care provider in 2-3 days or call [phone] *Return to ER if you should have increasing pain numbness tingling swelling or any new, worsening or concerning symptoms Prescriptions: No Action mycophenolate sodium 180 mg tablet,delayed release (DR/EC) 180 mg PO BID 0RF niacinamide 500 mg tablet 500 mg PO DAILY 0RF warfarin 5 mg tablet See Rx Instructions .ROUTE .COMPLEX Qty: 90 3RF Hold Instructions: dose change Rx Instructions: 5 mg po qpm colchicine 0.6 mg tablet 0.6 mg PO BID PRN (Reason: GOUT) Qty: 10 5RF pioglitazone 30 mg tablet 30 mg PO DAILY Qty: 90 2RF allopurinol 300 mg tablet 300 mg PO DAILY Qty: 90 1RF metoprolol succinate 50 mg tablet extended release 24 hr 25 mg PO DAILY 0RF terazosin 2 mg capsule 4 mg PO QPM 0RF ergocalciferol (vitamin D2) [Vitamin D2] 1,250 mcg (50,000 unit) capsule 50,000 unit PO WEEKLY 0RF Rx Instructions: takes on thursday aspirin 81 mg Tablet,Delayed Release (Dr/Ec) 81 mg PO DAILY 0RF atorvastatin 10 mg tablet 10 mg PO BEDTIME 0RF metformin 850 mg tablet 850 mg PO DAILY 0RF tacrolimus 1 mg Capsule 2 mg PO BID 0RF amlodipine 2.5 mg tablet 5 mg PO DAILY 0RF lisinopril 2.5 mg Tablet 2.5 mg PO DAILY 0RF epinephrine [EpiPen 2-Dm] 0.3 mg/0.3 mL auto-injector 0.3 mg IM ONCE PRN (Reason: Anaphylaxis) 0RF Label Comments: patient obtained epi pen after being mistakenly dx with peanut allergy Rx Instructions: as a single dose prednisone 5 mg tablet 5 mg PO DAILY 0RF Label Comments: Take 1 tablet by mouth once every morning with breakfast. Referrals: George Magallanes DO [Primary Care Provider] -
[2021-07-10 09:00] VITALS: BP 130/62; PULSE 84; O2SAT 98
[2021-07-10 09:05] VITALS: BP 129/80; PULSE 83; RESP 18; TEMP 36.8; O2SAT 99; BMI 31.0
[2021-07-10 09:30] VITALS: PULSE 78; O2SAT 98
[2021-07-10] MEDS: ACETAMINOPHEN 325 MG TABLET 975 MG PO (09:35)
[2021-07-10 09:37] VITALS: BP 133/74; PULSE 78; O2SAT 99
[2021-07-10 10:00] VITALS: BP 130/78; PULSE 72; O2SAT 99
== END 2021-07-10 10:20 | disposition home or self-care (01) ==
PROVIDERS: Emergency Provider Emergency Medicine; Family Provider Family Medicine; PCP Family Medicine
DX: S63.502A Unspecified sprain of left wrist, initial encounter (principal); S63.501A Unspecified sprain of right wrist, initial encounter; S00.83XA Contusion of other part of head, initial encounter; W01.0XXA Fall on same level from slipping, tripping and stumbling without subsequent striking against object, initial encounter; Z79.01 Long term (current) use of anticoagulants
CPT/HCPCS: 70450; 73110; 99284

== ENCOUNTER → 2021-08-02 13:07 | Outpatient (CLI) | payer MEDICARE, OTHER, SELFPAY ==
[2021-06-25 09:37] VITALS: BMI 29.5
== END ==
PROVIDERS: Family Provider Family Medicine; PCP Family Medicine; Referring Provider Family Medicine; Visit Provider Nurse Practitioner Family
DX: S81.801A Unspecified open wound, right lower leg, initial encounter (principal); R60.0 Localized edema; E11.628 Type 2 diabetes mellitus with other skin complications; D64.9 Anemia, unspecified; I50.30 Unspecified diastolic (congestive) heart failure; I48.91 Unspecified atrial fibrillation; Z94.0 Kidney transplant status; Z79.01 Long term (current) use of anticoagulants; Z92.25 Personal history of immunosuppression therapy
CPT/HCPCS: 97597; 99213; 99214

== ENCOUNTER → 2021-08-23 09:01 | Outpatient (CLI) | payer MEDICARE, OTHER, SELFPAY ==
[2021-06-25 09:37] VITALS: BMI 29.5
== END ==
PROVIDERS: Family Provider Family Medicine; PCP Family Medicine; Referring Provider Family Medicine; Visit Provider Nurse Practitioner Family
DX: S80.821A Blister (nonthermal), right lower leg, initial encounter (principal); R60.0 Localized edema; E11.628 Type 2 diabetes mellitus with other skin complications; I50.30 Unspecified diastolic (congestive) heart failure; I48.91 Unspecified atrial fibrillation; Z79.01 Long term (current) use of anticoagulants; Z79.52 Long term (current) use of systemic steroids; Z79.899 Other long term (current) drug therapy; Z94.0 Kidney transplant status
CPT/HCPCS: 99213

== ENCOUNTER → 2021-10-04 11:20 | Outpatient (CLI) | payer MEDICARE, OTHER, SELFPAY ==
[2021-06-25 09:37] VITALS: BMI 29.5
== END ==
PROVIDERS: Family Provider Family Medicine; PCP Family Medicine; Referring Provider Family Medicine; Visit Provider Family Medicine
DX: S80.821A Blister (nonthermal), right lower leg, initial encounter (principal)
CPT/HCPCS: 99213

== ENCOUNTER → 2021-10-11 11:28 | Outpatient (CLI) | payer MEDICARE, OTHER, SELFPAY ==
[2021-06-25 09:37] VITALS: BMI 29.5
== END ==
PROVIDERS: Family Provider Family Medicine; PCP Family Medicine; Referring Provider Family Medicine; Visit Provider Nurse Practitioner Family
DX: S80.821A Blister (nonthermal), right lower leg, initial encounter (principal); S80.822A Blister (nonthermal), left lower leg, initial encounter; L08.9 Local infection of the skin and subcutaneous tissue, unspecified; Z92.25 Personal history of immunosuppression therapy; R60.0 Localized edema; Z79.01 Long term (current) use of anticoagulants; L53.9 Erythematous condition, unspecified
CPT/HCPCS: 87070; 87075; 87205; 97597; 99212; 99214

== ENCOUNTER → 2021-10-25 08:59 | Outpatient (CLI) | payer MEDICARE, OTHER, SELFPAY ==
[2021-06-25 09:37] VITALS: BMI 29.5
== END ==
PROVIDERS: Family Provider Family Medicine; PCP Family Medicine; Referring Provider Family Medicine; Visit Provider Family Medicine
DX: S80.822A Blister (nonthermal), left lower leg, initial encounter (principal); R60.0 Localized edema
CPT/HCPCS: 99214

== ENCOUNTER → 2021-11-01 11:04 | Outpatient (CLI) | payer MEDICARE, OTHER, SELFPAY ==
[2021-06-25 09:37] VITALS: BMI 29.5
== END ==
PROVIDERS: Family Provider Family Medicine; PCP Family Medicine; Referring Provider Family Medicine; Visit Provider Nurse Practitioner Family
DX: S80.821A Blister (nonthermal), right lower leg, initial encounter (principal); S80.822A Blister (nonthermal), left lower leg, initial encounter; L08.9 Local infection of the skin and subcutaneous tissue, unspecified; Z92.25 Personal history of immunosuppression therapy; R60.0 Localized edema; Z79.01 Long term (current) use of anticoagulants; Z94.0 Kidney transplant status
CPT/HCPCS: 87070; 87077; 87186; 87205; 97597

== ENCOUNTER → 2021-11-19 14:34 | Outpatient (CLI) | payer MEDICARE, OTHER, SELFPAY ==
[2021-06-25 09:37] VITALS: BMI 29.5
== END ==
PROVIDERS: Family Provider Family Medicine; PCP Family Medicine; Referring Provider Family Medicine; Visit Provider Family Medicine
DX: S80.821A Blister (nonthermal), right lower leg, initial encounter (principal); S80.822A Blister (nonthermal), left lower leg, initial encounter; R60.0 Localized edema
CPT/HCPCS: 99213

== ENCOUNTER → 2021-11-20 14:11 | Outpatient (CLI) | payer MEDICARE, OTHER, SELFPAY ==
[2021-06-25 09:37] VITALS: BMI 29.5
[2021-11-20 15:25] LABS: Add Manual Diff / Slide Review NO; Basophils Absolute Auto 0 /uL (0-100); Basophils Percent Auto 0.8 % (0-2); Eosinophils Absolute Auto 200 /uL (0-450); Hemoglobin 10.2 g/dL (13.5-17.5); Lymphocytes Absolute Auto 300 /uL (1100-4500); Lymphocytes Percent Auto 5.5 % (25-40); Mean Corpuscular HGB Conc 32.9 % (30-36); Mean Corpuscular Hemoglobin 32.7 PG (26-34); Mean Corpuscular Volume 99.5 fL (80-100); Monocytes Absolute Auto 300 /uL (0-900); Monocytes Percent Auto 5.9 % (3-14); Neutrophils Absolute Auto 4800 /uL (1500-7000); Neutrophils Percent Auto 84.8 % (50-75); Platelet Count 148 X10^3/uL (150-400); Red Blood Cell Count 3.12 X10^6/uL (4.5-5.9); Red Cell Distribution Width 17.7 % (11.6-14.8); White Blood Cell Count 5.7 X10^3/uL (4.5-11.0)
[2021-11-20 15:34] LABS: Alanine Aminotransferase 17 IU/L (<50); Albumin 3.9 g/dL (3.5-5.0); Albumin Globulin Ratio 1.6 (1.0-2.8); Alkaline Phosphatase 70 U/L (38-126); Aspartate Aminotransferase 30 IU/L (17-59); BUN Creatinine Ratio 34.5 (6-22); Bilirubin Total 0.7 mg/dL (0.2-1.3); Blood Urea Nitrogen 61 mg/dL (9-20); Calcium 9.7 mg/dL (8.4-10.2); Carbon Dioxide 25 mmol/L (22-32); Chloride 104 mmol/L (98-107); Estimated Glomerular Filt Rate 39 mL/min (>60); Globulin 2.5 g/dL (1.7-4.1); Glucose 182 mg/dL (80-110); HEMOLYSIS < 15 (0-50); Potassium 4.5 mmol/L (3.4-5.1); Sodium 137 mmol/L (137-145); Total Protein 6.4 g/dL (6.3-8.2)
[2021-11-20 15:55] LABS: HEMOLYSIS < 15 (0-50); Iron 63 ug/dL (49-181)
[2021-11-20 16:05] LABS: Percent Iron Saturation 23 % (20-50); Total Iron Binding Capacity 280 ug/dL (261-462); Transferrin 204 mg/dL (206-381)
[2021-11-20 16:09] LABS: Ferritin 153 ng/mL (18-464)
[2021-11-20 16:28] LABS: TSH w/ Reflex to FT4 8.39 uIU/mL (0.47-4.68)
[2021-11-20 16:29] LABS: Prostate Specific Antigen Scrn 3.17 ng/mL (0.1-4.0)
[2021-11-20 17:30] LABS: Free T4, Direct Thyroxine 0.81 ng/dL (0.78-2.19)
== END ==
PROVIDERS: Internal Medicine Hematology & Oncology; Family Provider Family Medicine; PCP Family Medicine; Referring Provider Family Medicine; Visit Provider Family Medicine
DX: Z12.5 Encounter for screening for malignant neoplasm of prostate (principal); I10 Essential (primary) hypertension; E11.9 Type 2 diabetes mellitus without complications; I48.20 Chronic atrial fibrillation, unspecified; D50.9 Iron deficiency anemia, unspecified
CPT/HCPCS: 36415; 80053; 82728; 83540; 83550; 84439; 84443; 85025; G0103

== ENCOUNTER 2021-11-28 15:17 | Observation (INO) | payer MEDICARE, OTHER, SELFPAY ==
[2021-06-25 09:37] VITALS: BMI 29.5
[2021-11-28] VITALS (15 sets, daily range): BP systolic 100–152; BP diastolic 56–88; PULSE 77–90; RESP 8–24; TEMP 36.2–36.9; O2SAT 87–100; BMI 30.5; BMI 31.4
[2021-11-28 16:09] LABS: INR 2.9 (0.9-1.3); Prothrombin Time 33.8 SECONDS (10.1-12.7)
[2021-11-28 16:12] LABS: PTT Partial Thromboplastin Tim 40 SECONDS (26-36)
[2021-11-28 16:13] LABS: Add Manual Diff / Slide Review NO; Basophils Absolute Auto 0 /uL (0-100); Basophils Percent Auto 0.6 % (0-2); Eosinophils Absolute Auto 100 /uL (0-450); Eosinophils Percent Auto 1.3 % (2-4); Lymphocytes Absolute Auto 400 /uL (1100-4500); Lymphocytes Percent Auto 5.6 % (25-40); Mean Corpuscular HGB Conc 32.7 % (30-36); Mean Corpuscular Hemoglobin 33.6 PG (26-34); Mean Corpuscular Volume 102.8 fL (80-100); Monocytes Absolute Auto 300 /uL (0-900); Monocytes Percent Auto 3.8 % (3-14); Neutrophils Absolute Auto 6100 /uL (1500-7000); Neutrophils Percent Auto 88.7 % (50-75); Platelet Count 170 X10^3/uL (150-400); Red Blood Cell Count 2.03 X10^6/uL (4.5-5.9); Red Cell Distribution Width 18.8 % (11.6-14.8); White Blood Cell Count 6.9 X10^3/uL (4.5-11.0)
[2021-11-28 16:17] LABS: Alanine Aminotransferase 15 IU/L (<50); Albumin 3.6 g/dL (3.5-5.0); Albumin Globulin Ratio 1.8 (1.0-2.8); Alkaline Phosphatase 66 U/L (38-126); Aspartate Aminotransferase 27 IU/L (17-59); BUN Creatinine Ratio 40.9 (6-22); Bilirubin Total 0.4 mg/dL (0.2-1.3); Blood Urea Nitrogen 88 mg/dL (9-20); Calcium 9.5 mg/dL (8.4-10.2); Carbon Dioxide 22 mmol/L (22-32); Chloride 105 mmol/L (98-107); Estimated Glomerular Filt Rate 31 mL/min (>60); Glucose 198 mg/dL (80-110); HEMOLYSIS < 15 (0-50); Potassium 5.2 mmol/L (3.4-5.1); Sodium 136 mmol/L (137-145); Total Protein 5.6 g/dL (6.3-8.2)
[2021-11-28 16:20] LABS: Hematocrit 20.8 % (41-53); Hemoglobin 6.8 g/dL (13.5-17.5)
--- NOTE | 2021-11-28 16:43 | ED_ITS ---
HPI - GI Bleed General Chief complaint: GI Bleed Stated complaint: states internal bleeding Time Seen by Provider: 11/28/21 15:35 Source: patient Mode of arrival: Wheelchair Limitations: no limitations History of Present Illness HPI Narrative: 76-year-old male who is here for evaluation of several days of dark black colored stools. No abdominal pain. No blood in his urine. No vomiting. He has had what sounds like a stomach ulcer in the past and this was several years ago. He was on what sounds like a proton pump inhibitor afterwards but is not currently on any of these medications. He does drink alcohol every evening. He states it is anywhere from 1-3 drinks. He denies any nonsteroidal anti-inflamma tory use. He also takes warfarin because of a prior history of a stroke. He states that for the past 24 hours he has been short of breath on exertion. He denies chest pain. No lightheadedness. Related Data Home Medications Medication Instructions Recorded Confirmed mycophenolate sodium 180 mg 180 mg PO BID 08/29/17 11/25/21 tablet,delayed release niacinamide 500 mg tablet 500 mg PO DAILY 08/29/17 11/25/21 aspirin 81 mg tablet,delayed 81 mg PO DAILY 04/12/19 11/25/21 release ergocalciferol (vitamin D2) 1,250 50,000 unit PO WEEKLY 04/12/19 11/25/21 mcg (50,000 unit) capsule (Vitamin D2) metoprolol succinate 50 mg 25 mg PO DAILY 04/12/19 11/25/21 tablet,extended release 24 hr terazosin 2 mg capsule 4 mg PO QPM 04/12/19 11/25/21 atorvastatin 10 mg tablet 10 mg PO BEDTIME 04/21/21 11/25/21 metformin 850 mg tablet 850 mg PO DAILY 04/21/21 11/25/21 tacrolimus 1 mg capsule, 2 mg PO BID 04/22/21 11/25/21 immediate-release epinephrine 0.3 mg/0.3 mL 0.3 mg IM ONCE PRN Anaphylaxis 05/07/21 11/25/21 injection, auto-injector (EpiPen 2-Dm) prednisone 5 mg tablet 5 mg PO DAILY 05/08/21 11/25/21 lisinopril 10 mg tablet 10 mg PO DAILY 11/25/21 11/25/21 Previous Rx's Medication Instructions Recorded colchicine 0.6 mg tablet 0.6 mg PO BID PRN GOUT #10 tabs 08/10/20 allopurinol 300 mg tablet 300 mg PO DAILY #90 tabs 08/06/21 pioglitazone 30 mg tablet 30 mg PO DAILY Diabetes #90 tabs 10/29/21 warfarin 5 mg tablet See Rx Instructions .Route 11/08/21 .COMPLEX #90 tabs Allergies Allergy/AdvReac Type Severity Reaction Status Date / Time cephalexin Allergy Severe Anaphylaxis Verified 11/28/21 15:42 Review of Systems Review of Systems ROS Unobtainable: All systems reviewed & are unremarkable except as noted in HPI and below Patient History Medical History Acute hypoxemic respiratory failure due to COVID-19 Acute renal failure superimposed on chronic kidney disease Atrial fibrillation (~2018) Borderline hypothyroidism Cataracts, bilateral (~2013) Cellulitis Chronic wound of extremity Dehydration with hyponatremia Gout (~1966) Hypertension Iron deficiency anemia Kidney disease (~2004) Low back pain Measles (~1948) Mumps (~1948) Pneumonia due to 2019 novel coronavirus Skin tear of right upper arm without complication Skin tear of right upper arm without complication Sleep apnea (~2011) Stroke (~2004) Surgical History (Updated 11/12/21 @ 14:40 by Milad Martines MD) Anesthesia History of total right knee replacement (TKR) Kidney transplant recipient (~2016) Renal transplant recipient Family History Father Stroke Mother History of heart disease Sister Cancer Grandfather History of heart disease Grandmother History of heart disease Social History household members: spouse Smoking Status: Never smoker alcohol intake: current Smoking Status: Never smoker alcohol intake frequency: 0-2 drinks per day Alcohol type: hard liquor Substance Use Type: does not use Exam Initial Vital Signs Initial Vital Signs: Vital Signs Temperature 98.4 F 11/28/21 15:25 Pulse Rate 77 11/28/21 15:25 Respiratory Rate 18 11/28/21 15:25 Blood Pressure 116/59 L 11/28/21 15:25 Pulse Oximetry 99 11/28/21 15:25 Oxygen Delivery Method 11/28/21 15:25 Const General: cooperative and comfortable HENMT Head: normal to inspection and normocephalic Resp Effort & Inspection: normal respiratory effort Auscultation: clear to auscultation bilaterally Cardio Rate: regular rate Rhythm: regular rhythm GI Inspection: normal to inspection Palpation: soft, No firm, No guarding and No tender Skin General: no rashes or lesions noted Neuro General: patient alert, patient awake, patient oriented x3 and moves all extremities Speech: speech normal Extrem General: normal to inspection and capillary refill normal Psych Appearance: grossly normal and well kempt Course Orders Ordered: ED Orders 11/28/21 15:35 Complete Blood Count AUTO DIFF Stat Comprehensive Metabolic Panel Stat Packed Cells Stat Partial Thromboplastin Time Stat Prothrombin Time INR Stat Type and Screen Stat 11/28/21 15:51 EKG-12 Lead Stat 11/28/21 17:59 Consult to General Surgery Stat Discontinued Medications Pantoprazole Sodium (Pantoprazole 40 Mg Vial) 40 mg IV NOW ONE Stop: 11/28/21 16:46 Last Admin: 11/28/21 16:56 Dose: 40 mg Documented By: KARLENE Phytonadione (Phytonadione (Vit K1) 5 Mg Tablet) 10 mg PO NOW ONE Stop: 11/28/21 17:58 Vital Signs Vital signs: Vital Signs - 8 hr 11/28/21 15:25 11/28/21 17:08 11/28/21 17:24 Temperature 98.4 F 98 F 98.0 F Pulse Rate 77 90 83 Respiratory Rate 18 18 18 Blood Pressure 116/59 L 128/59 L 140/67 Pulse Oximetry 99 Oxygen Delivery Method Room Air 11/28/21 16:07 11/28/21 16:07 11/28/21 16:15 Temperature Pulse Rate 85 Respiratory Rate Blood Pressure 100/56 L 120/56 L Pulse Oximetry 87 L Oxygen Delivery Method 11/28/21 16:15 11/28/21 16:30 11/28/21 16:30 Temperature Pulse Rate 81 85 Respiratory Rate 8 L 24 Blood Pressure 117/59 L Pulse Oximetry 99 99 Oxygen Delivery Method 11/28/21 16:45 11/28/21 16:45 11/28/21 17:00 Temperature Pulse Rate 82 Respiratory Rate 20 Blood Pressure 123/63 128/59 L Pulse Oximetry 99 Oxygen Delivery Method 11/28/21 17:00 Temperature Pulse Rate 79 Respiratory Rate 20 Blood Pressure Pulse Oximetry 99 Oxygen Delivery Method MDM - GI Bleed Lab Data Attestation: I reviewed the patient's lab results. Result diagrams: 11/28/21 15:35 11/28/21 15:35 Labs: Lab Results 11/28/21 11/28/21 11/28/21 Range/Units 15:35 15:35 15:35 WBC 6.9 (4.5-11.0) X10^3/uL RBC 2.03 L (4.5-5.9) X10^6/uL Hgb 6.8 L* (13.5-17.5) g/dL Hct 20.8 L* (41-53) % MCV 102.8 H D (80-100) fL MCH 33.6 (26-34) PG MCHC 32.7 (30-36) % RDW 18.8 H (11.6-14.8) % Plt Count 170 (150-400) X10^3/uL Neut % (Auto) 88.7 H (50-75) % Lymph % (Auto) 5.6 L (25-40) % Sullivan % (Auto) 3.8 (3-14) % Eos % (Auto) 1.3 L (2-4) % Baso % (Auto) 0.6 (0-2) % Neut # (Auto) 6100 (6227-8168) /uL Lymph # (Auto) 400 L (4935-0257) /uL Sullivan # (Auto) 300 (0-900) /uL Eos # (Auto) 100 (0-450) /uL Baso # (Auto) 0 (0-100) /uL PT 33.8 H (10.1-12.7) SECONDS INR 2.9 H (0.9-1.3) APTT 40 H (26-36) SECONDS Sodium 136 L (137-145) mmol/L Potassium 5.2 H (3.4-5.1) mmol/L Chloride 105 (98-107) mmol/L Carbon Dioxide 22 (22-32) mmol/L BUN 88 H (9-20) mg/dL Creatinine 2.15 H (0.66-1.25) mg/dL Estimated GFR 31 L (>60) mL/min BUN/Creatinine Ratio 40.9 H (6-22) Glucose 198 H (80-110) mg/dL Calcium 9.5 (8.4-10.2) mg/dL Total Bilirubin 0.4 (0.2-1.3) mg/dL AST 27 (17-59) IU/L ALT 15 (<50) IU/L Alkaline Phosphatase 66 (38-126) U/L Total Protein 5.6 L (6.3-8.2) g/dL Albumin 3.6 (3.5-5.0) g/dL Globulin 2.0 (1.7-4.1) g/dL Albumin/Globulin Ratio 1.8 (1.0-2.8) Blood Type Antibody Screen Crossmatch 11/28/21 Range/Units 15:35 WBC (4.5-11.0) X10^3/uL RBC (4.5-5.9) X10^6/uL Hgb (13.5-17.5) g/dL Hct (41-53) % MCV (80-100) fL MCH (26-34) PG MCHC (30-36) % RDW (11.6-14.8) % Plt Count (150-400) X10^3/uL Neut % (Auto) (50-75) % Lymph % (Auto) (25-40) % Sullivan % (Auto) (3-14) % Eos % (Auto) (2-4) % Baso % (Auto) (0-2) % Neut # (Auto) (0284-8502) /uL Lymph # (Auto) (3617-1702) /uL Sullivan # (Auto) (0-900) /uL Eos # (Auto) (0-450) /uL Baso # (Auto) (0-100) /uL PT (10.1-12.7) SECONDS INR (0.9-1.3) APTT (26-36) SECONDS Sodium (137-145) mmol/L Potassium (3.4-5.1) mmol/L Chloride (98-107) mmol/L Carbon Dioxide (22-32) mmol/L BUN (9-20) mg/dL Creatinine (0.66-1.25) mg/dL Estimated GFR (>60) mL/min BUN/Creatinine Ratio (6-22) Glucose (80-110) mg/dL Calcium (8.4-10.2) mg/dL Total Bilirubin (0.2-1.3) mg/dL AST (17-59) IU/L ALT (<50) IU/L Alkaline Phosphatase (38-126) U/L Total Protein (6.3-8.2) g/dL Albumin (3.5-5.0) g/dL Globulin (1.7-4.1) g/dL Albumin/Globulin Ratio (1.0-2.8) Blood Type A Negative Antibody Screen Negative Crossmatch See Detail ECG Data Attestation: I personally reviewed and interpreted this ECG as follows: Interpretation: Atrial fibrillation Ventricular rate 84 Left axis deviation Are bundle branch block QRS 1-8 milliseconds Normal QTC No ST T wave changes MDM Narrative Medical decision making narrative: Not tachycardic, not hypotensive, is having dyspnea on exertion. Is having black-colored stools. Has had an upper GI bleed in the past. Is on Coumadin for atrial fibrillation. Discussed risks and benefits of a blood transfusion he expressed understanding. Will transfuse blood. Is also given a PPI. No indication for radiologic studies. INR is 2.9. Was given oral vitamin K. Discussed the case with Dr. Steele with general surgery who will see the patient as an inpatient. Discussed the case with Dr. Velazquez who will admit for further evaluation and treatment. Discussed the need for admission with the patient and his . They expressed understanding and agreement as well. Discharge Plan Departure Patient Disposition: Admitted As Inpatient Clinical Impression: Acute GI bleeding, Anemia, SCAR (acute kidney injury) Admit Date/Time: 11/28/21 18:01
[2021-11-28] MEDS: PANTOPRAZOLE 40 MG VIAL IV ×2 (16:56→20:21)
[2021-11-28 18:51] LABS: COVID19 -Nasal RAPID Negative (Negative)
[2021-11-28] MEDS: PHYTONADIONE (VIT K1) 5 MG TABLET 10 MG PO (20:21)
[2021-11-28] MEDS: TACROLIMUS 0.5 MG CAPSULE 1 MG PO (22:34)
[2021-11-28] MEDS: MYCOPHENOLATE SODIUM 180 MG 180 EACH PO (22:45)
--- NOTE | 2021-11-28 22:50 | P.HP_ITS ---
History of Present Illness History of Present Illness Date Patient Seen: 11/29/21 Time Patient Seen: 22:00 Chief complaint: states internal bleeding Narrative: Mr. Obregon is a 76M with PMH CKD stage 2-3, renal transplant in 2017, CVA, afib on coumadin, DM, HTN who presents with dark colored stools. He states he had a previous GI bleed approximately three years ago. He had EGD/colonoscopy, and capsule study, it is unclear what exactly was found, but he said he was placed on a PPI. He states that he thinks there was a lesion that a physician told him he may opt to get surgery for in the future. He took the PPI for less than a month and then stopped. He has not had any further bleeding until the last several days when he noticed dark, black colored stool. He did not have abdominal pain. He did not vomit blood. He drinks alcohol daily. He does not use nsaids. He does take coumadin. Since his bleeding started he has noted fatigue, lightheadedness, and shortness of breath. In the ED workup was done, vitals notable for afebrile, heart rate in 70s, blood pressure in 110s systolic. Labs notable for WBC 6.9, hgb 6.8, plts 170. Na 136, K 5.2, BUN 88, creatinine 2.15. INR 2.9. He was ordered for blood transfusion, PPI, and oral vitamin K. Surgery was consulted for consideration of scope. He was admitted for further treatment. Patient History Medical History Acute hypoxemic respiratory failure due to COVID-19 Acute renal failure superimposed on chronic kidney disease Atrial fibrillation (~2018) Borderline hypothyroidism Cataracts, bilateral (~2013) Cellulitis Chronic wound of extremity Dehydration with hyponatremia Gout (~1966) Hypertension Iron deficiency anemia Kidney disease (~2004) Low back pain Measles (~194) Mumps (~194) Pneumonia due to 2019 novel coronavirus Skin tear of right upper arm without complication Skin tear of right upper arm without complication Sleep apnea (~2011) Stroke (~2004) Surgical History Anesthesia History of total right knee replacement (TKR) Kidney transplant recipient (~2016) Renal transplant recipient Family & Social History Family History Father Stroke Mother History of heart disease Sister Cancer Grandfather History of heart disease Grandmother History of heart disease Social History: household members spouse Safety & Behavioral: Feels Safe in Current Yes Environment Been Physically Hurt or No Threatened By a Person Tobacco & Substance use: Smoking Status Never smoker alcohol intake current alcohol intake frequency 0-2 drinks per day Substance Use Type does not use Meds Home Medications and Allergies Home Medications Medication Instructions Recorded Confirmed Type mycophenolate sodium 180 mg 180 mg PO BID 08/29/17 11/28/21 History tablet,delayed release niacinamide 500 mg tablet 500 mg PO DAILY 08/29/17 11/28/21 History aspirin 81 mg tablet,delayed 81 mg PO DAILY 04/12/19 11/28/21 History release ergocalciferol (vitamin D2) 1,250 50,000 unit PO WEEKLY 04/12/19 11/28/21 History mcg (50,000 unit) capsule (Vitamin D2) metoprolol succinate 50 mg 25 mg PO DAILY 04/12/19 11/28/21 History tablet,extended release 24 hr terazosin 2 mg capsule 4 mg PO QPM 04/12/19 11/28/21 History atorvastatin 10 mg tablet 10 mg PO BEDTIME 04/21/21 11/28/21 History metformin 850 mg tablet 850 mg PO DAILY 04/21/21 11/28/21 History tacrolimus 1 mg capsule, 2 mg PO BID 04/22/21 11/28/21 History immediate-release prednisone 5 mg tablet 5 mg PO DAILY 05/08/21 11/28/21 History allopurinol 300 mg tablet 300 mg PO DAILY #90 tabs 08/06/21 11/28/21 Rx pioglitazone 30 mg tablet 30 mg PO DAILY Diabetes #90 tabs 10/29/21 11/28/21 Rx warfarin 5 mg tablet See Rx Instructions .Route 11/08/21 11/28/21 Rx .COMPLEX #90 tabs lisinopril 10 mg tablet 10 mg PO DAILY 11/25/21 11/28/21 History Allergies Allergy/AdvReac Type Severity Reaction Status Date / Time cephalexin Allergy Severe Anaphylaxis Verified 11/28/21 15:42 Review of Systems Review of Systems Narrative: 14 systems reviewed and negative aside from what is noted in the HPI Exam Vital Signs (past 8 hours): - 11/28/21 19:40 11/28/21 20:00 11/28/21 20:29 Temperature 98.2 F 98.2 F 98.0 F Pulse Rate 80 78 88 Respiratory Rate 16 19 20 Blood Pressure 139/74 139/74 145/73 H Pulse Oximetry 99 Oxygen Delivery Method 11/28/21 20:43 11/28/21 23:07 11/28/21 20:40 Temperature 98.1 F 97.2 F L Pulse Rate 77 85 Respiratory Rate 18 18 Blood Pressure 138/73 152/88 H Pulse Oximetry 99 Oxygen Delivery Method Room Air 11/29/21 00:00 Temperature 97.4 F L Pulse Rate 76 Respiratory Rate 20 Blood Pressure 152/88 H Pulse Oximetry 96 Oxygen Delivery Method Oxygen Delivery Method Room Air Narrative Exam Narrative: GEN: no acute distress HEENT: moist mucous membranes, PERRL NECK: trachea midline, no JVD PULM: clear bilaterally, no wheezes, rhonchi, rales CV: irregular, no murmurs ABD: soft, nontender, nondistended, no organomegaly EXT: warm and well perfused with 1+ pitting edema NEURO: awake, alert, oriented, with no focal deficits Objective Labs Result Diagrams: 11/29/21 00:45 11/28/21 15:35 Labs: Laboratory Results - last 24 hr 11/28/21 11/28/21 11/28/21 15:35 15:35 15:35 WBC 6.9 RBC 2.03 L Hgb 6.8 L* Hct 20.8 L* MCV 102.8 H D MCH 33.6 MCHC 32.7 RDW 18.8 H Plt Count 170 Neut % (Auto) 88.7 H Lymph % (Auto) 5.6 L Williams % (Auto) 3.8 Eos % (Auto) 1.3 L Baso % (Auto) 0.6 Neut # (Auto) 6100 Lymph # (Auto) 400 L Williams # (Auto) 300 Eos # (Auto) 100 Baso # (Auto) 0 PT 33.8 H INR 2.9 H APTT 40 H Sodium 136 L Potassium 5.2 H Chloride 105 Carbon Dioxide 22 BUN 88 H Creatinine 2.15 H Estimated GFR 31 L BUN/Creatinine Ratio 40.9 H Glucose 198 H Calcium 9.5 Total Bilirubin 0.4 AST 27 ALT 15 Alkaline Phosphatase 66 Total Protein 5.6 L Albumin 3.6 Globulin 2.0 Albumin/Globulin Ratio 1.8 SARS-CoV-2 (PCR) Blood Type Antibody Screen Crossmatch 11/28/21 11/28/21 11/29/21 15:35 18:00 00:45 WBC RBC Hgb 7.3 L Hct 22.2 L MCV MCH MCHC RDW Plt Count Neut % (Auto) Lymph % (Auto) Williams % (Auto) Eos % (Auto) Baso % (Auto) Neut # (Auto) Lymph # (Auto) Williams # (Auto) Eos # (Auto) Baso # (Auto) PT INR APTT Sodium Potassium Chloride Carbon Dioxide BUN Creatinine Estimated GFR BUN/Creatinine Ratio Glucose Calcium Total Bilirubin AST ALT Alkaline Phosphatase Total Protein Albumin Globulin Albumin/Globulin Ratio SARS-CoV-2 (PCR) Negative Blood Type A Negative Antibody Screen Negative Crossmatch See Detail Assessment & Plan Assessment & Plan narrative: Mr. Obregon is a 76M with PMH renal transplant, CVA, afib, DM, HTN who presents with dark stools likely from upper GI bleed. 1. Acute anemia from GI bleeding, probable upper -patient with dark stools, hemoglobin <7, and BUN elevated consistent with GI bleed -probable upper from gastritis given EtOH, with elevated BUN, though since has had capsule in the past may have had small intestine as source -order for 2U PRBC, then recheck hemoglobin -IV PPI BID -already did get PO vitamin K and will recheck INR in AM -surgery consulted to consider scope, NPO after midnight -hold aspirin and coumadin for now 2. SCAR on CKD stage 2-3, with history of renal transplant -source of SCAR is likely hypovolemia due to GI bleeding -baseline creatinine appears near 1.3, on admission 2.15 -for now continue with transplant meds, with prednisone, MMF, and tacrolimus -hold lisinopril and metformin for now -check tacrolimus level 3. Type 2 Diabetes -hold metformin due to SCAR -check glucose achs -ordered low dose insulin sliding scale 4. Atrial fibrillation -reversed coumadin due to bleed -hold metoprolol for now due to GI bleeding 5. History of CVA -holding aspirin due to GI bleeding CODE: Full Proxy: Kay Obregon, I have utilized all available resources to reconcile the patient's home medicati ons. Time Spent With Patient Critical Care time: I spent a total of [] minutes of critical care time on this patient's care to day; this time is exclusive of procedural time. Quality VTE Deep Vein Thrombosis/Pulmonary Embolism Present on Admission: No
[2021-11-29] VITALS (7 sets, daily range): BP systolic 144–152; BP diastolic 67–88; PULSE 68–76; RESP 18–20; TEMP 36.1–36.3; O2SAT 96–99
[2021-11-29 01:15] LABS: Hemoglobin 7.3 g/dL (13.5-17.5)
[2021-11-29 01:17] LABS: Hematocrit 22.2 % (41-53)
--- NOTE | 2021-11-29 01:26 | PC.NURSE ---
Dr. Rodriguez informed of recent H&H result of .05/21.2, no order for further blood transfusion at this time, will recheck labs in am and decide then unless if there is any major significant changes in pt's status. Will continue to monitor for now. VSS.
[2021-11-29] MEDS: ACETAMINOPHEN 325 MG TABLET 650 MG PO (01:28)
--- NOTE | 2021-11-29 02:55 | PC.NURSE ---
Pt has gotten 2 units of blood so far, tolerated well. Pt and asked about 10pm meds, no meds were ordered, was very frustrated and stated he needs these meds every 12 hours, its important. RN called dr to get meds ordered, hospital did not have them on hand, went home to get them and pt received home meds. Pt and often questioning staff and frustrated with care. Stated the blood needs to go at 200 so we can go home. RN educated that pt was not going to be discharged tonight and has a surgery consult for EGD tomorrow. Both requested to see the dr as they had not seen him yet and have lots of questions. DR came to see pt and explained plan of care. Pt understood and relayed to . Bed alarm is on, as pt has been dizzy and lightheaded. Pt and have stated well if he/i need to get up, im going to get up. RN reeducated about pressing the call light.
[2021-11-29 06:48] LABS: Add Manual Diff / Slide Review NO; Basophils Absolute Auto 0 /uL (0-100); Basophils Percent Auto 0.5 % (0-2); Eosinophils Absolute Auto 100 /uL (0-450); Eosinophils Percent Auto 2.6 % (2-4); Hematocrit 22.8 % (41-53); Hemoglobin 7.7 g/dL (13.5-17.5); Lymphocytes Absolute Auto 600 /uL (1100-4500); Mean Corpuscular HGB Conc 33.6 % (30-36); Mean Corpuscular Hemoglobin 33.1 PG (26-34); Mean Corpuscular Volume 98.4 fL (80-100); Monocytes Absolute Auto 500 /uL (0-900); Monocytes Percent Auto 8.7 % (3-14); Neutrophils Absolute Auto 4300 /uL (1500-7000); Neutrophils Percent Auto 77.2 % (50-75); Platelet Count 149 X10^3/uL (150-400); Red Blood Cell Count 2.32 X10^6/uL (4.5-5.9); Red Cell Distribution Width 19.7 % (11.6-14.8); White Blood Cell Count 5.5 X10^3/uL (4.5-11.0)
[2021-11-29 06:51] LABS: INR 2.4 (0.9-1.3); Prothrombin Time 28.2 SECONDS (10.1-12.7)
[2021-11-29 07:07] LABS: Alanine Aminotransferase 13 IU/L (<50); Albumin 3.2 g/dL (3.5-5.0); Albumin Globulin Ratio 1.5 (1.0-2.8); Alkaline Phosphatase 52 U/L (38-126); Aspartate Aminotransferase 23 IU/L (17-59); BUN Creatinine Ratio 43.7 (6-22); Bilirubin Total 0.7 mg/dL (0.2-1.3); Blood Urea Nitrogen 93 mg/dL (9-20); Carbon Dioxide 21 mmol/L (22-32); Chloride 107 mmol/L (98-107); Estimated Glomerular Filt Rate 31 mL/min (>60); Globulin 2.1 g/dL (1.7-4.1); Glucose 110 mg/dL (80-110); HEMOLYSIS < 15 (0-50); Magnesium 2.1 mg/dL (1.6-2.3); Potassium 4.7 mmol/L (3.4-5.1); Sodium 137 mmol/L (137-145); Total Protein 5.3 g/dL (6.3-8.2)
[2021-11-29] MEDS: PANTOPRAZOLE 40 MG VIAL IV (09:58)
[2021-11-29] MEDS: predniSONE 5 MG TABLET PO (09:58)
[2021-11-29] MEDS: TACROLIMUS 0.5 MG CAPSULE 2 MG PO (09:58)
[2021-11-29] MEDS: MYCOPHENOLATE SODIUM 360 MG 360 EACH PO (10:15)
--- NOTE | 2021-11-29 13:06 | P.CONS_ITS ---
History of Present Illness Consult details Date Patient Seen: 11/29/21 Time Patient Seen: 11:55 Chief complaint: states internal bleeding Narrative: Brian is a 76-year-old man who is admitted to the hospital for gastrointestinal hemorrhage. He has significant comorbidities including diabetes, atrial fibrillation on warfarin and aspirin, obstructive sleep apnea and kidney transplant. Meds Home Medications and Allergies Home Medications Medication Instructions Recorded Confirmed Type mycophenolate sodium 180 mg 360 mg PO BID 08/29/17 11/29/21 History tablet,delayed release niacinamide 500 mg tablet 500 mg PO DAILY 08/29/17 11/28/21 History aspirin 81 mg tablet,delayed 81 mg PO DAILY 04/12/19 11/28/21 History release ergocalciferol (vitamin D2) 1,250 50,000 unit PO WEEKLY 04/12/19 11/28/21 History mcg (50,000 unit) capsule (Vitamin D2) metoprolol succinate 50 mg 25 mg PO DAILY 04/12/19 11/28/21 History tablet,extended release 24 hr terazosin 2 mg capsule 4 mg PO QPM 04/12/19 11/28/21 History atorvastatin 10 mg tablet 10 mg PO BEDTIME 04/21/21 11/28/21 History metformin 850 mg tablet 850 mg PO DAILY 04/21/21 11/28/21 History tacrolimus 1 mg capsule, 2 mg PO BID 04/22/21 11/28/21 History immediate-release prednisone 5 mg tablet 5 mg PO DAILY 05/08/21 11/28/21 History allopurinol 300 mg tablet 300 mg PO DAILY #90 tabs 08/06/21 11/28/21 Rx pioglitazone 30 mg tablet 30 mg PO DAILY Diabetes #90 tabs 10/29/21 11/28/21 Rx warfarin 5 mg tablet See Rx Instructions .Route 11/08/21 11/28/21 Rx .COMPLEX #90 tabs lisinopril 10 mg tablet 10 mg PO DAILY 11/25/21 11/28/21 History mycophenolate sodium 360 mg 360 mg PO BID 11/29/21 11/29/21 History tablet,delayed release Allergies Allergy/AdvReac Type Severity Reaction Status Date / Time cephalexin Allergy Severe Anaphylaxis Verified 11/28/21 15:42 Exam Vital Signs (past 8 hours): - 11/29/21 08:13 11/29/21 07:35 11/29/21 07:35 Temperature 97 F L Pulse Rate 70 Respiratory Rate 18 Blood Pressure 144/67 H Pulse Oximetry 99 99 Oxygen Delivery Method Room Air Room Air Oxygen Flow Rate 2 11/29/21 11:30 11/29/21 06:45 Temperature 97.0 F L Pulse Rate 68 Respiratory Rate 18 Blood Pressure 151/73 H Pulse Oximetry 99 99 Oxygen Delivery Method Nasal Cannula Oxygen Flow Rate 0 2 Fraction of Inspired Oxygen 28 SaO2/FiO2 Ratio 357 Oxygen Delivery Method Room Air Oxygen Flow Rate 0 Objective Labs Result Diagrams: 11/29/21 06:16 11/29/21 06:16 Labs: Laboratory Results - last 24 hr 11/28/21 11/28/21 11/28/21 15:35 15:35 15:35 WBC 6.9 RBC 2.03 L Hgb 6.8 L* Hct 20.8 L* MCV 102.8 H D MCH 33.6 MCHC 32.7 RDW 18.8 H Plt Count 170 Neut % (Auto) 88.7 H Lymph % (Auto) 5.6 L [place] % (Auto) 3.8 Eos % (Auto) 1.3 L Baso % (Auto) 0.6 Neut # (Auto) 6100 Lymph # (Auto) 400 L [place] # (Auto) 300 Eos # (Auto) 100 Baso # (Auto) 0 PT 33.8 H INR 2.9 H APTT 40 H Sodium 136 L Potassium 5.2 H Chloride 105 Carbon Dioxide 22 BUN 88 H Creatinine 2.15 H Estimated GFR 31 L BUN/Creatinine Ratio 40.9 H Glucose 198 H Calcium 9.5 Magnesium Total Bilirubin 0.4 AST 27 ALT 15 Alkaline Phosphatase 66 Total Protein 5.6 L Albumin 3.6 Globulin 2.0 Albumin/Globulin Ratio 1.8 SARS-CoV-2 (PCR) Blood Type Antibody Screen Crossmatch 11/28/21 11/28/21 11/29/21 15:35 18:00 00:45 WBC RBC Hgb 7.3 L Hct 22.2 L MCV MCH MCHC RDW Plt Count Neut % (Auto) Lymph % (Auto) [place] % (Auto) Eos % (Auto) Baso % (Auto) Neut # (Auto) Lymph # (Auto) [place] # (Auto) Eos # (Auto) Baso # (Auto) PT INR APTT Sodium Potassium Chloride Carbon Dioxide BUN Creatinine Estimated GFR BUN/Creatinine Ratio Glucose Calcium Magnesium Total Bilirubin AST ALT Alkaline Phosphatase Total Protein Albumin Globulin Albumin/Globulin Ratio SARS-CoV-2 (PCR) Negative Blood Type A Negative Antibody Screen Negative Crossmatch See Detail 11/29/21 11/29/21 11/29/21 06:16 06:16 06:16 WBC 5.5 RBC 2.32 L Hgb 7.7 L Hct 22.8 L MCV 98.4 D MCH 33.1 MCHC 33.6 RDW 19.7 H Plt Count 149 L Neut % (Auto) 77.2 H Lymph % (Auto) 11.0 L [place] % (Auto) 8.7 Eos % (Auto) 2.6 Baso % (Auto) 0.5 Neut # (Auto) 4300 Lymph # (Auto) 600 L [place] # (Auto) 500 Eos # (Auto) 100 Baso # (Auto) 0 PT 28.2 H D INR 2.4 H APTT Sodium 137 Potassium 4.7 Chloride 107 Carbon Dioxide 21 L BUN 93 H Creatinine 2.13 H Estimated GFR 31 L BUN/Creatinine Ratio 43.7 H Glucose 110 Calcium 9.0 Magnesium 2.1 Total Bilirubin 0.7 AST 23 ALT 13 Alkaline Phosphatase 52 Total Protein 5.3 L Albumin 3.2 L Globulin 2.1 Albumin/Globulin Ratio 1.5 SARS-CoV-2 (PCR) Blood Type Antibody Screen Crossmatch [facility] Medical History Acute hypoxemic respiratory failure due to COVID-19 Acute renal failure superimposed on chronic kidney disease Atrial fibrillation (~2019) Borderline hypothyroidism Cataracts, bilateral (~2013) Cellulitis Chronic wound of extremity Dehydration with hyponatremia Gout (~1966) Hypertension Iron deficiency anemia Kidney disease (~2004) Low back pain Measles (~194) Mumps (~194) Pneumonia due to 2019 novel coronavirus Skin tear of right upper arm without complication Skin tear of right upper arm without complication Sleep apnea (~2011) Stroke (~2004) Surgical History Anesthesia History of total right knee replacement (TKR) Kidney transplant recipient (~2016) Renal transplant recipient Family History Father Stroke Mother History of heart disease Sister Cancer Grandfather History of heart disease Grandmother History of heart disease Social History household members: spouse Tobacco & Substance Use Smoking Status: Never smoker alcohol intake: current Assessment & Plan Time Spent With Patient Critical Care time: I spent a total of [] minutes of critical care time on this patient's care today; this time is exclusive of procedural time.
[2021-11-29 14:59] LABS: Hematocrit 23.7 % (41-53); Hemoglobin 7.7 g/dL (13.5-17.5)
--- NOTE | 2021-11-29 15:22 | PM.DS.1 ---
History of Present Illness History of Present Illness Date Patient Seen: 11/29/21 Chief complaint: states internal bleeding Narrative: Per Dr. Armstrong, Mr. Obregon is a 76M with PMH CKD stage 2-3, renal transplant in 2017, CVA, afib on coumadin, DM, HTN who presents with dark colored stools. He states he had a previous GI bleed approximately three years ago. He had EGD/colonoscopy, and capsule study, it is unclear what exactly was found, but he said he was placed on a PPI. He states that he thinks there was a lesion that a physician told him he may opt to get surgery for in the future. He took the PPI for less than a month and then stopped. He has not had any further bleeding until the last several days when he noticed dark, black colored stool. He did not have abdominal pain. He did not vomit blood. He drinks alcohol daily. He does not use nsaids. He does take coumadin. Since his bleeding started he has noted fatigue, lightheadedness, and shortness of breath. In the ED workup was done, vitals notable for afebrile, heart rate in 70s, blood pressure in 110s systolic. Labs notable for WBC 6.9, hgb 6.8, plts 170. Na 136, K 5.2, BUN 88, creatinine 2.15. INR 2.9. He was ordered for blood transfusion, PPI, and oral vitamin K. Surgery was consulted for consideration of scope. He was admitted for further treatment. Discharge Providers Provider Date of admission: 11/28/21 18:01 Discharge Date: 11/29/21 Primary care physician: Milad Martines MD Consults: 11/28/21 17:59 Consult to General Surgery Stat Comment: Consulting Provider: Ck Steele Reason for consultation: GI bleed Has provider been notified: Yes Discharge provider: Gopal Velazquez DO Summary Hospital Course Discharge Diagnosis: 1. Acute anemia from GI bleeding, probable upper 2. 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 Type 2 Diabetes 4. Atrial fibrillation, chronic 5. History of CVA Hospital Course: Mr. Obregon is a 76M with PMH renal transplant, CVA, afib, DM, HTN who presents with dark stools likely from upper GI bleed. He has a previous history of gastritis. He was given vitamin K for reversal, though his INR was still elevated the following day. Patient was started on IV PPI BID for presumed upper source. Surgery was consulted, but given recent endoscopy they did not feel like endoscopy was needed at this time. Patient very much wanted to go home, he had improvement in his dark stools and h/h remained stable in the upper 7s after transfusion. Surgery had ordered a diet which the patient was tolerating and he was discharged home. He is recommended to stop coumadin for now. He was given a prescription for oral PPI BID for one month. I recommend continued follow up with his outpatient providers. Testing was ordered for the following day to check for continued stability in his h/h . Exam Vital Signs (past 8 hours): - 11/29/21 08:13 11/29/21 07:35 11/29/21 07:35 Temperature 97 F L Pulse Rate 70 Respiratory Rate 18 Blood Pressure 144/67 H Pulse Oximetry 99 99 Oxygen Delivery Method Room Air Room Air Oxygen Flow Rate 2 11/29/21 11:30 Temperature 97.0 F L Pulse Rate 68 Respiratory Rate 18 Blood Pressure 151/73 H Pulse Oximetry 99 Oxygen Delivery Method Oxygen Flow Rate 0 Fraction of Inspired Oxygen 28 SaO2/FiO2 Ratio 357 Oxygen Delivery Method Room Air Oxygen Flow Rate 0 Narrative Exam Narrative: GEN: no acute distress HEENT: moist mucous membranes, PERRL NECK: trachea midline, no JVD PULM: clear bilaterally, no wheezes, rhonchi, rales CV: irregular, no murmurs ABD: soft, nontender, nondistended, no organomegaly EXT: warm and well perfused with 1+ pitting edema NEURO: awake, alert, oriented, with no focal deficits Objective Labs Result Diagrams: 11/29/21 14:24 11/29/21 06:16 Labs: Laboratory Results - last 24 hr 11/28/21 11/28/21 11/28/21 15:35 15:35 15:35 WBC 6.9 RBC 2.03 L Hgb 6.8 L* Hct 20.8 L* MCV 102.8 H D MCH 33.6 MCHC 32.7 RDW 18.8 H Plt Count 170 Neut % (Auto) 88.7 H Lymph % (Auto) 5.6 L [place] % (Auto) 3.8 Eos % (Auto) 1.3 L Baso % (Auto) 0.6 Neut # (Auto) 6100 Lymph # (Auto) 400 L [place] # (Auto) 300 Eos # (Auto) 100 Baso # (Auto) 0 PT 33.8 H INR 2.9 H APTT 40 H Sodium 136 L Potassium 5.2 H Chloride 105 Carbon Dioxide 22 BUN 88 H Creatinine 2.15 H Estimated GFR 31 L BUN/Creatinine Ratio 40.9 H Glucose 198 H Calcium 9.5 Magnesium Total Bilirubin 0.4 AST 27 ALT 15 Alkaline Phosphatase 66 Total Protein 5.6 L Albumin 3.6 Globulin 2.0 Albumin/Globulin Ratio 1.8 SARS-CoV-2 (PCR) Blood Type Antibody Screen Crossmatch 11/28/21 11/28/21 11/29/21 15:35 18:00 00:45 WBC RBC Hgb 7.3 L Hct 22.2 L MCV MCH MCHC RDW Plt Count Neut % (Auto) Lymph % (Auto) [place] % (Auto) Eos % (Auto) Baso % (Auto) Neut # (Auto) Lymph # (Auto) [place] # (Auto) Eos # (Auto) Baso # (Auto) PT INR APTT Sodium Potassium Chloride Carbon Dioxide BUN Creatinine Estimated GFR BUN/Creatinine Ratio Glucose Calcium Magnesium Total Bilirubin AST ALT Alkaline Phosphatase Total Protein Albumin Globulin Albumin/Globulin Ratio SARS-CoV-2 (PCR) Negative Blood Type A Negative Antibody Screen Negative Crossmatch See Detail 11/29/21 11/29/21 11/29/21 06:16 06:16 06:16 WBC 5.5 RBC 2.32 L Hgb 7.7 L Hct 22.8 L MCV 98.4 D MCH 33.1 MCHC 33.6 RDW 19.7 H Plt Count 149 L Neut % (Auto) 77.2 H Lymph % (Auto) 11.0 L [place] % (Auto) 8.7 Eos % (Auto) 2.6 Baso % (Auto) 0.5 Neut # (Auto) 4300 Lymph # (Auto) 600 L [place] # (Auto) 500 Eos # (Auto) 100 Baso # (Auto) 0 PT 28.2 H D INR 2.4 H APTT Sodium 137 Potassium 4.7 Chloride 107 Carbon Dioxide 21 L BUN 93 H Creatinine 2.13 H Estimated GFR 31 L BUN/Creatinine Ratio 43.7 H Glucose 110 Calcium 9.0 Magnesium 2.1 Total Bilirubin 0.7 AST 23 ALT 13 Alkaline Phosphatase 52 Total Protein 5.3 L Albumin 3.2 L Globulin 2.1 Albumin/Globulin Ratio 1.5 SARS-CoV-2 (PCR) Blood Type Antibody Screen Crossmatch 11/29/21 14:24 WBC RBC Hgb 7.7 L Hct 23.7 L MCV MCH MCHC RDW Plt Count Neut % (Auto) Lymph % (Auto) [place] % (Auto) Eos % (Auto) Baso % (Auto) Neut # (Auto) Lymph # (Auto) [place] # (Auto) Eos # (Auto) Baso # (Auto) PT INR APTT Sodium Potassium Chloride Carbon Dioxide BUN Creatinine Estimated GFR BUN/Creatinine Ratio Glucose Calcium Magnesium Total Bilirubin AST ALT Alkaline Phosphatase Total Protein Albumin Globulin Albumin/Globulin Ratio SARS-CoV-2 (PCR) Blood Type Antibody Screen Crossmatch [facility] Medical History Acute hypoxemic respiratory failure due to COVID-19 Acute renal failure superimposed on chronic kidney disease Atrial fibrillation (~2018) Borderline hypothyroidism Cataracts, bilateral (~2013) Cellulitis Chronic wound of extremity Dehydration with hyponatremia Gout (~1966) Hypertension Iron deficiency anemia Kidney disease (~2004) Low back pain Measles (~1948) Mumps (~1948) Pneumonia due to 2019 novel coronavirus Skin tear of right upper arm without complication Skin tear of right upper arm without complication Sleep apnea (~2011) Stroke (~2004) Surgical History Anesthesia History of total right knee replacement (TKR) Kidney transplant recipient (~2016) Renal transplant recipient Family History Father Stroke Mother History of heart disease Sister Cancer Grandfather History of heart disease Grandmother History of heart disease Social History household members: spouse Smoking Status: Never smoker alcohol intake: current Discharge Plan Discharge Plan Patient Disposition: Home Provider Discharge Comment: You were admitted to the hospital with likely upper GI bleeding and SCAR. This stabilized with transfusion and medications for acid reduction. Labs are ordered for tomorrow at the lab here. Please stop aspirin for 1 week then you can resume. Would continue to hold coumadin until follow up with [place]. Discharge orders & Medications Prescriptions: New pantoprazole 40 mg tablet,delayed release (DR/EC) 40 mg PO BID 30 Days Qty: 60 0RF Continued mycophenolate sodium 180 mg tablet,delayed release (DR/EC) 360 mg PO BID niacinamide 500 mg tablet 500 mg PO DAILY allopurinol 300 mg tablet 300 mg PO DAILY Qty: 90 3RF pioglitazone 30 mg tablet 30 mg PO DAILY Qty: 90 2RF metoprolol succinate 50 mg tablet extended release 24 hr 25 mg PO DAILY terazosin 2 mg capsule 4 mg PO QPM ergocalciferol (vitamin D2) [Vitamin D2] 1,250 mcg (50,000 unit) capsule 50,000 unit PO WEEKLY Rx Instructions: takes on thursday atorvastatin 10 mg tablet 10 mg PO BEDTIME metformin 850 mg tablet 850 mg PO DAILY tacrolimus 1 mg Capsule 2 mg PO BID Label Comments: 2 mg am 1 mg hs mycophenolate sodium 360 mg Tablet,Delayed Release (Dr/Ec) 360 mg PO BID lisinopril 10 mg Tablet 10 mg PO DAILY prednisone 5 mg tablet 5 mg PO DAILY Label Comments: Take 1 tablet by mouth once every morning with breakfast. Discontinued warfarin 5 mg tablet See Rx Instructions .ROUTE .COMPLEX Qty: 90 1RF Hold Instructions: dose change Dose Instruction: TAKE ONE TABLET BY MOUTH EVERY EVENING Rx Instructions: TAKE ONE TABLET BY MOUTH EVERY EVENING aspirin 81 mg Tablet,Delayed Release (Dr/Ec) 81 mg PO DAILY Follow up/Referrals: Milad Martines MD [Primary Care Provider] - Diet/Activity/Treatments Diet: Diet as Tolerated Activity: As tolerated Visit Report/Discharge Packet Instructions: DI for Blood Transfusion, How to Prevent Falls, Gastrointestinal Bleeding Discharge Data Primary Care Provider: Milad Martines Attending Provider: Gopal Velazquez VTE Deep Vein Thrombosis/Pulmonary Embolism Present on Admission: No
[2021-11-30 11:46] LABS: Tacrolimus 3.8 ng/mL (2.0-20.0)
== END 2021-11-29 16:45 | disposition home or self-care (01) ==
LOC: ED 17:58 → AC 18:12
PROVIDERS: Internal Medicine; Admitting Provider Internal Medicine; Emergency Provider Emergency Medicine; Family Provider Family Medicine; PCP Family Medicine; Referring Provider Emergency Medicine; Visit Provider Internal Medicine
DX: K92.1 Melena (principal); D62 Acute posthemorrhagic anemia; N17.9 Acute kidney failure, unspecified; Z94.0 Kidney transplant status; I48.91 Unspecified atrial fibrillation; Z79.01 Long term (current) use of anticoagulants; Z86.73 Personal history of transient ischemic attack (TIA), and cerebral infarction without residual deficits; Z79.84 Long term (current) use of oral hypoglycemic drugs; E11.22 Type 2 diabetes mellitus with diabetic chronic kidney disease; N18.2 Chronic kidney disease, stage 2 (mild); I12.9 Hypertensive chronic kidney disease with stage 1 through stage 4 chronic kidney disease, or unspecified chronic kidney disease; Z20.822 Contact with and (suspected) exposure to COVID-19; D50.9 Iron deficiency anemia, unspecified; M18.9 Osteoarthritis of first carpometacarpal joint, unspecified; G47.30 Sleep apnea, unspecified; E21.3 Hyperparathyroidism, unspecified
CPT/HCPCS: 36415; 36430; 80053; 80197; 82962; 83735; 85014; 85018; 85025; 85610; 85730; 86850; 86900; 86901; 87635; 93005; 94760; 96374; 96376; 99214; 99285; C9803; G0378; P9016; C9113; J1815; J7507

== ENCOUNTER → 2021-11-30 11:15 | Outpatient (CLI) | payer MEDICARE, OTHER, SELFPAY ==
[2021-11-28 18:35] VITALS: BMI 31.4
[2021-11-30 12:35] LABS: White Blood Cell Count 7.2 X10^3/uL (4.5-11.0)
[2021-11-30 12:36] LABS: Hematocrit 24.4 % (41-53); Mean Corpuscular HGB Conc 32.9 % (30-36); Mean Corpuscular Hemoglobin 32.9 PG (26-34); Platelet Count 181 X10^3/uL (150-400); Red Blood Cell Count 2.44 X10^6/uL (4.5-5.9)
[2021-11-30 13:03] LABS: BUN Creatinine Ratio 41.3 (6-22); Blood Urea Nitrogen 85 mg/dL (9-20); Calcium 9.9 mg/dL (8.4-10.2); Carbon Dioxide 22 mmol/L (22-32); Chloride 105 mmol/L (98-107); Estimated Glomerular Filt Rate 33 mL/min (>60); Glucose 161 mg/dL (80-110); HEMOLYSIS < 15 (0-50); Potassium 4.5 mmol/L (3.4-5.1); Sodium 137 mmol/L (137-145)
== END ==
PROVIDERS: Family Provider Family Medicine; PCP Family Medicine; Referring Provider Internal Medicine; Visit Provider Internal Medicine
DX: N17.9 Acute kidney failure, unspecified (principal); D62 Acute posthemorrhagic anemia
CPT/HCPCS: 36415; 80048; 85027

== ENCOUNTER → 2021-12-06 13:05 | Outpatient (CLI) | payer MEDICARE, OTHER, SELFPAY ==
[2021-11-28 18:35] VITALS: BMI 31.4
== END ==
PROVIDERS: Family Provider Family Medicine; PCP Family Medicine; Referring Provider Family Medicine; Visit Provider Family Medicine
DX: S80.821A Blister (nonthermal), right lower leg, initial encounter (principal); I87.2 Venous insufficiency (chronic) (peripheral); L97.222 Non-pressure chronic ulcer of left calf with fat layer exposed; L97.212 Non-pressure chronic ulcer of right calf with fat layer exposed; Z92.25 Personal history of immunosuppression therapy; R60.0 Localized edema; Z79.01 Long term (current) use of anticoagulants; Z94.0 Kidney transplant status
CPT/HCPCS: 97597; 99213

== ENCOUNTER → 2021-12-13 11:08 | Outpatient (CLI) | payer MEDICARE, OTHER, SELFPAY ==
[2021-11-28 18:35] VITALS: BMI 31.4
== END ==
PROVIDERS: Family Provider Family Medicine; PCP Family Medicine; Referring Provider Family Medicine; Visit Provider Nurse Practitioner Family
DX: L97.222 Non-pressure chronic ulcer of left calf with fat layer exposed (principal); L97.212 Non-pressure chronic ulcer of right calf with fat layer exposed; R60.0 Localized edema; Z79.01 Long term (current) use of anticoagulants; Z92.25 Personal history of immunosuppression therapy
CPT/HCPCS: 97597

== ENCOUNTER → 2021-12-27 11:11 | Outpatient (CLI) | payer MEDICARE, OTHER, SELFPAY ==
[2021-11-28 18:35] VITALS: BMI 31.4
== END ==
PROVIDERS: Family Provider Family Medicine; PCP Family Medicine; Referring Provider Family Medicine; Visit Provider Family Medicine
DX: E11.622 Type 2 diabetes mellitus with other skin ulcer (principal); L97.222 Non-pressure chronic ulcer of left calf with fat layer exposed; L97.212 Non-pressure chronic ulcer of right calf with fat layer exposed; R60.0 Localized edema; Z92.25 Personal history of immunosuppression therapy; Z79.01 Long term (current) use of anticoagulants; Z94.0 Kidney transplant status
CPT/HCPCS: 11042; 87070; 87077; 87186; 87205; 97597; 99213

== ENCOUNTER → 2022-01-03 13:04 | Outpatient (CLI) | payer MEDICARE, OTHER, SELFPAY ==
[2021-11-28 18:35] VITALS: BMI 31.4
== END ==
PROVIDERS: Family Provider Family Medicine; PCP Family Medicine; Referring Provider Family Medicine; Visit Provider Nurse Practitioner Family
DX: I87.2 Venous insufficiency (chronic) (peripheral) (principal); L97.222 Non-pressure chronic ulcer of left calf with fat layer exposed; L97.812 Non-pressure chronic ulcer of other part of right lower leg with fat layer exposed
CPT/HCPCS: 99213

== ENCOUNTER → 2022-01-09 14:52 | Outpatient (CLI) | payer MEDICARE, OTHER, SELFPAY ==
[2021-11-28 18:35] VITALS: BMI 31.4
[2022-01-09 17:20] LABS: Add Manual Diff / Slide Review NO; Basophils Absolute Auto 0 /uL (0-100); Basophils Percent Auto 0.6 % (0-2); Eosinophils Absolute Auto 100 /uL (0-450); Eosinophils Percent Auto 1.7 % (2-4); Hematocrit 27.4 % (41-53); Hemoglobin 8.7 g/dL (13.5-17.5); Lymphocytes Absolute Auto 300 /uL (1100-4500); Lymphocytes Percent Auto 5.6 % (25-40); Mean Corpuscular HGB Conc 31.8 % (30-36); Mean Corpuscular Hemoglobin 30.8 PG (26-34); Mean Corpuscular Volume 96.7 fL (80-100); Monocytes Absolute Auto 300 /uL (0-900); Neutrophils Absolute Auto 4100 /uL (1500-7000); Neutrophils Percent Auto 85.1 % (50-75); Platelet Count 209 X10^3/uL (150-400); Red Blood Cell Count 2.84 X10^6/uL (4.5-5.9); Red Cell Distribution Width 16.6 % (11.6-14.8); White Blood Cell Count 4.8 X10^3/uL (4.5-11.0)
[2022-01-09 17:48] LABS: Alanine Aminotransferase 17 IU/L (<50); Albumin 3.7 g/dL (3.5-5.0); Albumin Globulin Ratio 1.8 (1.0-2.8); Alkaline Phosphatase 69 U/L (38-126); Aspartate Aminotransferase 22 IU/L (17-59); BUN Creatinine Ratio 27.7 (6-22); Bilirubin Total 0.5 mg/dL (0.2-1.3); Blood Urea Nitrogen 67 mg/dL (9-20); Calcium 9.2 mg/dL (8.4-10.2); Carbon Dioxide 24 mmol/L (22-32); Chloride 104 mmol/L (98-107); Estimated Glomerular Filt Rate 27 mL/min (>60); Globulin 2.1 g/dL (1.7-4.1); Glucose 173 mg/dL (80-110); HEMOLYSIS < 15 (0-50); Sodium 136 mmol/L (137-145); Total Protein 5.8 g/dL (6.3-8.2)
[2022-01-09 18:18] LABS: Thyroid Stimulating Hormone 4.65 uIU/mL (0.47-4.68)
== END ==
PROVIDERS: Family Provider Family Medicine; PCP Family Medicine; Referring Provider Family Medicine; Visit Provider Family Medicine
DX: E11.9 Type 2 diabetes mellitus without complications (principal)
CPT/HCPCS: 36415; 80053; 84443; 85025

== ENCOUNTER 2022-04-24 12:26 | Emergency (ER) | payer MEDICARE, OTHER, SELFPAY ==
[2021-11-28 18:35] VITALS: BMI 31.4
[2022-04-24] VITALS (82 sets, daily range): BP systolic 108–162; BP diastolic 60–100; PULSE 79–109; RESP 16–44; TEMP 36.5; O2SAT 89–100; BMI 28.5
--- NOTE | 2022-04-24 12:29 | DI.RAD.S_ITS ---
PROCEDURE: XR CHEST 1V INDICATIONS: chest pain TECHNIQUE: One view of the chest was acquired. COMPARISON: [facility], , XR CHEST FOR PICC 1V, 05/07/2021, 17:54. FINDINGS: Surgical changes and devices: None. Lungs and pleura: Lungs are clear. No pleural effusions or pneumothorax. Mediastinum: Mediastinal contours appear normal. Cardiomegaly. Bones and chest wall: No suspicious bony lesions. Overlying soft tissues appear unremarkable. IMPRESSION: Cardiomegaly. No evidence acute pulmonary process. Dictated by: Jonathan Scott M.D. on 04/24/2022 at 12:55 Approved by: Jonathan Scott M.D. on 04/24/2022 at 12:56
--- NOTE | 2022-04-24 12:39 | ED.CHESTPAIN ---
HPI - Chest Pain General Chief Complaint: Chest Pain Stated Complaint: Chest and left arm pain Time Seen by Provider: 04/24/22 12:28 History of Present Illness HPI narrative: 77-year-old male nonsmoker with history of kidney transplant in 2016, AFib with Watchman procedure in 2021, hypertension presents by EMS for evaluation of severe chest pain since yesterday with minimal exertion. She has squeezing, heavy central chest pain with radiation down his left arm with minimal exertion. He gets associated shortness of breath and nausea. His symptoms largely resolved with rest but he is had a few episodes of pain while at rest. He states that over the past few days or weeks he is had increasing episodes in terms of severity and duration of exertional pain. He is had increasing exercise intolerance over the same timeframe. His transplant and Watchman were both on at [facility] in his primary cardiology group is at [place]. He denies any change in medications. Related Data Home Medications Medication Instructions Recorded Confirmed niacinamide 500 mg tablet 500 mg PO DAILY 08/29/17 01/07/22 ergocalciferol (vitamin D2) 1,250 50,000 unit PO WEEKLY 04/12/19 01/07/22 mcg (50,000 unit) capsule (Vitamin D2) metoprolol succinate 50 mg 25 mg PO DAILY 04/12/19 01/07/22 tablet,extended release 24 hr terazosin 2 mg capsule 4 mg PO QPM 04/12/19 01/07/22 atorvastatin 10 mg tablet 10 mg PO BEDTIME 04/21/21 01/07/22 tacrolimus 1 mg capsule, 2 mg PO BID 04/22/21 01/07/22 immediate-release prednisone 5 mg tablet 5 mg PO DAILY 05/08/21 01/07/22 lisinopril 10 mg tablet 10 mg PO DAILY 11/25/21 01/07/22 mycophenolate sodium 360 mg 360 mg PO BID 11/29/21 01/07/22 tablet,delayed release Previous Rx's Medication Instructions Recorded allopurinol 300 mg tablet 300 mg PO DAILY #90 tabs 08/06/21 pioglitazone 30 mg tablet 30 mg PO DAILY Diabetes #90 tabs 10/29/21 levothyroxine 50 mcg tablet 50 mcg PO DAILY #90 tabs 12/03/21 metformin 850 mg tablet See Rx Instructions .Route 03/04/22 .COMPLEX #180 tabs pantoprazole 40 mg tablet,delayed 40 mg PO BID #60 tabs 03/20/22 release Allergies Allergy/AdvReac Type Severity Reaction Status Date / Time cephalexin Allergy Severe Anaphylaxis Verified 11/28/21 15:42 Review of Systems Review of Systems Narrative: GENERAL: Denies chills, fatigue, malaise, fever, sweats. HEENT: Denies sinus pain, ear pain, sore throat, difficulty swallowing, dizziness. RESPIRATORY: See HPI CARDIOVASCULAR: See HPI GASTROINTESTINAL: Denies nausea, vomiting, abdominal pain, diarrhea, constipation, melena. : Denies dysuria, frequency, incontinence, hematuria, urinary retention. MUSCULOSKELETAL: denies weakness, joint pain, or bony pain SKIN: Denies rash, skin lesions, or other NEUROLOGIC: Denies weakness, headache, numbness, change in speech, confusion, seizures, incoordination. PSYCHIATRIC: No concerning psychosocial issues. 12 point review of systems is negative except for those stated above Patient History Medical History Acute hypoxemic respiratory failure due to COVID-19 Acute renal failure superimposed on chronic kidney disease Atrial fibrillation (~2018) Borderline hypothyroidism Cataracts, bilateral (~2013) Cellulitis Chronic wound of extremity Dehydration with hyponatremia Gout (~1966) Hypertension Iron deficiency anemia Kidney disease (~2004) Low back pain Measles (~194) Mumps (~194) Pneumonia due to 2019 novel coronavirus Skin tear of right upper arm without complication Skin tear of right upper arm without complication Sleep apnea (~2011) Stroke (~2004) Surgical History Anesthesia History of total right knee replacement (TKR) Kidney transplant recipient (~2016) Renal transplant recipient Family History Father Stroke Mother History of heart disease Sister Cancer Grandfather History of heart disease Grandmother History of heart disease Social History household members: spouse Smoking Status: Never smoker alcohol intake: current Smoking Status: Never smoker alcohol intake frequency: 0-2 drinks per day Alcohol type: hard liquor Substance Use Type: does not use Exam Narrative Exam Narrative: GENERAL: [77] year old patient appears stated age. Well-developed patient, in mild distress. HEAD: Atraumatic. Normocephalic. EYES: Pupils equal round and reactive. Extraocular motions intact. No scleral icterus. No injection or drainage. ENT: Nose without bleeding, purulent drainage. Throat without erythema, tonsillar hypertrophy or exudate. Airway patent. NECK: Trachea midline. Non tender CARDIOVASCULAR: Irregular rate and rhythm without murmurs, gallops, or rubs. RESPIRATORY: Clear to auscultation. Breath sounds equal bilaterally. No wheezes, rales, or rhonchi. GASTROINTESTINAL: Abdomen soft, non-tender, nondistended. EXTREMITIES: No edema or joint tenderness. BACK: Nontender without deformity or crepitance. No flank tenderness. NEURO: AOx3. SKIN: No rash or erythema of visible areas Initial Vital Signs Initial Vital Signs: Vital Signs Pulse Rate 94 H 04/24/22 12:32 Pulse Oximetry 100 04/24/22 12:32 Course Orders Ordered: Discontinued Medications Aspirin (Aspirin 81 Mg Chew Tab) 324 mg PO NOW ONE Stop: 04/24/22 12:30 Last Admin: 04/24/22 12:42 Dose: Not Given Documented By: CTS Heparin Sodium (Porcine) (Heparin 5,000 Unit/Ml Vial) 5,000 unit IV NOW ONE Stop: 04/24/22 15:04 Last Admin: 04/24/22 15:18 Dose: 5,000 unit Documented By: RB Sodium Chloride (Normal Saline 0.9%) 1,000 mls @ 150 mls/hr IV CONT GENTRY Last Infusion: 04/24/22 20:42 Dose: 0 mls/hr Documented By: Admin: 04/24/22 13:24 Dose: 150 mls/hr Documented By: RB Heparin Sodium/Dextrose (Heparin Drip) 25,000 unit in 500 mls @ 20 mls/hr IV CONT GENTRY; Protocol Last Titration: 04/24/22 23:20 Dose: 700 units/hr, 14 mls/hr Documented By: Titration: 04/24/22 22:20 Dose: 0 units/hr, 0 mls/hr Documented By: Admin: 04/24/22 15:20 Dose: 1,000 units/hr, 20 mls/hr Documented By: RB Isosorbide Mononitrate (Isosorbide Mononitrate Er 30 Mg Tablet) 30 mg PO NOW ONE Stop: 04/24/22 15:04 Last Admin: 04/24/22 15:19 Dose: 30 mg Documented By: RB Vital Signs Vital signs: Vital Signs - 8 hr 04/24/22 12:36 04/24/22 12:32 04/24/22 13:01 Temperature 97.7 F Pulse Rate 104 H 94 H Respiratory Rate 16 Blood Pressure 108/65 Pulse Oximetry 99 100 Oxygen Delivery Method Room Air 04/24/22 13:00 04/24/22 13:30 04/24/22 14:00 Temperature Pulse Rate 100 H 86 83 Respiratory Rate 33 H 22 Blood Pressure Pulse Oximetry 99 99 99 Oxygen Delivery Method 04/24/22 14:39 04/24/22 14:32 04/24/22 15:00 Temperature Pulse Rate 99 H 80 Respiratory Rate 21 19 Blood Pressure 118/70 Pulse Oximetry 99 99 Oxygen Delivery Method 04/24/22 15:30 04/24/22 15:35 04/24/22 15:35 Temperature Pulse Rate 85 91 H Respiratory Rate 23 21 Blood Pressure 162/90 H Pulse Oximetry 99 99 Oxygen Delivery Method 04/24/22 15:37 04/24/22 15:37 04/24/22 15:40 Temperature Pulse Rate 90 86 Respiratory Rate 27 H 26 H Blood Pressure 132/74 Pulse Oximetry 92 96 Oxygen Delivery Method 04/24/22 15:45 04/24/22 15:50 04/24/22 15:55 Temperature Pulse Rate 83 84 Respiratory Rate Blood Pressure 136/83 Pulse Oximetry 98 98 Oxygen Delivery Method 04/24/22 15:55 04/24/22 16:00 04/24/22 16:00 Temperature Pulse Rate 80 84 Respiratory Rate Blood Pressure 123/74 Pulse Oximetry 98 99 Oxygen Delivery Method 04/24/22 16:05 04/24/22 16:05 04/24/22 16:10 Temperature Pulse Rate 81 Respiratory Rate Blood Pressure 123/80 130/84 Pulse Oximetry 98 Oxygen Delivery Method 04/24/22 16:10 04/24/22 16:15 04/24/22 16:15 Temperature Pulse Rate 81 83 Respiratory Rate Blood Pressure 125/73 Pulse Oximetry 98 97 Oxygen Delivery Method 04/24/22 16:20 04/24/22 16:20 04/24/22 16:25 Temperature Pulse Rate 87 Respiratory Rate Blood Pressure 129/69 122/70 Pulse Oximetry 97 Oxygen Delivery Method 04/24/22 16:25 04/24/22 16:30 04/24/22 16:31 Temperature Pulse Rate 81 97 H 109 H Respiratory Rate Blood Pressure Pulse Oximetry 98 97 Oxygen Delivery Method 04/24/22 16:31 04/24/22 16:35 04/24/22 16:35 Temperature Pulse Rate 91 H Respiratory Rate 21 Blood Pressure 152/92 H 146/83 H Pulse Oximetry 99 Oxygen Delivery Method 04/24/22 16:40 04/24/22 16:40 04/24/22 16:45 Temperature Pulse Rate 85 Respiratory Rate 25 H Blood Pressure 154/73 H 130/75 Pulse Oximetry 98 Oxygen Delivery Method 04/24/22 16:45 04/24/22 16:50 04/24/22 16:50 Temperature Pulse Rate 88 82 Respiratory Rate 20 25 H Blood Pressure 124/67 Pulse Oximetry 98 98 Oxygen Delivery Method 04/24/22 16:55 04/24/22 16:55 04/24/22 17:00 Temperature Pulse Rate 84 Respiratory Rate 23 Blood Pressure 122/81 137/74 Pulse Oximetry 99 Oxygen Delivery Method 04/24/22 17:00 04/24/22 17:05 04/24/22 17:05 Temperature Pulse Rate 86 83 Respiratory Rate 21 20 Blood Pressure 134/85 Pulse Oximetry 98 97 Oxygen Delivery Method MDM - Chest Pain Lab Data 04/24/22 12:33 04/24/22 12:33 Labs: Lab Results 04/24/22 04/24/22 04/24/22 Range/Units 12:33 12:33 12:33 WBC 5.6 (4.5-11.0) X10^3/uL RBC 3.40 L (4.5-5.9) X10^6/uL Hgb 9.7 L (13.5-17.5) g/dL Hct 31.7 L (41-53) % MCV 93.2 (80-100) fL MCH 28.5 (26-34) PG MCHC 30.6 (30-36) % RDW 20.0 H (11.6-14.8) % Plt Count 151 (150-400) X10^3/uL Neut % (Auto) 74.7 (50-75) % Lymph % (Auto) 13.1 L (25-40) % Morris % (Auto) 7.7 (3-14) % Eos % (Auto) 3.4 (2-4) % Baso % (Auto) 1.1 (0-2) % Neut # (Auto) 4200 (2429-4543) /uL Lymph # (Auto) 700 L (7849-2854) /uL Morris # (Auto) 400 (0-900) /uL Eos # (Auto) 200 (0-450) /uL Baso # (Auto) 100 (0-100) /uL PT 11.4 (10.1-12.7) SECONDS INR 1.0 (0.9-1.3) APTT (26-36) SECONDS D-Dimer 628 H (<500) ng/ml Sodium 135 L (137-145) mmol/L Potassium 5.3 H (3.4-5.1) mmol/L Chloride 106 (98-107) mmol/L Carbon Dioxide 19 L (22-32) mmol/L BUN 91 H (9-20) mg/dL Creatinine 3.01 H (0.66-1.25) mg/dL Estimated GFR 21 L (>60) mL/min BUN/Creatinine Ratio 30.2 H (6-22) Glucose 165 H (80-110) mg/dL Calcium 9.9 (8.4-10.2) mg/dL Total Bilirubin 0.7 (0.2-1.3) mg/dL AST 44 (17-59) IU/L ALT 16 (<50) IU/L Alkaline Phosphatase 81 (38-126) U/L Total Creatine Kinase 282 H (55-170) U/L CK-MB (CK-2) 20.80 H (<2.37) ng/mL CK-MB (CK-2) Rel Index 7.4 H* (1.5-5.0) % Troponin I 4.220 H* (0.01-0.034) ng/mL NT-Pro-B Natriuret Pep 76145 H (<450) pg/mL Total Protein 7.1 (6.3-8.2) g/dL Albumin 4.4 (3.5-5.0) g/dL Globulin 2.7 (1.7-4.1) g/dL Albumin/Globulin Ratio 1.6 (1.0-2.8) Lipase 207 (23-300) U/L SARS-CoV-2 (PCR) (Negative) 04/24/22 04/24/22 04/24/22 Range/Units 12:33 15:50 21:30 WBC (4.5-11.0) X10^3/uL RBC (4.5-5.9) X10^6/uL Hgb (13.5-17.5) g/dL Hct (41-53) % MCV (80-100) fL MCH (26-34) PG MCHC (30-36) % RDW (11.6-14.8) % Plt Count (150-400) X10^3/uL Neut % (Auto) (50-75) % Lymph % (Auto) (25-40) % Morris % (Auto) (3-14) % Eos % (Auto) (2-4) % Baso % (Auto) (0-2) % Neut # (Auto) (6842-9349) /uL Lymph # (Auto) (2160-7653) /uL Morris # (Auto) (0-900) /uL Eos # (Auto) (0-450) /uL Baso # (Auto) (0-100) /uL PT (10.1-12.7) SECONDS INR (0.9-1.3) APTT 31 198 H* D (26-36) SECONDS D-Dimer (<500) ng/ml Sodium (137-145) mmol/L Potassium (3.4-5.1) mmol/L Chloride (98-107) mmol/L Carbon Dioxide (22-32) mmol/L BUN (9-20) mg/dL Creatinine (0.66-1.25) mg/dL Estimated GFR (>60) mL/min BUN/Creatinine Ratio (6-22) Glucose (80-110) mg/dL Calcium (8.4-10.2) mg/dL Total Bilirubin (0.2-1.3) mg/dL AST (17-59) IU/L ALT (<50) IU/L Alkaline Phosphatase (38-126) U/L Total Creatine Kinase (55-170) U/L CK-MB (CK-2) (<2.37) ng/mL CK-MB (CK-2) Rel Index (1.5-5.0) % Troponin I (0.01-0.034) ng/mL NT-Pro-B Natriuret Pep (<450) pg/mL Total Protein (6.3-8.2) g/dL Albumin (3.5-5.0) g/dL Globulin (1.7-4.1) g/dL Albumin/Globulin Ratio (1.0-2.8) Lipase (23-300) U/L SARS-CoV-2 (PCR) Negative (Negative) MDM Narrative Medical decision making narrative: CC: 77-year-old male with history of hypertension, hyperlipidemia, with increasing exercise intolerance and exertional chest pain with radiation in to his left arm Complicating co-morbidities: Kidney transplant, AFib, Data collected from: Patient Medical records reviewed: Prior notes reviewed in our EMR Differential considered, but not limited to: Myocardial infarction, pulmonary embolism versus other Exam documented above, pertinent findings include: Heart rate irregular but not tachycardic, no increased work of breathing, abdomen soft Lab Test results independently reviewed as above. Pertinent findings: No leukocytosis or left shift, hemoglobin low but at baseline for patient, creatinine 3.0 with GFR 21 at baseline per our most recent records, CK MB relative index 7.4%, troponin I 4.2-0, BNP 68373 Independently reviewed EKG as above Imaging studies independently reviewed: Cardiomegaly without acute process Consultations: [facility] (Marissa - recommends heparin drip, imdur), call to [facility] (Que) accepts patient for bed tonight Treatments: See above Discussion: Patient with concerning exertional symptoms including chest pressure with radiation into his left arm with increasing frequency, severity and duration with episodes at rest today. EKG demonstrates AFib without obvious occlusive findings, troponin significantly elevated. Discussion with [facility] to pursue continuity, they recommend heparin and long-acting nitrates, will attempt to transfer tonight Critical Care Time Critical Care Time Critical Care Time: Yes Total Critical Care Time: 35 Attestation: The high probability of a clinically significant, sudden or life threatening deterioration of the [CV] system(s) required my full and direct attention, intervention and personal management. The aggregate critical care time was []35 minutes. This time is in addition to time spent performing reported procedures but includes the following: [x] Data Review and interpretation [x] Patient assessment and monitoring of vital signs [x] Documentation [x] Medication orders and management Discharge Plan [facility]: Acute non-ST elevation myocardial infarction (NSTEMI) Prescriptions: No Action niacinamide 500 mg tablet 500 mg PO DAILY allopurinol 300 mg tablet 300 mg PO DAILY Qty: 90 3RF pioglitazone 30 mg tablet 30 mg PO DAILY Qty: 90 2RF levothyroxine 50 mcg tablet 50 mcg PO DAILY Qty: 90 1RF metformin 850 mg tablet See Rx Instructions .ROUTE .COMPLEX Qty: 180 3RF Dose Instruction: Take one tablet by mouth twice daily. Rx Instructions: Take one tablet by mouth twice daily. pantoprazole 40 mg tablet,delayed release (DR/EC) 40 mg PO BID Qty: 60 3RF metoprolol succinate 50 mg tablet extended release 24 hr 25 mg PO DAILY terazosin 2 mg capsule 4 mg PO QPM ergocalciferol (vitamin D2) [Vitamin D2] 1,250 mcg (50,000 unit) capsule 50,000 unit PO WEEKLY Rx Instructions: takes on thursday atorvastatin 10 mg tablet 10 mg PO BEDTIME tacrolimus 1 mg Capsule 2 mg PO BID Label Comments: 2 mg am 1 mg hs mycophenolate sodium 360 mg Tablet,Delayed Release (Dr/Ec) 360 mg PO BID lisinopril 10 mg Tablet 10 mg PO DAILY prednisone 5 mg tablet 5 mg PO DAILY Label Comments: Take 1 tablet by mouth once every morning with breakfast. Referrals: Milad Martines MD [Primary Care Provider] -
[2022-04-24 12:44] LABS: Add Manual Diff / Slide Review NO; Basophils Absolute Auto 100 /uL (0-100); Basophils Percent Auto 1.1 % (0-2); Eosinophils Absolute Auto 200 /uL (0-450); Eosinophils Percent Auto 3.4 % (2-4); Hematocrit 31.7 % (41-53); Hemoglobin 9.7 g/dL (13.5-17.5); Lymphocytes Absolute Auto 700 /uL (1100-4500); Lymphocytes Percent Auto 13.1 % (25-40); Mean Corpuscular HGB Conc 30.6 % (30-36); Mean Corpuscular Hemoglobin 28.5 PG (26-34); Mean Corpuscular Volume 93.2 fL (80-100); Monocytes Absolute Auto 400 /uL (0-900); Monocytes Percent Auto 7.7 % (3-14); Neutrophils Absolute Auto 4200 /uL (1500-7000); Neutrophils Percent Auto 74.7 % (50-75); Platelet Count 151 X10^3/uL (150-400); White Blood Cell Count 5.6 X10^3/uL (4.5-11.0)
[2022-04-24 12:48] LABS: Prothrombin Time 11.4 SECONDS (10.1-12.7)
[2022-04-24 12:50] LABS: D Dimer 628 ng/ml (<500)
[2022-04-24 12:53] LABS: Alanine Aminotransferase 16 IU/L (<50); Albumin 4.4 g/dL (3.5-5.0); Albumin Globulin Ratio 1.6 (1.0-2.8); Alkaline Phosphatase 81 U/L (38-126); Aspartate Aminotransferase 44 IU/L (17-59); BUN Creatinine Ratio 30.2 (6-22); Bilirubin Total 0.7 mg/dL (0.2-1.3); Blood Urea Nitrogen 91 mg/dL (9-20); Calcium 9.9 mg/dL (8.4-10.2); Carbon Dioxide 19 mmol/L (22-32); Chloride 106 mmol/L (98-107); Creatine Kinase 282 U/L (55-170); Estimated Glomerular Filt Rate 21 mL/min (>60); Globulin 2.7 g/dL (1.7-4.1); Glucose 165 mg/dL (80-110); HEMOLYSIS < 15 (0-50); Lipase 207 U/L (23-300); Potassium 5.3 mmol/L (3.4-5.1); Sodium 135 mmol/L (137-145); Total Protein 7.1 g/dL (6.3-8.2)
[2022-04-24] MEDS: SODIUM CHLORIDE 0.9% 1,000 ML 150 ML IV (13:24)
[2022-04-24 13:41] LABS: CKMB % Relative Index 7.4 % (1.5-5.0)
[2022-04-24 13:44] LABS: NT-proBNP (BNP-Adult 18+) 12700 pg/mL (<450)
[2022-04-24] MEDS: HEPARIN 5,000 UNIT/ML VIAL 5000 UNIT IV (15:18)
[2022-04-24] MEDS: ISOSORBIDE MONONITRATE ER 30 MG TABLET PO (15:19)
[2022-04-24] MEDS: HEPARIN DRIP 25,000 UNIT/500 ML IV.SOLN 20 UNIT IV (15:20)
[2022-04-24 15:32] LABS: PTT Partial Thromboplastin Tim 31 SECONDS (26-36)
[2022-04-24 16:13] LABS: COVID19 -Nasal RAPID Negative (Negative)
[2022-04-24 22:14] LABS: PTT Partial Thromboplastin Tim 198 SECONDS (26-36)
--- NOTE | 2022-04-24 23:23 | PC.NURSE ---
Provider Dr. Arita approved patient to take home some of the patient home evening dose medications. Patient took the following medication from home dose supply. Provider marked these on copy of patient home medication list. Tacrolimus 1mg Mycophenolate 180mg Lisinopril 25mg Terazosin 4mg Atorvastatin 10mg Metformin 850mg Pantoprazole 40mg
[2022-04-25] VITALS (13 sets, daily range): BP systolic 114–134; BP diastolic 63–91; PULSE 79–93; O2SAT 96–98
--- NOTE | 2022-04-25 00:07 | PC.NURSE ---
I called report to MARY Cummings at [facility] to give report on this patient prior to patient transferring.
== END 2022-04-25 01:16 | disposition short-term general hospital (02) ==
PROVIDERS: Emergency Provider Emergency Medicine; Family Provider Family Medicine; PCP Family Medicine
DX: I21.4 Non-ST elevation (NSTEMI) myocardial infarction (principal); R74.8 Abnormal levels of other serum enzymes; R79.89 Other specified abnormal findings of blood chemistry; I51.7 Cardiomegaly; Z79.899 Other long term (current) drug therapy; Z20.822 Contact with and (suspected) exposure to COVID-19
CPT/HCPCS: 36415; 71045; 80053; 82550; 82553; 83690; 83880; 84484; 85025; 85379; 85610; 85730; 87635; 93005; 96365; 96366; 96375; 99284; 99291; C9803; J1644

== ENCOUNTER 2022-05-15 09:10 | Emergency (ER) | payer MEDICARE, OTHER, SELFPAY ==
[2021-11-28 18:35] VITALS: BMI 31.4
[2022-05-15 09:18] VITALS: BP 95/54; PULSE 92; RESP 15; TEMP 36.6; O2SAT 100; BMI 28.9
[2022-05-15 09:48] LABS: Add Manual Diff / Slide Review NO; Basophils Absolute Auto 100 /uL (0-100); Basophils Percent Auto 1.2 % (0-2); Eosinophils Absolute Auto 200 /uL (0-450); Eosinophils Percent Auto 3.5 % (2-4); Hematocrit 24.4 % (41-53); Hemoglobin 7.9 g/dL (13.5-17.5); Lymphocytes Absolute Auto 600 /uL (1100-4500); Lymphocytes Percent Auto 9.5 % (25-40); Mean Corpuscular HGB Conc 32.4 % (30-36); Mean Corpuscular Hemoglobin 29.7 PG (26-34); Mean Corpuscular Volume 91.6 fL (80-100); Monocytes Absolute Auto 600 /uL (0-900); Monocytes Percent Auto 9.1 % (3-14); Neutrophils Absolute Auto 4700 /uL (1500-7000); Neutrophils Percent Auto 76.7 % (50-75); Platelet Count 245 X10^3/uL (150-400); Red Blood Cell Count 2.66 X10^6/uL (4.5-5.9); Red Cell Distribution Width 19.9 % (11.6-14.8); White Blood Cell Count 6.1 X10^3/uL (4.5-11.0)
[2022-05-15 09:53] LABS: INR 1.2 (0.9-1.3); Prothrombin Time 13.3 SECONDS (10.1-12.7)
[2022-05-15 09:55] LABS: PTT Partial Thromboplastin Tim 31 SECONDS (26-36)
[2022-05-15 09:57] LABS: Alanine Aminotransferase 13 IU/L (<50); Albumin 3.3 g/dL (3.5-5.0); Albumin Globulin Ratio 1.5 (1.0-2.8); Alkaline Phosphatase 65 U/L (38-126); Aspartate Aminotransferase 20 IU/L (17-59); BUN Creatinine Ratio 27.6 (6-22); Bilirubin Total 0.5 mg/dL (0.2-1.3); Blood Urea Nitrogen 69 mg/dL (9-20); Calcium 8.8 mg/dL (8.4-10.2); Carbon Dioxide 24 mmol/L (22-32); Chloride 102 mmol/L (98-107); Estimated Glomerular Filt Rate 26 mL/min (>60); Globulin 2.2 g/dL (1.7-4.1); Glucose 133 mg/dL (80-110); HEMOLYSIS < 15 (0-50); Potassium 4.4 mmol/L (3.4-5.1); Sodium 134 mmol/L (137-145); Total Protein 5.5 g/dL (6.3-8.2)
[2022-05-15 10:23] VITALS: BP 99/55; PULSE 73; RESP 14; O2SAT 99
--- NOTE | 2022-05-15 10:43 | DI.CT.S_ITS ---
PROCEDURE: CT ABDOMEN PELVIS WO CON INDICATIONS: abd pain TECHNIQUE: Axial sections were acquired from the lung bases to the pubic symphysis. Coronal and sagittal reformats were performed. For radiation dose reduction, the following was used: automated exposure control, adjustment of mA and/or kV according to patient size. COMPARISON: None. FINDINGS: Image quality: Mildly motion degraded Lower chest: Lung bases are unremarkable. There are coronary calcifications. Cardiomegaly. Hypoattenuating blood pool suggestive of anemia. Solid organs: Suspected hypoattenuating liver lesions possibly cysts. Subcentimeter lesions are too small to characterize. Nodular liver contour. Gallbladder is unremarkable. No pathologic dilation of the biliary tree or pancreatic duct. [id number] atrophy of the pancreatic parenchyma. No splenomegaly. No adrenal nodules. Multiple cysts and too small to characterize subcentimeter lesions in the stebbins kidneys. Tiny calcifications are present, without obstructing component. A right lower quadrant renal graft is present, with fat stranding around the renal pelvis. No drainable abscess around the graft. Vessels and lymph nodes: No abdominal aortic aneurysm. Moderate atherosclerotic calcifications of the aorta and its branches. No pathologic adenopathy by size criteria. Bowel and peritoneum: No evidence of a small bowel obstruction. No pathologic ascites. Mild nonspecific diffuse mesenteric root fat stranding. Extensive colonic diverticula, with focal fat stranding around the sigmoid colon. The appendix appears normal. Body wall: Mild anasarca. Small left paramidline fat containing hernia. Possible inguinal fat containing hernias, there may also be some fluid. Pelvis: Mild perivesicular fat stranding. Prostate is not well evaluated on this study. Bones: No acute or suspicious osseous finding. There are degenerative changes. IMPRESSION: Mild or resolving sigmoid colitis or uncomplicated diverticulitis. Please also correlate with age-appropriate colonoscopy results. Fat stranding around the renal pelvis graft in the right lower quadrant, correlate with urinalysis. There is also mild perivesicular stranding. No hydronephrosis. Morphologic liver characteristics suggestive of chronic liver disease. Nonspecific mild anasarca and mesenteric root fat stranding. Hypoattenuating liver and renal lesions are not well evaluated on this study, the largest ones are probably cysts. Subcentimeter lesions are too small to characterize. Multiple other incidental findings above. Dictated by: Jeferson Garrison M.D. on 05/15/2022 at 11:02 Approved by: Jeferson Garrison M.D. on 05/15/2022 at 11:09
--- NOTE | 2022-05-15 10:56 | ED.GIBLEED ---
HPI - GI Bleed General Chief complaint: GI Bleed Stated complaint: sent by rectal bleeding Time Seen by Provider: 05/15/22 10:29 Source: patient Mode of arrival: Ambulatory History of Present Illness HPI Narrative: Patient here with complains of bright red blood per rectum this morning. Had abdominal discomfort generalized last night. No abdominal pain at this time. No chest pain no back pain. Patient is on Plavix and aspirin. Patient has known history of colonic bleed 1 year ago seen at [facility]. According to and patient, he had a very specialized endoscopy done at [facility], he did have EGD that extended down to the small intestine/distal small intestine as well as colonoscopy done. It was not bleeding at the time and no other intervention was done. Patient did have non-STEMI last month and sensitive [facility] hospitalist well. Blood pressure noted. It is lower than compared to last month. Hemoglobin done and is at baseline. However rectal bleeding started this morning. Patient no in discomfort at this time. Again, no chest pain no dyspnea. No dizziness no syncope no chest pain or back pain Related Data Home Medications Medication Instructions Recorded Confirmed niacinamide 500 mg tablet 500 mg PO DAILY 08/29/17 05/23/22 ergocalciferol (vitamin D2) 1,250 50,000 unit PO WEEKLY 04/12/19 05/23/22 mcg (50,000 unit) capsule (Vitamin D2) tacrolimus 1 mg capsule, 2 mg PO BID 04/22/21 05/23/22 immediate-release prednisone 5 mg tablet 5 mg PO DAILY 05/08/21 05/23/22 mycophenolate sodium 360 mg 360 mg PO BID 11/29/21 05/23/22 tablet,delayed release lisinopril 10 mg tablet 10 mg PO DAILY 05/15/22 05/23/22 atorvastatin 80 mg tablet 80 mg PO BEDTIME 05/23/22 05/23/22 bumetanide 1 mg tablet 1 mg PO BID 05/23/22 05/23/22 dapagliflozin 5 mg tablet (Farxiga) 5 mg PO DAILY 05/23/22 05/23/22 metoprolol succinate 25 mg 25 mg PO DAILY 05/23/22 05/23/22 tablet,extended release 24 hr Previous Rx's Medication Instructions Recorded allopurinol 300 mg tablet 300 mg PO DAILY #90 tabs 08/06/21 levothyroxine 50 mcg tablet 50 mcg PO DAILY #90 tabs 12/03/21 aspirin 81 mg chewable tablet 81 mg PO DAILY #90 tabs 05/15/22 clopidogrel 75 mg tablet 75 mg PO DAILY #90 tabs 05/15/22 famotidine 20 mg tablet 20 mg PO .Every other day #90 tabs 05/15/22 terazosin 2 mg capsule 4 mg PO QPM #180 caps 05/16/22 Allergies Allergy/AdvReac Type Severity Reaction Status Date / Time cephalexin Allergy Severe Anaphylaxis Verified 05/15/22 09:18 Review of Systems Review of Systems Narrative: GENERAL: negative chills, fatigue, malaise, fever, sweats. HEENT: negative sinus pain, ear pain, sore throat RESPIRATORY: negative dyspnea, cough CARDIOVASCULAR: negative chest pain, palpitations GASTROINTESTINAL: negative nausea, vomiting, positive rectal bleed and abdominal pain : negative dysuria, frequency, hematuria MUSCULOSKELETAL: negative muscle or bony pain SKIN: negative rash, skin lesions NEUROLOGIC: negative weakness, numbness ROS Unobtainable: All systems reviewed & are unremarkable except as noted in HPI and below Patient History Medical History Acute hypoxemic respiratory failure due to COVID-19 Acute renal failure superimposed on chronic kidney disease Atrial fibrillation (~2018) Borderline hypothyroidism Cataracts, bilateral (~2013) Cellulitis Chronic wound of extremity Dehydration with hyponatremia Gout (~1966) Hypertension Iron deficiency anemia Kidney disease (~2004) Low back pain Measles (~1948) Mumps (~1948) Pneumonia due to 2019 novel coronavirus Skin tear of right upper arm without complication Skin tear of right upper arm without complication Sleep apnea (~2011) Stroke (~2004) Surgical History Anesthesia History of total right knee replacement (TKR) Kidney transplant recipient (~2016) Renal transplant recipient Family History Father Stroke Mother History of heart disease Sister Cancer Grandfather History of heart disease Grandmother History of heart disease Social History household members: spouse Smoking Status: Never smoker alcohol intake: current Smoking Status: Never smoker alcohol intake frequency: 0-2 drinks per day Alcohol type: hard liquor Substance Use Type: does not use Exam Narrative Exam Narrative: GENERAL: in no distress, not toxic not dyspneic HEAD: Normocephalic. EYES: Pupils equal round, there is pale conjunctiva ENT: Mucous membranes moist. NECK: Trachea midline. CARDIOVASCULAR: Regular rate and rhythm without murmurs RESPIRATORY: Clear to auscultation. Breath sounds equal bilaterally. No wheezes, rales, or rhonchi. GASTROINTESTINAL: Abdomen soft, non-tender, no peritoneal signs, no pain out of proportion to exam. Bowel sounds are present. EXTREMITIES: No gross deformities. BACK: No flank tenderness. NEURO: AOx4. SKIN: Warm and dry PSYCH: Not anxious, is cooperative Initial Vital Signs Initial Vital Signs: Vital Signs Temperature 97.8 F 05/15/22 09:18 Pulse Rate 92 H 05/15/22 09:18 Respiratory Rate 15 05/15/22 09:18 Blood Pressure 95/54 L 05/15/22 09:18 Pulse Oximetry 100 05/15/22 09:18 Oxygen Delivery Method Room Air 05/15/22 09:18 Course Orders Ordered: Discontinued Medications Ciprofloxacin (Ciprofloxacin 250 Mg Tablet) 500 mg PO NOW ONE Stop: 05/15/22 11:32 Last Admin: 05/15/22 11:43 Dose: 500 mg Documented By: PATTI Metronidazole (Metronidazole 500 Mg Tablet) 500 mg PO NOW ONE Stop: 05/15/22 11:32 Last Admin: 05/15/22 11:43 Dose: 500 mg Documented By: PATTI Pantoprazole Sodium (Pantoprazole 40 Mg Vial) 80 mg IV NOW ONE Stop: 05/15/22 09:21 Last Admin: 05/15/22 09:26 Dose: Not Given Documented By: PARVEEN Vital Signs Vital signs: Vital Signs - 8 hr 05/15/22 09:18 05/15/22 10:23 Temperature 97.8 F Pulse Rate 92 H 73 Respiratory Rate 15 14 Blood Pressure 95/54 L 99/55 L Pulse Oximetry 100 99 Oxygen Delivery Method Room Air Room Air MDM - GI Bleed Lab Data 05/15/22 09:35 05/15/22 09:35 Labs: Lab Results 05/15/22 05/15/22 05/15/22 Range/Units 09:35 09:35 09:35 WBC 6.1 (4.5-11.0) X10^3/uL RBC 2.66 L (4.5-5.9) X10^6/uL Hgb 7.9 L (13.5-17.5) g/dL Hct 24.4 L (41-53) % MCV 91.6 (80-100) fL MCH 29.7 (26-34) PG MCHC 32.4 (30-36) % RDW 19.9 H (11.6-14.8) % Plt Count 245 (150-400) X10^3/uL Neut % (Auto) 76.7 H (50-75) % Lymph % (Auto) 9.5 L (25-40) % [place] % (Auto) 9.1 (3-14) % Eos % (Auto) 3.5 (2-4) % Baso % (Auto) 1.2 (0-2) % Neut # (Auto) 4700 (5442-5746) /uL Lymph # (Auto) 600 L (5994-9269) /uL [place] # (Auto) 600 (0-900) /uL Eos # (Auto) 200 (0-450) /uL Baso # (Auto) 100 (0-100) /uL PT 13.3 H (10.1-12.7) SECONDS INR 1.2 (0.9-1.3) APTT 31 (26-36) SECONDS Sodium 134 L (137-145) mmol/L Potassium 4.4 (3.4-5.1) mmol/L Chloride 102 (98-107) mmol/L Carbon Dioxide 24 (22-32) mmol/L BUN 69 H (9-20) mg/dL Creatinine 2.50 H (0.66-1.25) mg/dL Estimated GFR 26 L (>60) mL/min BUN/Creatinine Ratio 27.6 H (6-22) Glucose 133 H (80-110) mg/dL Calcium 8.8 (8.4-10.2) mg/dL Total Bilirubin 0.5 (0.2-1.3) mg/dL AST 20 (17-59) IU/L ALT 13 (<50) IU/L Alkaline Phosphatase 65 (38-126) U/L Total Protein 5.5 L (6.3-8.2) g/dL Albumin 3.3 L (3.5-5.0) g/dL Globulin 2.2 (1.7-4.1) g/dL Albumin/Globulin Ratio 1.5 (1.0-2.8) Blood Type Antibody Screen 05/15/22 Range/Units 09:35 WBC (4.5-11.0) X10^3/uL RBC (4.5-5.9) X10^6/uL Hgb (13.5-17.5) g/dL Hct (41-53) % MCV (80-100) fL MCH (26-34) PG MCHC (30-36) % RDW (11.6-14.8) % Plt Count (150-400) X10^3/uL Neut % (Auto) (50-75) % Lymph % (Auto) (25-40) % [place] % (Auto) (3-14) % Eos % (Auto) (2-4) % Baso % (Auto) (0-2) % Neut # (Auto) (8570-2721) /uL Lymph # (Auto) (1068-6583) /uL [place] # (Auto) (0-900) /uL Eos # (Auto) (0-450) /uL Baso # (Auto) (0-100) /uL PT (10.1-12.7) SECONDS INR (0.9-1.3) APTT (26-36) SECONDS Sodium (137-145) mmol/L Potassium (3.4-5.1) mmol/L Chloride (98-107) mmol/L Carbon Dioxide (22-32) mmol/L BUN (9-20) mg/dL Creatinine (0.66-1.25) mg/dL Estimated GFR (>60) mL/min BUN/Creatinine Ratio (6-22) Glucose (80-110) mg/dL Calcium (8.4-10.2) mg/dL Total Bilirubin (0.2-1.3) mg/dL AST (17-59) IU/L ALT (<50) IU/L Alkaline Phosphatase (38-126) U/L Total Protein (6.3-8.2) g/dL Albumin (3.5-5.0) g/dL Globulin (1.7-4.1) g/dL Albumin/Globulin Ratio (1.0-2.8) Blood Type A Negative Antibody Screen Negative Imaging Data CT scan - abdomen/pelvis: Radiologist's Impression: PROCEDURE: CT ABDOMEN PELVIS WO CON INDICATIONS: abd pain TECHNIQUE: Axial sections were acquired from the lung bases to the pubic symphysis. Coronal and sagittal reformats were performed. For radiation dose reduction, the following was used: automated exposure control, adjustment of mA and/or kV according to patient size. COMPARISON: None. FINDINGS: Image quality: Mildly motion degraded Lower chest: Lung bases are unremarkable. There are coronary calcifications. Cardiomegaly. Hypoattenuating blood pool suggestive of anemia. Solid organs: Suspected hypoattenuating liver lesions possibly cysts. Subcentimeter lesions are too small to characterize. Nodular liver contour. Gallbladder is unremarkable. No pathologic dilation of the biliary tree or pancreatic duct. Otfm-sd-fhppezew atrophy of the pancreatic parenchyma. No splenomegaly. No adrenal nodules. Multiple cysts and too small to characterize subcentimeter lesions in the [place] kidneys. Tiny calcifications are present, without obstructing component. A right lower quadrant renal graft is present, with fat stranding around the renal pelvis. No drainable abscess around the graft. Vessels and lymph nodes: No abdominal aortic aneurysm. Moderate atherosclerotic calcifications of the aorta and its branches. No pathologic adenopathy by size criteria. Bowel and peritoneum: No evidence of a small bowel obstruction. No pathologic ascites. Mild nonspecific diffuse mesenteric root fat stranding. Extensive colonic diverticula, with focal fat stranding around the sigmoid colon. The appendix appears normal. Body wall: Mild anasarca. Small left paramidline fat containing hernia. Possible inguinal fat containing hernias, there may also be some fluid. Pelvis: Mild perivesicular fat stranding. Prostate is not well evaluated on this study. Bones: No acute or suspicious osseous finding. There are degenerative changes. IMPRESSION: Mild or resolving sigmoid colitis or uncomplicated diverticulitis. Please also correlate with age-appropriate colonoscopy results. Fat stranding around the renal pelvis graft in the right lower quadrant, correlate with urinalysis. There is also mild perivesicular stranding. No hydronephrosis. Morphologic liver characteristics suggestive of chronic liver disease. Nonspecific mild anasarca and mesenteric root fat stranding. Hypoattenuating liver and renal lesions are not well evaluated on this study, the largest ones are probably cysts. Subcentimeter lesions are too small to characterize. Multiple other incidental findings above. Dictated by: Jeferson Garrison M.D. on 05/15/2022 at 11:02 Approved by: Jeferson Garrison M.D. on 05/15/2022 at 11:[address] [facility] Narrative Medical decision making narrative: Patient here with complains of bright red blood per rectum this morning. Had abdominal discomfort generalized last night. No abdominal pain at this time. No chest pain no back pain. Patient is on Plavix and aspirin. Patient has known history of colonic bleed 1 year ago seen at [facility]. According to and patient, he had a very specialized endoscopy done at [facility], he did have EGD that extended down to the small intestine/distal small intestine as well as colonoscopy done. It was not bleeding at the time and no other intervention was done. Patient did have non-STEMI last month and sensitive [facility] hospitalist well. Blood pressure noted. It is lower than compared to last month. Hemoglobin done and is at baseline. However rectal bleeding started this morning. Patient no in discomfort at this time. Again, no chest pain no dyspnea. No dizziness no syncope no chest pain or back pain After history and exam CBC CMP coags CT abdomen and pelvis ordered [facility] CC: Rectal bleeding Complicating co-morbidities: Recent non-STEMI/history of GI bleed/chronic kidney disease Data collected from: Patient and Medical records reviewed: Non-STEMI documentation last month Differential considered: Includes but not limited to diverticulosis diverticulitis ischemic bowel hemorrhoid Exam documented above, pertinent findings include: Pale conjunctiva, nontender abdomen, slightly low blood pressure Lab Test results independently reviewed as above. Pertinent findings: Hemoglobin 7.9 hematocrit 24 platelets 245, PT 13 INR 1.2 PTT 31 BUN 69 creatinine 2.5 GFR 26 Imaging studies independently reviewed: CT abdomen pelvis sigmoid colitis or resolving diverticulitis Treatments: Flagyl and Cipro Re-evaluations: 11:32 a.m.. Blood pressure improved 103/63 without intervention. I did review with patient and results. At this time they do agree for treatment for possible early diverticulitis. Likely not resolving diverticulitis as symptoms started last night with discomfort and then rectal bleeding this morning. They do have GI specialist at [facility] to follow up with. They have repeat blood work scheduled already for tomorrow morning. Return precautions reviewed with him. They desire discharge home. CT liver findings reviewed with patient and and they think they have been informed about this finding in the past but they will follow up with their GI specialists at [facility] Discussion: Appropriate for discharge home. Exam and laboratory studies and imaging otherwise reassuring. Blood pressure did improve without intervention. Not toxic at discharge. Patient does have baseline anemia. His hemoglobin is at baseline. Patient and do not want admission. They would like to try outpatient antibiotic therapy. Patient is allergic to Keflex/has anaphylaxis. No penicillin products at this time. Will need Cipro and Flagyl. Diagnosis: Sigmoid diverticulitis Discharge Plan Departure Patient Disposition: Home Clinical Impression: Diverticulitis of sigmoid colon Instructions: DI for Diverticulitis Activity Restrictions/Additional Instructions: Please do call your GI specialist at [facility] today to make appointment for re-evaluation colonoscopy next week. Please continue prescribed antibiotics that has been sent to your pharmacy. Please do have your blood redrawn/tests tomorrow as scheduled. Return if worse if any questions or concerns. Prescriptions: No Action niacinamide 500 mg tablet 500 mg PO DAILY allopurinol 300 mg tablet 300 mg PO DAILY Qty: 90 3RF levothyroxine 50 mcg tablet 50 mcg PO DAILY Qty: 90 1RF aspirin 81 mg tablet,chewable 81 mg PO DAILY Qty: 90 0RF clopidogrel 75 mg tablet 75 mg PO DAILY Qty: 90 0RF famotidine 20 mg tablet 20 mg PO .Every other day Qty: 90 0RF lisinopril 10 mg tablet 10 mg PO DAILY terazosin 2 mg capsule 4 mg PO QPM Qty: 180 2RF atorvastatin 80 mg tablet 80 mg PO BEDTIME Patient Comments: TAKE ONE TABLET BY MOUTH ONE TIME AT NIGHT bumetanide 1 mg tablet 1 mg PO BID Farxiga 5 mg tablet 5 mg PO DAILY metoprolol succinate 25 mg tablet extended release 24 hr 25 mg PO DAILY ergocalciferol (vitamin D2) [Vitamin D2] 1,250 mcg (50,000 unit) capsule 50,000 unit PO WEEKLY Rx Instructions: takes on thursday tacrolimus 1 mg Capsule 2 mg PO BID Patient Comments: 2 mg am 1 mg hs mycophenolate sodium 360 mg Tablet,Delayed Release (Dr/Ec) 360 mg PO BID prednisone 5 mg tablet 5 mg PO DAILY Patient Comments: Take 1 tablet by mouth once every morning with breakfast. Referrals: Milad Martines MD [Primary Care Provider] - Stand Alone Forms: Patient Portal/API
[2022-05-15 11:33] VITALS: BP 103/63
[2022-05-15] MEDS: CIPROFLOXACIN 250 MG TABLET 500 MG PO (11:43)
[2022-05-15] MEDS: metroNIDAZOLE 500 MG TABLET PO (11:43)
== END 2022-05-15 11:43 | disposition home or self-care (01) ==
PROVIDERS: Emergency Provider Emergency Medicine; Family Provider Family Medicine; PCP Family Medicine
DX: K57.32 Diverticulitis of large intestine without perforation or abscess without bleeding (principal); R10.84 Generalized abdominal pain
CPT/HCPCS: 36415; 74176; 80053; 85025; 85610; 85730; 86850; 86900; 86901; 99284

== ENCOUNTER 2022-07-08 15:31 | Emergency (ER) | payer MEDICARE, OTHER, SELFPAY ==
[2022-05-20 14:15] VITALS: BMI 31.4
[2022-07-08 15:56] VITALS: BP 147/85; PULSE 87; RESP 17; TEMP 36.6; O2SAT 100; BMI 27.4
--- NOTE | 2022-07-08 16:03 | DI.RAD.S_ITS ---
PROCEDURE: XR ANKLE LT MIN 3V INDICATIONS: ankle injury TECHNIQUE: 3 views of the ankle were acquired. COMPARISON: None. FINDINGS: Bones: Mildly displaced fracture of the lateral malleolus. Ankle mortise is normally aligned. No suspicious bony lesions. Soft tissues: No tibiotalar joint effusion. Achilles tendon appears normal. Lateral soft tissue swelling is noted and ligamentous injury cannot be excluded. IMPRESSION: Lateral malleolus fracture. Dictated by: Nena Meléndez MD, PhD on 07/08/2022 at 16:34 Approved by: Nena Meléndez MD, PhD on 07/08/2022 at 16:35
--- NOTE | 2022-07-08 16:03 | DI.RAD.S_ITS ---
PROCEDURE: XR FOOT LT MIN 3V INDICATIONS: foot injury TECHNIQUE: 3 views of the foot were acquired. COMPARISON: None. FINDINGS: Bones: No fractures or dislocations. No suspicious bony lesions. Lateral malleolus fracture. Polyarticular osteoarthritic degenerative changes noted. Mild hallux valgus deformity. Soft tissues: No tibiotalar joint effusion. Achilles tendon appears normal. IMPRESSION: Lateral malleolus fracture. Dictated by: Nena Meléndez MD, PhD on 07/08/2022 at 16:36 Approved by: Nena Meléndez MD, PhD on 07/08/2022 at 16:37
[2022-07-08 19:06] VITALS: BP 178/90; PULSE 87; RESP 18; O2SAT 100
--- NOTE | 2022-07-08 19:46 | ED_ITS ---
HPI - Extremity Injury (Lower) <Vikas Banks PA-C - Last Filed: 07/08/22 19:58> General Chief Complaint: Extremity Injury, Lower Stated Complaint: 7 ago fell hurt Brenda bentley, swelling,discoloration Time Seen by Provider: 07/08/22 18:37 Source: patient and family Mode of arrival: Ambulatory History of Present Illness HPI Narrative: 77-year-old male presents to the ED with ankle pain after a injury that occurred 7 days ago. Patient states that a week ago, his left knee buckled and gave out causing him to twist his left ankle. Patient has since then had ankle swelling, pain and some bruising on the foot. Patient denies numbness, tingling, weakness. Patient is able to bear some weight and walk, albeit with some pain. Patient stated that he initially thought it was just an ankle sprain, treated it with Beau wraps rest ice and elevation. Given that the pain persisted, patient came into the ED today. Related Data Home Medications Medication Instructions Recorded Confirmed niacinamide 500 mg tablet 500 mg PO DAILY 08/29/17 06/13/22 ergocalciferol (vitamin D2) 1,250 50,000 unit PO WEEKLY 04/12/19 06/13/22 mcg (50,000 unit) capsule (Vitamin D2) tacrolimus 1 mg capsule, 3 mg PO DAILY 04/22/21 06/13/22 immediate-release prednisone 5 mg tablet 5 mg PO DAILY 05/08/21 06/13/22 mycophenolate sodium 360 mg 360 mg PO BID 11/29/21 06/13/22 tablet,delayed release lisinopril 10 mg tablet 10 mg PO DAILY 05/15/22 06/13/22 atorvastatin 80 mg tablet 80 mg PO BEDTIME 05/23/22 06/13/22 metoprolol succinate 25 mg 25 mg PO DAILY 05/23/22 06/13/22 tablet,extended release 24 hr dapagliflozin 10 mg tablet 20 mg PO DAILY 05/26/22 06/13/22 ([facility]) bumetanide 1 mg tablet 1 mg PO BID PRN 06/13/22 06/13/22 colchicine 0.6 mg tablet 0.6 mg PO DAILY 06/13/22 06/13/22 Previous Rx's Medication Instructions Recorded allopurinol 300 mg tablet 300 mg PO DAILY #90 tabs 08/06/21 levothyroxine 50 mcg tablet 50 mcg PO DAILY #90 tabs 12/03/21 aspirin 81 mg chewable tablet 81 mg PO DAILY #90 tabs 05/15/22 clopidogrel 75 mg tablet 75 mg PO DAILY #90 tabs 06/13/22 colchicine 0.6 mg tablet 0.6 mg PO BID PRN GOUT #10 tabs 06/13/22 tamsulosin 0.4 mg capsule 0.4 mg PO BEDTIME #60 caps 06/13/22 levothyroxine 75 mcg tablet 75 mcg PO DAILY #90 tabs 07/01/22 Allergies Allergy/AdvReac Type Severity Reaction Status Date / Time cephalexin Allergy Severe Anaphylaxis Verified 07/08/22 16:01 Review of Systems <Vikas Banks PA-C - Last Filed: 07/08/22 19:58> Review of Systems ROS Unobtainable: All systems reviewed & are unremarkable except as noted in HPI and below Constitutional Constitutional: Denies chills, Denies fatigue, Denies fever(s), Denies frequent falls, Denies lethargy and Denies weakness Eyes Eyes: Denies change in vision, Denies eye discharge, Denies irritation and Denies loss of vision ENT Ears, Nose, Mouth, and Throat: Denies change in voice, Denies dizziness, Denies neck pain, Denies sore throat and Denies throat swelling Cardiovascular Cardiovascular: Denies chest pain, Denies irregular heart rhythm, Denies lightheadedness, Denies palpitations, Denies dyspnea, Denies dyspnea on exertion and Denies orthopnea Respiratory Respiratory: Denies cough, Denies dyspnea, Denies dyspnea on exertion and Denies wheezing Gastrointestinal Gastrointestinal: Denies abdominal pain, Denies change in bowel habits, Denies diarrhea, Denies nausea and Denies vomiting Genitourinary Genitourinary: Denies hematuria, Denies flank pain, Denies urinary incontinence and Denies urinary urgency Musculoskeletal Musculoskeletal: Denies back pain, Denies muscle weakness, Denies neck pain, Denies numbness and Denies tingling Comments: Left ankle pain Integumentary/Breasts Skin/Breast: Denies pruritus, Denies erythema, Denies rash and Denies wounds Neurologic Neurologic: Denies behavioral changes, Denies confusion, Denies dizziness, Denies frequent falls, Denies loss of vision, Denies numbness, Denies tingling and Denies weakness Psychiatric Psychiatric: Denies anxiety, Denies behavioral changes, Denies confusion, Denies depression, Denies homicidal ideation and Denies suicidal ideation Endocrine Endocrine: Denies fatigue, Denies flushing and Denies palpitations Hematologic/Lymphatic Hematologic/Lymphatic: Denies easy bruising Allergic/Immunologic Allergic/Immunologic: Denies urticaria, Denies throat swelling and Denies wheezing Patient History <Vikas Banks PA-C - Last Filed: 07/08/22 19:58> Medical History Acute hypoxemic respiratory failure due to COVID-19 Acute renal failure superimposed on chronic kidney disease Atrial fibrillation (~2018) Borderline hypothyroidism Cataracts, bilateral (~2013) Cellulitis Chronic wound of extremity Dehydration with hyponatremia Gout (~1966) Hypertension Iron deficiency anemia Kidney disease (~2004) Low back pain Measles (~1948) Mumps (~1948) Pneumonia due to 2019 novel coronavirus Skin tear of right upper arm without complication Skin tear of right upper arm without complication Sleep apnea (~2011) Stroke (~2004) Surgical History Anesthesia History of total right knee replacement (TKR) Kidney transplant recipient (~2016) Renal transplant recipient Family History Father Stroke Mother History of heart disease Sister Cancer Grandfather History of heart disease Grandmother History of heart disease Social History household members: spouse Smoking Status: Never smoker alcohol intake: current Smoking Status: Never smoker alcohol intake frequency: 0-2 drinks per day Alcohol type: hard liquor Substance Use Type: does not use Exam <Viaks Banks PA-C - Last Filed: 07/08/22 19:58> Narrative Exam Narrative: Const General:?cooperative, healthy appearing and comfortable [facility] Head:?normal to inspection Ears:?hearing grossly normal bilaterally Nose:?external nose normal Face and sinus:?normal facial exam and sinuses nontender Mouth:?oral mucosae normal Throat:?posterior oropharynx normal Eyes General:?appearance normal, both eyes and all related structures Neck Neck:?normal visual inspection and no lymphadenopathy noted Resp Effort & Inspection:?normal respiratory effort Auscultation:?clear to auscultation bilaterally Cardio Rate:?regular rate Rhythm:?regular rhythm Musculoskeletal Left lateral ankle swelling, tenderness to palpation. There is dependent bruising along the lateral bottom of the foot. No tenderness to palpation immediately [id number]-hold area, loses patient for syndesmotic fracture. There is full range of motion. Strength and sensation is intact. Patient is neurovascularly intact. Neuro General:?patient alert, patient awake and patient oriented x3 Initial Vital Signs Initial Vital Signs: Vital Signs Temperature 98 F 07/08/22 15:56 Pulse Rate 87 07/08/22 15:56 Respiratory Rate 17 07/08/22 15:56 Blood Pressure 147/85 H 07/08/22 15:56 Pulse Oximetry 100 07/08/22 15:56 Oxygen Delivery Method Room Air 07/08/22 15:56 <DO Ginger Michael Last Filed: 07/11/22 05:35> Initial Vital Signs Initial Vital Signs: Vital Signs Temperature 98 F 07/08/22 15:56 Pulse Rate 87 07/08/22 15:56 Respiratory Rate 17 07/08/22 15:56 Blood Pressure 147/85 H 07/08/22 15:56 Pulse Oximetry 100 07/08/22 15:56 Oxygen Delivery Method Room Air 07/08/22 15:56 Course <Vikas Banks PA-C - Last Filed: 07/08/22 19:58> Orders Ordered: ED Orders 07/08/22 16:03 XR ankle LT min 3V Stat XR foot LT min 3V Stat Vital Signs Vital signs: Vital Signs - 8 hr 07/08/22 15:56 07/08/22 19:06 Temperature 98 F Pulse Rate 87 87 Respiratory Rate 17 18 Blood Pressure 147/85 H 178/90 H Pulse Oximetry 100 100 Oxygen Delivery Method Room Air Room Air <DO Ginger Michael Last Filed: 07/11/22 05:35> Orders Ordered: ED Orders 07/08/22 16:03 XR ankle LT min 3V Stat XR foot LT min 3V Stat Vital Signs Vital signs: Vital Signs - 8 hr 07/08/22 15:56 07/08/22 19:06 Temperature 98 F Pulse Rate 87 87 Respiratory Rate 17 18 Blood Pressure 147/85 H 178/90 H Pulse Oximetry 100 100 Oxygen Delivery Method Room Air Room Air MDM - Extremity Injury (Lower) <Vikas Banks PA-C - Last Filed: 07/08/22 19:58> [facility] Narrative Medical decision making narrative: 77-year-old male presents to the ED with ankle pain after a injury that occurred 7 days ago. Foot and ankle x-ray was obtained which shows a lateral malleolar fracture which is mildly displaced. Patient is neurovascularly intact with good strength and sensation and full range of motion. Will treat as a severe ankle sprain, fit with the boot, recommend follow-up with ortho as soon as possible. ED return precautions were discussed with patient. Patient verbalized understanding. Medical records reviewed: Yes Discharge Plan Departure Patient Disposition: Home Clinical Impression: Lateral malleolar fracture Instructions: DI for Malleolar Fracture Activity Restrictions/Additional Instructions: You were evaluated in the ED today for an ankle injury that you sustained a week ago. Your x-ray shows a left lateral malleolar fracture in the ankle. This type of fracture is treated like a severe ankle sprain with a boot that you will wear for the next 7-10 days. Please also follow-up with [facility] at [phone] as soon as possible for further evaluation. You may rest the ankle, elevate above heart level, use an Beau wrap at night when not wearing the boot, take Tylenol for the pain. Return to the ED if you experience numbness, tingling, weakness. Prescriptions: No Action niacinamide 500 mg tablet 500 mg PO DAILY allopurinol 300 mg tablet 300 mg PO DAILY Qty: 90 3RF levothyroxine 50 mcg tablet 50 mcg PO DAILY Qty: 90 1RF aspirin 81 mg tablet,chewable 81 mg PO DAILY Qty: 90 0RF lisinopril 10 mg tablet 10 mg PO DAILY levothyroxine 75 mcg tablet 75 mcg PO DAILY Qty: 90 0RF atorvastatin 80 mg tablet 80 mg PO BEDTIME Patient Comments: TAKE ONE TABLET BY MOUTH ONE TIME AT NIGHT metoprolol succinate 25 mg tablet extended release 24 hr 25 mg PO DAILY bumetanide 1 mg tablet 1 mg PO BID PRN clopidogrel 75 mg tablet 75 mg PO DAILY Qty: 90 3RF colchicine 0.6 mg tablet 0.6 mg PO BID PRN (Reason: GOUT) Qty: 10 5RF colchicine 0.6 mg tablet 0.6 mg PO DAILY tamsulosin 0.4 mg capsule 0.4 mg PO BEDTIME Qty: 60 1RF ergocalciferol (vitamin D2) [Vitamin D2] 1,250 mcg (50,000 unit) capsule 50,000 unit PO WEEKLY Rx Instructions: takes on thursday tacrolimus 1 mg Capsule 3 mg PO DAILY Patient Comments: 2 mg am 1 mg hs mycophenolate sodium 360 mg Tablet,Delayed Release (Dr/Ec) 360 mg PO BID Farxiga 10 mg Tablet 20 mg PO DAILY prednisone 5 mg tablet 5 mg PO DAILY Patient Comments: Take 1 tablet by mouth once every morning with breakfast. Referrals: Milad Martines MD [Primary Care Provider] - Stand Alone Forms: Patient Portal/API <Nicky Gambino DO - Last Filed: 07/11/22 05:35> Cosign ED Attending Cosignature Attestation: I was immediately available in the department for consultation. Documentation has been reviewed.
== END 2022-07-08 19:08 | disposition home or self-care (01) ==
PROVIDERS: Emergency Provider Student in an Organized Health Care Education/Training Program; Family Provider Family Medicine; PCP Family Medicine
DX: S82.62XA Displaced fracture of lateral malleolus of left fibula, initial encounter for closed fracture (principal); X50.1XXA Overexertion from prolonged static or awkward postures, initial encounter
CPT/HCPCS: 73610; 73630; 99281; 99283

== ENCOUNTER → 2022-08-19 10:50 | Outpatient (CLI) | payer MEDICARE, OTHER, SELFPAY ==
[2022-05-20 14:15] VITALS: BMI 31.4
[2022-08-19 12:35] LABS: TSH w/ Reflex to FT4 3.19 uIU/mL (0.47-4.68)
== END ==
PROVIDERS: Family Provider Family Medicine; PCP Family Medicine; Referring Provider Family Medicine; Visit Provider Family Medicine
DX: E03.9 Hypothyroidism, unspecified (principal)
CPT/HCPCS: 36415; 84443

== ENCOUNTER → 2023-01-31 12:47 | Outpatient (CLI) | payer MEDICARE, OTHER, SELFPAY ==
[2022-05-20 14:15] VITALS: BMI 31.4
== END ==
PROVIDERS: Family Provider Family Medicine; PCP Family Medicine; Visit Provider Nurse Practitioner Family
DX: R30.0 Dysuria (principal)
CPT/HCPCS: 87086

== ENCOUNTER → 2023-05-08 09:53 | Outpatient (CLI) | payer MEDICARE, OTHER, SELFPAY ==
[2022-05-20 14:15] VITALS: BMI 31.4
[2023-05-08 10:43] LABS: Hemoglobin A1C% w Est Avg Glu 7.1 % (4.0-6.0)
[2023-05-08 10:54] LABS: Alanine Aminotransferase 19 IU/L (<50); Albumin 3.8 g/dL (3.5-5.0); Albumin Globulin Ratio 1.7 (1.0-2.8); Alkaline Phosphatase 131 U/L (38-126); Aspartate Aminotransferase 26 IU/L (17-59); BUN Creatinine Ratio 21.3 (6-22); Bilirubin Total 0.7 mg/dL (0.2-1.3); Bilirubin Unconjugated 0.3 mg/dL (0.0-1.1); Blood Urea Nitrogen 60 mg/dL (9-20); Calcium 9.7 mg/dL (8.4-10.2); Carbon Dioxide 20 mmol/L (22-32); Chloride 111 mmol/L (98-107); Cholesterol 152 mg/dL (140-199); Estimated Glomerular Filt Rate 22 mL/min (>60); Globulin 2.3 g/dL (1.7-4.1); Glucose 161 mg/dL (80-110); HEMOLYSIS < 15 (0-50); Phosphorous 3.4 mg/dL (2.3-3.7); Sodium 137 mmol/L (137-145); Total Protein 6.1 g/dL (6.3-8.2); Triglycerides 64 mg/dL (35-150)
[2023-05-08 11:06] LABS: HDL Cholesterol 129 mg/dL (40-60); LDL Cholesterol Calculated 10 mg/dL (<100)
[2023-05-08 11:22] LABS: TSH w/ Reflex to FT4 9.04 uIU/mL (0.47-4.68)
[2023-05-08 11:47] LABS: Free T4, Direct Thyroxine 0.87 ng/dL (0.78-2.19)
[2023-05-12 04:44] LABS: Apolipoprotein B 35 mg/dL (<90)
== END ==
LOC: LAB 09:54
PROVIDERS: Family Provider Family Medicine; PCP Family Medicine; Referring Provider Family Medicine; Visit Provider Family Medicine
DX: E11.9 Type 2 diabetes mellitus without complications (principal); N18.9 Chronic kidney disease, unspecified; I48.91 Unspecified atrial fibrillation; I25.10 Atherosclerotic heart disease of native coronary artery without angina pectoris; T86.10 Unspecified complication of kidney transplant; I10 Essential (primary) hypertension; N25.81 Secondary hyperparathyroidism of renal origin; I25.2 Old myocardial infarction; D50.0 Iron deficiency anemia secondary to blood loss (chronic); Z94.0 Kidney transplant status; N18.31 Chronic kidney disease, stage 3a; D63.1 Anemia in chronic kidney disease
CPT/HCPCS: 36415; 80061; 80069; 80076; 82172; 83036; 84439; 84443

== ENCOUNTER → 2023-05-21 11:07 | Outpatient (CLI) | payer MEDICARE, OTHER, SELFPAY ==
[2022-05-20 14:15] VITALS: BMI 31.4
[2023-05-22 08:36] LABS: Rubeola Measles IgG > 300.0 AU/mL (Immune >16.4)
== END ==
PROVIDERS: Family Provider Family Medicine; PCP Family Medicine; Referring Provider Family Medicine; Visit Provider Family Medicine
DX: N18.9 Chronic kidney disease, unspecified (principal); I25.10 Atherosclerotic heart disease of native coronary artery without angina pectoris; I10 Essential (primary) hypertension; R73.9 Hyperglycemia, unspecified
CPT/HCPCS: 36415; 86765

== ENCOUNTER 2023-06-28 11:34 | Inpatient (IN) | payer MEDICARE, OTHER, SELFPAY ==
[2022-05-20 14:15] VITALS: BMI 31.4
[2023-06-28] VITALS (59 sets, daily range): BP systolic 76–138; BP diastolic 39–85; PULSE 71–111; RESP 17–35; TEMP 36.6–37.1; O2SAT 71–100; BMI 26.7
--- NOTE | 2023-06-28 12:01 | DI.CT.S_ITS ---
PROCEDURE: CT KIDNEY URETER BLADDER (KUB) INDICATIONS: BRB rectal, LUQ tenderness, CKD, prior renal transplant TECHNIQUE: Axial sections were acquired from the lung bases to the pubic symphysis. Coronal and sagittal reformats were performed. For radiation dose reduction, the following was used: automated exposure control, adjustment of mA and/or kV according to patient size. COMPARISON: None. FINDINGS: Image quality: Diagnostic. Lower Chest: Cardiomegaly, valvular and arterial calcifications. Low attenuation of the blood pool relative to the interventricular septum. URINARY: Kidneys: The [place] kidneys are atrophic, without hydronephrosis and with benign appearing cystic lesions. Right lower quadrant kidney transplant demonstrates cortical thinning but without hydronephrosis. Tiny hemorrhagic cyst of the transplant kidney. Bladder: Normal wall thickness. No stones. ABDOMEN: Liver: Cirrhosis. Subcentimeter hypoattenuating lesion in segment 2, too small to characterize by CT. Hepatic cyst with fluid attenuation at the liver dome. Gallbladder: No radiopaque gallstones or wall thickening. Biliary ducts: No biliary dilation. Pancreas: No ductal dilation. Spleen: Size is within normal limits. Adrenal Glands: No adrenal nodules. Stomach and Bowel: Extensive diverticular disease. Trace fat stranding surrounding the proximal sigmoid colon and distal descending colon, with associated wall thickening. No adjacent abscess. Peritoneum: No abnormal intraperitoneal fluid. No free air. Ventral Wall: Small umbilical hernia containing fat. Abdominal Nodes: No enlarged retroperitoneal or mesenteric lymph nodes. Vessels: Aorta and inferior vena cava are normal in size. PELVIS: Pelvic Organs: Prostatomegaly. Pelvic Nodes: Unremarkable. Miscellaneous: Fat within the inguinal canals. Bones: Degenerative disc disease of the lumbar spine. IMPRESSION: Suspected diverticulitis of the distal descending colon, without perforation or abscess. Cirrhosis. Right lower quadrant kidney transplant without hydronephrosis. Dictated by: Buddy Mathew M.D. on 06/28/2023 at 13:38 Approved by: Buddy Mathew M.D. on 06/28/2023 at 13:42
[2023-06-28 12:02] LABS: Mean Corpuscular Hemoglobin 30.6 PG (26-34); Mean Corpuscular Volume 98.8 fL (80-100); Platelet Count 196 X10^3/uL (150-400); Red Blood Cell Count 1.73 X10^6/uL (4.5-5.9); Red Cell Distribution Width 15.8 % (11.6-14.8); White Blood Cell Count 14.9 X10^3/uL (4.5-11.0)
[2023-06-28 12:06] LABS: INR 1.2 (0.9-1.3); Prothrombin Time 13.4 SECONDS (9.4-12.5)
[2023-06-28 12:09] LABS: PTT Partial Thromboplastin Tim 29 SECONDS (25.1-36.5)
[2023-06-28 12:11] LABS: Alanine Aminotransferase 14 IU/L (<50); Albumin 2.6 g/dL (3.5-5.0); Albumin Globulin Ratio 1.4 (1.0-2.8); Alkaline Phosphatase 74 U/L (38-126); Aspartate Aminotransferase 21 IU/L (17-59); BUN Creatinine Ratio 20.4 (6-22); Bilirubin Total 0.6 mg/dL (0.2-1.3); Blood Urea Nitrogen 61 mg/dL (9-20); Calcium 8.4 mg/dL (8.4-10.2); Carbon Dioxide 14 mmol/L (22-32); Chloride 107 mmol/L (98-107); Estimated Glomerular Filt Rate 21 mL/min (>60); Globulin 1.8 g/dL (1.7-4.1); Glucose 209 mg/dL (80-110); HEMOLYSIS < 15 (0-50); Hemoglobin 5.3 g/dL (13.5-17.5); Potassium 4.6 mmol/L (3.4-5.1); Sodium 127 mmol/L (137-145); Total Protein 4.4 g/dL (6.3-8.2)
[2023-06-28 12:12] LABS: Add Manual Diff / Slide Review YES; Hematocrit 17.1 % (41-53)
--- NOTE | 2023-06-28 12:14 | ED.GIBLEED ---
HPI - GI Bleed General Chief complaint: GI Bleed Stated complaint: Rectal Bleeding Time Seen by Provider: 06/28/23 11:54 Source: patient and EMS Mode of arrival: EMS History of Present Illness HPI Narrative: 78-year-old male history of renal transplant in 2016, chronic kidney disease, atrial fibrillation with Watchman procedure in 2021, hypertension, dyslipidemia on Plavix daily who presents with complaint of bright red clotted blood in his stools 3 times in the last 48 hours, lightheadedness without syncope. No chest pain or shortness of breath. Patient has had a persistent cough that has been improving. Some nausea but no vomiting. Patient last bowel movement was about 430 in the morning. Patient has not had any urinary symptoms. Patient denies any swelling of extremities. He has had a prior GI bleed in the past had upper and lower scope was found to have a fissure. He has had cardiac stents x7, Watchman device and kidney transplant. Patient has not allergy to cephalexin but he and his state he is taken it since. No tobacco, occasional alcohol, no recreational drugs. Dr. Martines is his primary care provider. Related Data Home Medications Medication Instructions Recorded Confirmed niacinamide 500 mg tablet 500 mg PO DAILY 08/29/17 06/29/23 tacrolimus 1 mg capsule, 3 mg PO DAILY 04/22/21 06/29/23 immediate-release prednisone 5 mg tablet 5 mg PO DAILY 05/08/21 06/29/23 mycophenolate sodium 360 mg 360 mg PO BID 11/29/21 06/29/23 tablet,delayed release metoprolol succinate 25 mg 25 mg PO DAILY 05/23/22 06/29/23 tablet,extended release 24 hr bumetanide 1 mg tablet 1 mg PO BID PRN Edema 06/13/22 06/29/23 famotidine 20 mg tablet 20 mg PO DAILY PRN Acid Reflux 01/31/23 06/29/23 lisinopril 2.5 mg tablet 2.5 mg PO DAILY 01/31/23 06/29/23 cholecalciferol (vitamin D3) 125 125 mcg PO MO@0900 06/29/23 06/29/23 mcg (5,000 unit) capsule tamsulosin 0.4 mg capsule 0.4 mg PO ONCE PM 06/29/23 06/29/23 Previous Rx's Medication Instructions Recorded clopidogrel 75 mg tablet 75 mg PO DAILY #90 tabs 06/13/22 colchicine 0.6 mg tablet 0.6 mg PO BID PRN GOUT #10 tabs 06/13/22 allopurinol 300 mg tablet 300 mg PO DAILY #90 tabs 08/04/22 atorvastatin 80 mg tablet 80 mg PO BEDTIME #90 tabs 11/04/22 pantoprazole 40 mg tablet,delayed 40 mg PO BID #180 tabs 05/11/23 release semaglutide 7 mg tablet (Rybelsus) 7 mg PO DAILY #90 tabs 05/21/23 Allergies Allergy/AdvReac Type Severity Reaction Status Date / Time cephalexin Allergy Intermediate Verified 06/28/23 14:36 Review of Systems Review of Systems ROS Unobtainable: All systems reviewed & are unremarkable except as noted in HPI and below Patient History Medical History Acute renal failure superimposed on chronic kidney disease Dehydration with hyponatremia Acute hypoxemic respiratory failure due to COVID-19 Pneumonia due to 2019 novel coronavirus Iron deficiency anemia Chronic wound of extremity Cellulitis Skin tear of right upper arm without complication Low back pain Skin tear of right upper arm without complication Borderline hypothyroidism Hypertension Sleep apnea (~2011) Stroke (~2004) Gout (~1966) Mumps (~194) Measles (~194) Cataracts, bilateral (~2013) Kidney disease (~2004) Atrial fibrillation (~2019) Surgical History Renal transplant recipient History of total right knee replacement (TKR) Anesthesia Kidney transplant recipient (~2017) Family History Father Stroke Mother History of heart disease Sister Cancer Grandfather History of heart disease Grandmother History of heart disease Social History household members: spouse Smoking Status: Never smoker alcohol intake: current Smoking Status: Never smoker alcohol intake frequency: 0-2 drinks per day Alcohol type: hard liquor Substance Use Type: does not use Exam Narrative Exam Narrative: GENERAL: Alert and oriented x three, male in mild distress. Patient does appear pale. HEENT: Head normocephalic, atraumatic, EOMI, pale conjunctiva, pupils reactive, face symmetric, moist mucous membranes NECK: Supple, full range of motion CARDIOVASCULAR: Regular rate and rhythm without murmurs, rubs or gallops. RESPIRATORY: Breath sounds equal bilaterally, no wheezes rales or rhonchi. ABDOMEN: Soft, nontender. Normoactive bowel sounds all 4 quadrants. No guarding or rebound, rigidity, no mass, patient has bright red blood in the sample provided from home. : No CVA tenderness EXTREMITIES: Normal range of motion, no clubbing or edema. Neurovascularly intact NEUROLOGICAL: Cranial nerves II through XII grossly intact. Moving all extremities SKIN: Warm, dry, no petechiae, no rashes or lesions. Initial Vital Signs Initial Vital Signs: Vital Signs Pulse Rate 71 06/28/23 11:42 Blood Pressure 87/51 L 06/28/23 11:42 Pulse Oximetry 86 L 06/28/23 11:42 Course Orders Ordered: Acetaminophen (Acetaminophen 325 Mg Tablet) 650 mg PO Q6H PRN PRN Reason: Fever/Mild Pain (1-3) Last Admin: 06/29/23 04:14 Dose: 650 mg Documented By: Admin: 06/28/23 22:16 Dose: 650 mg Documented By: NEMESIO Benzocaine (Benzocaine/Menthol 1 Ashutosh Pkt) 1 each PO Q4HR PRN PRN Reason: Sore Throat Last Admin: 06/29/23 09:02 Dose: 1 each Documented By: Admin: 06/28/23 23:01 Dose: 1 each Documented By: NEMESIO Benzonatate (Benzonatate 100 Mg Capsule) 100 mg PO TID PRN PRN Reason: Cough Last Admin: 06/28/23 19:54 Dose: 100 mg Documented By: NEMESIO Bumetanide (Bumetanide 1 Mg Tablet) 2 mg PO DAILY [facility] Last Admin: 06/29/23 10:07 Dose: 2 mg Documented By: RADHA Clopidogrel Bisulfate (Clopidogrel 75 Mg Tablet) 75 mg PO BEDTIME [facility] Guaifenesin (Guaifenesin Er 600 Mg Tab) 600 mg PO Q12HR PRN PRN Reason: Cough Last Admin: 06/29/23 10:42 Dose: 600 mg Documented By: Admin: 06/28/23 23:02 Dose: 600 mg Documented By: NEMESIO Guaifenesin (Guaifenesin Solution 100 Mg/5 Ml Udc) 200 mg PO Q4HR PRN PRN Reason: Cough Last Admin: 06/29/23 14:17 Dose: 200 mg Documented By: RADHA Dextrose/Sodium Chloride (Dextrose 5%-0.9% Ns) 1,000 mls @ 75 mls/hr IV CONT [facility] Last Admin: 06/29/23 07:00 Dose: 75 mls/hr Documented By: Infusion: 06/29/23 07:00 Dose: Infused Documented By: Admin: 06/28/23 18:30 Dose: 75 mls/hr Documented By: LDV Levofloxacin (Levaquin) 750 mg in 150 mls @ 100 mls/hr IV Q48H [facility] Stop: 07/04/23 12:00 Metronidazole (Flagyl) 500 mg in 100 mls @ 100 mls/hr IV Q8H [facility] Last Infusion: 06/29/23 10:30 Dose: Infused Documented By: Admin: 06/29/23 08:39 Dose: 100 mls/hr Documented By: Infusion: 06/29/23 01:39 Dose: Infused Documented By: Admin: 06/28/23 23:02 Dose: 100 mls/hr Documented By: Infusion: 06/28/23 21:11 Dose: Infused Documented By: [facility] Admin: 06/28/23 17:40 Dose: 100 mls/hr Documented By: LDV Naloxone HCl (Naloxone 0.4 Mg/Ml Vial) 0.2 mg IV Q2MIN PRN PRN Reason: Opiate Reversal Mycophenolate Sodium 360 Mg Tablet, Delayed Release (Dr/Ec) 360 mg PO BID [facility] Last Admin: 06/29/23 10:47 Dose: 360 mg Documented By: Admin: 06/28/23 22:18 Dose: Not Given Documented By: NEMESIO Oxycodone HCl (Oxycodone Ir 5 Mg Tablet) 5 mg PO Q3H PRN PRN Reason: Pain, Moderate (4-6) Prednisone (Prednisone 5 Mg Tablet) 5 mg PO DAILY [facility] Last Admin: 06/29/23 10:07 Dose: 5 mg Documented By: RADHA Sodium Chloride (Sodium Chloride 0.9% Flush) 10 ml IV BID [facility] Last Admin: 06/29/23 08:41 Dose: 10 ml Documented By: Admin: 06/28/23 21:12 Dose: 10 ml Documented By: SMS Sodium Chloride (Sodium Chloride 0.9% Flush) 10 ml IV PRN PRN PRN Reason: Flush Last Admin: 06/28/23 12:36 Dose: 10 ml Documented By: ALINA Tacrolimus (Tacrolimus 0.5 Mg Capsule) 3 mg PO DAILY [facility] Last Admin: 06/29/23 10:07 Dose: 3 mg Documented By: RADHA Discontinued Medications Albuterol (Albuterol 2.5 Mg/3 Ml Neb (Adult)) 2.5 mg INH NOW ONE Stop: 06/29/23 13:34 Last Admin: 06/29/23 14:13 Dose: 2.5 mg Documented By: WANDER Clopidogrel Bisulfate (Clopidogrel 75 Mg Tablet) 75 mg PO DAILY [facility] Last Admin: 06/29/23 10:07 Dose: 75 mg Documented By: RADHA Levofloxacin (Levaquin) 750 mg in 150 mls @ 100 mls/hr IV NOW ONE Stop: 06/28/23 15:27 Last Infusion: 06/28/23 15:54 Dose: Infused Documented By: Infusion: 06/28/23 15:39 Dose: 100 mls/hr Documented By: Admin: 06/28/23 14:07 Dose: 100 mls/hr Documented By: ALINA Ondansetron HCl (Ondansetron 4 Mg/2 Ml Inj) 4 mg IV NOW PRN PRN Reason: Nausea And Vomiting Ondansetron HCl (Ondansetron 4 Mg Odt) 4 mg SL NOW PRN PRN Reason: Nausea And Vomiting Pantoprazole Sodium (Pantoprazole 40 Mg Vial) 80 mg IV NOW ONE Stop: 06/28/23 11:53 Last Admin: 06/28/23 12:40 Dose: 80 mg Documented By: ALINA Vital Signs Vital signs: Vital Signs - 8 hr 06/28/23 11:42 06/28/23 11:42 06/28/23 11:45 Temperature 98.1 F Pulse Rate 71 88 Respiratory Rate 20 Blood Pressure 87/51 L 87/51 L Pulse Oximetry 86 L 92 Oxygen Delivery Method Room Air 06/28/23 11:51 06/28/23 11:51 06/28/23 11:56 Temperature Pulse Rate 83 Respiratory Rate 27 H Blood Pressure 82/52 L 105/57 L Pulse Oximetry 87 L Oxygen Delivery Method 06/28/23 11:56 06/28/23 12:00 06/28/23 12:00 Temperature Pulse Rate 88 89 Respiratory Rate 26 H 28 H Blood Pressure 92/55 L Pulse Oximetry 86 L 87 L Oxygen Delivery Method 06/28/23 12:05 06/28/23 12:05 06/28/23 12:10 Temperature Pulse Rate 84 Respiratory Rate 27 H Blood Pressure 88/57 L 97/50 L Pulse Oximetry 100 Oxygen Delivery Method 06/28/23 12:10 06/28/23 12:15 06/28/23 12:15 Temperature Pulse Rate 81 83 Respiratory Rate 24 25 H Blood Pressure 83/51 L Pulse Oximetry 100 100 Oxygen Delivery Method 06/28/23 12:20 06/28/23 12:20 06/28/23 12:25 Temperature Pulse Rate 88 Respiratory Rate 26 H Blood Pressure 81/47 L 78/39 L Pulse Oximetry 71 L Oxygen Delivery Method 06/28/23 12:25 06/28/23 12:30 06/28/23 12:30 Temperature Pulse Rate 80 78 Respiratory Rate 27 H 24 Blood Pressure 99/53 L Pulse Oximetry 100 100 Oxygen Delivery Method 06/28/23 12:35 06/28/23 12:35 06/28/23 12:40 Temperature Pulse Rate 81 82 Respiratory Rate 22 23 Blood Pressure 79/46 L Pulse Oximetry 100 100 Oxygen Delivery Method 06/28/23 12:40 06/28/23 12:45 06/28/23 12:45 Temperature Pulse Rate 90 Respiratory Rate 21 Blood Pressure 76/48 L 88/53 L Pulse Oximetry 100 Oxygen Delivery Method 06/28/23 12:50 06/28/23 12:50 06/28/23 12:53 Temperature 98 F Pulse Rate 77 78 Respiratory Rate 25 H 22 Blood Pressure 88/49 L 88/49 L Pulse Oximetry 100 Oxygen Delivery Method 06/28/23 12:55 06/28/23 12:55 06/28/23 13:00 Temperature Pulse Rate 84 Respiratory Rate 25 H Blood Pressure 86/48 L 103/57 L Pulse Oximetry 100 Oxygen Delivery Method 06/28/23 13:00 06/28/23 13:05 06/28/23 13:05 Temperature Pulse Rate 84 81 Respiratory Rate 22 22 Blood Pressure 94/53 L Pulse Oximetry 100 100 Oxygen Delivery Method 06/28/23 13:08 06/28/23 13:08 06/28/23 13:09 Temperature 98.6 F Pulse Rate 79 87 Respiratory Rate 21 20 Blood Pressure 110/55 L 110/55 L Pulse Oximetry 100 Oxygen Delivery Method 06/28/23 13:10 06/28/23 13:10 06/28/23 13:13 Temperature Pulse Rate 86 Respiratory Rate 22 Blood Pressure 108/54 L 96/51 L Pulse Oximetry 100 Oxygen Delivery Method 06/28/23 13:13 06/28/23 13:15 06/28/23 13:15 Temperature Pulse Rate 80 85 Respiratory Rate 23 25 H Blood Pressure 113/55 L Pulse Oximetry 100 100 Oxygen Delivery Method 06/28/23 13:20 06/28/23 13:20 06/28/23 13:25 Temperature Pulse Rate 85 87 Respiratory Rate 25 H 25 H Blood Pressure 83/50 L Pulse Oximetry 99 99 Oxygen Delivery Method 06/28/23 13:25 06/28/23 13:28 06/28/23 13:28 Temperature Pulse Rate 90 Respiratory Rate 26 H Blood Pressure 99/47 L 102/55 L Pulse Oximetry 99 Oxygen Delivery Method 06/28/23 13:30 06/28/23 13:30 06/28/23 13:35 Temperature Pulse Rate 83 Respiratory Rate 24 Blood Pressure 103/59 L 114/58 L Pulse Oximetry 100 Oxygen Delivery Method 06/28/23 13:35 06/28/23 13:40 06/28/23 13:40 Temperature Pulse Rate 82 85 Respiratory Rate 22 28 H Blood Pressure 117/56 L Pulse Oximetry 100 99 Oxygen Delivery Method 06/28/23 13:45 06/28/23 13:45 06/28/23 13:50 Temperature Pulse Rate 86 80 Respiratory Rate 27 H 22 Blood Pressure 129/66 Pulse Oximetry 100 100 Oxygen Delivery Method 06/28/23 13:50 06/28/23 13:55 06/28/23 13:55 Temperature Pulse Rate 82 Respiratory Rate 24 Blood Pressure 120/60 114/59 L Pulse Oximetry 100 Oxygen Delivery Method 06/28/23 14:00 06/28/23 14:00 06/28/23 14:05 Temperature Pulse Rate 82 Respiratory Rate 21 Blood Pressure 125/61 125/58 L Pulse Oximetry 100 Oxygen Delivery Method 06/28/23 14:05 06/28/23 14:10 06/28/23 14:10 Temperature Pulse Rate 77 77 Respiratory Rate 20 22 Blood Pressure 123/59 L Pulse Oximetry 100 100 Oxygen Delivery Method 06/28/23 14:15 06/28/23 14:15 06/28/23 14:20 Temperature Pulse Rate 78 Respiratory Rate 23 Blood Pressure 110/56 L 119/85 Pulse Oximetry 100 Oxygen Delivery Method 06/28/23 14:20 06/28/23 14:25 06/28/23 14:30 Temperature Pulse Rate 80 86 111 H Respiratory Rate 22 22 35 H Blood Pressure Pulse Oximetry 100 100 99 Oxygen Delivery Method 06/28/23 14:31 06/28/23 14:31 Temperature Pulse Rate 96 H Respiratory Rate 30 H Blood Pressure 125/85 Pulse Oximetry 84 L Oxygen Delivery Method MDM - GI Bleed Lab Data 06/29/23 05:50 06/29/23 05:50 Labs: Lab Results 06/28/23 06/28/23 Range/Units 11:10 11:50 WBC 14.9 H (4.5-11.0) X10^3/uL RBC 1.73 L (4.5-5.9) X10^6/uL Hgb 5.3 L* (13.5-17.5) g/dL Hct 17.1 L* (41-53) % MCV 98.8 (80-100) fL MCH 30.6 (26-34) PG MCHC 31.0 (30-36) % RDW 15.8 H (11.6-14.8) % Plt Count 196 (150-400) X10^3/uL Neut % (Auto) Not Reportable Lymph % (Auto) Not Reportable [place] % (Auto) Not Reportable Eos % (Auto) Not Reportable Baso % (Auto) Not Reportable Lymph # (Auto) Not Reportable [place] # (Auto) Not Reportable Baso # (Auto) Not Reportable Total Counted 100 Seg Neutrophils % 88.0 H (38-70) % Band Neutrophils % 3.0 (3-7) % Lymphocytes % (Manual) 5.0 L (25-45) % Monocytes % (Manual) 4.0 (2-11) % Neutrophils # (Manual) 51958 H (3709-3106) /uL RBC Morphology Not Reportable Hypochromasia 1+ H Poikilocytosis 2+ H Anisocytosis 2+ H PT 13.4 H (9.4-12.5) SECONDS INR 1.2 (0.9-1.3) APTT 29 (25.1-36.5) SECONDS Sodium 127 L (137-145) mmol/L Potassium 4.6 (3.4-5.1) mmol/L Chloride 107 (98-107) mmol/L Carbon Dioxide 14 L (22-32) mmol/L BUN 61 H (9-20) mg/dL Creatinine 2.99 H (0.66-1.25) mg/dL Estimated GFR 21 L (>60) mL/min BUN/Creatinine Ratio 20.4 (6-22) Glucose 209 H (80-110) mg/dL Lactate 1.5 (0.7-2.1) mmol/L Calcium 8.4 (8.4-10.2) mg/dL Total Bilirubin 0.6 (0.2-1.3) mg/dL AST 21 (17-59) IU/L ALT 14 (<50) IU/L Alkaline Phosphatase 74 (38-126) U/L Total Protein 4.4 L (6.3-8.2) g/dL Albumin 2.6 L (3.5-5.0) g/dL Globulin 1.8 (1.7-4.1) g/dL Albumin/Globulin Ratio 1.4 (1.0-2.8) Procalcitonin 0.64 H (<0.5) ng/mL Blood Type A Negative Antibody Screen Negative Crossmatch See Detail ECG Data Attestation: I personally reviewed and interpreted this ECG as follows: Interpretation: AFib rate 81 QRS of 136 QTC of 473. Right bundle-branch, nonspecific change. MDM Narrative Medical decision making narrative: 78-year-old with hypotension no tachycardia but is on medications that would blunt his response. Patient has not been hypoxic. He appears pale in his had reports of multiple large bloody stools in the past 48 hours. Patient is tender on exam particularly in the left upper quadrant could potentially have diverticulitis source has had GI bleed in the past with upper and lower scoped and was told he had [place] at that time. Patient's labs show hemoglobin of 5.5 significantly decreased from July 2022 when he was at 9, normocytic with a white count of 14.9 and platelets of 196. INR is 1.2 sodium is 127 creatinine today is 2.99 with a GFR of 21 this appears to be fairly close to baseline for patient over the past year. Potassium is 4.6 with a chloride of 107 CO2 of 14 and a BUN of 61, glucose is 209 negative LFTs. Total protein and albumin are both low. CT KUB was obtained shows cardiomegaly, valvular arterial calcifications [place] kidneys are atrophic without hydro right lower quadrant transplant demonstrates cortical thickening but without hydro tiny hemorrhagic cyst transplant kidney. Cirrhosis, subcentimeter lesion in segment 2 too small to characterize hepatic cyst with fluid attenuation liver dome. Extensive diverticular disease with trace fat stranding surrounding proximal sigmoid and distal descending colon with associated wall thickening this does correlate with patient's pain. Small umbilical hernia. Fat within inguinal canals. Patient was given a dose of Protonix although suspect lower GI bleed. Patient is agreeable to transfusion 2 units packed red blood cells were ordered. Patient received Levaquin and Flagyl as he has reported anaphylaxis to cephalexin for diverticulitis. He received 2 units PRBCs here in the department had some improvement in his hypotension. Spoke with Dr. Butler, for general surgery who is happy to see the patient but states likely not perform colonoscopy with active diverticulitis. Discussed with hospitalist, Dr. Cabrera patient does have complex history does have a history of renal transplant. Critical Care Time Critical Care Time Critical Care Time: Yes Total Critical Care Time: 40 Attestation: The high probability of a clinically significant, sudden or life threatening deterioration of the [cardiac, gi] system(s) required my full and direct attention, intervention and personal management. The aggregate critical care time was [] minutes. This time is in addition to time spent performing reported procedures but includes the following: [x] Data Review and interpretation [x] Patient assessment and monitoring of vital signs [x] Documentation [x] Medication orders and management Discharge Plan Departure Patient Disposition: Admitted As Inpatient Clinical Impression: Symptomatic anemia, GI bleed, History of kidney transplant, Diverticulitis Admit Date/Time: 06/28/23 15:06 Admit Provider: Robert Cabrera
[2023-06-28 12:16] LABS: Anisocytosis 2+; Hypochromasia 1+; Neutrophils Absolute Manual 13559 /uL (3000-5900); Poikilocytosis 2+; Total Cells Counted 100
[2023-06-28 12:16] LABS: Lactate (Lactic Acid) 1.5 mmol/L (0.7-2.1)
[2023-06-28 12:33] LABS: Procalcitonin 0.64 ng/mL (<0.5)
[2023-06-28] MEDS: SODIUM CHLORIDE 0.9% FLUSH 10 ML IV ×2 (12:36→21:12)
[2023-06-28] MEDS: PANTOPRAZOLE 40 MG VIAL 80 MG IV (12:40)
[2023-06-28] MEDS: levoFLOXacin 750 MG/150 ML PIGGYBACK 100 MG IV (14:07)
--- NOTE | 2023-06-28 15:16 | PM.HP.1 ---
History of Present Illness History of Present Illness Date Patient Seen: 06/28/23 Chief complaint: Rectal Bleeding Narrative: The patient was a 78-year-old male with a history of chronic kidney disease, renal transplant in 2017, atrial fibrillation with Watchman procedure, hypertension, dyslipidemia on chronic Plavix who presents with rectal bleeding for the last 2 days. He has had bright red blood per rectum and has felt somewhat lightheaded. He presented to the emergency department, there he denied chest pain or shortness a breath. He has had a recent cough but denies leg edema. No recent nausea. The patient does have a history of a anal fissure. CT scan in the emergency department was consistent with diverticulitis and the patient was started on IV antibiotics. He was also transfused and seen by surgery for possibility of colonoscopy. Surgery felt that he should be treated medically and supportively until he had time to be treated with antibiotics for his diverticulitis. He has also had CAD with a number of cardiac stents in the past, possibly 7. He notes a recent trip to [place] for about a month. He had a cough prior to this which was treated with a short course of antibiotics. He took a refill of antibiotics with him to [place] and did take another course. He has a residual cough which is nonproductive. No chest pain. He denies history of diverticulitis but has had rectal bleeding in the past. This is all been melanotic. He has had endoscopy, colonoscopy as well as or advanced small-bowel endoscopy at [facility]. There was some type of lesion that was treated with cautery in the distal small bowel at some point. This was also at [facility]. He denies any melena. He also denies any recent chest pain. CT scan was consistent with diverticulitis and he was given levofloxacin as well as metronidazole in the emergency department. He does have history of anaphylaxis to cephalexin. His renal function is relatively stable. He was hypotensive in the ED but after 1 unit of blood and IV fluids he had better blood pressure. He is currently receiving a 2nd unit of blood at the time of transfer. He feels better than prior to arrival. [facility] Medical History Acute renal failure superimposed on chronic kidney disease Dehydration with hyponatremia Acute hypoxemic respiratory failure due to COVID-19 Pneumonia due to 2019 novel coronavirus Iron deficiency anemia Chronic wound of extremity Cellulitis Skin tear of right upper arm without complication Low back pain Skin tear of right upper arm without complication Borderline hypothyroidism Hypertension Sleep apnea (~2011) Stroke (~2004) Gout (~1966) Mumps (~194) Measles (~194) Cataracts, bilateral (~2014) Kidney disease (~2004) Atrial fibrillation (~2019) Surgical History Renal transplant recipient History of total right knee replacement (TKR) Anesthesia Kidney transplant recipient (~2017) Family History Father Stroke Mother History of heart disease Sister Cancer Grandfather History of heart disease Grandmother History of heart disease Social History household members: spouse Smoking Status: Never smoker alcohol intake: current Meds Home Medications and Allergies Home Medications Medication Instructions Recorded Confirmed Type niacinamide 500 mg tablet 500 mg PO DAILY 08/29/17 05/21/23 History ergocalciferol (vitamin D2) 1,250 50,000 unit PO WEEKLY 04/12/19 05/21/23 History mcg (50,000 unit) capsule (Vitamin D2) tacrolimus 1 mg capsule, 3 mg PO DAILY 04/22/21 05/21/23 History immediate-release prednisone 5 mg tablet 5 mg PO DAILY 05/08/21 05/21/23 History mycophenolate sodium 360 mg 360 mg PO BID 11/29/21 05/21/23 History tablet,delayed release metoprolol succinate 25 mg 25 mg PO DAILY 05/23/22 05/21/23 History tablet,extended release 24 hr bumetanide 1 mg tablet 1 mg PO BID PRN Edema 06/13/22 05/21/23 History clopidogrel 75 mg tablet 75 mg PO DAILY #90 tabs 06/13/22 05/21/23 Rx colchicine 0.6 mg tablet 0.6 mg PO BID PRN GOUT #10 tabs 06/13/22 05/21/23 Rx allopurinol 300 mg tablet 300 mg PO DAILY #90 tabs 08/04/22 05/21/23 Rx atorvastatin 80 mg tablet 80 mg PO BEDTIME #90 tabs 11/04/22 05/21/23 Rx famotidine 20 mg tablet mg PO 01/31/23 05/21/23 History lisinopril 2.5 mg tablet 2.5 mg PO DAILY 01/31/23 05/21/23 History pantoprazole 40 mg tablet,delayed 40 mg PO BID #180 tabs 05/11/23 05/21/23 Rx release semaglutide 7 mg tablet (Rybelsus) 7 mg PO DAILY #90 tabs 05/21/23 05/21/23 Rx Allergies Allergy/AdvReac Type Severity Reaction Status Date / Time cephalexin Allergy Intermediate Verified 06/28/23 14:36 Review of Systems Review of Systems Narrative: All else reviewed and otherwise unremarkable except as noted in the history and physical. Exam Vital Signs (past 8 hours): - 06/28/23 11:42 06/28/23 11:42 06/28/23 11:45 Temperature 98.1 F Pulse Rate 71 88 Respiratory Rate 20 Blood Pressure 87/51 L 87/51 L Pulse Oximetry 86 L 92 Oxygen Delivery Method Room Air 06/28/23 11:51 06/28/23 11:51 06/28/23 11:56 Temperature Pulse Rate 83 Respiratory Rate 27 H Blood Pressure 82/52 L 105/57 L Pulse Oximetry 87 L Oxygen Delivery Method 06/28/23 11:56 06/28/23 12:00 06/28/23 12:00 Temperature Pulse Rate 88 89 Respiratory Rate 26 H 28 H Blood Pressure 92/55 L Pulse Oximetry 86 L 87 L Oxygen Delivery Method 06/28/23 12:05 06/28/23 12:05 06/28/23 12:10 Temperature Pulse Rate 84 Respiratory Rate 27 H Blood Pressure 88/57 L 97/50 L Pulse Oximetry 100 Oxygen Delivery Method 06/28/23 12:10 06/28/23 12:15 06/28/23 12:15 Temperature Pulse Rate 81 83 Respiratory Rate 24 25 H Blood Pressure 83/51 L Pulse Oximetry 100 100 Oxygen Delivery Method 06/28/23 12:20 06/28/23 12:20 06/28/23 12:25 Temperature Pulse Rate 88 Respiratory Rate 26 H Blood Pressure 81/47 L 78/39 L Pulse Oximetry 71 L Oxygen Delivery Method 06/28/23 12:25 06/28/23 12:30 06/28/23 12:30 Temperature Pulse Rate 80 78 Respiratory Rate 27 H 24 Blood Pressure 99/53 L Pulse Oximetry 100 100 Oxygen Delivery Method 06/28/23 12:35 06/28/23 12:35 06/28/23 12:40 Temperature Pulse Rate 81 82 Respiratory Rate 22 23 Blood Pressure 79/46 L Pulse Oximetry 100 100 Oxygen Delivery Method 06/28/23 12:40 06/28/23 12:45 06/28/23 12:45 Temperature Pulse Rate 90 Respiratory Rate 21 Blood Pressure 76/48 L 88/53 L Pulse Oximetry 100 Oxygen Delivery Method 06/28/23 12:50 06/28/23 12:50 06/28/23 12:53 Temperature 98 F Pulse Rate 77 78 Respiratory Rate 25 H 22 Blood Pressure 88/49 L 88/49 L Pulse Oximetry 100 Oxygen Delivery Method 06/28/23 12:55 06/28/23 12:55 06/28/23 13:00 Temperature Pulse Rate 84 Respiratory Rate 25 H Blood Pressure 86/48 L 103/57 L Pulse Oximetry 100 Oxygen Delivery Method 06/28/23 13:00 06/28/23 13:05 06/28/23 13:05 Temperature Pulse Rate 84 81 Respiratory Rate 22 22 Blood Pressure 94/53 L Pulse Oximetry 100 100 Oxygen Delivery Method 06/28/23 13:08 06/28/23 13:08 06/28/23 13:09 Temperature 98.6 F Pulse Rate 79 87 Respiratory Rate 21 20 Blood Pressure 110/55 L 110/55 L Pulse Oximetry 100 Oxygen Delivery Method 06/28/23 13:10 06/28/23 13:10 06/28/23 13:13 Temperature Pulse Rate 86 Respiratory Rate 22 Blood Pressure 108/54 L 96/51 L Pulse Oximetry 100 Oxygen Delivery Method 06/28/23 13:13 06/28/23 13:15 06/28/23 13:15 Temperature Pulse Rate 80 85 Respiratory Rate 23 25 H Blood Pressure 113/55 L Pulse Oximetry 100 100 Oxygen Delivery Method 06/28/23 13:20 06/28/23 13:20 06/28/23 13:25 Temperature Pulse Rate 85 87 Respiratory Rate 25 H 25 H Blood Pressure 83/50 L Pulse Oximetry 99 99 Oxygen Delivery Method 06/28/23 13:25 06/28/23 13:28 06/28/23 13:28 Temperature Pulse Rate 90 Respiratory Rate 26 H Blood Pressure 99/47 L 102/55 L Pulse Oximetry 99 Oxygen Delivery Method 06/28/23 13:30 06/28/23 13:30 06/28/23 13:35 Temperature Pulse Rate 83 Respiratory Rate 24 Blood Pressure 103/59 L 114/58 L Pulse Oximetry 100 Oxygen Delivery Method 06/28/23 13:35 06/28/23 13:40 06/28/23 13:40 Temperature Pulse Rate 82 85 Respiratory Rate 22 28 H Blood Pressure 117/56 L Pulse Oximetry 100 99 Oxygen Delivery Method 06/28/23 13:45 06/28/23 13:45 06/28/23 13:50 Temperature Pulse Rate 86 80 Respiratory Rate 27 H 22 Blood Pressure 129/66 Pulse Oximetry 100 100 Oxygen Delivery Method 06/28/23 13:50 06/28/23 13:55 06/28/23 13:55 Temperature Pulse Rate 82 Respiratory Rate 24 Blood Pressure 120/60 114/59 L Pulse Oximetry 100 Oxygen Delivery Method 06/28/23 14:00 06/28/23 14:00 06/28/23 14:05 Temperature Pulse Rate 82 Respiratory Rate 21 Blood Pressure 125/61 125/58 L Pulse Oximetry 100 Oxygen Delivery Method 06/28/23 14:05 06/28/23 14:10 06/28/23 14:10 Temperature Pulse Rate 77 77 Respiratory Rate 20 22 Blood Pressure 123/59 L Pulse Oximetry 100 100 Oxygen Delivery Method 06/28/23 14:15 06/28/23 14:15 06/28/23 14:20 Temperature Pulse Rate 78 Respiratory Rate 23 Blood Pressure 110/56 L 119/85 Pulse Oximetry 100 Oxygen Delivery Method 06/28/23 14:20 06/28/23 14:25 06/28/23 14:30 Temperature Pulse Rate 80 86 111 H Respiratory Rate 22 22 35 H Blood Pressure Pulse Oximetry 100 100 99 Oxygen Delivery Method 06/28/23 14:31 06/28/23 14:31 06/28/23 15:12 Temperature 98.6 F Pulse Rate 96 H 84 Respiratory Rate 30 H 20 Blood Pressure 125/85 107/56 L Pulse Oximetry 84 L Oxygen Delivery Method Oxygen Delivery Method Room Air Narrative Exam Narrative: NAD, alert and oriented, fluent speech, calm. Normocephalic skull, EOMI, anicteric sclera, symmetric pupils. Oropharynx unremarkable, no droop. Neck supple, midline trachea, no adenopathy. Lungs clear, normal rate and effort. Heart regular, no murmur gallop or rub. Abdomen is soft, non distended and notable for some mild left lower quadrant tenderness without guarding or rebound. Extremities are free of edema. Skin is free of rash or lesions. Joints are not swollen or deformed. Judgment appears to be normal. Objective ECG Impression: AFib rate 81 QRS of 136 QTC of 473. Right bundle-branch, nonspecific change. Imaging CT scan - abdomen: Radiologist's impression: Suspected diverticulitis of the distal descending colon, without perforation or abscess. Cirrhosis. Right lower quadrant kidney transplant without hydronephrosis. Labs 06/28/23 11:50 06/28/23 11:50 Labs: Laboratory Results - last 24 hr 06/28/23 06/28/23 11:10 11:50 WBC 14.9 H RBC 1.73 L Hgb 5.3 L* Hct 17.1 L* MCV 98.8 MCH 30.6 MCHC 31.0 RDW 15.8 H Plt Count 196 Neut % (Auto) Not Reportable Lymph % (Auto) Not Reportable [place] % (Auto) Not Reportable Eos % (Auto) Not Reportable Baso % (Auto) Not Reportable Lymph # (Auto) Not Reportable [place] # (Auto) Not Reportable Baso # (Auto) Not Reportable Total Counted 100 Seg Neutrophils % 88.0 H Band Neutrophils % 3.0 Lymphocytes % (Manual) 5.0 L Monocytes % (Manual) 4.0 Neutrophils # (Manual) 17596 H RBC Morphology Not Reportable Hypochromasia 1+ H Poikilocytosis 2+ H Anisocytosis 2+ H PT 13.4 H INR 1.2 APTT 29 Sodium 127 L Potassium 4.6 Chloride 107 Carbon Dioxide 14 L BUN 61 H Creatinine 2.99 H Estimated GFR 21 L BUN/Creatinine Ratio 20.4 Glucose 209 H Lactate 1.5 Calcium 8.4 Total Bilirubin 0.6 AST 21 ALT 14 Alkaline Phosphatase 74 Total Protein 4.4 L Albumin 2.6 L Globulin 1.8 Albumin/Globulin Ratio 1.4 Procalcitonin 0.64 H Blood Type A Negative Antibody Screen Negative Crossmatch See Detail Assessment & Plan Assessment & Plan narrative: 1. Rectal bleeding, present on admission and active. 2. Acute blood loss anemia, present on admission and active. 3. Diverticulitis (by CT), present on admission and active. 4. Chronic kidney disease stage 4 (Cr 2.5-3.0 baseline, gfr 20-27), present on admission and active. 5. Atrial fibrillation with Watchman, present on admission and stable. 6. CAD with multiple stents, possibly 7. Present on admission and active. 7. Previous renal transplant, 2017, present on admission and active. 8. Hypertension, present on admission and active. 9. Dyslipidemia, present on admission and active. PLAN: -blood transfusion, serial hemoglobin and blood support as needed. -treat diverticulitis with IV antibiotics. -defer colonoscopy if clinically possible for the reason of diverticulitis. -continue all chronic Cardiology medications including Plavix. Patient's history of stents places him at high risk for adverse outcomes of stopping antiplatelet therapy. -monitor renal function and continue immunosuppressant drugs. The patient is full resuscitation. Confirmed time of admission. He was with his , she is his proxy decision maker. There has an expectation of necessity of 2 midnights of medical care, he was admitted to inpatient status. His estimated date of discharge is June 29 at the earliest. Time Spent With Patient Time with patient: 30 to 49 minutes with 50% spent counseling/coordinating care Quality MIPS - Admit I confirm the patient?s Advance Care Plan is present, Code status is documented, Surrogate decision maker is in patient?s record [If Yes, STOP here]: Yes MIPS - Meds 'Current medications' to include all prescriptions, [id number] products, herbals, cannabis/cannabidiol products, and vitamin/mineral/dietary (nutritional) supplements. I have utilized all available resources to obtain, update, or review the patient?s current medications. [If Yes, STOP here]: Yes
[2023-06-28 16:44] LABS: Troponin I 0.093 ng/mL (0.01-0.034)
[2023-06-28] MEDS: metroNIDAZOLE 500 MG/100 ML PIGGYBACK 100 MG IV ×2 (17:40→23:02)
[2023-06-28] MEDS: DEXTROSE 5%-0.9% NS 1,000 ML 75 ML IV (18:30)
[2023-06-28] MEDS: BENZONATATE 100 MG CAPSULE PO (19:54)
[2023-06-28 20:03] LABS: Hematocrit 21.1 % (41-53)
[2023-06-28 20:15] LABS: Hemoglobin 6.8 g/dL (13.5-17.5)
[2023-06-28 22:06] LABS: MRSA (Nasal) PCR NOT DETECTED (Not Detect)
[2023-06-28] MEDS: ACETAMINOPHEN 325 MG TABLET 650 MG PO (22:16)
[2023-06-28] MEDS: BENZOCAINE/MENTHOL 1 LOZ PKT 1 EACH PO (23:01)
[2023-06-28] MEDS: guaiFENesin ER 600 MG TAB PO (23:02)
[2023-06-28 23:39] LABS: Hematocrit 20.5 % (41-53); Hemoglobin 6.7 g/dL (13.5-17.5)
[2023-06-29] VITALS (45 sets, daily range): BP systolic 84–158; BP diastolic 50–78; PULSE 69–97; RESP 16–19; TEMP 36.3–37.2; O2SAT 94–100
[2023-06-29 00:17] LABS: Troponin I 0.366 ng/mL (0.01-0.034)
[2023-06-29] MEDS: ACETAMINOPHEN 325 MG TABLET 650 MG PO (04:14)
[2023-06-29 06:18] LABS: Add Manual Diff / Slide Review NO; Basophils Absolute Auto 100 /uL (0-100); Basophils Percent Auto 0.8 % (0-2); Eosinophils Absolute Auto 0 /uL (0-450); Eosinophils Percent Auto 0.2 % (2-4); Hematocrit 22.7 % (41-53); Hemoglobin 7.5 g/dL (13.5-17.5); Lymphocytes Absolute Auto 700 /uL (1100-4500); Lymphocytes Percent Auto 5.1 % (25-40); Mean Corpuscular HGB Conc 33.1 % (30-36); Mean Corpuscular Volume 93.7 fL (80-100); Monocytes Absolute Auto 1200 /uL (0-900); Neutrophils Absolute Auto 11300 /uL (1500-7000); Neutrophils Percent Auto 84.9 % (50-75); Platelet Count 155 X10^3/uL (150-400); Red Blood Cell Count 2.43 X10^6/uL (4.5-5.9); Red Cell Distribution Width 16.6 % (11.6-14.8); White Blood Cell Count 13.4 X10^3/uL (4.5-11.0)
[2023-06-29 06:20] LABS: BUN Creatinine Ratio 19.1 (6-22); Blood Urea Nitrogen 59 mg/dL (9-20); Calcium 8.3 mg/dL (8.4-10.2); Carbon Dioxide 13 mmol/L (22-32); Chloride 108 mmol/L (98-107); Estimated Glomerular Filt Rate 20 mL/min (>60); Glucose 192 mg/dL (80-110); HEMOLYSIS < 15 (0-50); Potassium 4.5 mmol/L (3.4-5.1); Sodium 126 mmol/L (137-145)
[2023-06-29 06:33] LABS: Troponin I 0.445 ng/mL (0.01-0.034)
--- NOTE | 2023-06-29 06:35 | PC.NURSE ---
[employer] Note-Patient has been oriented x4, fatigued but restless having a hard time getting comfortable in this bed Repositioned frequently, Tylenol given for generalized pain. H/H Q6h, received 1 unit PRBCs when 6.7/20.5, tolerated well, no s/s bleeding, denies abdominal pain or nausea. Troponin trending up, Hospitalist informed. Patient denies chest pain, did have mild shortness of breath with activity, SpO2 > 95% on RA, used 2L NC overnight for apnea, normally uses Cpap, declined use of hospitals. VSS. Guaifenesin, Tessalon Perles, and Cepacol given for chronic cough. at bedside overnight.
[2023-06-29] MEDS: DEXTROSE 5%-0.9% NS 1,000 ML 75 ML IV (07:00)
--- NOTE | 2023-06-29 07:57 | P.PN_ITS ---
Subjective Subjective Interval history: No chest pain or dyspnea overnight. He received 1 unit of blood and his hemoglobin is about 7.5. He will have another unit of blood today. His troponin did bump to 0.4 and is history of 7 coronary artery stents. No bowel movements overnight. Blood pressure stable. He does have some coughing. He also has little bit of wheezing with his coughing. A respiratory PCR is pending. Exam Vital Signs (past 8 hours): - 06/29/23 00:00 06/29/23 00:00 06/29/23 00:00 Temperature Pulse Rate 86 Respiratory Rate Blood Pressure 123/72 Pulse Oximetry 100 Oxygen Delivery Method Nasal Cannula 06/29/23 01:00 06/29/23 01:00 06/29/23 01:25 Temperature 98.9 F Pulse Rate 69 76 Respiratory Rate 19 Blood Pressure 110/61 111/63 Pulse Oximetry 98 Oxygen Delivery Method 06/29/23 01:27 06/29/23 01:27 06/29/23 01:40 Temperature 98.7 F Pulse Rate 72 80 Respiratory Rate 18 Blood Pressure 111/63 124/69 Pulse Oximetry 98 Oxygen Delivery Method 06/29/23 01:47 06/29/23 01:47 06/29/23 02:00 Temperature Pulse Rate 78 77 Respiratory Rate Blood Pressure 124/69 Pulse Oximetry 98 98 Oxygen Delivery Method 06/29/23 02:00 06/29/23 03:00 06/29/23 03:00 Temperature Pulse Rate 73 Respiratory Rate Blood Pressure 101/59 L 118/60 Pulse Oximetry 99 Oxygen Delivery Method 06/29/23 04:00 06/29/23 04:00 06/29/23 04:00 Temperature Pulse Rate 76 Respiratory Rate Blood Pressure 118/71 Pulse Oximetry 100 Oxygen Delivery Method Nasal Cannula 06/29/23 04:30 06/29/23 05:00 06/29/23 05:00 Temperature 97.4 F L Pulse Rate 79 83 Respiratory Rate 18 Blood Pressure 118/71 100/59 L Pulse Oximetry 99 Oxygen Delivery Method 06/29/23 06:00 06/29/23 06:00 06/29/23 07:00 Temperature Pulse Rate 83 78 Respiratory Rate Blood Pressure 84/54 L Pulse Oximetry 100 97 Oxygen Delivery Method 06/29/23 07:03 06/29/23 07:03 Temperature Pulse Rate 76 Respiratory Rate Blood Pressure 107/58 L Pulse Oximetry 96 Oxygen Delivery Method Oxygen Delivery Method Nasal Cannula Oxygen Flow Rate 0 Narrative Exam Narrative: NAD, alert and oriented. Fluent speech. No O2. Lungs are clear, normal rate and effort. Minimal deep wheezing. Heart is regular, no murmur gallop or rub. Abdomen is soft, non distended. Extremities are free of edema. Objective Labs 06/29/23 05:50 06/29/23 05:50 Labs: Laboratory Results - last 24 hr 06/28/23 06/28/23 06/28/23 11:10 11:50 16:02 WBC 14.9 H RBC 1.73 L Hgb 5.3 L* Hct 17.1 L* MCV 98.8 MCH 30.6 MCHC 31.0 RDW 15.8 H Plt Count 196 Neut % (Auto) Not Reportable Lymph % (Auto) Not Reportable [place] % (Auto) Not Reportable Eos % (Auto) Not Reportable Baso % (Auto) Not Reportable Neut # (Auto) Lymph # (Auto) Not Reportable [place] # (Auto) Not Reportable Eos # (Auto) Baso # (Auto) Not Reportable Total Counted 100 Seg Neutrophils % 88.0 H Band Neutrophils % 3.0 Lymphocytes % (Manual) 5.0 L Monocytes % (Manual) 4.0 Neutrophils # (Manual) 48527 H RBC Morphology Not Reportable Hypochromasia 1+ H Poikilocytosis 2+ H Anisocytosis 2+ H PT 13.4 H INR 1.2 APTT 29 Sodium 127 L Potassium 4.6 Chloride 107 Carbon Dioxide 14 L BUN 61 H Creatinine 2.99 H Estimated GFR 21 L BUN/Creatinine Ratio 20.4 Glucose 209 H Lactate 1.5 Calcium 8.4 Total Bilirubin 0.6 AST 21 ALT 14 Alkaline Phosphatase 74 Troponin I 0.093 H Total Protein 4.4 L Albumin 2.6 L Globulin 1.8 Albumin/Globulin Ratio 1.4 Procalcitonin 0.64 H Nasal Screen MRSA (PCR) Blood Type A Negative Antibody Screen Negative Crossmatch See Detail 06/28/23 06/28/23 06/28/23 19:40 20:45 23:25 WBC RBC Hgb 6.8 L* 6.7 L* Hct 21.1 L 20.5 L* MCV MCH MCHC RDW Plt Count Neut % (Auto) Lymph % (Auto) [place] % (Auto) Eos % (Auto) Baso % (Auto) Neut # (Auto) Lymph # (Auto) [place] # (Auto) Eos # (Auto) Baso # (Auto) Total Counted Seg Neutrophils % Band Neutrophils % Lymphocytes % (Manual) Monocytes % (Manual) Neutrophils # (Manual) RBC Morphology Hypochromasia Poikilocytosis Anisocytosis PT INR APTT Sodium Potassium Chloride Carbon Dioxide BUN Creatinine Estimated GFR BUN/Creatinine Ratio Glucose Lactate Calcium Total Bilirubin AST ALT Alkaline Phosphatase Troponin I 0.366 H* Total Protein Albumin Globulin Albumin/Globulin Ratio Procalcitonin Nasal Screen MRSA (PCR) Not detected Blood Type Antibody Screen Crossmatch 06/29/23 05:50 WBC 13.4 H RBC 2.43 L Hgb 7.5 L Hct 22.7 L MCV 93.7 D MCH 31.0 MCHC 33.1 RDW 16.6 H Plt Count 155 Neut % (Auto) 84.9 H Lymph % (Auto) 5.1 L [place] % (Auto) 9.0 Eos % (Auto) 0.2 L Baso % (Auto) 0.8 Neut # (Auto) 88289 H Lymph # (Auto) 700 L [place] # (Auto) 1200 H Eos # (Auto) 0 Baso # (Auto) 100 Total Counted Seg Neutrophils % Band Neutrophils % Lymphocytes % (Manual) Monocytes % (Manual) Neutrophils # (Manual) RBC Morphology Hypochromasia Poikilocytosis Anisocytosis PT INR APTT Sodium 126 L Potassium 4.5 Chloride 108 H Carbon Dioxide 13 L BUN 59 H Creatinine 3.09 H Estimated GFR 20 L BUN/Creatinine Ratio 19.1 Glucose 192 H Lactate Calcium 8.3 L Total Bilirubin AST ALT Alkaline Phosphatase Troponin I 0.445 H* Total Protein Albumin Globulin Albumin/Globulin Ratio Procalcitonin Nasal Screen MRSA (PCR) Blood Type Antibody Screen Crossmatch [facility] Medical History Acute renal failure superimposed on chronic kidney disease Dehydration with hyponatremia Acute hypoxemic respiratory failure due to COVID-19 Pneumonia due to 2019 novel coronavirus Iron deficiency anemia Chronic wound of extremity Cellulitis Skin tear of right upper arm without complication Low back pain Skin tear of right upper arm without complication Borderline hypothyroidism Hypertension Sleep apnea (~2011) Stroke (~2004) Gout (~1966) Mumps (~1948) Measles (~1949) Cataracts, bilateral (~2014) Kidney disease (~2005) Atrial fibrillation (~2019) Surgical History Renal transplant recipient History of total right knee replacement (TKR) Anesthesia Kidney transplant recipient (~2017) Family History Father Stroke Mother History of heart disease Sister Cancer Grandfather History of heart disease Grandmother History of heart disease Social History household members: spouse Smoking Status: Never smoker alcohol intake: current Assessment & Plan Assessment & Plan narrative: 1. Rectal bleeding, present on admission and active. 2. Acute blood loss anemia, present on admission and active. 3. Diverticulitis (by CT), present on admission and active. 4. Chronic kidney disease stage 4 (Cr 2.5-3.0 baseline, gfr 20-27), present on admission and active. 5. Atrial fibrillation with Watchman, present on admission and stable. 6. CAD with multiple stents, possibly 7. Present on admission and active. 7. Previous renal transplant, 2017, present on admission and active. 8. Hypertension, present on admission and active. 9. Dyslipidemia, present on admission and active. 10. Cough and wheezing, present on admission and active. PLAN: -Give another unit of blood today with a target hemoglobin of 8. Serial hemoglobin. Monitor for rectal bleeding. Continue IV antibiotics for diverticulitis. Clear liquid diet. -treat diverticulitis with IV antibiotics. -defer colonoscopy if clinically possible for the reason of diverticulitis. -continue all chronic Cardiology medications including Plavix. Patient's history of stents places him at high risk for adverse outcomes of stopping antiplatelet therapy. -monitor renal function and continue immunosuppressant drugs. -Resume diuresis today. Monitor sodium, sodium is 126, likely volume overloaded. -Trend troponin and monitor on telemetry. trop 0.093, 0.366, and 0.445. The patient is full resuscitation. Confirmed at time of admission. He was with his , she is his proxy decision maker.
[2023-06-29] MEDS: metroNIDAZOLE 500 MG/100 ML PIGGYBACK 100 MG IV ×2 (08:39→15:34)
[2023-06-29] MEDS: SODIUM CHLORIDE 0.9% FLUSH 10 ML IV ×2 (08:41→21:55)
[2023-06-29] MEDS: BENZOCAINE/MENTHOL 1 LOZ PKT 1 EACH PO ×3 (09:02→19:47)
--- NOTE | 2023-06-29 09:20 | P.PN_ITS ---
Exam Vital Signs (past 8 hours): - 06/29/23 01:25 06/29/23 01:27 06/29/23 01:27 Temperature 98.9 F Pulse Rate 76 72 Respiratory Rate 19 Blood Pressure 111/63 111/63 Pulse Oximetry 98 Oxygen Delivery Method Oxygen Flow Rate 06/29/23 01:40 06/29/23 01:47 06/29/23 01:47 Temperature 98.7 F Pulse Rate 80 78 Respiratory Rate 18 Blood Pressure 124/69 124/69 Pulse Oximetry 98 Oxygen Delivery Method Oxygen Flow Rate 06/29/23 02:00 06/29/23 02:00 06/29/23 03:00 Temperature Pulse Rate 77 73 Respiratory Rate Blood Pressure 101/59 L Pulse Oximetry 98 99 Oxygen Delivery Method Oxygen Flow Rate 06/29/23 03:00 06/29/23 04:00 06/29/23 04:00 Temperature Pulse Rate 76 Respiratory Rate Blood Pressure 118/60 Pulse Oximetry 100 Oxygen Delivery Method Nasal Cannula Oxygen Flow Rate 06/29/23 04:00 06/29/23 04:30 06/29/23 05:00 Temperature 97.4 F L Pulse Rate 79 83 Respiratory Rate 18 Blood Pressure 118/71 118/71 Pulse Oximetry 99 Oxygen Delivery Method Oxygen Flow Rate 06/29/23 05:00 06/29/23 06:00 06/29/23 06:00 Temperature Pulse Rate 83 Respiratory Rate Blood Pressure 100/59 L 84/54 L Pulse Oximetry 100 Oxygen Delivery Method Oxygen Flow Rate 06/29/23 07:00 06/29/23 07:03 06/29/23 07:03 Temperature Pulse Rate 78 76 Respiratory Rate Blood Pressure 107/58 L Pulse Oximetry 97 96 Oxygen Delivery Method Oxygen Flow Rate 06/29/23 08:00 06/29/23 08:00 06/29/23 08:00 Temperature 97.9 F Pulse Rate 79 80 Respiratory Rate 16 Blood Pressure 107/58 L 118/69 Pulse Oximetry 97 97 Oxygen Delivery Method Oxygen Flow Rate 0 06/29/23 09:00 06/29/23 09:00 Temperature Pulse Rate 81 Respiratory Rate Blood Pressure 103/56 L Pulse Oximetry 98 Oxygen Delivery Method Oxygen Flow Rate Oxygen Delivery Method Nasal Cannula Oxygen Flow Rate 0 Objective Labs 06/29/23 05:50 06/29/23 05:50 Labs: Laboratory Results - last 24 hr 06/28/23 06/28/2324 11:10 11:50 16:02 WBC 14.9 H RBC 1.73 L Hgb 5.3 L* Hct 17.1 L* MCV 98.8 MCH 30.6 MCHC 31.0 RDW 15.8 H Plt Count 196 Neut % (Auto) Not Reportable Lymph % (Auto) Not Reportable [place] % (Auto) Not Reportable Eos % (Auto) Not Reportable Baso % (Auto) Not Reportable Neut # (Auto) Lymph # (Auto) Not Reportable [place] # (Auto) Not Reportable Eos # (Auto) Baso # (Auto) Not Reportable Total Counted 100 Seg Neutrophils % 88.0 H Band Neutrophils % 3.0 Lymphocytes % (Manual) 5.0 L Monocytes % (Manual) 4.0 Neutrophils # (Manual) 87782 H RBC Morphology Not Reportable Hypochromasia 1+ H Poikilocytosis 2+ H Anisocytosis 2+ H PT 13.4 H INR 1.2 APTT 29 Sodium 127 L Potassium 4.6 Chloride 107 Carbon Dioxide 14 L BUN 61 H Creatinine 2.99 H Estimated GFR 21 L BUN/Creatinine Ratio 20.4 Glucose 209 H Lactate 1.5 Calcium 8.4 Total Bilirubin 0.6 AST 21 ALT 14 Alkaline Phosphatase 74 Troponin I 0.093 H Total Protein 4.4 L Albumin 2.6 L Globulin 1.8 Albumin/Globulin Ratio 1.4 Procalcitonin 0.64 H Nasal Screen MRSA (PCR) Blood Type A Negative Antibody Screen Negative Crossmatch See Detail 06/28/23 06/28/23 06/28/23 19:40 20:45 23:25 WBC RBC Hgb 6.8 L* 6.7 L* Hct 21.1 L 20.5 L* MCV MCH MCHC RDW Plt Count Neut % (Auto) Lymph % (Auto) [place] % (Auto) Eos % (Auto) Baso % (Auto) Neut # (Auto) Lymph # (Auto) [place] # (Auto) Eos # (Auto) Baso # (Auto) Total Counted Seg Neutrophils % Band Neutrophils % Lymphocytes % (Manual) Monocytes % (Manual) Neutrophils # (Manual) RBC Morphology Hypochromasia Poikilocytosis Anisocytosis PT INR APTT Sodium Potassium Chloride Carbon Dioxide BUN Creatinine Estimated GFR BUN/Creatinine Ratio Glucose Lactate Calcium Total Bilirubin AST ALT Alkaline Phosphatase Troponin I 0.366 H* Total Protein Albumin Globulin Albumin/Globulin Ratio Procalcitonin Nasal Screen MRSA (PCR) Not detected Blood Type Antibody Screen Crossmatch 06/29/23 05:50 WBC 13.4 H RBC 2.43 L Hgb 7.5 L Hct 22.7 L MCV 93.7 D MCH 31.0 MCHC 33.1 RDW 16.6 H Plt Count 155 Neut % (Auto) 84.9 H Lymph % (Auto) 5.1 L [place] % (Auto) 9.0 Eos % (Auto) 0.2 L Baso % (Auto) 0.8 Neut # (Auto) 16365 H Lymph # (Auto) 700 L [place] # (Auto) 1200 H Eos # (Auto) 0 Baso # (Auto) 100 Total Counted Seg Neutrophils % Band Neutrophils % Lymphocytes % (Manual) Monocytes % (Manual) Neutrophils # (Manual) RBC Morphology Hypochromasia Poikilocytosis Anisocytosis PT INR APTT Sodium 126 L Potassium 4.5 Chloride 108 H Carbon Dioxide 13 L BUN 59 H Creatinine 3.09 H Estimated GFR 20 L BUN/Creatinine Ratio 19.1 Glucose 192 H Lactate Calcium 8.3 L Total Bilirubin AST ALT Alkaline Phosphatase Troponin I 0.445 H* Total Protein Albumin Globulin Albumin/Globulin Ratio Procalcitonin Nasal Screen MRSA (PCR) Blood Type Antibody Screen Crossmatch [facility] Medical History Acute renal failure superimposed on chronic kidney disease Dehydration with hyponatremia Acute hypoxemic respiratory failure due to COVID-19 Pneumonia due to 2019 novel coronavirus Iron deficiency anemia Chronic wound of extremity Cellulitis Skin tear of right upper arm without complication Low back pain Skin tear of right upper arm without complication Borderline hypothyroidism Hypertension Sleep apnea (~2011) Stroke (~2004) Gout (~1966) Mumps (~194) Measles (~194) Cataracts, bilateral (~2013) Kidney disease (~2004) Atrial fibrillation (~2019) Surgical History Renal transplant recipient History of total right knee replacement (TKR) Anesthesia Kidney transplant recipient (~2016) Family History Father Stroke Mother History of heart disease Sister Cancer Grandfather History of heart disease Grandmother History of heart disease Social History household members: spouse Smoking Status: Never smoker alcohol intake: current
[2023-06-29] MEDS: TACROLIMUS 0.5 MG CAPSULE 3 MG PO (10:07)
[2023-06-29] MEDS: CLOPIDOGREL 75 MG TABLET PO (10:07)
[2023-06-29] MEDS: BUMETANIDE 1 MG TABLET 2 MG PO (10:07)
[2023-06-29] MEDS: predniSONE 5 MG TABLET PO (10:07)
[2023-06-29] MEDS: guaiFENesin ER 600 MG TAB PO (10:42)
[2023-06-29] MEDS: MYCOPHENOLATE SODIUM 360 MG 360 EACH PO ×2 (10:47→21:55)
[2023-06-29] MEDS: ALBUTEROL 2.5 MG/3 ML NEB (ADULT) INH (14:13)
[2023-06-29] MEDS: guaiFENesin Solution 100 MG/5 ML UDC 200 MG PO (14:17)
--- NOTE | 2023-06-29 14:21 | CM.DANOTE ---
DCP Assessment Note Pt is a 78yo male, resident of [place]. Here under hospitalist care following rectal bleeding/diverculitis. PMH of afib, hypertension, dyslipidemia, kidney stones, and kidney transplant. PCP Milad Perales Medicare and Neelima YANEZ reviewed EMR. Per hospitalist in morning multidisciplinary rounds, pt received 4 units of blood and was planning to get another one today. No plans for scope per surgery and pt should be treated with abx first. unclear dc timeline at this time. GLAZIER SUPERVISOR met with pt and spouse in room (Kay Alonzo [phone]). Pt is indep with ADLs at baseline. has a cane and walker but does not use it. ho Hx of HH or SNF. Denies any CM/DCP needs at this time. Per RN, no current ambulation concerns. RN reports PCP office is working on getting auths for the kidney medication he's been taking for years and his insurance suddenly no longer wishes to auth. Plan: anticipate home with spouse when medically stable. No barriers to safe dc home with spouse identified at this time. transport wth spouse in POV. CM team will continue to follow as needed. BEAU Ricks Discharge Planning/Care Management CM Discharge Assessment Start: 06/29/23 14:20 Freq: Status: Active Protocol: Document 06/29/23 14:20 (Rec: 06/29/23 14:21 [id number]) Discharge Planning Assessment Assigned Proposition Player BEAU Peck DPOA/Assigned Designee Name [phone] Advance Directives? Yes Advance Directives on File No History Provided By Patient,Medical Record Prior Living Arrangements House Household Members spouse Type of transporation used prior to Drives own vehicle admit Independent with ADL's Yes Is patient alert and oriented? Yes DME Already Rented / Owned FWW / Walker,Cane Comment Patient resides with supportive spouse. Discharge Plan Home Transportation Arrangement Spouse Referrals Initiated None needed Whiteboard Updated in Patient Room with Yes name and ext. # of Proposition Player Review Status In Process Please Provide Date Initial DC 06/29/23 Assessment Was Performed Next Review Type Continued Stay Review
[2023-06-29 14:23] LABS: Adenovirus Not Detected (Not Detect); B. parapertussis Not Detected (Not Detecte); Bordetella pertussis Not Detected (Not Detect); Chlamydophila pneumoniae Not Detected (Not Detect); Coronavirus 229E Not Detected (Not Detect); Coronavirus HKU1 Not Detected (Not Detect); Coronavirus NL 63 Not Detected (Not Detect); Coronavirus OC43 Not Detected (Not Detect); Human Metapneumovirus Detected (Not Detect); Human Rhinovirus/Enterovirus Not Detected (Not Detect); Influenza A Not Detected (Not Detect); Influenza B Not Detected (Not Detect); Mycoplasma pneumoniae Not Detected (Not Detect); Parainfluenza Virus 1 Not Detected (Not Detect); Parainfluenza Virus 2 Not Detected (Not Detect); Parainfluenza Virus 3 Detected (Not Detect); Parainfluenza Virus 4 Not Detected (Not Detect); Respiratory Syncytial Virus Not Detected (Not Detect); SARS- CoV-2 Not Detected (Not Detecte)
[2023-06-29 14:47] LABS: Hematocrit 26.3 % (41-53); Hemoglobin 8.6 g/dL (13.5-17.5)
[2023-06-29 17:18] LABS: Troponin I 0.305 ng/mL (0.01-0.034)
--- NOTE | 2023-06-29 18:07 | PC.NURSE ---
Day shift: Pt A&Ox4, spouse at bedside. Pt up to chair for meals. VSS. Received 1 unit blood. Using urinal at bedside with minimal assist. Had two small bms, both + guiaic. Care ongoing, will continue to monitor.
[2023-06-29] MEDS: ATORVASTATIN 20 MG TABLET 80 MG PO (21:55)
[2023-06-29] MEDS: TAMSULOSIN 0.4 MG CAPSULE PO (21:55)
[2023-06-29] MEDS: PANTOPRAZOLE DR 40 MG TABLET PO (21:55)
--- NOTE | 2023-06-29 23:45 | PC.NURSE ---
Addendum entered by America Adrian R.N. 06/30/23 07:36: Patient was able to sleep after 0300 when bleeding decreased. BP remained low with MAP 60-65. Patient oriented when awake. Dr Arevalo informed of am H/H 6.1/18.3 and hypotension, orders received, report given to Mayco HERNANDEZ. Addendum entered by America Adrian R.N. 06/30/23 00:11: HS Plavix held. Original Note: Night Notes-Patient is A/Ox4. Around 2199, patient started having large loose dark maroon stools that persisted anf turning bright red, mucoid with clots, approximately 300-500mls at a time. Initial BP at 1999 was 145/63, HR 80s-115. At 2299 91/55(67), HR 90s-120s, has denied dizziness, lightheadedness, abdominal pain or cramping. Insisted ambulating into BR with walker, says he is steady. I insisted the patient use BSC, he agreed. At 2229, I informed night hospitalist about rectal bleeding, H/H added to midnight Troponin draw.
[2023-06-30] VITALS (45 sets, daily range): BP systolic 84–122; BP diastolic 47–62; PULSE 77–124; RESP 16–21; TEMP 36.3–36.8; O2SAT 88–100
[2023-06-30] MEDS: metroNIDAZOLE 500 MG/100 ML PIGGYBACK 100 MG IV ×4 (00:10→23:46)
[2023-06-30 00:57] LABS: Hematocrit 21.5 % (41-53)
[2023-06-30] MEDS: ACETAMINOPHEN 325 MG TABLET 650 MG PO ×2 (01:08→22:09)
[2023-06-30 01:18] LABS: Troponin I 0.209 ng/mL (0.01-0.034)
[2023-06-30 06:52] LABS: Add Manual Diff / Slide Review NO; Basophils Absolute Auto 0 /uL (0-100); Basophils Percent Auto 0.4 % (0-2); Eosinophils Absolute Auto 0 /uL (0-450); Eosinophils Percent Auto 0.1 % (2-4); Lymphocytes Absolute Auto 500 /uL (1100-4500); Lymphocytes Percent Auto 5.1 % (25-40); Mean Corpuscular HGB Conc 33.5 % (30-36); Mean Corpuscular Volume 92.6 fL (80-100); Monocytes Absolute Auto 800 /uL (0-900); Monocytes Percent Auto 7.2 % (3-14); Neutrophils Absolute Auto 9300 /uL (1500-7000); Neutrophils Percent Auto 87.2 % (50-75); Platelet Count 167 X10^3/uL (150-400); Red Blood Cell Count 1.98 X10^6/uL (4.5-5.9); Red Cell Distribution Width 16.1 % (11.6-14.8); White Blood Cell Count 10.7 X10^3/uL (4.5-11.0)
[2023-06-30 06:53] LABS: Hemoglobin 6.1 g/dL (13.5-17.5)
[2023-06-30 06:54] LABS: Hematocrit 18.3 % (41-53)
[2023-06-30 07:02] LABS: BUN Creatinine Ratio 18.6 (6-22); Blood Urea Nitrogen 58 mg/dL (9-20); Calcium 7.6 mg/dL (8.4-10.2); Carbon Dioxide 13 mmol/L (22-32); Chloride 111 mmol/L (98-107); Estimated Glomerular Filt Rate 20 mL/min (>60); Glucose 179 mg/dL (80-110); HEMOLYSIS < 15 (0-50); Potassium 4.1 mmol/L (3.4-5.1); Sodium 128 mmol/L (137-145)
[2023-06-30] MEDS: SODIUM CHLORIDE 0.9% 1,000 ML 84 ML IV ×2 (08:05→21:04)
[2023-06-30] MEDS: SODIUM CHLORIDE 0.9% FLUSH 10 ML IV ×2 (08:05→21:59)
[2023-06-30 09:03] LABS: Troponin I 0.176 ng/mL (0.01-0.034)
--- NOTE | 2023-06-30 10:21 | CM.DPNOTE ---
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 Per hospitalist in morning multidisciplinary rounds, pt will likely require ongoing transfusions at dc. Pt may need another few days. Per overnight RN note, pt had low BP overnight. Per overnight RN, pt had large loose dark stools/turned bright red. Ambulated with walker. H&H dropped again. Medical POC continues to unfold. anticipate home with spouse when medically stable. No barriers to safe dc home with spouse identified at this time. transport wth spouse in POV. CM team will continue to follow as needed. r/o need for PT eval if pt continues to mobilize below baseline. BEAU Ricks
[2023-06-30] MEDS: PANTOPRAZOLE 40 MG VIAL IV ×2 (10:25→21:59)
[2023-06-30] MEDS: MYCOPHENOLATE SODIUM 360 MG 360 EACH PO ×2 (10:25→21:58)
[2023-06-30] MEDS: predniSONE 5 MG TABLET PO (10:25)
[2023-06-30] MEDS: TACROLIMUS 0.5 MG CAPSULE 3 MG PO (10:29)
[2023-06-30 14:28] LABS: Hemoglobin 8.7 g/dL (13.5-17.5)
[2023-06-30] MEDS: levoFLOXacin 750 MG/150 ML PIGGYBACK 100 MG IV (16:13)
--- NOTE | 2023-06-30 17:12 | PM.PN.1 ---
Subjective Subjective Date Patient Seen: 06/30/23 Interval history: Pt with ongiong rectal bleed overnight but none today so far. H/H is down to 6.1/18.3 after 4 units PRBC. trop trending down Exam Vital Signs (past 8 hours): - 06/30/23 10:53 06/30/23 11:14 06/30/23 11:20 Temperature 97.7 F Pulse Rate 77 Respiratory Rate 21 Blood Pressure 101/59 L 101/59 L 96/53 L Pulse Oximetry 06/30/23 11:21 06/30/23 11:22 06/30/23 11:31 Temperature 97.5 F L Pulse Rate 89 93 H 91 H Respiratory Rate 16 Blood Pressure 96/53 L Pulse Oximetry 98 98 06/30/23 11:31 06/30/23 11:39 06/30/23 11:45 Temperature 97.8 F Pulse Rate 83 83 Respiratory Rate 17 Blood Pressure 105/55 L 105/55 L Pulse Oximetry 97 06/30/23 11:45 06/30/23 12:00 06/30/23 12:00 Temperature Pulse Rate 89 Respiratory Rate Blood Pressure 99/53 L 95/55 L Pulse Oximetry 98 06/30/23 13:57 06/30/23 13:58 06/30/23 13:58 Temperature Pulse Rate 93 H Respiratory Rate Blood Pressure 89/53 L Pulse Oximetry 98 98 06/30/23 13:59 06/30/23 16:07 Temperature Pulse Rate Respiratory Rate Blood Pressure 91/53 L 116/58 L Pulse Oximetry Fraction of Inspired Oxygen 21 SaO2/FiO2 Ratio 457 Oxygen Delivery Method Nasal Cannula Oxygen Flow Rate 1 Narrative Exam Narrative: gen: alert, NAD Lungs: clear CV: irregular rhythm ext: no edema Objective Labs 06/30/23 14:20 06/30/23 06:06 Labs: Laboratory Results - last 24 hr 06/28/23 06/29/23 06/30/23 11:50 16:00 00:35 WBC RBC Hgb 7.0 L Hct 21.5 L MCV MCH MCHC RDW Plt Count Neut % (Auto) Lymph % (Auto) [place] % (Auto) Eos % (Auto) Baso % (Auto) Neut # (Auto) Lymph # (Auto) [place] # (Auto) Eos # (Auto) Baso # (Auto) Sodium Potassium Chloride Carbon Dioxide BUN Creatinine Estimated GFR BUN/Creatinine Ratio Glucose Calcium Troponin I 0.305 H* 0.209 H* Blood Type A Negative Antibody Screen Negative Crossmatch See Detail 06/30/23 06/30/23 06/30/23 06:06 08:19 14:20 WBC 10.7 RBC 1.98 L Hgb 6.1 L* 8.7 L Hct 18.3 L* 26.0 L MCV 92.6 MCH 31.0 MCHC 33.5 RDW 16.1 H Plt Count 167 Neut % (Auto) 87.2 H Lymph % (Auto) 5.1 L [place] % (Auto) 7.2 Eos % (Auto) 0.1 L Baso % (Auto) 0.4 Neut # (Auto) 9300 H Lymph # (Auto) 500 L [place] # (Auto) 800 Eos # (Auto) 0 Baso # (Auto) 0 Sodium 128 L Potassium 4.1 Chloride 111 H Carbon Dioxide 13 L BUN 58 H Creatinine 3.12 H Estimated GFR 20 L BUN/Creatinine Ratio 18.6 Glucose 179 H Calcium 7.6 L Troponin I 0.176 H* Blood Type Antibody Screen Crossmatch [facility] Medical History Acute renal failure superimposed on chronic kidney disease Dehydration with hyponatremia Acute hypoxemic respiratory failure due to COVID-19 Pneumonia due to 2019 novel coronavirus Iron deficiency anemia Chronic wound of extremity Cellulitis Skin tear of right upper arm without complication Low back pain Skin tear of right upper arm without complication Borderline hypothyroidism Hypertension Sleep apnea (~2011) Stroke (~2004) Gout (~1966) Mumps (~1949) Measles (~1949) Cataracts, bilateral (~2014) Kidney disease (~2005) Atrial fibrillation (~2019) Surgical History Renal transplant recipient History of total right knee replacement (TKR) Anesthesia Kidney transplant recipient (~2017) Family History Father Stroke Mother History of heart disease Sister Cancer Grandfather History of heart disease Grandmother History of heart disease Social History household members: spouse Smoking Status: Never smoker alcohol intake: current Assessment & Plan Assessment & Plan narrative: 1. Rectal bleeding, due to diverticulitis, present on admission and active. 2. Acute blood loss anemia, present on admission and active. 3. Diverticulitis (by CT), present on admission and active. 4. Chronic kidney disease stage 4 (Cr 2.5-3.0 baseline, gfr 20-27), present on admission and active. 5. Atrial fibrillation with Watchman, present on admission and stable. 6. CAD with multiple stents, possibly 7. Stents were placed in April 2022. Present on admission and active. 7. Previous renal transplant, 2017, present on admission and active. 8. Hypertension, present on admission and active. 9. Dyslipidemia, present on admission and active. 10. Cough and wheezing, present on admission and active. Due to respiratory viruses. Resolving. 11. Hyponatremia, likely volume depletin due to bleed PLAN: -give additional 2 units PRBC - repeat H/H -cont IV abx for diverticulits -c-scope deferred as pt had one 3 years ago -hold plavix for today and resume tomorrow night if no active bleed (pt takes it at night); I've ordered to resume 5/ in evening -hold bumetanide, lisinopril due to low BP -monitor renal function and continue immunosuppressant drugs -daily labs on order -PICC for IV access Discharge in 1 - 2 days if stable.
[2023-06-30] MEDS: TAMSULOSIN 0.4 MG CAPSULE PO (21:58)
[2023-06-30] MEDS: TACROLIMUS 0.5 MG CAPSULE 1 MG PO (21:59)
[2023-06-30] MEDS: ATORVASTATIN 20 MG TABLET 80 MG PO (21:59)
[2023-06-30] MEDS: BENZOCAINE/MENTHOL 1 LOZ PKT 1 EACH PO (21:59)
[2023-07-01] VITALS (26 sets, daily range): BP systolic 80–109; BP diastolic 44–76; PULSE 77–118; RESP 16–22; TEMP 36.6–36.9; O2SAT 90–100
--- NOTE | 2023-07-01 06:31 | PC.NURSE ---
bowling ball molder RN note pt initially sitting up in chair with in room, A&Ox4, pt often looks to to answer his questions even when they are directed at him, ALVAREZ with gen weakness, insists on getting him up by herself to use the bathroom without staff help, pt using walker, afib 90-120s, 1+ edema lower legs, PPPx4, VSS, afebrile, lungs clear and decreased to bases, O2 sats >92% on RA when awake, 2L NC applied at HS for sleep apnea, home cpap not at bedside, advised to bring in home machine, pt states he hates continuous O2 sat monitoring, pt educated about its importance since he has sleep apnea and no cpap here, refuses to use hospital machine, abd soft with BS, x2 dark bloody/brown/seedy stools, denies dizziness/pain, voiding in urinal, skin warm and fragile, scattered bruises and scabs, periph IV R arm patent with IV fluids infusing, L arm midline patent but would not draw back blood for am labs, lab notified and pt drawn by them, meds as ordered, call peter within reach, continue to monitor
[2023-07-01 06:34] LABS: Add Manual Diff / Slide Review NO; Basophils Absolute Auto 0 /uL (0-100); Basophils Percent Auto 0.3 % (0-2); Eosinophils Absolute Auto 0 /uL (0-450); Eosinophils Percent Auto 0.2 % (2-4); Hematocrit 22.7 % (41-53); Hemoglobin 7.6 g/dL (13.5-17.5); Lymphocytes Absolute Auto 600 /uL (1100-4500); Lymphocytes Percent Auto 6.6 % (25-40); Mean Corpuscular HGB Conc 33.7 % (30-36); Mean Corpuscular Volume 91.8 fL (80-100); Monocytes Absolute Auto 800 /uL (0-900); Monocytes Percent Auto 8.6 % (3-14); Neutrophils Absolute Auto 7700 /uL (1500-7000); Neutrophils Percent Auto 84.3 % (50-75); Platelet Count 169 X10^3/uL (150-400); Red Blood Cell Count 2.47 X10^6/uL (4.5-5.9); Red Cell Distribution Width 17.2 % (11.6-14.8); White Blood Cell Count 9.1 X10^3/uL (4.5-11.0)
[2023-07-01 06:43] LABS: BUN Creatinine Ratio 16.8 (6-22); Blood Urea Nitrogen 53 mg/dL (9-20); Calcium 7.8 mg/dL (8.4-10.2); Carbon Dioxide 11 mmol/L (22-32); Chloride 113 mmol/L (98-107); Estimated Glomerular Filt Rate 19 mL/min (>60); Glucose 156 mg/dL (80-110); HEMOLYSIS < 15 (0-50); Potassium 4.3 mmol/L (3.4-5.1); Sodium 128 mmol/L (137-145)
[2023-07-01] MEDS: metroNIDAZOLE 500 MG/100 ML PIGGYBACK 100 MG IV ×3 (09:51→23:51)
[2023-07-01] MEDS: predniSONE 5 MG TABLET PO (09:53)
[2023-07-01] MEDS: PANTOPRAZOLE 40 MG VIAL IV ×2 (09:53→21:57)
[2023-07-01] MEDS: MYCOPHENOLATE SODIUM 360 MG 360 EACH PO ×2 (09:53→21:57)
[2023-07-01] MEDS: TACROLIMUS 0.5 MG CAPSULE 1 MG PO ×2 (09:53→21:57)
[2023-07-01] MEDS: SODIUM CHLORIDE 0.9% 1,000 ML 84 ML IV ×2 (09:53→23:47)
[2023-07-01] MEDS: allopurinoL 100 MG TABLET 150 MG PO (09:54)
[2023-07-01] MEDS: SODIUM CHLORIDE 0.9% FLUSH 10 ML IV ×2 (09:56→21:57)
[2023-07-01 11:52] LABS: Hemoglobin 7.9 g/dL (13.5-17.5)
--- NOTE | 2023-07-01 12:39 | P.PN_ITS ---
Subjective Subjective Interval history: He is very fatigued today. He denies any pain. His cough is much better. He has not on oxygen and denies any dyspnea. He did have rectal bleeding yesterday and received 2 units of blood. His stool is close to brown today in his hemoglobin is stable. He denies any residual abdominal pain. His Plavix has been held since yesterday. Exam Vital Signs (past 8 hours): - 07/01/23 05:00 07/01/23 06:00 07/01/23 06:00 Pulse Rate 93 H 88 Respiratory Rate 17 17 Blood Pressure 104/58 L 109/56 L Pulse Oximetry 99 99 Oxygen Delivery Method Oxygen Flow Rate 2 2 07/01/23 07:00 07/01/23 07:00 07/01/23 08:00 Pulse Rate 99 H Respiratory Rate Blood Pressure 97/57 L Pulse Oximetry 99 Oxygen Delivery Method Room Air Oxygen Flow Rate 07/01/23 11:48 Pulse Rate 80 Respiratory Rate 16 Blood Pressure 80/49 L Pulse Oximetry 97 Oxygen Delivery Method Oxygen Flow Rate 0 Fraction of Inspired Oxygen 21 SaO2/FiO2 Ratio 457 Oxygen Delivery Method Room Air Oxygen Flow Rate 0 Narrative Exam Narrative: NAD, alert and oriented. Fluent speech. Somewhat lethargic and sleepy. Lungs are clear, normal rate and effort. Heart is regular, no murmur gallop or rub. Abdomen is soft, non distended. Extremities are free of edema. Objective Labs 07/01/23 11:30 07/01/23 06:17 Labs: Laboratory Results - last 24 hr 06/28/23 06/30/23 07/01/23 11:50 14:20 06:17 WBC 9.1 RBC 2.47 L Hgb 8.7 L 7.6 L Hct 26.0 L 22.7 L MCV 91.8 MCH 31.0 MCHC 33.7 RDW 17.2 H Plt Count 169 Neut % (Auto) 84.3 H Lymph % (Auto) 6.6 L [place] % (Auto) 8.6 Eos % (Auto) 0.2 L Baso % (Auto) 0.3 Neut # (Auto) 7700 H Lymph # (Auto) 600 L [place] # (Auto) 800 Eos # (Auto) 0 Baso # (Auto) 0 Sodium 128 L Potassium 4.3 Chloride 113 H Carbon Dioxide 11 L BUN 53 H Creatinine 3.15 H Estimated GFR 19 L BUN/Creatinine Ratio 16.8 Glucose 156 H Calcium 7.8 L Crossmatch See Detail 07/01/23 11:30 WBC RBC Hgb 7.9 L Hct 24.0 L MCV MCH MCHC RDW Plt Count Neut % (Auto) Lymph % (Auto) [place] % (Auto) Eos % (Auto) Baso % (Auto) Neut # (Auto) Lymph # (Auto) [place] # (Auto) Eos # (Auto) Baso # (Auto) Sodium Potassium Chloride Carbon Dioxide BUN Creatinine Estimated GFR BUN/Creatinine Ratio Glucose Calcium Crossmatch [facility] Medical History Acute renal failure superimposed on chronic kidney disease Dehydration with hyponatremia Acute hypoxemic respiratory failure due to COVID-19 Pneumonia due to 2019 novel coronavirus Iron deficiency anemia Chronic wound of extremity Cellulitis Skin tear of right upper arm without complication Low back pain Skin tear of right upper arm without complication Borderline hypothyroidism Hypertension Sleep apnea (~2011) Stroke (~2004) Gout (~1966) Mumps (~1948) Measles (~1948) Cataracts, bilateral (~2013) Kidney disease (~2004) Atrial fibrillation (~2019) Surgical History Renal transplant recipient History of total right knee replacement (TKR) Anesthesia Kidney transplant recipient (~2017) Family History Father Stroke Mother History of heart disease Sister Cancer Grandfather History of heart disease Grandmother History of heart disease Social History household members: spouse Smoking Status: Never smoker alcohol intake: current Assessment & Plan Assessment & Plan narrative: 1. Rectal bleeding, due to diverticulitis, present on admission and improved. 2. Acute blood loss anemia, present on admission and improved. 3. Diverticulitis (by CT), present on admission and improving. 4. Chronic kidney disease stage 4 (Cr 2.5-3.0 baseline, gfr 20-27), present on admission and active. 5. Atrial fibrillation with Watchman (PAF), present on admission and stable. 6. CAD with multiple stents, possibly 7. Stents were placed in April 2022. Present on admission and active. 7. Previous renal transplant, 2017, present on admission and active. Cr stable. 8. Hypertension, present on admission and active. 9. Dyslipidemia, present on admission and active. 10. Cough and wheezing (Metapneumonvirus), present on admission and improving. 11. Hyponatremia, likely volume depletin due to bleed 12. NSTEMI, new and improving. PLAN: -received 2 units PRBC 06/29. -continue IV antibiotics for diverticulitis -c-scope deferred as pt had one 3 years ago -resume plavix for today and resume tomorrow night if no active bleed (pt takes it at night); I've ordered to resume 06/30 in evening -hold bumetanide, lisinopril due to low BP -monitor renal function and continue immunosuppressant drugs -PICC for IV access -advance diet -fluid bolus for low BP.
[2023-07-01] MEDS: SODIUM CHLORIDE 0.9% 500 ML 250 ML IV (13:13)
--- NOTE | 2023-07-01 15:23 | CM.DPNOTE ---
DCP Cont Reviewed chart. Patient discussed in multidisciplinary rounds. Patient is expected to be here another 24-48 hrs. Discharge home w/family anticipated w/close outpatient follow up. CM team following closely in case any discharge needs or concerns arise. FERDINAND
[2023-07-01] MEDS: BENZOCAINE/MENTHOL 1 LOZ PKT 1 EACH PO (16:01)
[2023-07-01 17:02] LABS: Hematocrit 23.8 % (41-53)
[2023-07-01] MEDS: ACETAMINOPHEN 325 MG TABLET 650 MG PO (21:56)
[2023-07-01] MEDS: ATORVASTATIN 20 MG TABLET 80 MG PO (21:57)
[2023-07-01] MEDS: TAMSULOSIN 0.4 MG CAPSULE PO (21:57)
[2023-07-02] VITALS (58 sets, daily range): BP systolic 61–141; BP diastolic 37–100; PULSE 91–129; RESP 16–20; TEMP 36.4–37; O2SAT 83–99
--- NOTE | 2023-07-02 06:27 | PC.NURSE ---
shift supervisor melting RN note pt rested quietly in chair and bed overnight, c/o gen discomfort at HS, tylenol given with effect, one small seedy/loose brown blood tinged stool, at bedside overnight, continue to monitor
--- NOTE | 2023-07-02 07:48 | P.PN_ITS ---
Subjective Subjective Interval history: Moderately hypotensive overnight. Hemoglobin relatively stable at 7.8. No rectal bleeding overnight. Minimal abdominal pain. No chest pain or dyspnea. Blood pressures this morning include a map of 64 with a systolic of 89. He is some edema of the arms. He has not short of breath or tachypneic. Exam Vital Signs (past 8 hours): - 07/02/23 00:19 07/02/23 01:00 07/02/23 05:18 Temperature 97.7 F 97.6 F Pulse Rate 96 H 102 H Respiratory Rate 20 20 Blood Pressure 112/59 L 98/59 L Pulse Oximetry 96 97 Oxygen Delivery Method Room Air Oxygen Flow Rate 0 0 Fraction of Inspired Oxygen 21 SaO2/FiO2 Ratio 457 Oxygen Delivery Method Room Air Oxygen Flow Rate 0 Narrative Exam Narrative: NAD, alert and oriented. Fluent speech. Lungs are clear, normal rate and effort. Heart is regular, no murmur gallop or rub. Abdomen is soft, non distended. Extremities are free of edema. Some arm edema on the right greater than the left. Minimal leg edema. He is extensive ecchymoses over his arms and legs. Objective Labs 07/02/23 08:15 07/02/23 08:15 Labs: Laboratory Results - last 24 hr 07/01/23 07/01/23 11:30 16:45 Hgb 7.9 L 8.0 L Hct 24.0 L 23.8 L [facility] Medical History Acute renal failure superimposed on chronic kidney disease Dehydration with hyponatremia Acute hypoxemic respiratory failure due to COVID-19 Pneumonia due to 2019 novel coronavirus Iron deficiency anemia Chronic wound of extremity Cellulitis Skin tear of right upper arm without complication Low back pain Skin tear of right upper arm without complication Borderline hypothyroidism Hypertension Sleep apnea (~2011) Stroke (~2004) Gout (~1966) Mumps (~194) Measles (~194) Cataracts, bilateral (~2013) Kidney disease (~2004) Atrial fibrillation (~2019) Surgical History Renal transplant recipient History of total right knee replacement (TKR) Anesthesia Kidney transplant recipient (~2017) Family History Father Stroke Mother History of heart disease Sister Cancer Grandfather History of heart disease Grandmother History of heart disease Social History household members: spouse Smoking Status: Never smoker alcohol intake: current Assessment & Plan Assessment & Plan narrative: 1. Rectal bleeding, due to diverticulitis, present on admission and improved. 2. Acute blood loss anemia, present on admission and improved. 3. Diverticulitis (by CT), present on admission and improving. 4. Chronic kidney disease stage 4 (Cr 2.5-3.0 baseline, gfr 20-27), present on admission and active. 5. Atrial fibrillation with Watchman (PAF), present on admission and stable. 6. CAD with multiple stents, possibly 7. Stents were placed in April 2022. Present on admission and active. 7. Previous renal transplant, 2017, present on admission and active. Cr stable. 8. Hypertension, present on admission and active. 9. Dyslipidemia, present on admission and active. 10. Cough and wheezing (Metapneumonvirus), present on admission and improving. 11. Hyponatremia, likely volume depletin due to bleed 12. NSTEMI, new and improving. PLAN: -received multiple units of blood over the last several days. -we will try midodrine 5 mg Q 8 hours to see if this improves blood pressure. He might require diuresis once blood pressure improves. -continue IV antibiotics for diverticulitis. -c-scope deferred as pt had one 3 years ago. -resume plavix today. This was held for 2 days due to bleeding. -hold bumetanide, lisinopril due to low BP -monitor renal function and continue immunosuppressant drugs -midline for IV access -advance diet -fluid bolus for low BP. Trial Midodrine -we will also obtain an echo to reassess EF as it has been since 2020. This patient has a history of recent NSTEMI as well as 7 cardiac stents at [facility]. Met with at at bedside. He will likely be in the hospital least 2 additional days.
--- NOTE | 2023-07-02 08:21 | DI.RAD.S_ITS ---
PROCEDURE: XR CHEST 1V INDICATIONS: dyspnea TECHNIQUE: One view of the chest was acquired. COMPARISON: [facility], CR, XR CHEST 1V, 04/24/2022, 12:40. [facility], CR, XR CHEST FOR PICC 1V, 05/07/2021, 17:54. FINDINGS: Surgical changes and devices: None. Lungs and pleura: Lungs are clear. No pleural effusions or pneumothorax. Mediastinum: Mediastinal contours appear unchanged. Asymmetric elevation of the right hemidiaphragm. Heart size is prominent. Bones and chest wall: No suspicious bony lesions. Overlying soft tissues appear unremarkable. IMPRESSION: No acute cardiopulmonary abnormality is seen. Dictated by: Maninder Chun M.D. on 07/02/2023 at 10:11 Approved by: Maninder Chun M.D. on 07/02/2023 at 10:13
--- NOTE | 2023-07-02 08:22 | DI.ECHO.S_ITS ---
[place] +---------+ Hospital : : [address] : [address] : : [id number] : : Phone: [phone] Echocardiogram Report + + :Name: ZEYAD HUERTA Study Date: 07/02/2023 Height: 69 in : :[facility] ReadingLocation: Weight: 181 lb : : Gender: Male BSA: 2.0 m2 : :: 1945 Age: 78 yrs BP: 123/90 mmHg: :Reason For Study: LOW BLOOD PRESSURE : :Ordering Physician: JAIR, : :CALVIN Gutierrez Performed By: Trudy De Dios : :Referring: CALVIN ADAM : + + Interpretation Summary The left ventricle is normal in size. Left ventricular systolic function appears normal without focal wall motion abnormalities. The ejection fraction is estimated to be 65-70%. Diastolic function could not be accurately assessed due to atrial fibrillation. The right ventricle is borderline dilated. Right ventricular systolic function is borderline reduced. Pulmonary artery pressures cannot be estimated because of the lack of a measurable TR jet velocity but the IVC suggests a CVP of around 15 mmHg. The left atrium is severely dilated. There is moderate aortic stenosis. The peak aortic velocity is 3.4 m/sec. The peak aortic velocity on the previous exam was 2.9 m/sec. The aortic root is normal size. Procedure: A two-dimensional transthoracic echocardiogram with color flow and Doppler was performed. The study quality was technically adequate. Comparison is made with the echocardiogram of 02/19/2021. The heart rate ranged between 90-127 bpm during the study. Left Ventricle: The left ventricle is normal in size. There is mild concentric left ventricular hypertrophy. Left ventricular systolic function appears normal without focal wall motion abnormalities. The ejection fraction is estimated to be 65-70%. Diastolic function could not be accurately assessed due to atrial fibrillation. Right Ventricle: The right ventricle is borderline dilated. Right ventricular systolic function is borderline reduced. Atria: The left atrium is severely dilated. The right atrium is mildly dilated. There is no Doppler evidence for an interatrial shunt. Mitral Valve: The mitral valve leaflets appear normal. There is no evidence of stenosis, fluttering, or prolapse. There is mild mitral annular calcification. There is mild mitral regurgitation. Aortic Valve: The aortic valve is severely calcified. There is moderate to severely reduced leaflet mobility. There is moderate aortic stenosis. The peak aortic velocity is 3.4 m/sec. The aortic valve mean gradient is 25 mmHg. The calculated aortic valve area is 1.0 cm2. The peak aortic velocity on the previous exam was 2.9 m/sec. No aortic regurgitation is present. Tricuspid Valve: The tricuspid valve is normal in structure and function. There is mild tricuspid regurgitation. Pulmonary artery pressures cannot be estimated because of the lack of a measurable TR jet velocity but the IVC suggests a CVP of around 15 mmHg. Pulmonic Valve: The pulmonic valve is not well visualized. There is no pulmonic valvular regurgitation. Great Vessels: The aortic root is normal size. The dimensions of the ascending aorta are normal. The IVC is dilated (diameter is greater than 2.1 cm) and it collapses less than 50% with a sniff. This suggests a high right atrial pressure of 15 mm Hg. Pericardium/ Pleura There is no pericardial effusion. There is no pleural effusion. MMode/2D Measurements & Calculations LVIDd: 4.3 cm LVOT diam: 2.0 cm LVIDs: 2.9 cm Ao root diam: 3.0 cm FS: 32.2 % asc Aorta Diam: 3.3 cm IVSd: 1.2 cm LVPWd: 1.0 cm LV barragan. diameter/BSA (cm/m^2): 2.2 LV sys. diameter/BSA (cm/m^2): 1.5 LA A2 area: 32.2 cm2 RA long axis: 6.0 cm LA A4 area: 30.0 cm2 RA area: 22.0 cm2 LA length (vol): 6.6 cm RA vol: 68.3 ml LA vol: 123.9 ml RA : 34.5 ml/m2 LA vol index: 62.6 ml/m2 IVC diam: 2.5 cm RVD1 (basal): 4.2 cm RVD2 (mid): 3.8 cm TAPSE: 1.2 cm Doppler Measurements & Calculations Ao V2 max: 338.2 cm/sec LVOT Max Job: 110.5 cm/sec Ao V2 mean: 225.6 cm/sec LV V1 max P.9 mmHg Ao max P.7 mmHg LV V1 VTI: 18.6 cm Ao mean P.2 mmHg OTILIA(I,D): 1.0 cm2 Ao V2 VTI: 57.0 cm OTILIA(V,D): 1.0 cm2 sev ratio: 0.33 OTILIA indexed to BSA (cm^2/m^2): 0.51 MV E max job: 103.3 cm/sec PA V2 max: 119.2 cm/sec MV A max job: 1.8 cm/sec PA V2 mean: 87.2 cm/sec MV E/A: 56.9 PA mean P.3 mmHg Med Peak E' Job: 6.9 cm/sec PA pr(Accel): 43.0 mmHg E/E' med: 14.9 Lat Peak E' Job: 7.9 cm/sec E/E' lat: 13.0 E/e' average: 13.9 MV dec time: 0.17 sec SV(LVOT): 57.7 ml Reading Physician:12:01 PM
[2023-07-02 08:26] LABS: Hematocrit 23.6 % (41-53); Hemoglobin 7.8 g/dL (13.5-17.5); Mean Corpuscular HGB Conc 33.1 % (30-36); Mean Corpuscular Hemoglobin 30.9 PG (26-34); Mean Corpuscular Volume 93.5 fL (80-100); Platelet Count 203 X10^3/uL (150-400); Red Blood Cell Count 2.52 X10^6/uL (4.5-5.9); Red Cell Distribution Width 17.4 % (11.6-14.8); White Blood Cell Count 9.1 X10^3/uL (4.5-11.0)
[2023-07-02] MEDS: SODIUM CHLORIDE 0.9% 500 ML 1000 ML IV ×2 (08:31→11:59)
[2023-07-02 08:39] LABS: BUN Creatinine Ratio 14.7 (6-22); Blood Urea Nitrogen 50 mg/dL (9-20); Calcium 7.8 mg/dL (8.4-10.2); Carbon Dioxide 11 mmol/L (22-32); Chloride 109 mmol/L (98-107); Estimated Glomerular Filt Rate 18 mL/min (>60); Glucose 150 mg/dL (80-110); HEMOLYSIS < 15 (0-50); Potassium 4.3 mmol/L (3.4-5.1); Sodium 126 mmol/L (137-145)
[2023-07-02 08:51] LABS: Troponin I 0.115 ng/mL (0.01-0.034)
[2023-07-02] MEDS: TACROLIMUS 0.5 MG CAPSULE 1 MG PO ×2 (09:45→21:54)
[2023-07-02] MEDS: PANTOPRAZOLE 40 MG VIAL IV ×2 (09:45→20:27)
[2023-07-02] MEDS: MIDODRINE HCL 5 MG TABLET PO ×3 (09:45→18:26)
[2023-07-02] MEDS: MYCOPHENOLATE SODIUM 360 MG 360 EACH PO ×2 (09:45→21:54)
[2023-07-02] MEDS: metroNIDAZOLE 500 MG/100 ML PIGGYBACK 100 MG IV ×2 (09:45→18:29)
[2023-07-02] MEDS: allopurinoL 100 MG TABLET 150 MG PO (09:45)
[2023-07-02] MEDS: predniSONE 5 MG TABLET PO (09:46)
[2023-07-02] MEDS: SODIUM CHLORIDE 0.9% FLUSH 10 ML IV ×4 (09:46→20:30)
--- NOTE | 2023-07-02 11:43 | CM.DPNOTE ---
DCP Cont Reviewed chart. Patient discussed in multidisciplinary rounds. Patient expected to remain admitted an addtl 24-48 hrs. Diet being advanced, echo pending, extensive cardiac history. PT/OT on hold for now. Plan remains discharge home w/family w/close outpatient follow up. CM team following clinical course closely, patient would benefit from therapy evals to assist with dispo planning when medically appropriate to participate. FERDINAND
[2023-07-02] MEDS: NOREPINEPHRINE BITARTRATE/D5W 4 MG/250 ML PLAST..BAG 30.788 MG IV (13:12)
--- NOTE | 2023-07-02 13:47 | P.DS_ITS ---
History of Present Illness History of Present Illness Chief complaint: Rectal Bleeding Narrative: The patient was a 78-year-old male with a history of chronic kidney disease, renal transplant in 2017, atrial fibrillation with Watchman procedure, hypertension, dyslipidemia on chronic Plavix who presents with rectal bleeding for the last 2 days. He has had bright red blood per rectum and has felt somewhat lightheaded. He presented to the emergency department, there he denied chest pain or shortness a breath. He has had a recent cough but denies leg edema. No recent nausea. The patient does have a history of a anal fissure. CT scan in the emergency department was consistent with diverticulitis and the patient was started on IV antibiotics. He was also transfused and seen by surgery for possibility of colonoscopy. Surgery felt that he should be treated medically and supportively until he had time to be treated with antibiotics for his diverticulitis. He has also had CAD with a number of cardiac stents in the past, possibly 7. He notes a recent trip to [place] for about a month. He had a cough prior to this which was treated with a short course of antibiotics. He took a refill of antibiotics with him to [place] and did take another course. He has a residual cough which is nonproductive. No chest pain. He denies history of diverticulitis but has had rectal bleeding in the past. This is all been melanotic. He has had endoscopy, colonoscopy as well as or advanced small-bowel endoscopy at [facility]. There was some type of lesion that was treated with cautery in the distal small bowel at some point. This was also at [facility]. He denies any melena. He also denies any recent chest pain. CT scan was consistent with diverticulitis and he was given levofloxacin as well as metronidazole in the emergency department. He does have history of anaphylaxis to cephalexin. His renal function is relatively stable. He was hypotensive in the ED but after 1 unit of blood and IV fluids he had better blood pressure. He is currently receiving a 2nd unit of blood at the time of transfer. He feels better than prior to arrival. Discharge Providers Provider Date of admission: 06/28/23 15:06 Discharge Date: 07/02/23 Primary care physician: Milad Martines MD Consults: None. Discharge provider: Robert Cabrera MD Summary Hospital Course Discharge Diagnosis: 1. Rectal bleeding, due to diverticulitis, present on admission and improved. 2. Acute blood loss anemia, present on admission and improved. 3. Diverticulitis (by CT), present on admission and improving. 4. Chronic kidney disease stage 4 (Cr 2.5-3.0 baseline, gfr 20-27), present on admission and active. 5. Atrial fibrillation with Watchman (PAF), present on admission and stable. 6. CAD with multiple stents, possibly 7. Stents were placed in April 2022. Present on admission and active. 7. Previous renal transplant, 2017, present on admission and active. Cr stable. 8. Hypertension, present on admission and active. 9. Dyslipidemia, present on admission and active. 10. Cough and wheezing (Metapneumonvirus), present on admission and improving. 11. Hyponatremia, likely volume depletin due to bleed 12. NSTEMI, new and improving 13. Possible adrenal insufficiency with hypotension, new and active. Started on hydrocortisone at time of transfer. 100 mg IV. Hospital Course: This patient was admitted for rectal bleeding and found to have CT evidence of diverticulitis. He was started on empiric antibiotics and surgery is consulted as we do not have Gastroenterology. They recommended conservative management of rectal bleeding and blood product support. He received 2 units of blood initially and improved. Two nights later he had a 2nd episode of rectal bleeding receive 2 additional units. The patient also developed evidence of NSTEMI. Unfortunately his Plavix was held due to his rectal bleeding. The patient had no chest pain or other symptoms and peak is troponin at 0.4. The patient had an echocardiogram ordered on 07/01 which is pending at the time of transfer. The patient developed a fairly severe cough about 1 day after admission and a respiratory swab revealed metapneumovirus. The patient was continued on antibiotics and then developed a gradual hypotension which initially was fluid responsive to boluses of saline. The patient had again persistent hypotension over the last day and a half of his admission with maps of under 65 and a mild increase of creatinine from 3.1-3.3. The patient had no hypoxia and a chest x-ray on July 01 was unremarkable. Due to persistent hypotension norepinephrine was started on July 01. The patient's requested a transfer to [facility]. He is received much care at [facility] including renal transplant in, 7 coronary stents, and a Watchman procedure. His primary mushroom cutter is Dr. Brantley. The patient does have chronic kidney disease stage 4. The patient was discussed with the ICU doctor at [facility], Dr. Rome. They do have bed availability and are able to accept the patient for further care. Again, hydrocortisone 100 mg IV was given at approximately 1:45 p.m. prior to discharge. He has on a norepinephrine drip which was started in the early afternoon of July 01. Status at Discharge Cognitive/behavioral status at discharge: oriented Functional status at discharge: uses cane/walker Overall status at discharge: patient is progressing back to baseline Time Spent with Patient Time spent: Greater than 30 minutes Exam Vital Signs (past 8 hours): - 07/02/23 07:54 07/02/23 07:55 07/02/23 08:00 Temperature Pulse Rate Respiratory Rate Blood Pressure 80/45 L 61/40 L 74/49 L Pulse Oximetry Oxygen Flow Rate 07/02/23 08:00 07/02/23 08:09 07/02/23 08:16 Temperature 97.5 F L Pulse Rate 91 H 91 H 96 H Respiratory Rate 18 Blood Pressure 80/45 L Pulse Oximetry 93 90 L 98 Oxygen Flow Rate 0 07/02/23 08:16 07/02/23 08:28 07/02/23 08:28 Temperature Pulse Rate 95 H Respiratory Rate Blood Pressure 81/52 L 78/51 L Pulse Oximetry 98 Oxygen Flow Rate 07/02/23 08:30 07/02/23 08:30 07/02/23 08:45 Temperature Pulse Rate 101 H 105 H Respiratory Rate Blood Pressure 88/52 L Pulse Oximetry 98 97 Oxygen Flow Rate 07/02/23 08:45 07/02/23 08:51 07/02/23 08:51 Temperature Pulse Rate 96 H Respiratory Rate Blood Pressure 91/53 L 89/53 L Pulse Oximetry 98 Oxygen Flow Rate 07/02/23 09:00 07/02/23 09:00 07/02/23 09:15 Temperature Pulse Rate 103 H 96 H Respiratory Rate Blood Pressure 87/54 L Pulse Oximetry 97 97 Oxygen Flow Rate 07/02/23 09:15 07/02/23 09:30 07/02/23 09:30 Temperature Pulse Rate 105 H Respiratory Rate Blood Pressure 85/51 L 86/53 L Pulse Oximetry 97 Oxygen Flow Rate 07/02/23 09:45 07/02/23 09:45 07/02/23 10:00 Temperature Pulse Rate 92 H 96 H Respiratory Rate Blood Pressure 83/53 L Pulse Oximetry 98 97 Oxygen Flow Rate 07/02/23 10:00 07/02/23 10:15 07/02/23 10:15 Temperature Pulse Rate 96 H Respiratory Rate Blood Pressure 84/53 L 81/50 L Pulse Oximetry 98 Oxygen Flow Rate 07/02/23 10:30 07/02/23 10:30 07/02/23 10:45 Temperature Pulse Rate 92 H 98 H Respiratory Rate Blood Pressure 87/52 L Pulse Oximetry 97 98 Oxygen Flow Rate 07/02/23 10:45 07/02/23 11:00 07/02/23 11:00 Temperature Pulse Rate 93 H Respiratory Rate Blood Pressure 86/53 L 89/55 L Pulse Oximetry 98 Oxygen Flow Rate 07/02/23 11:10 07/02/23 11:16 07/02/23 11:31 Temperature Pulse Rate 104 H Respiratory Rate Blood Pressure 89/50 L 74/43 L Pulse Oximetry 98 Oxygen Flow Rate 07/02/23 11:45 07/02/23 12:07 07/02/23 12:15 Temperature Pulse Rate Respiratory Rate Blood Pressure 78/50 L 90/52 L 90/51 L Pulse Oximetry Oxygen Flow Rate 07/02/23 12:30 07/02/23 12:46 07/02/23 13:00 Temperature Pulse Rate Respiratory Rate Blood Pressure 97/51 L 79/37 L 85/51 L Pulse Oximetry Oxygen Flow Rate 07/02/23 13:15 07/02/23 13:30 Temperature Pulse Rate Respiratory Rate Blood Pressure 97/58 L 98/53 L Pulse Oximetry Oxygen Flow Rate Fraction of Inspired Oxygen 21 SaO2/FiO2 Ratio 457 Oxygen Delivery Method Room Air Oxygen Flow Rate 0 Narrative Exam Narrative: NAD, alert and oriented. Fluent speech. Lungs are clear, normal rate and effort. Heart is regular, no murmur gallop or rub. Abdomen is soft, non distended. Extremities are free of edema. Objective Imaging Multiple studies:: Radiologist's impression: CXR 5/2: clear. CT A/P: Suspected diverticulitis of the distal descending colon, without perforation or abscess. Cirrhosis. Right lower quadrant kidney transplant without hydronephrosis. Labs 07/02/23 08:15 07/02/23 08:15 Labs: Laboratory Results - last 24 hr 07/01/23 07/02/23 07/02/23 16:45 08:15 12:00 WBC 9.1 RBC 2.52 L Hgb 8.0 L 7.8 L Hct 23.8 L 23.6 L MCV 93.5 MCH 30.9 MCHC 33.1 RDW 17.4 H Plt Count 203 Sodium 126 L Potassium 4.3 Chloride 109 H Carbon Dioxide 11 L BUN 50 H Creatinine 3.39 H Estimated GFR 18 L BUN/Creatinine Ratio 14.7 Glucose 150 H Calcium 7.8 L Troponin I 0.115 H Blood Type A Negative Antibody Screen Negative Crossmatch See Detail [facility] Medical History Acute renal failure superimposed on chronic kidney disease Dehydration with hyponatremia Acute hypoxemic respiratory failure due to COVID-19 Pneumonia due to 2019 novel coronavirus Iron deficiency anemia Chronic wound of extremity Cellulitis Skin tear of right upper arm without complication Low back pain Skin tear of right upper arm without complication Borderline hypothyroidism Hypertension Sleep apnea (~2011) Stroke (~2004) Gout (~1966) Mumps (~1948) Measles (~194) Cataracts, bilateral (~2013) Kidney disease (~2004) Atrial fibrillation (~2019) Surgical History Renal transplant recipient History of total right knee replacement (TKR) Anesthesia Kidney transplant recipient (~2017) Family History Father Stroke Mother History of heart disease Sister Cancer Grandfather History of heart disease Grandmother History of heart disease Social History household members: spouse Smoking Status: Never smoker alcohol intake: current Discharge Assessment & Plan Assessment and Plan Assessment: 1. Rectal bleeding, due to diverticulitis, present on admission and improved. 2. Acute blood loss anemia, present on admission and improved. 3. Diverticulitis (by CT), present on admission and improving. 4. Chronic kidney disease stage 4 (Cr 2.5-3.0 baseline, gfr 20-27), present on admission and active. 5. Atrial fibrillation with Watchman (PAF), present on admission and stable. 6. CAD with multiple stents, possibly 7. Stents were placed in April 2022. Present on admission and active. 7. Previous renal transplant, 2017, present on admission and active. Cr stable. 8. Hypertension, present on admission and active. 9. Dyslipidemia, present on admission and active. 10. Cough and wheezing (Metapneumonvirus), present on admission and improving. 11. Hyponatremia, likely volume depletin due to bleed 12. NSTEMI, new and improving 13. Possible adrenal insufficiency with hypotension, new and active. Started on hydrocortisone at time of transfer. 100 mg IV. Plan of Treatment: Transferred to [facility], ICU to ICU via [facility] ambulance. Patient was discussed with Dr. Pryor on the time of transfer. Patient and are in agreement. The patient is on norepinephrine via midline catheter the time of transfer. Discharge Plan Discharge Plan Patient Disposition: [facility] Other facility: [address] Under care of provider: CCU, Dr. Pryor Provider Discharge Comment: Stable for ICU to ICU transfer via [facility] ambulance and norepinephrine. Discharge orders & Medications Prescriptions: No Action niacinamide 500 mg tablet 500 mg PO DAILY famotidine 20 mg tablet 20 mg PO DAILY PRN (Reason: Acid Reflux) lisinopril 2.5 mg tablet 2.5 mg PO DAILY allopurinol 300 mg tablet 300 mg PO DAILY Qty: 90 3RF atorvastatin 80 mg tablet 80 mg PO BEDTIME Qty: 90 3RF pantoprazole 40 mg tablet,delayed release (DR/EC) 40 mg PO BID Qty: 180 3RF metoprolol succinate 25 mg tablet extended release 24 hr 25 mg PO DAILY bumetanide 1 mg tablet 1 mg PO BID PRN (Reason: Edema) clopidogrel 75 mg tablet 75 mg PO DAILY Qty: 90 3RF colchicine 0.6 mg tablet 0.6 mg PO BID PRN (Reason: GOUT) Qty: 10 5RF Rybelsus 7 mg tablet 7 mg PO DAILY Qty: 90 1RF Rx Instructions: Did not tolerate or had reaction to metformin, pioglitazone, farxiga. tacrolimus 1 mg Capsule 1 mg PO BID mycophenolate sodium 360 mg Tablet,Delayed Release (Dr/Ec) 360 mg PO BID prednisone 5 mg tablet 5 mg PO DAILY Patient Comments: Take 1 tablet by mouth once every morning with breakfast. tamsulosin 0.4 mg capsule 0.4 mg PO ONCE PM cholecalciferol (vitamin D3) 125 mcg (5,000 unit) capsule 125 mcg PO MO@0900 Follow up/Referrals: Milad Martines MD [Primary Care Provider] - Discharge Health Status Multidrug resistant organism: No MDRO Precautions: Droplet Diet/Activity/Treatments Diet: Carb-consistent/Diabetic Liquid consistency: Normal/Thin Food texture: Regular Discharge Data Primary Care Provider: Milad Martines Quality MIPS - DC The patient has a history of heart transplant or Left Ventricular Assist Device (LVAD). If yes, STOP here.: No The patient has current or prior documentation of left ventricular ejection fraction (LVEF) less than or equal to 40%, or moderate or severely depressed left ventricular systolic function.: No
[2023-07-02] MEDS: HYDROCORTISONE 100 MG/2 ML VIAL IV ×2 (14:09→20:26)
[2023-07-02] MEDS: levoFLOXacin 500 MG/100 ML PIGGYBACK 100 MG IV (18:26)
[2023-07-02] MEDS: SODIUM CHLORIDE 0.9% 1,000 ML 84 ML IV (18:27)
--- NOTE | 2023-07-02 19:28 | PC.NURSE ---
Day shift: Pt hypotensive, symptomatic, provider notified. Bolus given per order. BP slightly improved while bolus was initiated. Pt became hypotensive as soon as bolus completed. Provider notified. Mild JVD, fine crackles in bases, provider notified. Second bolus started, PO med given per order. Norepinephrine administered per order. Pt pending transfer to [facility]. Call light within reach, vitals stable, at bedside, care ongoing, will continue to monitor.
[2023-07-02] MEDS: ATORVASTATIN 20 MG TABLET 80 MG PO (20:27)
[2023-07-02] MEDS: TAMSULOSIN 0.4 MG CAPSULE PO (20:28)
[2023-07-02] MEDS: ACETAMINOPHEN 325 MG TABLET 650 MG PO (21:54)
[2023-07-03] VITALS (13 sets, daily range): BP systolic 106–123; BP diastolic 56–73; PULSE 105–121; RESP 16–17; TEMP 36.9–37.4; O2SAT 94–100
[2023-07-03] MEDS: HYDROCORTISONE 100 MG/2 ML VIAL IV (02:13)
[2023-07-03] MEDS: metroNIDAZOLE 500 MG/100 ML PIGGYBACK 100 MG IV (02:13)
[2023-07-03] MEDS: SODIUM CHLORIDE 0.9% FLUSH 10 ML IV (02:13)
[2023-07-03 05:23] LABS: Hematocrit 27.9 % (41-53); Hemoglobin 9.2 g/dL (13.5-17.5); Mean Corpuscular HGB Conc 33.1 % (30-36); Mean Corpuscular Hemoglobin 30.3 PG (26-34); Mean Corpuscular Volume 91.5 fL (80-100); Platelet Count 242 X10^3/uL (150-400); Red Blood Cell Count 3.05 X10^6/uL (4.5-5.9); Red Cell Distribution Width 18.5 % (11.6-14.8); White Blood Cell Count 6.7 X10^3/uL (4.5-11.0)
[2023-07-03 05:37] LABS: BUN Creatinine Ratio 13.1 (6-22); Blood Urea Nitrogen 50 mg/dL (9-20); Calcium 8.1 mg/dL (8.4-10.2); Chloride 107 mmol/L (98-107); Estimated Glomerular Filt Rate 15 mL/min (>60); Glucose 210 mg/dL (80-110); HEMOLYSIS < 15 (0-50); Potassium 4.8 mmol/L (3.4-5.1); Sodium 124 mmol/L (137-145)
[2023-07-03 05:43] LABS: Carbon Dioxide 9 mmol/L (22-32)
[2023-07-03] MEDS: MIDODRINE HCL 5 MG TABLET PO (05:55)
[2023-07-03] MEDS: NOREPINEPHRINE BITARTRATE/D5W 4 MG/250 ML PLAST..BAG 7.697 MG IV (08:23)
--- NOTE | 2023-07-03 08:25 | PC.NURSE ---
Addendum entered by Leilani Hatch R.N. 07/03/23 10:04: Amended to add pt prescription obtained from pharmacy, provided to . Addendum entered by Leilani Hatch R.N. 07/03/23 10:02: Pt left with transport at approximately 0925, norepi stable at same rate mentioned previously, BP 95/59 MAP >65. Report given to [id number] [phone] at 0945. Original Note: Day shift: Pt A&Ox4. flat affect. at bedside. Norepinephrine at 0.025mcg/kg/min, BP stable. Pt c/o dizziness but denies chest pain, SOB, weakness. 2+ pitting edema to BLE, generalized edema +1 throughout. Lungs fine crackles in bases bilaterally. Pt agrees to transport. Pt up to chair, BP remained stable during position transition, tolerating general diet. Awaiting transfer to [facility], transport team dispatched. Care ongoing, will continue to monitor.
--- NOTE | 2023-07-03 10:39 | CM.DPC ---
[facility] Hospital Transfer Per MD, pt continued to have increased care needs and pt accepted at [facility] for higher level of care. [facility] arrived bedside around 0900 and provided transport to [facility]. BEAU Gupta
== END 2023-07-03 09:25 | disposition short-term general hospital (02) | DRG 377 ==
LOC: ED 14:31 → AC 15:07 → ICU 16:08
PROVIDERS: Internal Medicine; Admitting Provider Hospitalist; Emergency Provider Emergency Medicine; Family Provider Family Medicine; PCP Family Medicine; Referring Provider Emergency Medicine; Visit Provider Hospitalist
DX: K57.33 Diverticulitis of large intestine without perforation or abscess with bleeding (principal); I21.4 Non-ST elevation (NSTEMI) myocardial infarction; D62 Acute posthemorrhagic anemia; Z94.0 Kidney transplant status; N18.4 Chronic kidney disease, stage 4 (severe); E87.1 Hypo-osmolality and hyponatremia; E27.40 Unspecified adrenocortical insufficiency; I25.10 Atherosclerotic heart disease of native coronary artery without angina pectoris; I12.9 Hypertensive chronic kidney disease with stage 1 through stage 4 chronic kidney disease, or unspecified chronic kidney disease; E78.5 Hyperlipidemia, unspecified; B97.81 Human metapneumovirus as the cause of diseases classified elsewhere; I48.0 Paroxysmal atrial fibrillation; I95.9 Hypotension, unspecified; Z79.01 Long term (current) use of anticoagulants; Z95.818 Presence of other cardiac implants and grafts; Z95.5 Presence of coronary angioplasty implant and graft
CPT/HCPCS: 36415; 36430; 36592; 71045; 74176; 80048; 80053; 83605; 84145; 84484; 85007; 85014; 85018; 85025; 85027; 85610; 85730; 86850; 86900; 86901; 87040; 87633; 87797; 93005; 93306; 94640; 96365; 96366; 96375; 99284; 99291; P9016; C9113; J1720; J1956; J7507; J7613

== ENCOUNTER 2023-09-02 15:16 | Emergency (ER) | payer MEDICARE, OTHER, SELFPAY ==
[2023-07-24 14:56] VITALS: BMI 26.7
[2023-09-02] VITALS (21 sets, daily range): BP systolic 101–160; BP diastolic 59–90; PULSE 88–110; RESP 15–32; TEMP 37; O2SAT 91–100; BMI 23.6
--- NOTE | 2023-09-02 15:47 | EKG_ITS ---
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
--- NOTE | 2023-09-02 16:09 | ED_ITS ---
HPI - Extremity Problem <Chilango Arita, DO - Last Filed: 09/06/23 06:56> General Chief complaint: Extremity Problem,Nontraumatic Stated complaint: elevated heart rate, bl swelling Time Seen by Provider: 09/02/23 15:32 Source: patient and family Mode of arrival: Wheelchair Limitations: no limitations History of Present Illness HPI Narrative: 78-year-old male. Has had significant history over the past several weeks to include cardiac arrest with CPR, anemia, and a GI bleed, multiple blood transfusions. Is here for evaluation of approximately 36 hours of left greater than right however bilateral lower extremity discomfort. States that it is in his calf muscles. No specific trauma. He does ambulate with a walker. He went to the walk-in clinic and mentioned chest discomfort but he denies that he was having any chest pain, shortness of breath, fevers. He does have history of AFib. Apparently he had an elevated heart rate in the walk-in clinic. He reports that he does have history of gout but this feels different than that. Has not tried anything for symptoms prior to arrival. Related Data Home Medications Medication Instructions Recorded Confirmed niacinamide 500 mg tablet 500 mg PO DAILY 08/29/17 08/28/23 tacrolimus 1 mg capsule, 1 mg PO BID 04/22/21 08/28/23 immediate-release prednisone 5 mg tablet 5 mg PO DAILY 05/08/21 08/28/23 lisinopril 2.5 mg tablet 2.5 mg PO DAILY 01/31/23 08/28/23 cholecalciferol (vitamin D3) 125 125 mcg PO MO@0900 06/29/23 08/28/23 mcg (5,000 unit) capsule bumetanide 1 mg tablet 2 mg PO BID PRN Edema 07/30/23 08/28/23 metoprolol succinate 25 mg 25 mg PO DAILY 07/30/23 08/28/23 tablet,extended release 24 hr mycophenolate mofetil 250 mg 250 mg PO BID 07/30/23 08/28/23 capsule nitroglycerin 0.4 mg sublingual 0.4 mg sublingual Q5M PRN 07/30/23 08/28/23 tablet oxycodone 5 mg tablet 5 mg PO Q6H PRN 07/30/23 08/28/23 Previous Rx's Medication Instructions Recorded clopidogrel 75 mg tablet 75 mg PO DAILY #90 tabs 06/13/22 colchicine 0.6 mg tablet 0.6 mg PO BID PRN GOUT #10 tabs 06/13/22 atorvastatin 80 mg tablet 80 mg PO BEDTIME #90 tabs 11/04/22 pantoprazole 40 mg tablet,delayed 40 mg PO BID #180 tabs 05/11/23 release Disabled Parking Permit #1 ea 07/30/23 allopurinol 100 mg tablet 100 mg PO DAILY #90 tabs 08/17/23 tamsulosin 0.4 mg capsule 0.4 mg PO ONCE PM #90 caps 08/17/23 Allergies Allergy/AdvReac Type Severity Reaction Status Date / Time adhesive tape Allergy Intermediate Rash Verified 08/28/23 13:02 cephalexin Allergy Intermediate Verified 08/28/23 13:02 Review of Systems <Chilango Arita DO - Last Filed: 09/06/23 06:56> Review of Systems Narrative: See HPI Patient History <Chilango Arita DO - Last Filed: 09/06/23 06:56> Medical History Aortic stenosis History of cardiac arrest Acute renal failure superimposed on chronic kidney disease Dehydration with hyponatremia Acute hypoxemic respiratory failure due to COVID-19 Pneumonia due to 2019 novel coronavirus Iron deficiency anemia Chronic wound of extremity Cellulitis Skin tear of right upper arm without complication Low back pain Skin tear of right upper arm without complication Borderline hypothyroidism Hypertension Sleep apnea (~2011) Stroke (~2004) Gout (~1966) Mumps (~194) Measles (~194) Cataracts, bilateral (~2013) Kidney disease (~2004) Atrial fibrillation (~2019) Surgical History (Updated 09/03/23 @ 09:26 by Juaquin Burkett MD) Renal transplant recipient History of total right knee replacement (TKR) Anesthesia Kidney transplant recipient (~2017) Family History Father Stroke Mother History of heart disease Sister Cancer Grandfather History of heart disease Grandmother History of heart disease Social History household members: spouse Smoking Status: Never smoker alcohol intake: current Smoking Status: Never smoker alcohol intake frequency: 0-2 drinks per day Alcohol type: hard liquor Substance Use Type: does not use Exam <Chilango Ariat DO - Last Filed: 09/06/23 06:56> Initial Vital Signs Initial Vital Signs: Vital Signs Temperature 98.6 F 09/02/23 15:19 Pulse Rate 100 H 09/02/23 15:19 Respiratory Rate 16 09/02/23 15:19 Blood Pressure 113/68 09/02/23 15:19 Pulse Oximetry 98 09/02/23 15:19 Oxygen Delivery Method Room Air 09/02/23 15:19 Const General: cooperative, comfortable and No ill appearing [facility] Head: normal to inspection and normocephalic Resp Effort & Inspection: normal respiratory effort Auscultation: clear to auscultation bilaterally Cardio Rate: regular rate Rhythm: regular rhythm Skin Other: Multiple lesions on lower extremities. Various stages of healing. None of which appear to be infectious. Neuro Sensory Exam: no sensory deficits noted Extrem Other: Mild swelling bilateral lower extremities however equal bilateral. Discomfort with palpation of the calf muscles and discomfort with flexion-extension of the ankles. <Nicky Gambino DO - Last Filed: 09/03/23 20:24> Initial Vital Signs Initial Vital Signs: Vital Signs Temperature 98.6 F 09/02/23 15:19 Pulse Rate 100 H 09/02/23 15:19 Respiratory Rate 16 09/02/23 15:19 Blood Pressure 113/68 09/02/23 15:19 Pulse Oximetry 98 09/02/23 15:19 Oxygen Delivery Method Room Air 09/02/23 15:19 <Juaquin Burkett MD - Last Filed: 09/04/23 08:36> Initial Vital Signs Initial Vital Signs: Vital Signs Temperature 98.6 F 09/02/23 15:19 Pulse Rate 100 H 09/02/23 15:19 Respiratory Rate 16 09/02/23 15:19 Blood Pressure 113/68 09/02/23 15:19 Pulse Oximetry 98 09/02/23 15:19 Oxygen Delivery Method Room Air 09/02/23 15:19 Course <Chilango Arita DO - Last Filed: 09/06/23 06:56> Orders Ordered: Discontinued Medications Acetaminophen (Acetaminophen 325 Mg Tablet) 975 mg PO NOW ONE Stop: 09/02/23 18:43 Last Admin: 09/02/23 18:45 Dose: 975 mg Documented By: RAMIN Acetaminophen (Acetaminophen 325 Mg Tablet) 650 mg PO NOW ONE Stop: 09/03/23 08:54 Last Admin: 09/03/23 09:04 Dose: 650 mg Documented By: BELKIS Cyclobenzaprine HCl (Cyclobenzaprine 10 Mg Tablet) 10 mg PO NOW ONE Stop: 09/02/23 16:45 Last Admin: 09/02/23 17:22 Dose: Not Given Documented By: RAMIN Sodium Chloride (Normal Saline 0.9%) 1,000 mls @ 1,000 mls/hr IV BOLUS ONE Stop: 09/02/23 18:20 Last Infusion: 09/02/23 18:42 Dose: Infused Documented By: Admin: 09/02/23 17:34 Dose: 1,000 mls/hr Documented By: RAMIN INSULIN DRIP PREMIX (Myxredlin Drip Premix) 100 unit in 100 mls @ 7.267 mls/hr IV TITRATE GENTRY; Protocol Last Titration: 09/03/23 11:42 Dose: 0.02 unit/kg/hr, 1.453 mls/hr Documented By: BELKIS Co-signed By: OSBALDO Titration: 09/03/23 03:30 Dose: 0.02 unit/kg/hr, 1.453 mls/hr Documented By: OBED Co-signed By: ALEX Titration: 09/03/23 00:25 Dose: 0 unit/kg/hr, 0 mls/hr Documented By: OBED Co-signed By: JMoon Titration: 09/02/23 23:21 Dose: 0.02 unit/kg/hr, 1.453 mls/hr Documented By: KD Co-signed By: JANE Titration: 09/02/23 22:21 Dose: 0.1 unit/kg/hr, 7.267 mls/hr Documented By: KD Co-signed By: JANE Titration: 09/02/23 20:15 Dose: 0.15 unit/kg/hr, 10.89 mls/hr Documented By: OBED Co-signed By: JANE(2) Admin: 09/02/23 18:33 Dose: 0.1 unit/kg/hr, 7.3 mls/hr Documented By: RAMIN Co-signed By: PATTI Sodium Chloride (Normal Saline 0.9%) 1,000 mls @ 125 mls/hr IV CONT GENTRY Last Infusion: 09/02/23 22:27 Dose: Infused Documented By: Admin: 09/02/23 18:49 Dose: 125 mls/hr Documented By: RAMIN Dextrose/Sodium Chloride (Dextrose 5%-0.45% Ns) 1,000 mls @ 0 mls/hr IV CONT GENTRY Last Infusion: 09/03/23 11:44 Dose: 108.9 mls/hr Documented By: Admin: 09/03/23 06:27 Dose: 108.9 mls/hr Documented By: Infusion: 09/03/23 06:24 Dose: Infused Documented By: Infusion: 09/02/23 23:29 Dose: Infused Documented By: Admin: 09/02/23 22:33 Dose: 108.9 mls/hr Documented By: OBED Dextrose (D10w) 1,000 mls @ 0 mls/hr IV CONT GENTRY Last Infusion: 09/03/23 06:25 Dose: 0 mls/hr Documented By: Infusion: 09/03/23 04:11 Dose: 72.6 mls/hr Documented By: Infusion: 09/03/23 03:34 Dose: 145.2 mls/hr Documented By: Infusion: 09/03/23 03:29 Dose: 72.6 mls/hr Documented By: Infusion: 09/03/23 00:24 Dose: 145.2 mls/hr Documented By: Admin: 09/02/23 23:27 Dose: 72.6 mls/hr Documented By: OBED Insulin Human Regular (Insulin Regular 100 Unit/Ml 3 Ml Vial) 7.2665 unit IV NOW ONE Stop: 09/02/23 19:56 Last Admin: 09/02/23 20:07 Dose: 7.2665 unit Documented By: OBED Co-signed By: AYANA Insulin Human Regular (Insulin Regular 100 Unit/Ml 3 Ml Vial) 5 unit IV NOW ONE Stop: 09/02/23 21:24 Last Admin: 09/02/23 21:24 Dose: Not Given Documented By: OBED Insulin Human Regular (Insulin Regular 100 Unit/Ml 3 Ml Vial) 7.2665 unit IV NOW ONE Stop: 09/02/23 21:25 Last Admin: 09/02/23 21:33 Dose: Not Given Documented By: OBED Oxycodone HCl (Oxycodone Ir 5 Mg Tablet) 5 mg PO NOW ONE Stop: 09/02/23 20:45 Last Admin: 09/02/23 20:49 Dose: 5 mg Documented By: OBED Oxycodone HCl (Oxycodone Ir 5 Mg Tablet) 5 mg PO Q4H PRN PRN Reason: Pain, Moderate (4-6) Last Admin: 09/03/23 02:35 Dose: 5 mg Documented By: OBED Vital Signs Vital signs: Vital Signs - 8 hr 09/03/23 03:00 09/03/23 03:00 09/03/23 03:30 Pulse Rate 96 H 98 H Respiratory Rate 17 16 Blood Pressure 97/52 L 108/57 L Pulse Oximetry 98 Oxygen Delivery Method 09/03/23 03:30 09/03/23 04:00 09/03/23 04:00 Pulse Rate 98 H 95 H Respiratory Rate 15 19 Blood Pressure 104/49 L Pulse Oximetry 97 97 Oxygen Delivery Method 09/03/23 04:06 09/03/23 04:06 09/03/23 04:30 Pulse Rate 95 H 89 Respiratory Rate 19 25 H Blood Pressure 126/58 L Pulse Oximetry 99 99 Oxygen Delivery Method 09/03/23 04:31 09/03/23 04:31 09/03/23 05:00 Pulse Rate 89 101 H Respiratory Rate 26 H 31 H Blood Pressure 112/58 L Pulse Oximetry 98 Oxygen Delivery Method 09/03/23 05:30 09/03/23 05:30 09/03/23 06:00 Pulse Rate 98 H 97 H Respiratory Rate 21 21 Blood Pressure 126/85 Pulse Oximetry 100 99 Oxygen Delivery Method 09/03/23 06:00 09/03/23 06:30 09/03/23 06:30 Pulse Rate 100 H Respiratory Rate 18 Blood Pressure 125/57 L 108/54 L Pulse Oximetry 99 Oxygen Delivery Method 09/03/23 07:00 09/03/23 07:00 09/03/23 07:30 Pulse Rate 88 99 H Respiratory Rate 18 Blood Pressure 111/65 Pulse Oximetry 99 Oxygen Delivery Method 09/03/23 07:37 09/03/23 07:37 09/03/23 07:45 Pulse Rate 101 H 91 H Respiratory Rate 17 22 Blood Pressure 108/68 Pulse Oximetry 100 100 Oxygen Delivery Method Room Air 09/03/23 07:45 09/03/23 07:59 09/03/23 08:00 Pulse Rate 97 H Respiratory Rate 16 Blood Pressure 107/61 116/66 Pulse Oximetry 100 Oxygen Delivery Method Room Air 09/03/23 08:00 09/03/23 08:30 09/03/23 08:30 Pulse Rate 97 H 94 H Respiratory Rate 22 15 Blood Pressure 98/57 L Pulse Oximetry 100 100 Oxygen Delivery Method 09/03/23 08:43 09/03/23 08:43 09/03/23 09:00 Pulse Rate 96 H Respiratory Rate 16 Blood Pressure 117/70 119/64 Pulse Oximetry 99 Oxygen Delivery Method Room Air 09/03/23 09:00 09/03/23 09:30 09/03/23 09:30 Pulse Rate 102 H 93 H Respiratory Rate 18 15 Blood Pressure 102/62 Pulse Oximetry 97 97 Oxygen Delivery Method Room Air 09/03/23 10:00 09/03/23 10:01 09/03/23 10:01 Pulse Rate 90 95 H Respiratory Rate 24 Blood Pressure 96/60 Pulse Oximetry 98 94 Oxygen Delivery Method Room Air <Nicky Gambino DO - Last Filed: 09/03/23 20:24> Orders Ordered: Discontinued Medications Acetaminophen (Acetaminophen 325 Mg Tablet) 975 mg PO NOW ONE Stop: 09/02/23 18:43 Last Admin: 09/02/23 18:45 Dose: 975 mg Documented By: RAMIN Acetaminophen (Acetaminophen 325 Mg Tablet) 650 mg PO NOW ONE Stop: 09/03/23 08:54 Last Admin: 09/03/23 09:04 Dose: 650 mg Documented By: BELKIS Cyclobenzaprine HCl (Cyclobenzaprine 10 Mg Tablet) 10 mg PO NOW ONE Stop: 09/02/23 16:45 Last Admin: 09/02/23 17:22 Dose: Not Given Documented By: RAMIN Sodium Chloride (Normal Saline 0.9%) 1,000 mls @ 1,000 mls/hr IV BOLUS ONE Stop: 09/02/23 18:20 Last Infusion: 09/02/23 18:42 Dose: Infused Documented By: Admin: 09/02/23 17:34 Dose: 1,000 mls/hr Documented By: RAMIN INSULIN DRIP PREMIX (Myxredlin Drip Premix) 100 unit in 100 mls @ 7.267 mls/hr IV TITRATE GENTRY; Protocol Last Titration: 09/03/23 11:42 Dose: 0.02 unit/kg/hr, 1.453 mls/hr Documented By: BELKIS Co-signed By: OSBALDO Titration: 09/03/23 03:30 Dose: 0.02 unit/kg/hr, 1.453 mls/hr Documented By: OBED Co-signed By: JMoon Titration: 09/03/23 00:25 Dose: 0 unit/kg/hr, 0 mls/hr Documented By: OBED Co-signed By: JG Titration: 09/02/23 23:21 Dose: 0.02 unit/kg/hr, 1.453 mls/hr Documented By: OBED Co-signed By: JANE Titration: 09/02/23 22:21 Dose: 0.1 unit/kg/hr, 7.267 mls/hr Documented By: OBED Co-signed By: JANE Titration: 09/02/23 20:15 Dose: 0.15 unit/kg/hr, 10.89 mls/hr Documented By: OBED Co-signed By: JANE(2) Admin: 09/02/23 18:33 Dose: 0.1 unit/kg/hr, 7.3 mls/hr Documented By: RAMIN Co-signed By: PATTI Sodium Chloride (Normal Saline 0.9%) 1,000 mls @ 125 mls/hr IV CONT GENTRY Last Infusion: 09/02/23 22:27 Dose: Infused Documented By: Admin: 09/02/23 18:49 Dose: 125 mls/hr Documented By: RAMIN Dextrose/Sodium Chloride (Dextrose 5%-0.45% Ns) 1,000 mls @ 0 mls/hr IV CONT GENTRY Last Infusion: 09/03/23 11:44 Dose: 108.9 mls/hr Documented By: Admin: 09/03/23 06:27 Dose: 108.9 mls/hr Documented By: Infusion: 09/03/23 06:24 Dose: Infused Documented By: Infusion: 09/02/23 23:29 Dose: Infused Documented By: Admin: 09/02/23 22:33 Dose: 108.9 mls/hr Documented By: OBED Dextrose (D10w) 1,000 mls @ 0 mls/hr IV CONT GENTRY Last Infusion: 09/03/23 06:25 Dose: 0 mls/hr Documented By: Infusion: 09/03/23 04:11 Dose: 72.6 mls/hr Documented By: Infusion: 09/03/23 03:34 Dose: 145.2 mls/hr Documented By: Infusion: 09/03/23 03:29 Dose: 72.6 mls/hr Documented By: Infusion: 09/03/23 00:24 Dose: 145.2 mls/hr Documented By: Admin: 09/02/23 23:27 Dose: 72.6 mls/hr Documented By: OBED Insulin Human Regular (Insulin Regular 100 Unit/Ml 3 Ml Vial) 7.2665 unit IV NOW ONE Stop: 09/02/23 19:56 Last Admin: 09/02/23 20:07 Dose: 7.2665 unit Documented By: OBED Co-signed By: AYANA Insulin Human Regular (Insulin Regular 100 Unit/Ml 3 Ml Vial) 5 unit IV NOW ONE Stop: 09/02/23 21:24 Last Admin: 09/02/23 21:24 Dose: Not Given Documented By: OBED Insulin Human Regular (Insulin Regular 100 Unit/Ml 3 Ml Vial) 7.2665 unit IV NOW ONE Stop: 09/02/23 21:25 Last Admin: 09/02/23 21:33 Dose: Not Given Documented By: OBED Oxycodone HCl (Oxycodone Ir 5 Mg Tablet) 5 mg PO NOW ONE Stop: 09/02/23 20:45 Last Admin: 09/02/23 20:49 Dose: 5 mg Documented By: OBED Oxycodone HCl (Oxycodone Ir 5 Mg Tablet) 5 mg PO Q4H PRN PRN Reason: Pain, Moderate (4-6) Last Admin: 09/03/23 02:35 Dose: 5 mg Documented By: OBED Vital Signs Vital signs: Vital Signs - 8 hr 09/03/23 03:00 09/03/23 03:00 09/03/23 03:30 Pulse Rate 96 H 98 H Respiratory Rate 17 16 Blood Pressure 97/52 L 108/57 L Pulse Oximetry 98 Oxygen Delivery Method 09/03/23 03:30 09/03/23 04:00 09/03/23 04:00 Pulse Rate 98 H 95 H Respiratory Rate 15 19 Blood Pressure 104/49 L Pulse Oximetry 97 97 Oxygen Delivery Method 09/03/23 04:06 09/03/23 04:06 09/03/23 04:30 Pulse Rate 95 H 89 Respiratory Rate 19 25 H Blood Pressure 126/58 L Pulse Oximetry 99 99 Oxygen Delivery Method 09/03/23 04:31 09/03/23 04:31 09/03/23 05:00 Pulse Rate 89 101 H Respiratory Rate 26 H 31 H Blood Pressure 112/58 L Pulse Oximetry 98 Oxygen Delivery Method 09/03/23 05:30 09/03/23 05:30 09/03/23 06:00 Pulse Rate 98 H 97 H Respiratory Rate 21 21 Blood Pressure 126/85 Pulse Oximetry 100 99 Oxygen Delivery Method 09/03/23 06:00 09/03/23 06:30 09/03/23 06:30 Pulse Rate 100 H Respiratory Rate 18 Blood Pressure 125/57 L 108/54 L Pulse Oximetry 99 Oxygen Delivery Method 09/03/23 07:00 09/03/23 07:00 09/03/23 07:30 Pulse Rate 88 99 H Respiratory Rate 18 Blood Pressure 111/65 Pulse Oximetry 99 Oxygen Delivery Method 09/03/23 07:37 09/03/23 07:37 09/03/23 07:45 Pulse Rate 101 H 91 H Respiratory Rate 17 22 Blood Pressure 108/68 Pulse Oximetry 100 100 Oxygen Delivery Method Room Air 09/03/23 07:45 09/03/23 07:59 09/03/23 08:00 Pulse Rate 97 H Respiratory Rate 16 Blood Pressure 107/61 116/66 Pulse Oximetry 100 Oxygen Delivery Method Room Air 09/03/23 08:00 09/03/23 08:30 09/03/23 08:30 Pulse Rate 97 H 94 H Respiratory Rate 22 15 Blood Pressure 98/57 L Pulse Oximetry 100 100 Oxygen Delivery Method 09/03/23 08:43 09/03/23 08:43 09/03/23 09:00 Pulse Rate 96 H Respiratory Rate 16 Blood Pressure 117/70 119/64 Pulse Oximetry 99 Oxygen Delivery Method Room Air 09/03/23 09:00 09/03/23 09:30 09/03/23 09:30 Pulse Rate 102 H 93 H Respiratory Rate 18 15 Blood Pressure 102/62 Pulse Oximetry 97 97 Oxygen Delivery Method Room Air 09/03/23 10:00 09/03/23 10:01 09/03/23 10:01 Pulse Rate 90 95 H Respiratory Rate 24 Blood Pressure 96/60 Pulse Oximetry 98 94 Oxygen Delivery Method Room Air <Juaquin Burkett MD - Last Filed: 09/04/23 08:36> Orders Ordered: Discontinued Medications Acetaminophen (Acetaminophen 325 Mg Tablet) 975 mg PO NOW ONE Stop: 09/02/23 18:43 Last Admin: 09/02/23 18:45 Dose: 975 mg Documented By: RAMIN Acetaminophen (Acetaminophen 325 Mg Tablet) 650 mg PO NOW ONE Stop: 09/03/23 08:54 Last Admin: 09/03/23 09:04 Dose: 650 mg Documented By: BELKIS Cyclobenzaprine HCl (Cyclobenzaprine 10 Mg Tablet) 10 mg PO NOW ONE Stop: 09/02/23 16:45 Last Admin: 09/02/23 17:22 Dose: Not Given Documented By: RAMIN Sodium Chloride (Normal Saline 0.9%) 1,000 mls @ 1,000 mls/hr IV BOLUS ONE Stop: 09/02/23 18:20 Last Infusion: 09/02/23 18:42 Dose: Infused Documented By: Admin: 09/02/23 17:34 Dose: 1,000 mls/hr Documented By: RAMIN INSULIN DRIP PREMIX (Myxredlin Drip Premix) 100 unit in 100 mls @ 7.267 mls/hr IV TITRATE GENTRY; Protocol Last Titration: 09/03/23 11:42 Dose: 0.02 unit/kg/hr, 1.453 mls/hr Documented By: BELKIS Co-signed By: OSBALDO Titration: 09/03/23 03:30 Dose: 0.02 unit/kg/hr, 1.453 mls/hr Documented By: OBED Co-signed By: ALEX Titration: 09/03/23 00:25 Dose: 0 unit/kg/hr, 0 mls/hr Documented By: OBED Co-signed By: ALEX Titration: 09/02/23 23:21 Dose: 0.02 unit/kg/hr, 1.453 mls/hr Documented By: OBED Co-signed By: JANE Titration: 09/02/23 22:21 Dose: 0.1 unit/kg/hr, 7.267 mls/hr Documented By: OBED Co-signed By: JANE Titration: 09/02/23 20:15 Dose: 0.15 unit/kg/hr, 10.89 mls/hr Documented By: OBED Co-signed By: SB(2) Admin: 09/02/23 18:33 Dose: 0.1 unit/kg/hr, 7.3 mls/hr Documented By: RAMIN Co-signed By: PATTI Sodium Chloride (Normal Saline 0.9%) 1,000 mls @ 125 mls/hr IV CONT GENTRY Last Infusion: 09/02/23 22:27 Dose: Infused Documented By: Admin: 09/02/23 18:49 Dose: 125 mls/hr Documented By: RAMIN Dextrose/Sodium Chloride (Dextrose 5%-0.45% Ns) 1,000 mls @ 0 mls/hr IV CONT GENTRY Last Infusion: 09/03/23 11:44 Dose: 108.9 mls/hr Documented By: Admin: 09/03/23 06:27 Dose: 108.9 mls/hr Documented By: Infusion: 09/03/23 06:24 Dose: Infused Documented By: Infusion: 09/02/23 23:29 Dose: Infused Documented By: Admin: 09/02/23 22:33 Dose: 108.9 mls/hr Documented By: OBED Dextrose (D10w) 1,000 mls @ 0 mls/hr IV CONT GENTRY Last Infusion: 09/03/23 06:25 Dose: 0 mls/hr Documented By: Infusion: 09/03/23 04:11 Dose: 72.6 mls/hr Documented By: Infusion: 09/03/23 03:34 Dose: 145.2 mls/hr Documented By: Infusion: 09/03/23 03:29 Dose: 72.6 mls/hr Documented By: Infusion: 09/03/23 00:24 Dose: 145.2 mls/hr Documented By: Admin: 09/02/23 23:27 Dose: 72.6 mls/hr Documented By: OBED Insulin Human Regular (Insulin Regular 100 Unit/Ml 3 Ml Vial) 7.2665 unit IV NOW ONE Stop: 09/02/23 19:56 Last Admin: 09/02/23 20:07 Dose: 7.2665 unit Documented By: OBED Co-signed By: AYANA Insulin Human Regular (Insulin Regular 100 Unit/Ml 3 Ml Vial) 5 unit IV NOW ONE Stop: 09/02/23 21:24 Last Admin: 09/02/23 21:24 Dose: Not Given Documented By: OBED Insulin Human Regular (Insulin Regular 100 Unit/Ml 3 Ml Vial) 7.2665 unit IV NOW ONE Stop: 09/02/23 21:25 Last Admin: 09/02/23 21:33 Dose: Not Given Documented By: OBED Oxycodone HCl (Oxycodone Ir 5 Mg Tablet) 5 mg PO NOW ONE Stop: 09/02/23 20:45 Last Admin: 09/02/23 20:49 Dose: 5 mg Documented By: OBED Oxycodone HCl (Oxycodone Ir 5 Mg Tablet) 5 mg PO Q4H PRN PRN Reason: Pain, Moderate (4-6) Last Admin: 09/03/23 02:35 Dose: 5 mg Documented By: OBED Vital Signs Vital signs: Vital Signs - 8 hr 09/03/23 03:00 09/03/23 03:00 09/03/23 03:30 Pulse Rate 96 H 98 H Respiratory Rate 17 16 Blood Pressure 97/52 L 108/57 L Pulse Oximetry 98 Oxygen Delivery Method 09/03/23 03:30 09/03/23 04:00 09/03/23 04:00 Pulse Rate 98 H 95 H Respiratory Rate 15 19 Blood Pressure 104/49 L Pulse Oximetry 97 97 Oxygen Delivery Method 09/03/23 04:06 09/03/23 04:06 09/03/23 04:30 Pulse Rate 95 H 89 Respiratory Rate 19 25 H Blood Pressure 126/58 L Pulse Oximetry 99 99 Oxygen Delivery Method 09/03/23 04:31 09/03/23 04:31 09/03/23 05:00 Pulse Rate 89 101 H Respiratory Rate 26 H 31 H Blood Pressure 112/58 L Pulse Oximetry 98 Oxygen Delivery Method 09/03/23 05:30 09/03/23 05:30 09/03/23 06:00 Pulse Rate 98 H 97 H Respiratory Rate 21 21 Blood Pressure 126/85 Pulse Oximetry 100 99 Oxygen Delivery Method 09/03/23 06:00 09/03/23 06:30 09/03/23 06:30 Pulse Rate 100 H Respiratory Rate 18 Blood Pressure 125/57 L 108/54 L Pulse Oximetry 99 Oxygen Delivery Method 09/03/23 07:00 09/03/23 07:00 09/03/23 07:30 Pulse Rate 88 99 H Respiratory Rate 18 Blood Pressure 111/65 Pulse Oximetry 99 Oxygen Delivery Method 09/03/23 07:37 09/03/23 07:37 09/03/23 07:45 Pulse Rate 101 H 91 H Respiratory Rate 17 22 Blood Pressure 108/68 Pulse Oximetry 100 100 Oxygen Delivery Method Room Air 09/03/23 07:45 09/03/23 07:59 09/03/23 08:00 Pulse Rate 97 H Respiratory Rate 16 Blood Pressure 107/61 116/66 Pulse Oximetry 100 Oxygen Delivery Method Room Air 09/03/23 08:00 09/03/23 08:30 09/03/23 08:30 Pulse Rate 97 H 94 H Respiratory Rate 22 15 Blood Pressure 98/57 L Pulse Oximetry 100 100 Oxygen Delivery Method 09/03/23 08:43 09/03/23 08:43 09/03/23 09:00 Pulse Rate 96 H Respiratory Rate 16 Blood Pressure 117/70 119/64 Pulse Oximetry 99 Oxygen Delivery Method Room Air 09/03/23 09:00 09/03/23 09:30 09/03/23 09:30 Pulse Rate 102 H 93 H Respiratory Rate 18 15 Blood Pressure 102/62 Pulse Oximetry 97 97 Oxygen Delivery Method Room Air 09/03/23 10:00 09/03/23 10:01 09/03/23 10:01 Pulse Rate 90 95 H Respiratory Rate 24 Blood Pressure 96/60 Pulse Oximetry 98 94 Oxygen Delivery Method Room Air MDM - Extremity (Nontraumatic) <Chilango Arita, DO - Last Filed: 09/06/23 06:56> Lab Data 09/02/23 16:37 09/03/23 08:15 Labs: Lab Results 09/02/23 09/02/23 09/02/23 Range/Units 16:37 17:51 19:40 WBC 9.2 (4.5-11.0) X10^3/uL RBC 3.21 L (4.5-5.9) X10^6/uL Hgb 9.6 L (13.5-17.5) g/dL Hct 30.3 L (41-53) % MCV 94.6 (80-100) fL MCH 29.9 (26-34) PG MCHC 31.6 (30-36) % RDW 18.5 H (11.6-14.8) % Plt Count 152 (150-400) X10^3/uL Neut % (Auto) 91.4 H (50-75) % Lymph % (Auto) 4.7 L (25-40) % Johnston % (Auto) 3.0 (3-14) % Eos % (Auto) 0.1 L (2-4) % Baso % (Auto) 0.8 (0-2) % Neut # (Auto) 8400 H (5429-1083) /uL Lymph # (Auto) 400 L (2747-3997) /uL Johnston # (Auto) 300 (0-900) /uL Eos # (Auto) 0 (0-450) /uL Baso # (Auto) 100 (0-100) /uL VBG pH 7.25 L (7.33-7.43) VBG pCO2 29.4 L (45-50) mmHg VBG pO2 39 (35-45) mmHg VBG HCO3 13 L (24-28) mmol/L VBG Total CO2 12 L (24-29) mmol/L VBG O2 Saturation 65 L (70-75) % VBG Base Excess -13.2 L (0-4) mmol/L FiO2 21 Sodium 125 L 127 L (137-145) mmol/L Potassium 5.5 H 4.8 (3.4-5.1) mmol/L Chloride 98 100 (98-107) mmol/L Carbon Dioxide 9 L* 10 L (22-32) mmol/L BUN 136 H* 136 H* (9-20) mg/dL Creatinine 5.99 H 5.68 H (0.66-1.25) mg/dL Estimated GFR 9 L 10 L (>60) mL/min BUN/Creatinine Ratio 22.7 H 23.9 H (6-22) Glucose 591 H* 513 H* (80-110) mg/dL Uric Acid (3.5-8.5) mg/dL Calcium 9.5 9.1 (8.4-10.2) mg/dL Phosphorus 7.6 H (2.3-3.7) mg/dL Magnesium 1.4 L (1.6-2.3) mg/dL Total Bilirubin 0.7 (0.2-1.3) mg/dL AST 19 (17-59) IU/L ALT 13 (<50) IU/L Alkaline Phosphatase 101 (38-126) U/L Total Protein 6.4 (6.3-8.2) g/dL Albumin 3.9 (3.5-5.0) g/dL Globulin 2.5 (1.7-4.1) g/dL Albumin/Globulin Ratio 1.6 (1.0-2.8) Lipase 117 (23-300) U/L Urine Color Urine Appearance Urine pH (4.5-8.0) Ur Specific [place] (1.000-1.035) Urine Protein (Negative) Urine Glucose (UA) (Negative) g/dL Urine Ketones (NEGATIVE) Urine Occult Blood (Negative) Urine Nitrate (Negative) Urine Bilirubin (NEGATIVE) Urine Urobilinogen (0.2) E.U./dL Ur Leukocyte Esterase (NEGATIVE) Urine RBC (0-5/HPF) Urine WBC (0-5/HPF) Ur Squamous Epith Cells (0-5/HPF) Urine Bacteria (None) Ur Culture Indicated? Vol Urine Centrifuged Ketones 0.65 H (<0.27) mmol/L 09/02/23 09/03/23 09/03/23 Range/Units 23:55 04:00 05:23 WBC (4.5-11.0) X10^3/uL RBC (4.5-5.9) X10^6/uL Hgb (13.5-17.5) g/dL Hct (41-53) % MCV (80-100) fL MCH (26-34) PG MCHC (30-36) % RDW (11.6-14.8) % Plt Count (150-400) X10^3/uL Neut % (Auto) (50-75) % Lymph % (Auto) (25-40) % [place] % (Auto) (3-14) % Eos % (Auto) (2-4) % Baso % (Auto) (0-2) % Neut # (Auto) (6807-1026) /uL Lymph # (Auto) (1001-7968) /uL Johnston # (Auto) (0-900) /uL Eos # (Auto) (0-450) /uL Baso # (Auto) (0-100) /uL VBG pH 7.22 L (7.33-7.43) VBG pCO2 (45-50) mmHg VBG pO2 (35-45) mmHg VBG HCO3 (24-28) mmol/L VBG Total CO2 (24-29) mmol/L VBG O2 Saturation (70-75) % VBG Base Excess (0-4) mmol/L FiO2 Sodium 131 L 127 L (137-145) mmol/L Potassium 4.2 4.3 (3.4-5.1) mmol/L Chloride 105 101 (98-107) mmol/L Carbon Dioxide 12 L 10 L (22-32) mmol/L BUN 133 H* 132 H* (9-20) mg/dL Creatinine 5.81 H 5.58 H (0.66-1.25) mg/dL Estimated GFR 9 L 10 L (>60) mL/min BUN/Creatinine Ratio 22.9 H 23.7 H (6-22) Glucose 105 D 176 H (80-110) mg/dL Uric Acid (3.5-8.5) mg/dL Calcium 9.1 8.9 (8.4-10.2) mg/dL Phosphorus (2.3-3.7) mg/dL Magnesium (1.6-2.3) mg/dL Total Bilirubin (0.2-1.3) mg/dL AST (17-59) IU/L ALT (<50) IU/L Alkaline Phosphatase (38-126) U/L Total Protein (6.3-8.2) g/dL Albumin (3.5-5.0) g/dL Globulin (1.7-4.1) g/dL Albumin/Globulin Ratio (1.0-2.8) Lipase (23-300) U/L Urine Color Urine Appearance Urine pH (4.5-8.0) Ur Specific [place] (1.000-1.035) Urine Protein (Negative) Urine Glucose (UA) (Negative) g/dL Urine Ketones (NEGATIVE) Urine Occult Blood (Negative) Urine Nitrate (Negative) Urine Bilirubin (NEGATIVE) Urine Urobilinogen (0.2) E.U./dL Ur Leukocyte Esterase (NEGATIVE) Urine RBC (0-5/HPF) Urine WBC (0-5/HPF) Ur Squamous Epith Cells (0-5/HPF) Urine Bacteria (None) Ur Culture Indicated? Vol Urine Centrifuged Ketones (<0.27) mmol/L 09/03/23 09/03/23 09/03/23 Range/Units 08:15 08:31 09:59 WBC (4.5-11.0) X10^3/uL RBC (4.5-5.9) X10^6/uL Hgb (13.5-17.5) g/dL Hct (41-53) % MCV (80-100) fL MCH (26-34) PG MCHC (30-36) % RDW (11.6-14.8) % Plt Count (150-400) X10^3/uL Neut % (Auto) (50-75) % Lymph % (Auto) (25-40) % Johnston % (Auto) (3-14) % Eos % (Auto) (2-4) % Baso % (Auto) (0-2) % Neut # (Auto) (7311-1641) /uL Lymph # (Auto) (4081-8809) /uL Johnston # (Auto) (0-900) /uL Eos # (Auto) (0-450) /uL Baso # (Auto) (0-100) /uL VBG pH 7.23 L (7.33-7.43) VBG pCO2 31.9 L (45-50) mmHg VBG pO2 34 L (35-45) mmHg VBG HCO3 13 L (24-28) mmol/L VBG Total CO2 13 L (24-29) mmol/L VBG O2 Saturation 56 L (70-75) % VBG Base Excess -13.2 L (0-4) mmol/L FiO2 21 Sodium 127 L (137-145) mmol/L Potassium 3.9 (3.4-5.1) mmol/L Chloride 100 (98-107) mmol/L Carbon Dioxide 12 L (22-32) mmol/L BUN 133 H* (9-20) mg/dL Creatinine 5.66 H (0.66-1.25) mg/dL Estimated GFR 10 L (>60) mL/min BUN/Creatinine Ratio 23.5 H (6-22) Glucose 132 H (80-110) mg/dL Uric Acid 4.6 (3.5-8.5) mg/dL Calcium 8.9 (8.4-10.2) mg/dL Phosphorus (2.3-3.7) mg/dL Magnesium (1.6-2.3) mg/dL Total Bilirubin (0.2-1.3) mg/dL AST (17-59) IU/L ALT (<50) IU/L Alkaline Phosphatase (38-126) U/L Total Protein (6.3-8.2) g/dL Albumin (3.5-5.0) g/dL Globulin (1.7-4.1) g/dL Albumin/Globulin Ratio (1.0-2.8) Lipase (23-300) U/L Urine Color Yellow Urine Appearance Clear Urine pH 5.0 (4.5-8.0) Ur Specific [place] 1.010 (1.000-1.035) Urine Protein Trace H (Negative) Urine Glucose (UA) Negative (Negative) g/dL Urine Ketones Negative (NEGATIVE) Urine Occult Blood Trace-intact (Negative) Urine Nitrate Negative (Negative) Urine Bilirubin Negative (NEGATIVE) Urine Urobilinogen 0.2 (0.2) E.U./dL Ur Leukocyte Esterase Negative (NEGATIVE) Urine RBC 0-1/hpf (0-5/HPF) Urine WBC 0-1/hpf (0-5/HPF) Ur Squamous Epith Cells 0-1 /hpf (0-5/HPF) Urine Bacteria None seen (None) Ur Culture Indicated? Cult not indicated Vol Urine Centrifuged 10ml (spun) Ketones < 0.20 (<0.27) mmol/L Point of Care Testing Glucose POC 109 Urine Dip Bedside Urine Glucose 1000 mg/dl Bedside Urine Bilirubin - Negative Urine Specific [place] 1.010 Bedside Urine Occult Blood +/- Bedside Urine pH 5.5 Bedside Urine Protein +/- 15 Bedside Urine Urobilinogen - Negative Bedside Urine Nitrite - Negative Bedside Urine Leukocytes - Negative Esterase Imaging Data Left DVT ultrasound: Radiologist's Impression: PROCEDURE: US PERIPH VENOUS LOW EXTREM LT INDICATIONS: Eval for DVT TECHNIQUE: Real-time imaging, as well as color and pulse Doppler interrogation, were performed of the lower extremity deep veins from the inguinal ligament to the popliteal fossa, with documentation of the visualized calf veins. COMPARISON: None. FINDINGS: The common femoral, femoral, popliteal, and the visualized calf veins are normally compressible, and free of intraluminal thrombus. Color and pulse Doppler demonstrate normal phasic intraluminal flow. There is normal augmentation response to distal compression maneuver. IMPRESSION: No findings of lower extremity deep venous thrombosis Right DVT ultrasound: Radiologist's Impression: PROCEDURE: US PERIPH VENOUS LOW EXTREM RT INDICATIONS: Eval for DVT TECHNIQUE: Real-time imaging, as well as color and pulse Doppler interrogation, were performed of the lower extremity deep veins from the inguinal ligament to the popliteal fossa, with documentation of the visualized calf veins. COMPARISON: [facility], , [facility] VENOUS LOW EXTREM RT, 10/06/2020, 14:21. FINDINGS: The common femoral, femoral, popliteal, and the visualized calf veins are normally compressible, and free of intraluminal thrombus. Color and pulse Doppler demonstrate normal phasic intraluminal flow. There is normal augmentation response to distal compression maneuver. IMPRESSION: No findings of lower extremity deep venous thrombosis. ECG Data Attestation EKG: I personally reviewed and interpreted this ECG as follows: Interpretation: Atrial fibrillation Ventricular rate 91 Left axis deviation No ST T wave changes MDM Narrative Medical decision making narrative: Initially sent from the walk-in clinic because of concerns of his history and his reported chest pain and shortness of breath. Patient states he was not short of breath. He states the chest pain is because of broken ribs from the chest compressions that he got within the past month. He states this is been baseline for him. He was here because he was having discomfort in his lower extremities with left being greater than right between his knees in his ankles. Started about 24-36 hours ago. Initial labs show elevation in his blood glucose. Elevation in his creatinine from baseline. He has had a kidney transplant is on tacrolimus. Is followed by Dr. Brantley nephrology at [facility]. Patient has been on metformin in the past but they took him off metformin when he was discharged from the hospital. Has never been on insulin. He lost quite a bit of weight while he was in the hospital so his states that they told him that he can eat whatever he wants so they have been eating quite a bit of carbs recently. Potentially this is why his blood sugar is elevated. He was in DKA. Corrected sodium is 133. Anion gap is 18. Patient was given fluids. Started on an insulin drip. Potassium is greater than 5. I suspect that the DKA and a degree of dehydration is the cause of his lower extremity pain. There does not appear to be any signs of an infection. Is DVT ultrasounds are negative. Care turned over to Dr. Gambino to follow-up and disposition. <Nicky Gambino, - Last Filed: 09/03/23 20:24> Lab Data Labs: Lab Results 09/02/23 09/02/23 09/02/23 Range/Units 16:37 17:51 19:40 WBC 9.2 (4.5-11.0) X10^3/uL RBC 3.21 L (4.5-5.9) X10^6/uL Hgb 9.6 L (13.5-17.5) g/dL Hct 30.3 L (41-53) % MCV 94.6 (80-100) fL MCH 29.9 (26-34) PG MCHC 31.6 (30-36) % RDW 18.5 H (11.6-14.8) % Plt Count 152 (150-400) X10^3/uL Neut % (Auto) 91.4 H (50-75) % Lymph % (Auto) 4.7 L (25-40) % Johnston % (Auto) 3.0 (3-14) % Eos % (Auto) 0.1 L (2-4) % Baso % (Auto) 0.8 (0-2) % Neut # (Auto) 8400 H (3142-3320) /uL Lymph # (Auto) 400 L (8795-3221) /uL Johnston # (Auto) 300 (0-900) /uL Eos # (Auto) 0 (0-450) /uL Baso # (Auto) 100 (0-100) /uL VBG pH 7.25 L (7.33-7.43) VBG pCO2 29.4 L (45-50) mmHg VBG pO2 39 (35-45) mmHg VBG HCO3 13 L (24-28) mmol/L VBG Total CO2 12 L (24-29) mmol/L VBG O2 Saturation 65 L (70-75) % VBG Base Excess -13.2 L (0-4) mmol/L FiO2 21 Sodium 125 L 127 L (137-145) mmol/L Potassium 5.5 H 4.8 (3.4-5.1) mmol/L Chloride 98 100 (98-107) mmol/L Carbon Dioxide 9 L* 10 L (22-32) mmol/L BUN 136 H* 136 H* (9-20) mg/dL Creatinine 5.99 H 5.68 H (0.66-1.25) mg/dL Estimated GFR 9 L 10 L (>60) mL/min BUN/Creatinine Ratio 22.7 H 23.9 H (6-22) Glucose 591 H* 513 H* (80-110) mg/dL Uric Acid (3.5-8.5) mg/dL Calcium 9.5 9.1 (8.4-10.2) mg/dL Phosphorus 7.6 H (2.3-3.7) mg/dL Magnesium 1.4 L (1.6-2.3) mg/dL Total Bilirubin 0.7 (0.2-1.3) mg/dL AST 19 (17-59) IU/L ALT 13 (<50) IU/L Alkaline Phosphatase 101 (38-126) U/L Total Protein 6.4 (6.3-8.2) g/dL Albumin 3.9 (3.5-5.0) g/dL Globulin 2.5 (1.7-4.1) g/dL Albumin/Globulin Ratio 1.6 (1.0-2.8) Lipase 117 (23-300) U/L Urine Color Urine Appearance Urine pH (4.5-8.0) Ur Specific [place] (1.000-1.035) Urine Protein (Negative) Urine Glucose (UA) (Negative) g/dL Urine Ketones (NEGATIVE) Urine Occult Blood (Negative) Urine Nitrate (Negative) Urine Bilirubin (NEGATIVE) Urine Urobilinogen (0.2) E.U./dL Ur Leukocyte Esterase (NEGATIVE) Urine RBC (0-5/HPF) Urine WBC (0-5/HPF) Ur Squamous Epith Cells (0-5/HPF) Urine Bacteria (None) Ur Culture Indicated? Vol Urine Centrifuged Ketones 0.65 H (<0.27) mmol/L 09/02/23 09/03/23 09/03/23 Range/Units 23:55 04:00 05:23 WBC (4.5-11.0) X10^3/uL RBC (4.5-5.9) X10^6/uL Hgb (13.5-17.5) g/dL Hct (41-53) % MCV (80-100) fL MCH (26-34) PG MCHC (30-36) % RDW (11.6-14.8) % Plt Count (150-400) X10^3/uL Neut % (Auto) (50-75) % Lymph % (Auto) (25-40) % Johnston % (Auto) (3-14) % Eos % (Auto) (2-4) % Baso % (Auto) (0-2) % Neut # (Auto) (2323-5541) /uL Lymph # (Auto) (6267-3963) /uL Johnston # (Auto) (0-900) /uL Eos # (Auto) (0-450) /uL Baso # (Auto) (0-100) /uL VBG pH 7.22 L (7.33-7.43) VBG pCO2 (45-50) mmHg VBG pO2 (35-45) mmHg VBG HCO3 (24-28) mmol/L VBG Total CO2 (24-29) mmol/L VBG O2 Saturation (70-75) % VBG Base Excess (0-4) mmol/L FiO2 Sodium 131 L 127 L (137-145) mmol/L Potassium 4.2 4.3 (3.4-5.1) mmol/L Chloride 105 101 (98-107) mmol/L Carbon Dioxide 12 L 10 L (22-32) mmol/L BUN 133 H* 132 H* (9-20) mg/dL Creatinine 5.81 H 5.58 H (0.66-1.25) mg/dL Estimated GFR 9 L 10 L (>60) mL/min BUN/Creatinine Ratio 22.9 H 23.7 H (6-22) Glucose 105 D 176 H (80-110) mg/dL Uric Acid (3.5-8.5) mg/dL Calcium 9.1 8.9 (8.4-10.2) mg/dL Phosphorus (2.3-3.7) mg/dL Magnesium (1.6-2.3) mg/dL Total Bilirubin (0.2-1.3) mg/dL AST (17-59) IU/L ALT (<50) IU/L Alkaline Phosphatase (38-126) U/L Total Protein (6.3-8.2) g/dL Albumin (3.5-5.0) g/dL Globulin (1.7-4.1) g/dL Albumin/Globulin Ratio (1.0-2.8) Lipase (23-300) U/L Urine Color Urine Appearance Urine pH (4.5-8.0) Ur Specific [place] (1.000-1.035) Urine Protein (Negative) Urine Glucose (UA) (Negative) g/dL Urine Ketones (NEGATIVE) Urine Occult Blood (Negative) Urine Nitrate (Negative) Urine Bilirubin (NEGATIVE) Urine Urobilinogen (0.2) E.U./dL Ur Leukocyte Esterase (NEGATIVE) Urine RBC (0-5/HPF) Urine WBC (0-5/HPF) Ur Squamous Epith Cells (0-5/HPF) Urine Bacteria (None) Ur Culture Indicated? Vol Urine Centrifuged Ketones (<0.27) mmol/L 09/03/23 09/03/23 09/03/23 Range/Units 08:15 08:31 09:59 WBC (4.5-11.0) X10^3/uL RBC (4.5-5.9) X10^6/uL Hgb (13.5-17.5) g/dL Hct (41-53) % MCV (80-100) fL MCH (26-34) PG MCHC (30-36) % RDW (11.6-14.8) % Plt Count (150-400) X10^3/uL Neut % (Auto) (50-75) % Lymph % (Auto) (25-40) % Johnston % (Auto) (3-14) % Eos % (Auto) (2-4) % Baso % (Auto) (0-2) % Neut # (Auto) (6790-0406) /uL Lymph # (Auto) (3363-9112) /uL Johnston # (Auto) (0-900) /uL Eos # (Auto) (0-450) /uL Baso # (Auto) (0-100) /uL VBG pH 7.23 L (7.33-7.43) VBG pCO2 31.9 L (45-50) mmHg VBG pO2 34 L (35-45) mmHg VBG HCO3 13 L (24-28) mmol/L VBG Total CO2 13 L (24-29) mmol/L VBG O2 Saturation 56 L (70-75) % VBG Base Excess -13.2 L (0-4) mmol/L FiO2 21 Sodium 127 L (137-145) mmol/L Potassium 3.9 (3.4-5.1) mmol/L Chloride 100 (98-107) mmol/L Carbon Dioxide 12 L (22-32) mmol/L BUN 133 H* (9-20) mg/dL Creatinine 5.66 H (0.66-1.25) mg/dL Estimated GFR 10 L (>60) mL/min BUN/Creatinine Ratio 23.5 H (6-22) Glucose 132 H (80-110) mg/dL Uric Acid 4.6 (3.5-8.5) mg/dL Calcium 8.9 (8.4-10.2) mg/dL Phosphorus (2.3-3.7) mg/dL Magnesium (1.6-2.3) mg/dL Total Bilirubin (0.2-1.3) mg/dL AST (17-59) IU/L ALT (<50) IU/L Alkaline Phosphatase (38-126) U/L Total Protein (6.3-8.2) g/dL Albumin (3.5-5.0) g/dL Globulin (1.7-4.1) g/dL Albumin/Globulin Ratio (1.0-2.8) Lipase (23-300) U/L Urine Color Yellow Urine Appearance Clear Urine pH 5.0 (4.5-8.0) Ur Specific [place] 1.010 (1.000-1.035) Urine Protein Trace H (Negative) Urine Glucose (UA) Negative (Negative) g/dL Urine Ketones Negative (NEGATIVE) Urine Occult Blood Trace-intact (Negative) Urine Nitrate Negative (Negative) Urine Bilirubin Negative (NEGATIVE) Urine Urobilinogen 0.2 (0.2) E.U./dL Ur Leukocyte Esterase Negative (NEGATIVE) Urine RBC 0-1/hpf (0-5/HPF) Urine WBC 0-1/hpf (0-5/HPF) Ur Squamous Epith Cells 0-1 /hpf (0-5/HPF) Urine Bacteria None seen (None) Ur Culture Indicated? Cult not indicated Vol Urine Centrifuged 10ml (spun) Ketones < 0.20 (<0.27) mmol/L Point of Care Testing Glucose POC 109 Urine Dip Bedside Urine Glucose 1000 mg/dl Bedside Urine Bilirubin - Negative Urine Specific [place] 1.010 Bedside Urine Occult Blood +/- Bedside Urine pH 5.5 Bedside Urine Protein +/- 15 Bedside Urine Urobilinogen - Negative Bedside Urine Nitrite - Negative Bedside Urine Leukocytes - Negative Esterase MDM Narrative Medical decision making narrative: Initially sent from the walk-in clinic because of concerns of his history and his reported chest pain and shortness of breath. Patient states he was not short of breath. He states the chest pain is because of broken ribs from the chest compressions that he got within the past month. He states this is been baseline for him. He was here because he was having discomfort in his lower extremities with left being greater than right between his knees in his ankles. Started about 24-36 hours ago. Initial labs show elevation in his blood glucose. Elevation in his creatinine from baseline. He has had a kidney transplant is on tacrolimus. Is followed by Dr. Brantley nephrology at [facility]. Patient has been on metformin in the past but they took him off metformin when he was discharged from the hospital. Has never been on insulin. He lost quite a bit of weight while he was in the hospital so his states that they told him that he can eat whatever he wants so they have been eating quite a bit of carbs recently. Potentially this is why his blood sugar is elevated. He was in DKA. Corrected sodium is 133. Anion gap is 18. Patient was given fluids. Started on an insulin drip. Potassium is greater than 5. I suspect that the DKA and a degree of dehydration is the cause of his lower extremity pain. There does not appear to be any signs of an infection. Is DVT ultrasounds are negative. Care turned over to Dr. Gambino to follow-up and disposition. Dr. Gambino-patient signed out to me by Dr. Arita I have seen evaluated patient myself he does have some pain in his legs. Blood work has been reviewed he has worsening SCAR on CKD baseline creatinine is 3.8 and now is 5.9. He has hyperglycemia with a glucose of 591 and an anion gap 18 with ketones and a pH is 7.2. Concern is for new onset DKA with worsening CKD ED. Patient is a transplant patient as well. He has no nausea or vomiting. DKA protocol is started his glucose comes down quite quickly he is transferred over to D10 insulin eventually is stopped and then restarted. He continues to have an anion gap and continues to have anion gap. Although he has a baseline bicarb between 11 and 13. He has persistent elevated creatinine of 5.5. 1900 Dr. Larry Altamirano nephrology at [facility] updated patient's symptoms test results and is happy to accept patient if needed 229Dr. Campos, hospitalist at [place] has been updated on patient's symptoms test results. Requests for update on repeat labs. If able to closed anion gap then patient would not need a progressive or ICU bed could actually go to the floor. Patient remained stable throughout the night he does get oxycodone There are no ICU beds in the state. [facility] has been notified. Patient signed out to Dr. Kwadwo Burkett, 09/03/2023, 0700, transfer of care accept note. Chart reviewed, patient seen by myself indepenedently, case progression discussed with patient and . 78-year-old male has now been in the department 16 hours, awaiting transfer, presented initially with BLE discomfort, in clinic found to have increased heart rate, history of renal transplant 2016, did admit to some chest pain after recent CPR, chronic renal insufficiency with creatinine 3.8 range baseline, recent admission to [facility] with GI bleed involving CPR with no deficit, on screening labs here today found to have increased creatinine 5.9 over baseline, elevated glucose, pH 7.2, ketones positive, new diagnosis diabetic ketoacidosis in setting of acute on chronic SCAR. Complicated medical history, presented to hospitalist Dr. Cabrera here, who felt patient would be better served at higher level of care [place], patient/family would like to be admitted/transferred to [facility] facility. Their hospitalist and envelope cutter were contacted, no ICU beds available there at this time, nor in State, [facility] contacted to search for alternate placement. Insulin drip briefly held last night due to low sugars, restarted, currenlty running 0.02 unitskg/hour, next set of labs due 0800 later this morning. Possible transfer to [facility] non ICU bed if patient can be weaned off of insulin drip. Further care anticipated transfer, possibly to [place] [facility] for continuity and higher level of care. Assumed care. 729, briefly spoke with Irma spear, then hospitalist Dr. Huerta, they have beds and availability for transfer, however my understanding is that patient wanted to try to go to [facility] system for continuity of care, significant past medical history including renal transplant nephrology services there, possible transfer if able to wean off of insulin drip at [place] [facility], next labs 8:00 a.m., we will update after those labs available. 0930, repeat labs show anion gap 15, pH 7.227, glucose 130 on insulin drip at 0.02 units/kg/hr (7 units/hr), on dextrose infusion. No ICU beds [place], patient now amenable to transfer to [facility], await call back UA negative, bladders scan volume 170mL only. CXR no acute changes, see Rads report. 1000, [facility], [facility], hospitalist Dr Huerta <Juaquin Burkett MD - Last Filed: 09/04/23 08:36> Lab Data Labs: Lab Results 09/02/23 09/02/23 09/02/23 Range/Units 16:37 17:51 19:40 WBC 9.2 (4.5-11.0) X10^3/uL RBC 3.21 L (4.5-5.9) X10^6/uL Hgb 9.6 L (13.5-17.5) g/dL Hct 30.3 L (41-53) % MCV 94.6 (80-100) fL MCH 29.9 (26-34) PG MCHC 31.6 (30-36) % RDW 18.5 H (11.6-14.8) % Plt Count 152 (150-400) X10^3/uL Neut % (Auto) 91.4 H (50-75) % Lymph % (Auto) 4.7 L (25-40) % [place] % (Auto) 3.0 (3-14) % Eos % (Auto) 0.1 L (2-4) % Baso % (Auto) 0.8 (0-2) % Neut # (Auto) 8400 H (3659-5886) /uL Lymph # (Auto) 400 L (5791-4885) /uL Johnston # (Auto) 300 (0-900) /uL Eos # (Auto) 0 (0-450) /uL Baso # (Auto) 100 (0-100) /uL VBG pH 7.25 L (7.33-7.43) VBG pCO2 29.4 L (45-50) mmHg VBG pO2 39 (35-45) mmHg VBG HCO3 13 L (24-28) mmol/L VBG Total CO2 12 L (24-29) mmol/L VBG O2 Saturation 65 L (70-75) % VBG Base Excess -13.2 L (0-4) mmol/L FiO2 21 Sodium 125 L 127 L (137-145) mmol/L Potassium 5.5 H 4.8 (3.4-5.1) mmol/L Chloride 98 100 (98-107) mmol/L Carbon Dioxide 9 L* 10 L (22-32) mmol/L BUN 136 H* 136 H* (9-20) mg/dL Creatinine 5.99 H 5.68 H (0.66-1.25) mg/dL Estimated GFR 9 L 10 L (>60) mL/min BUN/Creatinine Ratio 22.7 H 23.9 H (6-22) Glucose 591 H* 513 H* (80-110) mg/dL Uric Acid (3.5-8.5) mg/dL Calcium 9.5 9.1 (8.4-10.2) mg/dL Phosphorus 7.6 H (2.3-3.7) mg/dL Magnesium 1.4 L (1.6-2.3) mg/dL Total Bilirubin 0.7 (0.2-1.3) mg/dL AST 19 (17-59) IU/L ALT 13 (<50) IU/L Alkaline Phosphatase 101 (38-126) U/L Total Protein 6.4 (6.3-8.2) g/dL Albumin 3.9 (3.5-5.0) g/dL Globulin 2.5 (1.7-4.1) g/dL Albumin/Globulin Ratio 1.6 (1.0-2.8) Lipase 117 (23-300) U/L Urine Color Urine Appearance Urine pH (4.5-8.0) Ur Specific [place] (1.000-1.035) Urine Protein (Negative) Urine Glucose (UA) (Negative) g/dL Urine Ketones (NEGATIVE) Urine Occult Blood (Negative) Urine Nitrate (Negative) Urine Bilirubin (NEGATIVE) Urine Urobilinogen (0.2) E.U./dL Ur Leukocyte Esterase (NEGATIVE) Urine RBC (0-5/HPF) Urine WBC (0-5/HPF) Ur Squamous Epith Cells (0-5/HPF) Urine Bacteria (None) Ur Culture Indicated? Vol Urine Centrifuged Ketones 0.65 H (<0.27) mmol/L 09/02/23 09/03/23 09/03/23 Range/Units 23:55 04:00 05:23 WBC (4.5-11.0) X10^3/uL RBC (4.5-5.9) X10^6/uL Hgb (13.5-17.5) g/dL Hct (41-53) % MCV (80-100) fL MCH (26-34) PG MCHC (30-36) % RDW (11.6-14.8) % Plt Count (150-400) X10^3/uL Neut % (Auto) (50-75) % Lymph % (Auto) (25-40) % [place] % (Auto) (3-14) % Eos % (Auto) (2-4) % Baso % (Auto) (0-2) % Neut # (Auto) (4761-7656) /uL Lymph # (Auto) (2539-9991) /uL [place] # (Auto) (0-900) /uL Eos # (Auto) (0-450) /uL Baso # (Auto) (0-100) /uL VBG pH 7.22 L (7.33-7.43) VBG pCO2 (45-50) mmHg VBG pO2 (35-45) mmHg VBG HCO3 (24-28) mmol/L VBG Total CO2 (24-29) mmol/L VBG O2 Saturation (70-75) % VBG Base Excess (0-4) mmol/L FiO2 Sodium 131 L 127 L (137-145) mmol/L Potassium 4.2 4.3 (3.4-5.1) mmol/L Chloride 105 101 (98-107) mmol/L Carbon Dioxide 12 L 10 L (22-32) mmol/L BUN 133 H* 132 H* (9-20) mg/dL Creatinine 5.81 H 5.58 H (0.66-1.25) mg/dL Estimated GFR 9 L 10 L (>60) mL/min BUN/Creatinine Ratio 22.9 H 23.7 H (6-22) Glucose 105 D 176 H (80-110) mg/dL Uric Acid (3.5-8.5) mg/dL Calcium 9.1 8.9 (8.4-10.2) mg/dL Phosphorus (2.3-3.7) mg/dL Magnesium (1.6-2.3) mg/dL Total Bilirubin (0.2-1.3) mg/dL AST (17-59) IU/L ALT (<50) IU/L Alkaline Phosphatase (38-126) U/L Total Protein (6.3-8.2) g/dL Albumin (3.5-5.0) g/dL Globulin (1.7-4.1) g/dL Albumin/Globulin Ratio (1.0-2.8) Lipase (23-300) U/L Urine Color Urine Appearance Urine pH (4.5-8.0) Ur Specific [place] (1.000-1.035) Urine Protein (Negative) Urine Glucose (UA) (Negative) g/dL Urine Ketones (NEGATIVE) Urine Occult Blood (Negative) Urine Nitrate (Negative) Urine Bilirubin (NEGATIVE) Urine Urobilinogen (0.2) E.U./dL Ur Leukocyte Esterase (NEGATIVE) Urine RBC (0-5/HPF) Urine WBC (0-5/HPF) Ur Squamous Epith Cells (0-5/HPF) Urine Bacteria (None) Ur Culture Indicated? Vol Urine Centrifuged Ketones (<0.27) mmol/L 09/03/23 09/03/23 09/03/23 Range/Units 08:15 08:31 09:59 WBC (4.5-11.0) X10^3/uL RBC (4.5-5.9) X10^6/uL Hgb (13.5-17.5) g/dL Hct (41-53) % MCV (80-100) fL MCH (26-34) PG MCHC (30-36) % RDW (11.6-14.8) % Plt Count (150-400) X10^3/uL Neut % (Auto) (50-75) % Lymph % (Auto) (25-40) % [place] % (Auto) (3-14) % Eos % (Auto) (2-4) % Baso % (Auto) (0-2) % Neut # (Auto) (4303-4036) /uL Lymph # (Auto) (3375-7587) /uL [place] # (Auto) (0-900) /uL Eos # (Auto) (0-450) /uL Baso # (Auto) (0-100) /uL VBG pH 7.23 L (7.33-7.43) VBG pCO2 31.9 L (45-50) mmHg VBG pO2 34 L (35-45) mmHg VBG HCO3 13 L (24-28) mmol/L VBG Total CO2 13 L (24-29) mmol/L VBG O2 Saturation 56 L (70-75) % VBG Base Excess -13.2 L (0-4) mmol/L FiO2 21 Sodium 127 L (137-145) mmol/L Potassium 3.9 (3.4-5.1) mmol/L Chloride 100 (98-107) mmol/L Carbon Dioxide 12 L (22-32) mmol/L BUN 133 H* (9-20) mg/dL Creatinine 5.66 H (0.66-1.25) mg/dL Estimated GFR 10 L (>60) mL/min BUN/Creatinine Ratio 23.5 H (6-22) Glucose 132 H (80-110) mg/dL Uric Acid 4.6 (3.5-8.5) mg/dL Calcium 8.9 (8.4-10.2) mg/dL Phosphorus (2.3-3.7) mg/dL Magnesium (1.6-2.3) mg/dL Total Bilirubin (0.2-1.3) mg/dL AST (17-59) IU/L ALT (<50) IU/L Alkaline Phosphatase (38-126) U/L Total Protein (6.3-8.2) g/dL Albumin (3.5-5.0) g/dL Globulin (1.7-4.1) g/dL Albumin/Globulin Ratio (1.0-2.8) Lipase (23-300) U/L Urine Color Yellow Urine Appearance Clear Urine pH 5.0 (4.5-8.0) Ur Specific [place] 1.010 (1.000-1.035) Urine Protein Trace H (Negative) Urine Glucose (UA) Negative (Negative) g/dL Urine Ketones Negative (NEGATIVE) Urine Occult Blood Trace-intact (Negative) Urine Nitrate Negative (Negative) Urine Bilirubin Negative (NEGATIVE) Urine Urobilinogen 0.2 (0.2) E.U./dL Ur Leukocyte Esterase Negative (NEGATIVE) Urine RBC 0-1/hpf (0-5/HPF) Urine WBC 0-1/hpf (0-5/HPF) Ur Squamous Epith Cells 0-1 /hpf (0-5/HPF) Urine Bacteria None seen (None) Ur Culture Indicated? Cult not indicated Vol Urine Centrifuged 10ml (spun) Ketones < 0.20 (<0.27) mmol/L Point of Care Testing Glucose POC 109 Urine Dip Bedside Urine Glucose 1000 mg/dl Bedside Urine Bilirubin - Negative Urine Specific [place] 1.010 Bedside Urine Occult Blood +/- Bedside Urine pH 5.5 Bedside Urine Protein +/- 15 Bedside Urine Urobilinogen - Negative Bedside Urine Nitrite - Negative Bedside Urine Leukocytes - Negative Esterase Imaging Data Chest x-ray: Radiologist's Impression: [address] [address] XRay Report Signed Patient: Brian Obregon MR#: [id number] : 1945 Acct:[id number] Age/Sex: 78 / M Date of Service: 09/03/23 Loc: ED Accession Number: [id number] Procedure: XR chest 1V Ordering Provider: Juaquin Burkett MD PROCEDURE: XR CHEST 1V INDICATIONS: DKA new dx, eval for infecftion, CPR last month rib fxs TECHNIQUE: One view of the chest was acquired. COMPARISON: [facility], , XR CHEST 1V, 07/02/2023, 8:22. [facility], , XR CHEST 1V, 04/24/2022, 12:40. FINDINGS: Surgical changes and devices: None. Lungs and pleura: Lungs are clear. No pleural effusions or pneumothorax. Mediastinum: Mediastinal contours appear normal. Heart size is enlarged. Bones and chest wall: No suspicious bony lesions. Overlying soft tissues appear unremarkable. IMPRESSION: No acute cardiopulmonary abnormality is seen. Dictated by: Jemal Calderon M.D. on 09/03/2023 at 9:17 Approved by: Jemal Calderon M.D. on 09/03/2023 at 9:19 MDM Narrative Medical decision making narrative: Initially sent from the walk-in clinic because of concerns of his history and his reported chest pain and shortness of breath. Patient states he was not short of breath. He states the chest pain is because of broken ribs from the chest compressions that he got within the past month. He states this is been baseline for him. He was here because he was having discomfort in his lower extremities with left being greater than right between his knees in his ankles. Started about 24-36 hours ago. Initial labs show elevation in his blood glucose. Elevation in his creatinine from baseline. He has had a kidney transplant is on tacrolimus. Is followed by Dr. Brantley nephrology at [facility]. Patient has been on metformin in the past but they took him off metformin when he was discharged from the hospital. Has never been on insulin. He lost quite a bit of weight while he was in the hospital so his states that they told him that he can eat whatever he wants so they have been eating quite a bit of carbs recently. Potentially this is why his blood sugar is elevated. He was in DKA. Corrected sodium is 133. Anion gap is 18. Patient was given fluids. Started on an insulin drip. Potassium is greater than 5. I suspect that the DKA and a degree of dehydration is the cause of his lower extremity pain. There does not appear to be any signs of an infection. Is DVT ultrasounds are negative. Care turned over to Dr. Gambino to follow-up and disposition. Dr. Gambino-patient signed out to me by Dr. Arita I have seen evaluated patient myself he does have some pain in his legs. Blood work has been reviewed he has worsening SCAR on CKD baseline creatinine is 3.8 and now is 5.9. He has hyperglycemia with a glucose of 591 and an anion gap 18 with ketones and a pH is 7.2. Concern is for new onset DKA with worsening CKD ED. Patient is a transplant patient as well. He has no nausea or vomiting. DKA protocol is started his glucose comes down quite quickly he is transferred over to D10 insulin eventually is stopped and then restarted. He continues to have an anion gap and continues to have anion gap. Although he has a baseline bicarb between 11 and 13. He has persistent elevated creatinine of 5.5. 1900 Dr. Larry Altamirano nephrology at [facility] updated patient's symptoms test results and is happy to accept patient if needed 0230Dr. Campos, hospitalist at [place] has been updated on patient's symptoms test results. Requests for update on repeat labs. If able to closed anion gap then patient would not need a progressive or ICU bed could actually go to the floor. Patient remained stable throughout the night he does get oxycodone There are no ICU beds in the state. [facility] has been notified. Patient signed out to Dr. Kwadwo Burkett, 09/03/2023, 0700, transfer of care accept note. Chart reviewed, patient seen by myself indepenedently, case progression discussed with patient and . 78-year-old male has now been in the department 16 hours, awaiting transfer, presented initially with BLE discomfort, in clinic found to have increased heart rate, creat elevated, BLE venous dopplers negative for DVT. History of renal transplant 2016, did admit to some chest pain after recent CPR, chronic renal insufficiency with creatinine 3.8 range baseline, recent admission to [facility] hospital with GI bleed involving CPR with no deficit, on screening labs here today found to have increased creatinine 5.9 over baseline, elevated glucose, pH 7.2, ketones positive, new diagnosis diabetic ketoacidosis in setting of acute on chronic SCAR. Complicated medical history, presented to hospitalist Dr. Cabrera here, who felt patient would be better served at higher level of care [facility], patient/family would like to be admitted/transferred to [facility] facility. Their hospitalist and envelope cutter were contacted, no ICU beds available there at this time, nor in State, [facility] contacted to search for alternate placement. Insulin drip briefly held last night due to low sugars, restarted, currenlty running 0.02 unitskg/hour, next set of labs due 0800 later this morning. Possible transfer to [facility] non ICU bed if patient can be weaned off of insulin drip. Further care anticipated transfer, possibly to [place] [facility] for continuity and higher level of care. Assumed care. 729, briefly spoke with [facility], then hospitalist Dr. Huerta, they have beds and availability for transfer, however my understanding is that patient wanted to try to go to [facility] system for continuity of care, significant past medical history including renal transplant nephrology services there, possible transfer if able to wean off of insulin drip at [facility], next labs 8:00 a.m., will update after those labs available. 0930, repeat labs show anion gap 15, pH 7.227, glucose 130 on insulin drip at 0.02 units/kg/hr (7 units/hr), on dextrose infusion. Continue insulin drip and dextrose substrate infusion. No ICU beds [place], patient now willing to transfer, await [facility] call back Bladder scan volume 170mL only, less likely postobstructive component SCAR. UA negative and CXR no acute changes, looking for common sources of infection. 1000, accepted for transfer to progressive care unit, [facility], hospitalist Dr Huerta Critical Care Time <Chilango Arita DO - Last Filed: 09/06/23 06:56> Critical Care Time Critical Care Time: Yes Total Critical Care Time: 35 Attestation: The high probability of a clinically significant, sudden or life threatening deterioration of the [endocrine] system(s) required my full and direct attention, intervention and personal management. The aggregate critical care time was [35] minutes. This time is in addition to time spent performing reported procedures but includes the following: [x] Data Review and interpretation [] Patient assessment and monitoring of vital signs [x] Documentation [x] Medication orders and management <Juaquin Burkett MD - Last Filed: 09/04/23 08:36> Critical Care Time Total Critical Care Time: 60 Attestation: The high probability of a clinically significant, sudden or life threatening deterioration of the [endocrine] system(s) required my full and direct attention, intervention and personal management. The aggregate critical care time was [60] minutes. This time is in addition to time spent performing reported procedures but includes the following: [x] Data Review and interpretation [] Patient assessment and monitoring of vital signs [x] Documentation [x] Medication orders and management Discharge Plan Departure Patient Disposition: [facility] Clinical Impression: Diabetic ketoacidosis, History of renal transplant, Tachycardia, Acute on chronic renal failure Prescriptions: No Action niacinamide 500 mg tablet 500 mg PO DAILY lisinopril 2.5 mg tablet 2.5 mg PO DAILY atorvastatin 80 mg tablet 80 mg PO BEDTIME Qty: 90 3RF pantoprazole 40 mg tablet,delayed release (DR/EC) 40 mg PO BID Qty: 180 3RF allopurinol 100 mg tablet 100 mg PO DAILY Qty: 90 2RF Rx Instructions: Take 1 tablet by mouth daily for 30 days tamsulosin 0.4 mg capsule 0.4 mg PO ONCE PM Qty: 90 2RF nitroglycerin 0.4 mg tablet, sublingual 0.4 mg sublingual Q5M PRN Rx Instructions: do not exceed 3 doses per episode mycophenolate mofetil 250 mg capsule 250 mg PO BID oxycodone 5 mg tablet 5 mg PO Q6H PRN Rx Instructions: Take 0.5 tablets by mouth every 6 hours a needed for up to 4 doses (DME) Disabled Parking Permit See Rx Instructions .ROUTE .MEDSUPPLY Qty: 1 0RF Rx Instructions: I find this patient to be medically disabled and qualified for Disabled Parking as indicated and signed on the accompanying Disabled Parking Application for Individuals. bumetanide 1 mg tablet 2 mg PO BID PRN (Reason: Edema) metoprolol succinate 25 mg tablet extended release 24 hr 25 mg PO DAILY Rx Instructions: Take 2 tablets by mouth daily for 30 days clopidogrel 75 mg tablet 75 mg PO DAILY Qty: 90 3RF colchicine 0.6 mg tablet 0.6 mg PO BID PRN (Reason: GOUT) Qty: 10 5RF tacrolimus 1 mg Capsule 1 mg PO BID prednisone 5 mg tablet 5 mg PO DAILY Patient Comments: Take 1 tablet by mouth once every morning with breakfast. cholecalciferol (vitamin D3) 125 mcg (5,000 unit) capsule 125 mcg PO MO@0900 Referrals: Milad Martines MD [Primary Care Provider] -
--- NOTE | 2023-09-02 16:09 | DI.US.S_ITS ---
PROCEDURE: US PERIP VENOUS LOW EXTREM RT INDICATIONS: Eval for DVT TECHNIQUE: Real-time imaging, as well as color and pulse Doppler interrogation, were performed of the lower extremity deep veins from the inguinal ligament to the popliteal fossa, with documentation of the visualized calf veins. COMPARISON: [facility], , [facility] VENOUS LOW EXTREM RT, 10/06/2020, 14:21. FINDINGS: The common femoral, femoral, popliteal, and the visualized calf veins are normally compressible, and free of intraluminal thrombus. Color and pulse Doppler demonstrate normal phasic intraluminal flow. There is normal augmentation response to distal compression maneuver. IMPRESSION: No findings of lower extremity deep venous thrombosis. Dictated by: Yamila Ruby M.D. on 09/02/2023 at 18:32 Approved by: Yamila Ruby M.D. on 09/02/2023 at 18:32
[2023-09-02 16:51] LABS: Add Manual Diff / Slide Review NO; Basophils Absolute Auto 100 /uL (0-100); Basophils Percent Auto 0.8 % (0-2); Eosinophils Absolute Auto 0 /uL (0-450); Eosinophils Percent Auto 0.1 % (2-4); Hematocrit 30.3 % (41-53); Hemoglobin 9.6 g/dL (13.5-17.5); Lymphocytes Absolute Auto 400 /uL (1100-4500); Lymphocytes Percent Auto 4.7 % (25-40); Mean Corpuscular HGB Conc 31.6 % (30-36); Mean Corpuscular Hemoglobin 29.9 PG (26-34); Mean Corpuscular Volume 94.6 fL (80-100); Monocytes Absolute Auto 300 /uL (0-900); Neutrophils Absolute Auto 8400 /uL (1500-7000); Neutrophils Percent Auto 91.4 % (50-75); Platelet Count 152 X10^3/uL (150-400); Red Blood Cell Count 3.21 X10^6/uL (4.5-5.9); Red Cell Distribution Width 18.5 % (11.6-14.8); White Blood Cell Count 9.2 X10^3/uL (4.5-11.0)
[2023-09-02 17:01] LABS: Alanine Aminotransferase 13 IU/L (<50); Albumin 3.9 g/dL (3.5-5.0); Albumin Globulin Ratio 1.6 (1.0-2.8); Alkaline Phosphatase 101 U/L (38-126); Aspartate Aminotransferase 19 IU/L (17-59); Bilirubin Total 0.7 mg/dL (0.2-1.3); Calcium 9.5 mg/dL (8.4-10.2); Chloride 98 mmol/L (98-107); Estimated Glomerular Filt Rate 9 mL/min (>60); Globulin 2.5 g/dL (1.7-4.1); HEMOLYSIS < 15 (0-50); Lipase 117 U/L (23-300); Sodium 125 mmol/L (137-145); Total Protein 6.4 g/dL (6.3-8.2)
[2023-09-02 17:08] LABS: BUN Creatinine Ratio 22.7 (6-22); Potassium 5.5 mmol/L (3.4-5.1)
[2023-09-02 17:12] LABS: Blood Urea Nitrogen 136 mg/dL (9-20); Carbon Dioxide 9 mmol/L (22-32); Glucose 591 mg/dL (80-110)
[2023-09-02] MEDS: SODIUM CHLORIDE 0.9% 1,000 ML 1000 ML IV (17:34)
[2023-09-02 17:39] LABS: Magnesium 1.4 mg/dL (1.6-2.3); Phosphorous 7.6 mg/dL (2.3-3.7)
[2023-09-02 17:52] LABS: Ketones (Beta-Hydroxybutyrate) 0.65 mmol/L (<0.27)
[2023-09-02 18:01] LABS: PCO2 VBG 29.4 mmHg (45-50); PO2 VBG 39 mmHg (35-45); pH VBG 7.25 (7.33-7.43)
[2023-09-02 18:02] LABS: Base Excess VBG -13.2 mmol/L (0-4); Fractionated Inspired Oxygen 21; HCO3 VBG 13 mmol/L (24-28); Oxygen Saturation VBG 65 % (70-75); Total CO2 VBG 12 mmol/L (24-29)
[2023-09-02] MEDS: INSULIN DRIP PREMIX 100 UNIT/100 ML PLAST..BAG 7.3 UNIT IV (18:33)
[2023-09-02] MEDS: ACETAMINOPHEN 325 MG TABLET 975 MG PO (18:45)
[2023-09-02] MEDS: SODIUM CHLORIDE 0.9% 1,000 ML 125 ML IV (18:49)
--- NOTE | 2023-09-02 19:10 | PC.NURSE ---
cramping pain. respirations regular and unlabored--denies any other symptoms.
--- NOTE | 2023-09-02 19:22 | PC.NURSE ---
During initial encounter pt stating he does not want an IV and does not want to stay; after labs coming back pt explained he will need to stay in the hospital for higher level of care. Pt asking about pt drinking/eating chicken broth to correct dehydration, sodium, and sugar level; pt promptly explained why that could not work in this case and that medical attention and time(*) will be needed to help pt. Pt explained in depth reasons for needing two IV's. This RN asked for another RN's assistance with this. Pt readjusted several times and provider multiple blankets and helped to alleviate pain with medication and reposition. Pt updated regularly on plan of care. Sign out to Kera HERNANDEZ.
--- NOTE | 2023-09-02 19:42 | PC.NURSE ---
Pt's finger stick BS x2 read >500, sent down blood work to lab.
[2023-09-02 19:58] LABS: Potassium 4.8 mmol/L (3.4-5.1)
[2023-09-02 19:59] LABS: Calcium 9.1 mg/dL (8.4-10.2); Carbon Dioxide 10 mmol/L (22-32); Chloride 100 mmol/L (98-107); Estimated Glomerular Filt Rate 10 mL/min (>60); Sodium 127 mmol/L (137-145)
[2023-09-02 20:05] LABS: HEMOLYSIS 33 (0-50)
[2023-09-02] MEDS: INSULIN REGULAR 100 UNIT/ML 3 ML VIAL 7.2665 UNIT IV (20:07)
[2023-09-02 20:10] LABS: BUN Creatinine Ratio 23.9 (6-22)
[2023-09-02 20:11] LABS: Blood Urea Nitrogen 136 mg/dL (9-20)
[2023-09-02 20:12] LABS: Glucose 513 mg/dL (80-110)
[2023-09-02] MEDS: OXYCODONE IR 5 MG TABLET PO (20:49)
--- NOTE | 2023-09-02 21:15 | PC.NURSE ---
Pt's BS is 380, Maki RIVERA notified, per Maki RIVERA to not give bolus insulin via IV. Insulin drip still running at 10.89mL/hr.
[2023-09-02] MEDS: DEXTROSE 5%-0.45% NS 1,000 ML 108.9 ML IV (22:33)
[2023-09-02] MEDS: DEXTROSE 10 % IN WATER 1,000 ML 72.6 ML IV (23:27)
[2023-09-03] VITALS (32 sets, daily range): BP systolic 96–132; BP diastolic 49–85; PULSE 87–102; RESP 15–31; O2SAT 94–100
[2023-09-03 00:23] LABS: Calcium 9.1 mg/dL (8.4-10.2); Carbon Dioxide 12 mmol/L (22-32); Chloride 105 mmol/L (98-107); Estimated Glomerular Filt Rate 9 mL/min (>60); Glucose 105 mg/dL (80-110); HEMOLYSIS < 15 (0-50); Potassium 4.2 mmol/L (3.4-5.1); Sodium 131 mmol/L (137-145)
[2023-09-03 00:34] LABS: BUN Creatinine Ratio 22.9 (6-22)
[2023-09-03 00:36] LABS: Blood Urea Nitrogen 133 mg/dL (9-20)
--- NOTE | 2023-09-03 01:15 | PC.NURSE ---
Per Maki RIVERA to continue IVF at 145.2mL/hr.
--- NOTE | 2023-09-03 02:30 | PC.NURSE ---
Pt has Dx of new onset DKA, worsening renal failure and will need an ICU status for bed placement. Transfer for higher level of care. I called the following [facility] -> Spoke with Sina and he said that their ICU is over capacity and cannot waitlist at this time [facility] -> Spoke with Millie and she said that all of their ICU's are over capacity and cannot waitlist at this time but to call back after shift change to inquire about update [facility] -> Spoke with Alec and she said that their ICU is over capacity and cannot waitlist at this time but to call back at 0500 to inquire about update [facility] ->
[2023-09-03] MEDS: OXYCODONE IR 5 MG TABLET PO (02:35)
--- NOTE | 2023-09-03 02:48 | PC.NURSE ---
Addendum entered by Celine Ash CNA 09/03/23 06:00: After reaching out to [facility], pt is currently on a waitlist at [facility] as of 0300 as well as [facility] as of 0550 Original Note: Pt has Dx of new onset DKA, worsening renal failure and will need an ICU status for bed placement. Transfer for higher level of care. I called the following [facility] -> Spoke with Sina at 0140 and he said that their ICU is over capacity and cannot waitlist at this time [facility] -> Spoke with Millie at 0130 and she said that all of their ICU's are over capacity and cannot waitlist at this time but to call back after shift change to inquire about update [facility] -> Spoke with Alec at 0142 and she said that their ICU is over capacity and cannot waitlist at this time but to call back at 0500 to inquire about update [place] -> Spoke with Estefanía at 0147 and she said that their facility is on treat and transfer status only and cannot take any patients or waitlist them at this time [facility] -> Spoke with Yary at 0150 and she said that their ICU is over capacity and cannot waitlist at this time I then activated [facility] and called them at 0240 and spoke with Russell. He then explained that there are no beds in the state currently but he will call around to help find bed placement for the pt. Will call back with any updated. MARY Cote and MD Gambino notified
--- NOTE | 2023-09-03 03:35 | PC.NURSE ---
Per Maki RIVERA to continue IVF at 145.2mL/hr.
--- NOTE | 2023-09-03 04:11 | PC.NURSE ---
Per Maki RIVERA, decrease D10W fluids to 72.6mL/hr and to continue insulin drip at 1.453mL/hr.
[2023-09-03 04:29] LABS: Calcium 8.9 mg/dL (8.4-10.2); Carbon Dioxide 10 mmol/L (22-32); Chloride 101 mmol/L (98-107); Estimated Glomerular Filt Rate 10 mL/min (>60); Glucose 176 mg/dL (80-110); HEMOLYSIS < 15 (0-50); Potassium 4.3 mmol/L (3.4-5.1); Sodium 127 mmol/L (137-145)
[2023-09-03 04:38] LABS: BUN Creatinine Ratio 23.7 (6-22)
[2023-09-03 04:41] LABS: Blood Urea Nitrogen 132 mg/dL (9-20)
--- NOTE | 2023-09-03 05:20 | PC.NURSE ---
Per Maki RIVERA, continue to run D10W fluids at 72.6mL/hr and insulin drip at 1.453mL/hr.
[2023-09-03 05:41] LABS: pH VBG 7.22 (7.33-7.43)
--- NOTE | 2023-09-03 06:15 | PC.NURSE ---
Per Maki RIVERA, continue insulin drip running at 1.453mL/hr and change continuos fluids to D51/2NS running at 109mL/hr.
[2023-09-03] MEDS: DEXTROSE 5%-0.45% NS 1,000 ML 108.9 ML IV (06:27)
--- NOTE | 2023-09-03 08:15 | PC.NURSE ---
Pt's spouse concerned that patient is receiving IV sugar and insulin. Educated pt on the need to close the anion gap which requires IV insulin. Educated that we are not treating his hyperglycemia, but are treating his electrolyte imbalance. Spouse expresses understanding.
[2023-09-03 08:45] LABS: Base Excess VBG -13.2 mmol/L (0-4); PCO2 VBG 31.9 mmHg (45-50); PO2 VBG 34 mmHg (35-45); pH VBG 7.23 (7.33-7.43)
[2023-09-03 08:46] LABS: Fractionated Inspired Oxygen 21; HCO3 VBG 13 mmol/L (24-28); Oxygen Saturation VBG 56 % (70-75); Total CO2 VBG 13 mmol/L (24-29)
[2023-09-03 08:54] LABS: Uric Acid 4.6 mg/dL (3.5-8.5)
[2023-09-03 09:00] LABS: Ketones (Beta-Hydroxybutyrate) < 0.20 mmol/L (<0.27)
[2023-09-03] MEDS: ACETAMINOPHEN 325 MG TABLET 650 MG PO (09:04)
[2023-09-03 09:36] LABS: Calcium 8.9 mg/dL (8.4-10.2); Carbon Dioxide 12 mmol/L (22-32); Chloride 100 mmol/L (98-107); Estimated Glomerular Filt Rate 10 mL/min (>60); Glucose 132 mg/dL (80-110); HEMOLYSIS < 15 (0-50); Potassium 3.9 mmol/L (3.4-5.1); Sodium 127 mmol/L (137-145)
--- NOTE | 2023-09-03 09:39 | DI.RAD.S_ITS ---
PROCEDURE: XR CHEST 1V INDICATIONS: DKA new dx, eval for infecftion, CPR last month rib fxs TECHNIQUE: One view of the chest was acquired. COMPARISON: [facility], CR, XR CHEST 1V, 07/02/2023, 8:22. [facility], CR, XR CHEST 1V, 04/24/2022, 12:40. FINDINGS: Surgical changes and devices: None. Lungs and pleura: Lungs are clear. No pleural effusions or pneumothorax. Mediastinum: Mediastinal contours appear normal. Heart size is enlarged. Bones and chest wall: No suspicious bony lesions. Overlying soft tissues appear unremarkable. IMPRESSION: No acute cardiopulmonary abnormality is seen. Dictated by: Jemal Calderon M.D. on 09/03/2023 at 9:17 Approved by: Jemal Calderon M.D. on 09/03/2023 at 9:19
[2023-09-03 09:44] LABS: BUN Creatinine Ratio 23.5 (6-22)
[2023-09-03 09:46] LABS: Blood Urea Nitrogen 133 mg/dL (9-20)
[2023-09-03 10:02] LABS: Appearance Urine UA CLEAR; Bilirubin Urine UA NEGATIVE (NEGATIVE); Color Urine UA YELLOW; Glucose Urine UA NEGATIVE (Negative); Ketones Urine UA NEGATIVE (NEGATIVE); Leukocyte Esterase Urine UA NEGATIVE (NEGATIVE); Nitrite Urine UA NEGATIVE (Negative); Occult Blood Urine UA TRACE-INTACT (Negative); Protein Urine UA TRACE (Negative); Urobilinogen Urine UA 0.2 E.U./dL (0.2)
[2023-09-03 10:10] LABS: Urine Volume 10mL (spun)
[2023-09-03 10:12] LABS: Bacteria Urine None Seen; Culture Indicated Urine Cult Not Indicated; RBC Urine 0-1/HPF (0-5/HPF); Squamous Epithelial Cell Urine 0-1 /HPF (0-5/HPF); WBC Urine 0-1/HPF (0-5/HPF)
--- NOTE | 2023-09-03 11:15 | PC.NURSE ---
Pt's BG 109 at time of ambulance transport. Provider notified and no new orders. Insulin drip remains at 0.02units/kg/hr = 1.45mls/hr. Dextrose 5%-0.45% NS remains at 108.9mls/hr.
--- NOTE | 2023-09-03 11:50 | PC.NURSE ---
Rpt called to [facility] @ [phone] ext. [phone]. Kalyn HERNANDEZ took report.
--- NOTE | 2023-09-03 17:34 | PC.NURSE ---
Pt chart resent to [facility] after they called and requested at 1730. all paperwork was given to EMS transport to handoff to recieving faclity.
== END 2023-09-03 11:35 | disposition short-term general hospital (02) ==
PROVIDERS: Emergency Medicine; Emergency Provider Emergency Medicine; Family Provider Family Medicine; PCP Family Medicine
DX: E11.10 Type 2 diabetes mellitus with ketoacidosis without coma (principal); R00.0 Tachycardia, unspecified; N17.9 Acute kidney failure, unspecified; E11.22 Type 2 diabetes mellitus with diabetic chronic kidney disease; N18.9 Chronic kidney disease, unspecified; Z94.0 Kidney transplant status
CPT/HCPCS: 51798; 71045; 80048; 80053; 81001; 81003; 82009; 82805; 82962; 83690; 83735; 83986; 84100; 84550; 85025; 93005; 93971; 96365; 96366; 96368; 99284; 99291